=== PATIENT | female | born 1960 | race Caucasian/White ===

== ENCOUNTER 2016-06-04 19:52 | Inpatient (IN) | payer OTHER ==
[~2016-06-04] VITALS: Ht 160 cm; Wt 75.0 kg
[~2016-06-04 19:52] MED LIST: ALBU8HFA IH; ASPI325T PO; AZIT250T6 PO; BUPR100 PO; BUSP15 PO; DILT180C63 PO; DSS100 PO; ESTR-3 PO; GABA-531 PO; HYDR-309 PO; ISOS60TA4 PO; LORA10TA7 PO; LORA1TAB3 PO; METF500T4 PO; MONT10TA24 PO; OMEP20 PO; PRED10TA3 PO; SIMV-259 PO; ZIPR80CA2 PO
[2016-06-04 20:34] LABS: BASOPHILS % (AUTO) 0.8 % (0.0-2.0); EOSINOPHILS % (AUTO) 0 % (1.0-6.0); HEMATOCRIT 33.2 % (36-46); HEMOGLOBIN 10.7 g/dL (12.0-16.0); LYMPHOCYTES # (AUTO) 2.9 K/uL (1.0-4.8); LYMPHOCYTES % (AUTO) 18.3 % (22.0-44.0); MEAN CORPUSCULAR HGB CONC 32.2 G/dL (31.0-37.0); MEAN CORPUSCULAR VOLUME 81 fL (80-100); MONOCYTES # (AUTO) 0.7 K/uL (0.1-1.0); MONOCYTES % (AUTO) 4.6 % (2.0-9.0); NEUTROPHILS # (AUTO) 12.1 K/uL (1.8-7.7); NEUTROPHILS % (AUTO) 76.3 % (40.0-70.0); PLATELET COUNT (AUTO) 539 K/uL (150-450); RED CELL DISTRIBUTION WIDTH 19.5 % (11.5-14.5); WHITE BLOOD COUNT (AUTO) 15.8 K/uL (4.5-11.0)
[2016-06-04 20:47] LABS: ANION GAP 9 mmol/L (8-16); CALCIUM, TOTAL 9.4 mg/dL (8.8-10.5); CARBON DIOXIDE 30 mmol/L (22-29); CHLORIDE 93 mmol/L (98-107); CREATININE 0.71 mg/dL (0.60-1.30); GLOMERULAR FILTR. RATE CALC > 60 mL/min (>60); POTASSIUM 3.9 mmol/L (3.5-5.1); SODIUM SERUM 132 mmol/L (136-145); UREA NITROGEN, BLOOD 9 mg/dL (7-18)
[2016-06-04 20:48] LABS: RBC MORPHOLOGY COMMENT ABNORMAL RBC MORPH
[2016-06-04 20:54] LABS: ALANINE AMINOTRANSFERASE 21 U/L (12-78); ALBUMIN 3.1 g/dL (3.4-5.0); ASPARTATE AMINOTRANSFERASE 6 U/L (15-37); BILIRUBIN,TOTAL 0.1 mg/dL (0.1-1.0); CREATINE KINASE, TOTAL 20 U/L (26-192); TOTAL PROTEIN, SERUM 6.7 g/dL (6.4-8.2)
[2016-06-04 20:55] LABS: B-TYPE NATRIURETIC PEPTIDE 21 pg/mL (0-100)
[2016-06-04 22:00] LABS: ADD UA MICROSCOPIC NO; APPEARANCE,URINE CLEAR (CLEAR); GLUCOSE, URINE (UA) NEGATIVE (NEGATIVE); KETONES,URINE NEGATIVE (NEGATIVE); LEUKOCYTE ESTERASE ,URINE NEGATIVE (NEGATIVE); OCCULT BLOOD,URINE NEGATIVE (NEGATIVE); PROTEIN,URINE NEGATIVE (NEGATIVE)
[2016-06-04] MEDS ORDERED: ALBUTEROL SULFATE 2.5 MG/0.5 ML NEB SOLUTION NEB ONE (22:15)
[2016-06-04] MEDS ORDERED: IPRATROPIUM BROMIDE 0.5 MG/2.5 ML NEB SOLUTION NEB ONE (22:15)
[2016-06-04] MEDS ORDERED: ONDANSETRON HCL 4 MG/2 ML VIAL IM ONE (22:15)
[2016-06-04] MEDS ORDERED: PredniSONE 20 MG TABLET PO ONE (22:15)
[2016-06-04] MEDS ORDERED: MORPHINE SULFATE 4 MG/ML SYRINGE IM ONE (22:15)
[2016-06-04 22:20] LABS: AMYLASE 69 U/L (25-115)
[2016-06-04] MEDS ORDERED: BISACODYL 10 MG RECTAL RECTAL SUPPOSITORY PR PRN (23:15)
[2016-06-04] MEDS ORDERED: DEXTROSE 50%-WATER 25 GM/50 ML SYRINGE IVP PRN (23:15)
[2016-06-04] MEDS ORDERED: MAGNESIUM HYDROXIDE SUSPENSION 30 ML UDCUP PO PRN (23:15)
[2016-06-04] MEDS ORDERED: ALBUTEROL SULFATE 2.5 MG/0.5 ML NEB SOLUTION NEB PRN (23:15)
[2016-06-04] MEDS ORDERED: ACETAMINOPHEN 325 MG TABLET PO PRN (23:15)
[2016-06-04] MEDS ORDERED: ONDANSETRON HCL 4 MG/2 ML VIAL IVP PRN (23:15)
[2016-06-04] MEDS ORDERED: ASPI81 PO (23:22)
[2016-06-05] MEDS: MORPHINE SULFATE 2 MG/ML SYRINGE IVP PRN ×10 (00:25→23:56)
[2016-06-05] MEDS: PIPERACILLIN/TAZO 3.375 GM/D5W 50 ML IV SCH ×4 (01:24→20:09)
[2016-06-05] MEDS: MethylPREDNISolone SOD SUCC 125 MG/2 ML VIAL IVP SCH ×5 (01:24→23:55)
[2016-06-05] MEDS: HEPARIN SODIUM,PORCINE 5,000 UNITS/ML VIAL SQ SCH ×4 (01:40→23:56)
[2016-06-05] MEDS: IPRATROPIUM BROMIDE 0.5 MG/2.5 ML NEB SOLUTION NEB SCH ×4 (02:25→19:54)
[2016-06-05] MEDS: ALBUTEROL SULFATE 2.5 MG/0.5 ML NEB SOLUTION NEB SCH ×4 (02:25→19:54)
[2016-06-05] MEDS: ZOLPIDEM TARTRATE 10 MG TABLET PO PRN ×2 (02:56→22:06)
[2016-06-05 07:25] LABS: BASOPHILS % (AUTO) 1.3 % (0.0-2.0); EOSINOPHILS % (AUTO) 0 % (1.0-6.0); HEMATOCRIT 37.4 % (36-46); LYMPHOCYTES # (AUTO) 1.3 K/uL (1.0-4.8); MEAN CORPUSCULAR HEMOGLOBIN 25.9 pg (26.0-34.0); MEAN CORPUSCULAR VOLUME 81 fL (80-100); MONOCYTES % (AUTO) 0.1 % (2.0-9.0); NEUTROPHILS # (AUTO) 14.3 K/uL (1.8-7.7); PLATELET COUNT (AUTO) 599 K/uL (150-450); RED BLOOD CELL COUNT(AUTO) 4.61 MIL/uL (4.00-5.20); RED CELL DISTRIBUTION WIDTH 19.6 % (11.5-14.5); WHITE BLOOD COUNT (AUTO) 15.8 K/uL (4.5-11.0)
[2016-06-05 07:26] LABS: NEUTROPHILS % (AUTO) 90.6 % (40.0-70.0)
[2016-06-05 07:41] LABS: ALBUMIN 3.3 g/dL (3.4-5.0); BILIRUBIN,TOTAL 0.2 mg/dL (0.1-1.0); CALCIUM, TOTAL 9.1 mg/dL (8.8-10.5); CREATININE 0.97 mg/dL (0.60-1.30); POTASSIUM 4.5 mmol/L (3.5-5.1); TOTAL PROTEIN, SERUM 7.3 g/dL (6.4-8.2)
[2016-06-05 08:34] LABS: RBC MORPHOLOGY COMMENT ABNORMAL RBC MORPH
[2016-06-05] MEDS ORDERED: [UNRECOGNIZED DRUG - OTHER] PO SCH (09:00)
[2016-06-05] MEDS: DOCUSATE SODIUM 100 MG CAPSULE PO SCH ×2 (09:03→20:09)
[2016-06-05] MEDS: MetFORMIN HCL 500 MG TABLET PO SCH ×2 (09:04→17:44)
[2016-06-05] MEDS: ASPIRIN 81 MG CHEWABLE TABLET PO SCH (09:04)
[2016-06-05] MEDS: LORazepam 1 MG TABLET PO SCH ×3 (09:05→20:09)
[2016-06-05] MEDS: PANTOPRAZOLE SODIUM 40 MG DR TABLET PO SCH (09:05)
[2016-06-05] MEDS: INSULIN ASPART 100 UNITS/ML SQ PRN ×3 (09:10→21:14)
[2016-06-05 09:20] LABS: GLUCOSE COMMENT 1 Doctor Notified; GLUCOSE,POINT OF CARE 282 MG/DL (70-110)
[2016-06-05] MEDS: ISOSORBIDE MONONITRATE 60 MG ER TABLET PO SCH (10:03)
[2016-06-05] MEDS: DILTIAZEM HCL CD 180 MG ER CAPSULE PO SCH (10:03)
[2016-06-05] MEDS: ESTROGENS,CONJUGATED 0.625 MG TABLET PO SCH (10:03)
[2016-06-05] MEDS: ZIPRASIDONE HCL 80 MG CAPSULE PO SCH ×2 (10:04→17:44)
[2016-06-05] MEDS: BusPIRone HCL 15 MG TABLET PO SCH ×2 (10:04→20:09)
[2016-06-05] MEDS: LORATADINE 10 MG TABLET PO SCH (10:05)
[2016-06-05] MEDS: MONTELUKAST SODIUM 10 MG TABLET PO SCH (10:06)
[2016-06-05] MEDS: GABAPENTIN 300 MG CAPSULE PO SCH ×3 (10:06→20:09)
[2016-06-05] MEDS: BuPROPion HCL 100 MG TABLET PO SCH ×2 (10:07→21:07)
[2016-06-05] MEDS: SIMVASTATIN 10 MG TABLET PO SCH (10:08)
[2016-06-05 12:51] LABS: GLUCOSE,POINT OF CARE 180 MG/DL (70-110)
[2016-06-05 13:50] VITALS: BP 132/92
[2016-06-05 15:40] VITALS: BP 134/79
[2016-06-05] MEDS ORDERED: SODIUM CHLORIDE 0.9% 500 ML IV ONE (17:41)
[2016-06-05 19:57] VITALS: BP 150/79
[2016-06-05] MEDS: CALCIUM CARBONATE 500 MG CHEWABLE TABLET CHEW PRN (21:06)
[2016-06-05 23:37] VITALS: BP 138/79
[2016-06-06] VITALS (9 sets, daily range): BP systolic 126–150; BP diastolic 57–87
[2016-06-06] MEDS: PIPERACILLIN/TAZO 3.375 GM/D5W 50 ML IV SCH ×4 (01:38→18:07)
[2016-06-06 01:46] LABS: GLUCOSE COMMENT 1 Received Meds; GLUCOSE,POINT OF CARE 221 MG/DL (70-110)
[2016-06-06] MEDS: ALBUTEROL SULFATE 2.5 MG/0.5 ML NEB SOLUTION NEB SCH ×2 (03:34→08:06)
[2016-06-06] MEDS: IPRATROPIUM BROMIDE 0.5 MG/2.5 ML NEB SOLUTION NEB SCH ×4 (03:34→20:02)
[2016-06-06] MEDS: MORPHINE SULFATE 2 MG/ML SYRINGE IVP PRN ×5 (03:40→18:06)
[2016-06-06] MEDS: MethylPREDNISolone SOD SUCC 125 MG/2 ML VIAL IVP SCH ×3 (06:02→18:04)
[2016-06-06] MEDS: INSULIN ASPART 100 UNITS/ML SQ PRN ×4 (06:11→20:43)
[2016-06-06 06:40] LABS: BASOPHILS % (AUTO) 0.2 % (0.0-2.0); EOSINOPHILS % (AUTO) 0 % (1.0-6.0); HEMATOCRIT 33.3 % (36-46); HEMOGLOBIN 10.7 g/dL (12.0-16.0); LYMPHOCYTES # (AUTO) 1.2 K/uL (1.0-4.8); LYMPHOCYTES % (AUTO) 6.7 % (22.0-44.0); MEAN CORPUSCULAR HGB CONC 32.1 G/dL (31.0-37.0); MEAN CORPUSCULAR VOLUME 81 fL (80-100); MONOCYTES # (AUTO) 0.1 K/uL (0.1-1.0); MONOCYTES % (AUTO) 0.7 % (2.0-9.0); NEUTROPHILS # (AUTO) 16.4 K/uL (1.8-7.7); PLATELET COUNT (AUTO) 521 K/uL (150-450); RED BLOOD CELL COUNT(AUTO) 4.12 MIL/uL (4.00-5.20); RED CELL DISTRIBUTION WIDTH 19.5 % (11.5-14.5); WHITE BLOOD COUNT (AUTO) 17.7 K/uL (4.5-11.0)
[2016-06-06 06:56] LABS: NEUTROPHILS % (AUTO) 92.4 % (40.0-70.0)
[2016-06-06 07:07] LABS: ALANINE AMINOTRANSFERASE 19 U/L (12-78); ALBUMIN 2.9 g/dL (3.4-5.0); ANION GAP 11 mmol/L (8-16); ASPARTATE AMINOTRANSFERASE 7 U/L (15-37); BILIRUBIN,TOTAL 0.2 mg/dL (0.1-1.0); CALCIUM, TOTAL 8.9 mg/dL (8.8-10.5); CARBON DIOXIDE 27 mmol/L (22-29); CHLORIDE 96 mmol/L (98-107); CREATININE 0.79 mg/dL (0.60-1.30); GLOMERULAR FILTR. RATE CALC > 60 mL/min (>60); POTASSIUM 3.9 mmol/L (3.5-5.1); SODIUM SERUM 134 mmol/L (136-145); TOTAL PROTEIN, SERUM 6.5 g/dL (6.4-8.2); UREA NITROGEN, BLOOD 14 mg/dL (7-18)
[2016-06-06 07:48] LABS: RBC MORPHOLOGY COMMENT ABNORMAL RBC MORPH
[2016-06-06] MEDS: LORATADINE 10 MG TABLET PO SCH (08:33)
[2016-06-06] MEDS: DOCUSATE SODIUM 100 MG CAPSULE PO SCH ×2 (08:33→20:31)
[2016-06-06] MEDS: DILTIAZEM HCL CD 180 MG ER CAPSULE PO SCH (08:33)
[2016-06-06] MEDS: ZIPRASIDONE HCL 80 MG CAPSULE PO SCH ×2 (08:33→18:04)
[2016-06-06] MEDS: SIMVASTATIN 10 MG TABLET PO SCH (08:33)
[2016-06-06] MEDS: HEPARIN SODIUM,PORCINE 5,000 UNITS/ML VIAL SQ SCH ×2 (08:33→15:14)
[2016-06-06] MEDS: MONTELUKAST SODIUM 10 MG TABLET PO SCH (08:33)
[2016-06-06] MEDS: MetFORMIN HCL 500 MG TABLET PO SCH ×2 (08:33→18:04)
[2016-06-06] MEDS: PANTOPRAZOLE SODIUM 40 MG DR TABLET PO SCH (08:33)
[2016-06-06] MEDS: ISOSORBIDE MONONITRATE 60 MG ER TABLET PO SCH (08:33)
[2016-06-06] MEDS: GABAPENTIN 300 MG CAPSULE PO SCH ×3 (08:34→20:31)
[2016-06-06] MEDS: ASPIRIN 81 MG CHEWABLE TABLET PO SCH (08:34)
[2016-06-06] MEDS: LORazepam 1 MG TABLET PO SCH ×2 (08:34→15:14)
[2016-06-06] MEDS: BusPIRone HCL 15 MG TABLET PO SCH ×2 (08:34→20:31)
[2016-06-06] MEDS: BuPROPion HCL 100 MG TABLET PO SCH ×2 (08:35→21:15)
[2016-06-06] MEDS: ESTROGENS,CONJUGATED 0.625 MG TABLET PO SCH (09:12)
[2016-06-06] MEDS: OxyCODONE HCL/ACETAMINOPHEN 5-325 MG TABLET PO PRN ×2 (11:47→16:56)
[2016-06-06] MEDS ORDERED: LEVALBUTEROL HCL 0.63 MG/3 ML NEB SOLUTION NEB PRN (14:30)
[2016-06-06] MEDS: LEVALBUTEROL HCL 0.63 MG/3 ML NEB SOLUTION NEB SCH (20:01)
[2016-06-06 21:05] LABS: GLUCOSE COMMENT 1 Received Meds; GLUCOSE,POINT OF CARE 239 MG/DL (70-110)
[2016-06-06 21:06] LABS: GLUCOSE COMMENT 1 Received Meds; GLUCOSE,POINT OF CARE 244 MG/DL (70-110)
[2016-06-06] MEDS: CALCIUM CARBONATE 500 MG CHEWABLE TABLET CHEW PRN (22:27)
[2016-06-06] MEDS: BUDESONIDE 0.5 MG/2 ML NEB SOLUTION NEB SCH (23:28)
[2016-06-07] VITALS (7 sets, daily range): BP systolic 134–156; BP diastolic 79–91
[2016-06-07] MEDS: MethylPREDNISolone SOD SUCC 125 MG/2 ML VIAL IVP SCH ×5 (00:10→23:24)
[2016-06-07] MEDS: HEPARIN SODIUM,PORCINE 5,000 UNITS/ML VIAL SQ SCH ×4 (00:11→23:24)
[2016-06-07] MEDS: PIPERACILLIN/TAZO 3.375 GM/D5W 50 ML IV SCH ×4 (00:12→18:55)
[2016-06-07] MEDS: LORazepam 1 MG TABLET PO SCH ×4 (00:12→23:24)
[2016-06-07] MEDS: LEVALBUTEROL HCL 0.63 MG/3 ML NEB SOLUTION NEB SCH ×4 (03:08→19:52)
[2016-06-07] MEDS: IPRATROPIUM BROMIDE 0.5 MG/2.5 ML NEB SOLUTION NEB SCH ×4 (03:08→19:52)
[2016-06-07] MEDS: MORPHINE SULFATE 2 MG/ML SYRINGE IVP PRN ×4 (03:27→16:03)
[2016-06-07] MEDS: INSULIN ASPART 100 UNITS/ML SQ PRN ×4 (06:09→21:03)
[2016-06-07 06:44] LABS: BASOPHILS % (AUTO) 0.6 % (0.0-2.0); EOSINOPHILS % (AUTO) 0.1 % (1.0-6.0); HEMATOCRIT 32.2 % (36-46); HEMOGLOBIN 10.1 g/dL (12.0-16.0); LYMPHOCYTES % (AUTO) 5.9 % (22.0-44.0); MEAN CORPUSCULAR HEMOGLOBIN 25.5 pg (26.0-34.0); MEAN CORPUSCULAR HGB CONC 31.4 G/dL (31.0-37.0); MEAN CORPUSCULAR VOLUME 81 fL (80-100); MONOCYTES # (AUTO) 0.2 K/uL (0.1-1.0); MONOCYTES % (AUTO) 1.1 % (2.0-9.0); NEUTROPHILS # (AUTO) 16.2 K/uL (1.8-7.7); PLATELET COUNT (AUTO) 495 K/uL (150-450); RED BLOOD CELL COUNT(AUTO) 3.96 MIL/uL (4.00-5.20); RED CELL DISTRIBUTION WIDTH 18.5 % (11.5-14.5); WHITE BLOOD COUNT (AUTO) 17.5 K/uL (4.5-11.0)
[2016-06-07 06:54] LABS: NEUTROPHILS % (AUTO) 92.3 % (40.0-70.0)
[2016-06-07 07:23] LABS: ALANINE AMINOTRANSFERASE 20 U/L (12-78); ALBUMIN 2.9 g/dL (3.4-5.0); ANION GAP 12 mmol/L (8-16); ASPARTATE AMINOTRANSFERASE 10 U/L (15-37); BILIRUBIN,TOTAL 0.1 mg/dL (0.1-1.0); CALCIUM, TOTAL 8.9 mg/dL (8.8-10.5); CARBON DIOXIDE 25 mmol/L (22-29); CHLORIDE 95 mmol/L (98-107); CREATININE 0.84 mg/dL (0.60-1.30); GLOMERULAR FILTR. RATE CALC > 60 mL/min (>60); SODIUM SERUM 132 mmol/L (136-145); TOTAL PROTEIN, SERUM 6.2 g/dL (6.4-8.2); UREA NITROGEN, BLOOD 17 mg/dL (7-18)
[2016-06-07] MEDS: BUDESONIDE 0.5 MG/2 ML NEB SOLUTION NEB SCH ×2 (07:53→19:52)
[2016-06-07 08:37] LABS: GLUCOSE COMMENT 1 Received Meds; GLUCOSE,POINT OF CARE 303 MG/DL (70-110)
[2016-06-07 08:37] LABS: GLUCOSE COMMENT 1 Received Meds; GLUCOSE,POINT OF CARE 208 MG/DL (70-110)
[2016-06-07 08:38] LABS: GLUCOSE COMMENT 1 Received Meds; GLUCOSE,POINT OF CARE 216 MG/DL (70-110)
[2016-06-07 08:38] LABS: GLUCOSE COMMENT 1 Received Meds; GLUCOSE,POINT OF CARE 225 MG/DL (70-110)
[2016-06-07] MEDS: BuPROPion HCL 100 MG TABLET PO SCH ×2 (08:42→20:23)
[2016-06-07] MEDS: BusPIRone HCL 15 MG TABLET PO SCH ×2 (08:42→20:23)
[2016-06-07] MEDS: ZIPRASIDONE HCL 80 MG CAPSULE PO SCH ×2 (08:43→18:54)
[2016-06-07] MEDS: LORATADINE 10 MG TABLET PO SCH (08:43)
[2016-06-07] MEDS: ESTROGENS,CONJUGATED 0.625 MG TABLET PO SCH (08:43)
[2016-06-07] MEDS: DOCUSATE SODIUM 100 MG CAPSULE PO SCH ×2 (08:44→20:30)
[2016-06-07] MEDS: ISOSORBIDE MONONITRATE 60 MG ER TABLET PO SCH (08:44)
[2016-06-07] MEDS: SIMVASTATIN 10 MG TABLET PO SCH (08:44)
[2016-06-07] MEDS: ASPIRIN 81 MG CHEWABLE TABLET PO SCH (08:44)
[2016-06-07] MEDS: MONTELUKAST SODIUM 10 MG TABLET PO SCH (08:44)
[2016-06-07] MEDS: PANTOPRAZOLE SODIUM 40 MG DR TABLET PO SCH (08:44)
[2016-06-07] MEDS: DILTIAZEM HCL CD 180 MG ER CAPSULE PO SCH (08:45)
[2016-06-07] MEDS: MetFORMIN HCL 500 MG TABLET PO SCH ×2 (08:55→19:03)
[2016-06-07] MEDS: GABAPENTIN 300 MG CAPSULE PO SCH ×3 (08:55→20:23)
[2016-06-07 09:01] LABS: RBC MORPHOLOGY COMMENT ABNORMAL RBC MORPH
[2016-06-07] MEDS: OxyCODONE HCL/ACETAMINOPHEN 5-325 MG TABLET PO PRN ×2 (10:27→17:50)
[2016-06-07] MEDS: CARVEDILOL 3.125 MG TABLET PO SCH ×2 (15:35→20:23)
[2016-06-07] MEDS: ZOLPIDEM TARTRATE 10 MG TABLET PO PRN (20:27)
[2016-06-08] VITALS (8 sets, daily range): BP systolic 121–157; BP diastolic 78–98
[2016-06-08] MEDS: PIPERACILLIN/TAZO 3.375 GM/D5W 50 ML IV SCH ×5 (00:33→23:57)
[2016-06-08] MEDS: OxyCODONE HCL/ACETAMINOPHEN 5-325 MG TABLET PO PRN ×4 (02:39→20:33)
[2016-06-08] MEDS: IPRATROPIUM BROMIDE 0.5 MG/2.5 ML NEB SOLUTION NEB SCH ×4 (02:45→20:33)
[2016-06-08] MEDS: LEVALBUTEROL HCL 0.63 MG/3 ML NEB SOLUTION NEB SCH ×4 (02:45→20:33)
[2016-06-08] MEDS: MethylPREDNISolone SOD SUCC 125 MG/2 ML VIAL IVP SCH ×4 (05:46→23:56)
[2016-06-08] MEDS: MORPHINE SULFATE 2 MG/ML SYRINGE IVP PRN ×4 (05:46→23:56)
[2016-06-08 05:47] LABS: BASOPHILS % (AUTO) 0.2 % (0.0-2.0); EOSINOPHILS % (AUTO) 0 % (1.0-6.0); HEMATOCRIT 31.3 % (36-46); LYMPHOCYTES # (AUTO) 1.1 K/uL (1.0-4.8); LYMPHOCYTES % (AUTO) 7.2 % (22.0-44.0); MEAN CORPUSCULAR HEMOGLOBIN 25.8 pg (26.0-34.0); MEAN CORPUSCULAR VOLUME 81 fL (80-100); MONOCYTES # (AUTO) 0.4 K/uL (0.1-1.0); MONOCYTES % (AUTO) 2.5 % (2.0-9.0); NEUTROPHILS # (AUTO) 13.9 K/uL (1.8-7.7); PLATELET COUNT (AUTO) 475 K/uL (150-450); RED BLOOD CELL COUNT(AUTO) 3.88 MIL/uL (4.00-5.20); RED CELL DISTRIBUTION WIDTH 18.8 % (11.5-14.5); WHITE BLOOD COUNT (AUTO) 15.4 K/uL (4.5-11.0)
[2016-06-08] MEDS: INSULIN ASPART 100 UNITS/ML SQ PRN ×2 (05:53→18:04)
[2016-06-08 06:02] LABS: NEUTROPHILS % (AUTO) 90.1 % (40.0-70.0)
[2016-06-08 06:19] LABS: ALANINE AMINOTRANSFERASE 20 U/L (12-78); ALBUMIN 2.8 g/dL (3.4-5.0); ANION GAP 12 mmol/L (8-16); ASPARTATE AMINOTRANSFERASE 10 U/L (15-37); BILIRUBIN,TOTAL 0.2 mg/dL (0.1-1.0); CALCIUM, TOTAL 8.2 mg/dL (8.8-10.5); CARBON DIOXIDE 24 mmol/L (22-29); CHLORIDE 95 mmol/L (98-107); CREATININE 0.94 mg/dL (0.60-1.30); GLOMERULAR FILTR. RATE CALC > 60 mL/min (>60); POTASSIUM 3.6 mmol/L (3.5-5.1); SODIUM SERUM 131 mmol/L (136-145); TOTAL PROTEIN, SERUM 5.8 g/dL (6.4-8.2); UREA NITROGEN, BLOOD 24 mg/dL (7-18)
[2016-06-08 07:25] LABS: RBC MORPHOLOGY COMMENT ABNORMAL RBC MORPH
[2016-06-08] MEDS ORDERED: 0.9% SODIUM CHLORIDE 5 ML NEB SOLUTION NEB ONE (07:48)
[2016-06-08] MEDS: HEPARIN SODIUM,PORCINE 5,000 UNITS/ML VIAL SQ SCH ×3 (07:53→23:57)
[2016-06-08] MEDS: LORazepam 1 MG TABLET PO SCH ×3 (08:10→23:56)
[2016-06-08] MEDS: MONTELUKAST SODIUM 10 MG TABLET PO SCH (08:10)
[2016-06-08] MEDS: CARVEDILOL 3.125 MG TABLET PO SCH ×2 (08:10→20:32)
[2016-06-08] MEDS: PANTOPRAZOLE SODIUM 40 MG DR TABLET PO SCH (08:10)
[2016-06-08] MEDS: MetFORMIN HCL 500 MG TABLET PO SCH ×2 (08:10→17:52)
[2016-06-08] MEDS: ASPIRIN 81 MG CHEWABLE TABLET PO SCH (08:10)
[2016-06-08] MEDS: BuPROPion HCL 100 MG TABLET PO SCH ×2 (08:11→20:32)
[2016-06-08] MEDS: ESTROGENS,CONJUGATED 0.625 MG TABLET PO SCH (08:11)
[2016-06-08] MEDS: LORATADINE 10 MG TABLET PO SCH (08:11)
[2016-06-08] MEDS: BusPIRone HCL 15 MG TABLET PO SCH ×2 (08:11→20:32)
[2016-06-08] MEDS: ZIPRASIDONE HCL 80 MG CAPSULE PO SCH ×2 (08:12→17:52)
[2016-06-08] MEDS: BUDESONIDE 0.5 MG/2 ML NEB SOLUTION NEB SCH ×2 (09:04→20:45)
[2016-06-08] MEDS ORDERED: SODIUM CHLORIDE 0.9% 250 ML IV ONE (09:38)
[2016-06-08] MEDS: DOCUSATE SODIUM 100 MG CAPSULE PO SCH ×2 (09:40→20:32)
[2016-06-08] MEDS: ISOSORBIDE MONONITRATE 60 MG ER TABLET PO SCH (09:40)
[2016-06-08] MEDS: GABAPENTIN 300 MG CAPSULE PO SCH ×3 (09:40→20:32)
[2016-06-08] MEDS: SIMVASTATIN 10 MG TABLET PO SCH (09:40)
[2016-06-08] MEDS: DILTIAZEM HCL CD 180 MG ER CAPSULE PO SCH (09:40)
[2016-06-08 17:32] LABS: GLUCOSE COMMENT 1 Received Meds; GLUCOSE,POINT OF CARE 199 MG/DL (70-110)
[2016-06-08 17:36] LABS: GLUCOSE COMMENT 1 Received Meds; GLUCOSE,POINT OF CARE 247 MG/DL (70-110)
[2016-06-08] MEDS: ZOLPIDEM TARTRATE 10 MG TABLET PO PRN (20:32)
[2016-06-09 00:36] VITALS: BP 138/88
[2016-06-09] MEDS: OxyCODONE HCL/ACETAMINOPHEN 5-325 MG TABLET PO PRN ×2 (01:54→13:55)
[2016-06-09 02:11] LABS: GLUCOSE,POINT OF CARE 127 MG/DL (70-110)
[2016-06-09 02:11] LABS: GLUCOSE COMMENT 1 Received Meds; GLUCOSE,POINT OF CARE 208 MG/DL (70-110)
[2016-06-09 02:11] LABS: GLUCOSE,POINT OF CARE 138 MG/DL (70-110)
[2016-06-09 02:11] LABS: GLUCOSE COMMENT 1 Received Meds; GLUCOSE,POINT OF CARE 228 MG/DL (70-110)
[2016-06-09 02:11] LABS: GLUCOSE COMMENT 1 Received Meds; GLUCOSE,POINT OF CARE 225 MG/DL (70-110)
[2016-06-09] MEDS: IPRATROPIUM BROMIDE 0.5 MG/2.5 ML NEB SOLUTION NEB SCH ×4 (02:12→19:23)
[2016-06-09] MEDS: LEVALBUTEROL HCL 0.63 MG/3 ML NEB SOLUTION NEB SCH ×4 (02:12→19:23)
[2016-06-09 04:51] VITALS: BP 155/85
[2016-06-09] MEDS: MORPHINE SULFATE 2 MG/ML SYRINGE IVP PRN ×4 (05:32→23:05)
[2016-06-09] MEDS: MethylPREDNISolone SOD SUCC 125 MG/2 ML VIAL IVP SCH ×2 (05:32→11:41)
[2016-06-09] MEDS: PIPERACILLIN/TAZO 3.375 GM/D5W 50 ML IV SCH (06:19)
[2016-06-09] MEDS: INSULIN ASPART 100 UNITS/ML SQ PRN ×4 (06:25→20:47)
[2016-06-09 06:41] LABS: BASOPHILS # (AUTO) 0.07 K/uL (0.00-0.20); BASOPHILS % (AUTO) 0.5 % (0.0-2.0); EOSINOPHILS % (AUTO) 0 % (1.0-6.0); HEMOGLOBIN 10.4 g/dL (12.0-16.0); LYMPHOCYTES # (AUTO) 1.2 K/uL (1.0-4.8); LYMPHOCYTES % (AUTO) 8.7 % (22.0-44.0); MEAN CORPUSCULAR HEMOGLOBIN 25.7 pg (26.0-34.0); MEAN CORPUSCULAR HGB CONC 32.5 G/dL (31.0-37.0); MEAN CORPUSCULAR VOLUME 79 fL (80-100); MONOCYTES # (AUTO) 0.2 K/uL (0.1-1.0); MONOCYTES % (AUTO) 1.7 % (2.0-9.0); NEUTROPHILS # (AUTO) 12.6 K/uL (1.8-7.7); PLATELET COUNT (AUTO) 498 K/uL (150-450); RED BLOOD CELL COUNT(AUTO) 4.05 MIL/uL (4.00-5.20); RED CELL DISTRIBUTION WIDTH 19.1 % (11.5-14.5); WHITE BLOOD COUNT (AUTO) 14.1 K/uL (4.5-11.0)
[2016-06-09 06:46] LABS: GLUCOSE COMMENT 1 Received Meds; GLUCOSE,POINT OF CARE 212 MG/DL (70-110)
[2016-06-09 06:55] LABS: NEUTROPHILS % (AUTO) 89.2 % (40.0-70.0)
[2016-06-09 07:00] LABS: ALANINE AMINOTRANSFERASE 22 U/L (12-78); ALBUMIN 2.9 g/dL (3.4-5.0); ANION GAP 10 mmol/L (8-16); ASPARTATE AMINOTRANSFERASE 11 U/L (15-37); BILIRUBIN,TOTAL 0.2 mg/dL (0.1-1.0); CALCIUM, TOTAL 8.2 mg/dL (8.8-10.5); CARBON DIOXIDE 28 mmol/L (22-29); CHLORIDE 93 mmol/L (98-107); CREATININE 0.83 mg/dL (0.60-1.30); GLOMERULAR FILTR. RATE CALC > 60 mL/min (>60); POTASSIUM 3.3 mmol/L (3.5-5.1); SODIUM SERUM 131 mmol/L (136-145); UREA NITROGEN, BLOOD 20 mg/dL (7-18)
[2016-06-09] MEDS: BUDESONIDE 0.5 MG/2 ML NEB SOLUTION NEB SCH ×2 (07:43→19:23)
[2016-06-09 07:51] VITALS: BP 152/89
[2016-06-09] MEDS: ZIPRASIDONE HCL 80 MG CAPSULE PO SCH ×2 (08:20→17:42)
[2016-06-09] MEDS: GABAPENTIN 300 MG CAPSULE PO SCH ×3 (08:20→20:23)
[2016-06-09] MEDS: ASPIRIN 81 MG CHEWABLE TABLET PO SCH (08:20)
[2016-06-09] MEDS: LORATADINE 10 MG TABLET PO SCH (08:20)
[2016-06-09] MEDS: SIMVASTATIN 10 MG TABLET PO SCH (08:20)
[2016-06-09] MEDS: ISOSORBIDE MONONITRATE 60 MG ER TABLET PO SCH (08:20)
[2016-06-09] MEDS: DILTIAZEM HCL CD 180 MG ER CAPSULE PO SCH (08:20)
[2016-06-09] MEDS: ESTROGENS,CONJUGATED 0.625 MG TABLET PO SCH (08:20)
[2016-06-09] MEDS: DOCUSATE SODIUM 100 MG CAPSULE PO SCH ×2 (08:20→20:24)
[2016-06-09] MEDS: BuPROPion HCL 100 MG TABLET PO SCH ×2 (08:20→20:24)
[2016-06-09] MEDS: HEPARIN SODIUM,PORCINE 5,000 UNITS/ML VIAL SQ SCH ×3 (08:21→23:05)
[2016-06-09] MEDS: PANTOPRAZOLE SODIUM 40 MG DR TABLET PO SCH (08:21)
[2016-06-09] MEDS: CARVEDILOL 3.125 MG TABLET PO SCH ×2 (08:21→20:24)
[2016-06-09] MEDS: MONTELUKAST SODIUM 10 MG TABLET PO SCH (08:21)
[2016-06-09] MEDS: LORazepam 1 MG TABLET PO SCH ×3 (08:21→23:04)
[2016-06-09] MEDS: MetFORMIN HCL 500 MG TABLET PO SCH ×2 (08:21→17:41)
[2016-06-09] MEDS: BusPIRone HCL 15 MG TABLET PO SCH ×2 (08:27→20:24)
[2016-06-09] MEDS ORDERED: POTASSIUM CHL 10 MEQ/WATER 50 ML IV PRN (10:45)
[2016-06-09] MEDS ORDERED: POTASSIUM CHLORIDE 20 MEQ ER TABLET PO PRN (10:45)
[2016-06-09] MEDS ORDERED: *CLINICAL-LEVOFLOXACIN IVPB DOSING CLINICAL ONE ×2 (11:00)
[2016-06-09 11:06] LABS: BAND NEUTROPHILS % (MANUAL) 18 % (1-5); LYMPHOCYTES % (MANUAL) 14 % (22-44); TOTAL CELLS COUNTED 100
[2016-06-09 11:07] LABS: RBC MORPHOLOGY COMMENT ABNORMAL RBC MORPH
[2016-06-09 11:33] VITALS: BP 143/83
[2016-06-09] MEDS: CALCIUM CARBONATE 500 MG CHEWABLE TABLET CHEW PRN (11:47)
[2016-06-09] MEDS: LEVOFLOXACIN 500 MG/D5% WATER 100 ML IV SCH (12:35)
[2016-06-09 15:06] LABS: GLUCOSE COMMENT 1 Received Meds; GLUCOSE,POINT OF CARE 205 MG/DL (70-110)
[2016-06-09 16:22] VITALS: BP 147/86
[2016-06-09] MEDS: MethylPREDNISolone SOD SUCC 40 MG/ML VIAL IVP SCH ×2 (17:41→23:05)
[2016-06-09 19:11] LABS: GLUCOSE COMMENT 1 Received Meds; GLUCOSE,POINT OF CARE 164 MG/DL (70-110)
[2016-06-09 19:25] VITALS: BP 150/84
[2016-06-09] MEDS: ZOLPIDEM TARTRATE 10 MG TABLET PO PRN (20:23)
[2016-06-09 20:36] LABS: GLUCOSE COMMENT 1 Received Meds; GLUCOSE,POINT OF CARE 177 MG/DL (70-110)
[2016-06-10 00:10] VITALS: BP 148/78
[2016-06-10] MEDS: IPRATROPIUM BROMIDE 0.5 MG/2.5 ML NEB SOLUTION NEB SCH ×3 (03:36→14:58)
[2016-06-10] MEDS: LEVALBUTEROL HCL 0.63 MG/3 ML NEB SOLUTION NEB SCH ×3 (03:36→14:58)
[2016-06-10] MEDS: MORPHINE SULFATE 2 MG/ML SYRINGE IVP PRN ×3 (04:58→16:45)
[2016-06-10] MEDS: MethylPREDNISolone SOD SUCC 40 MG/ML VIAL IVP SCH (05:05)
[2016-06-10 05:52] VITALS: BP 126/78
[2016-06-10] MEDS: INSULIN ASPART 100 UNITS/ML SQ PRN ×3 (06:21→17:40)
[2016-06-10] MEDS: OxyCODONE HCL/ACETAMINOPHEN 5-325 MG TABLET PO PRN (07:05)
[2016-06-10 07:31] VITALS: BP 152/91
[2016-06-10] MEDS ORDERED: PredniSONE 20 MG TABLET PO SCH (09:00)
[2016-06-10] MEDS: HEPARIN SODIUM,PORCINE 5,000 UNITS/ML VIAL SQ SCH ×2 (09:11→16:53)
[2016-06-10] MEDS: BUDESONIDE 0.5 MG/2 ML NEB SOLUTION NEB SCH (09:11)
[2016-06-10] MEDS: BusPIRone HCL 15 MG TABLET PO SCH (09:12)
[2016-06-10] MEDS: ASPIRIN 81 MG CHEWABLE TABLET PO SCH (09:12)
[2016-06-10] MEDS: DOCUSATE SODIUM 100 MG CAPSULE PO SCH (09:13)
[2016-06-10] MEDS: DILTIAZEM HCL CD 180 MG ER CAPSULE PO SCH (09:13)
[2016-06-10] MEDS: LORATADINE 10 MG TABLET PO SCH (09:13)
[2016-06-10] MEDS: CARVEDILOL 3.125 MG TABLET PO SCH (09:14)
[2016-06-10] MEDS: ISOSORBIDE MONONITRATE 60 MG ER TABLET PO SCH (09:15)
[2016-06-10] MEDS: GABAPENTIN 300 MG CAPSULE PO SCH ×2 (09:15→16:53)
[2016-06-10] MEDS: BuPROPion HCL 100 MG TABLET PO SCH (09:16)
[2016-06-10] MEDS: PANTOPRAZOLE SODIUM 40 MG DR TABLET PO SCH (09:16)
[2016-06-10] MEDS: ESTROGENS,CONJUGATED 0.625 MG TABLET PO SCH (09:16)
[2016-06-10] MEDS: LORazepam 1 MG TABLET PO SCH ×2 (09:17→16:53)
[2016-06-10] MEDS: MetFORMIN HCL 500 MG TABLET PO SCH ×2 (09:54→18:06)
[2016-06-10] MEDS: SIMVASTATIN 10 MG TABLET PO SCH (09:56)
[2016-06-10] MEDS: MONTELUKAST SODIUM 10 MG TABLET PO SCH (09:56)
[2016-06-10] MEDS: ZIPRASIDONE HCL 80 MG CAPSULE PO SCH ×2 (10:22→17:42)
[2016-06-10] MEDS: LEVOFLOXACIN 500 MG/D5% WATER 100 ML IV SCH (11:13)
[2016-06-10 11:16] VITALS: BP 138/81
[2016-06-10 11:21] LABS: GLUCOSE COMMENT 1 Received Meds; GLUCOSE,POINT OF CARE 284 MG/DL (70-110)
[2016-06-10 16:16] VITALS: BP 143/80
[2016-06-10 16:30] LABS: GLUCOSE,POINT OF CARE 265 MG/DL (70-110)
[2016-06-10 18:26] LABS: GLUCOSE,POINT OF CARE 176 MG/DL (70-110)
== END 2016-06-10 18:30 | DRG 720 ==
LOC: EMS 19:54 → 5S 06-05 11:55
PROVIDERS: ADMIT Hospitalist; ATTEND Hospitalist
DX: A41.9 Sepsis, unspecified organism (principal); J96.01 Acute respiratory failure with hypoxia; J18.9 Pneumonia, unspecified organism; J44.1 Chronic obstructive pulmonary disease with (acute) exacerbation; E44.1 Mild protein-calorie malnutrition; J44.0 Chronic obstructive pulmonary disease with (acute) lower respiratory infection; D64.9 Anemia, unspecified; I25.10 Atherosclerotic heart disease of native coronary artery without angina pectoris; I10 Essential (primary) hypertension
CPT/HCPCS: 71250; 82962; 84132; 85007; 87040; 93005; 93306; 94640; 96372; 97110; 97116; 97161; 99285; 99406; J1644; J1815; J1956; J2270; J2405; J2543; J2920; J2930; J7040; J7050

== ENCOUNTER 2016-09-25 12:25 | Inpatient (IN) | payer OTHER ==
[~2016-09-25] VITALS: Ht 160 cm; Wt 78.2 kg
[~2016-09-25 12:25] MED LIST changes: -ASPI325T PO; +ASPI81 PO; -AZIT250T6 PO; -PRED10TA3 PO
[2016-09-25 12:37] LABS: GLUCOSE,POINT OF CARE 238 MG/DL (70-110)
[2016-09-25 13:42] LABS: EOSINOPHILS % (AUTO) 0.6 % (1.0-6.0); HEMATOCRIT 32.9 % (36-46); HEMOGLOBIN 10.1 g/dL (12.0-16.0); LYMPHOCYTES # (AUTO) 0.8 K/uL (1.0-4.8); LYMPHOCYTES % (AUTO) 3.5 % (22.0-44.0); MEAN CORPUSCULAR HEMOGLOBIN 24.2 pg (26.0-34.0); MEAN CORPUSCULAR HGB CONC 30.6 G/dL (31.0-37.0); MEAN CORPUSCULAR VOLUME 79 fL (80-100); MONOCYTES # (AUTO) 0.4 K/uL (0.1-1.0); MONOCYTES % (AUTO) 1.6 % (2.0-9.0); NEUTROPHILS # (AUTO) 22.3 K/uL (1.8-7.7); NEUTROPHILS % (AUTO) 94.3 % (40.0-70.0); PLATELET COUNT (AUTO) 364 K/uL (150-450); RED BLOOD CELL COUNT(AUTO) 4.16 MIL/uL (4.00-5.20); RED CELL DISTRIBUTION WIDTH 25.5 % (11.5-14.5); WHITE BLOOD COUNT (AUTO) 23.7 K/uL (4.5-11.0)
[2016-09-25 13:50] LABS: ANION GAP 11 mmol/L (8-16); CALCIUM, TOTAL 8.6 mg/dL (8.8-10.5); CARBON DIOXIDE 25 mmol/L (22-29); CHLORIDE 98 mmol/L (98-107); CREATININE 0.94 mg/dL (0.60-1.30); GLOMERULAR FILTR. RATE CALC > 60 mL/min (>60); POTASSIUM 4.3 mmol/L (3.5-5.1); SODIUM SERUM 134 mmol/L (136-145); UREA NITROGEN, BLOOD 17 mg/dL (7-18)
[2016-09-25 13:52] LABS: INR 0.9 (0.9-1.1); PROTHROMBIN TIME 9.5 SEC (9.4-11.6)
[2016-09-25 13:57] LABS: RBC MORPHOLOGY COMMENT ABNORMAL RBC MORPH
[2016-09-25 14:04] LABS: B-TYPE NATRIURETIC PEPTIDE 15 pg/mL (0-100)
[2016-09-25 14:14] LABS: ADD UA MICROSCOPIC YES; APPEARANCE,URINE CLOUDY (CLEAR); GLUCOSE, URINE (UA) 100 mg/dL (NEGATIVE); KETONES,URINE NEGATIVE (NEGATIVE); LEUKOCYTE ESTERASE ,URINE SMALL (NEGATIVE); OCCULT BLOOD,URINE NEGATIVE (NEGATIVE); PROTEIN,URINE NEGATIVE (NEGATIVE)
[2016-09-25 14:23] LABS: ALANINE AMINOTRANSFERASE 49 U/L (12-78); ASPARTATE AMINOTRANSFERASE 14 U/L (15-37); BILIRUBIN,TOTAL 0.3 mg/dL (0.1-1.0); CREATINE KINASE MB 2.6 ng/mL (0-5); CREATINE KINASE, TOTAL 103 U/L (26-192); TOTAL PROTEIN, SERUM 5.9 g/dL (6.4-8.2)
[2016-09-25 14:24] LABS: RBC,URINE 0-2 /HPF (0-2); SQUAMOUS EPITHELIAL CELL,UR Moderate /LPF (None Seen)
[2016-09-25] MEDS ORDERED: ONDANSETRON HCL 4 MG/2 ML VIAL IVP ONE (14:30)
[2016-09-25] MEDS ORDERED: ACETAMINOPHEN 325 MG TABLET PO PRN (14:30)
[2016-09-25] MEDS ORDERED: MAGNESIUM HYDROXIDE SUSPENSION 30 ML UDCUP PO PRN (14:30)
[2016-09-25] MEDS ORDERED: MORPHINE SULFATE 4 MG/ML SYRINGE IVP ONE (14:30)
[2016-09-25] MEDS ORDERED: DEXTROSE 50%-WATER 25 GM/50 ML SYRINGE IVP PRN (14:30)
[2016-09-25] MEDS: AZITHROMYCIN 500 MG/NS 250 ML IV SCH (15:29)
[2016-09-25] MEDS: FUROSEMIDE 40 MG/4 ML VIAL IVP SCH ×2 (15:29→20:48)
[2016-09-25] MEDS: CefTRIAXone 1 GM/DEXTROSE 50 ML IV SCH (15:29)
[2016-09-25] MEDS: ASPIRIN 81 MG CHEWABLE TABLET PO SCH (15:30)
[2016-09-25] MEDS: HEPARIN SODIUM,PORCINE 5,000 UNITS/ML VIAL SQ SCH (15:53)
[2016-09-25] MEDS: OxyCODONE HCL/ACETAMINOPHEN 5-325 MG TABLET PO PRN ×2 (16:32→22:16)
[2016-09-25] MEDS: MORPHINE SULFATE 2 MG/ML SYRINGE IVP PRN (20:03)
[2016-09-25] MEDS: DOCUSATE SODIUM 100 MG CAPSULE PO SCH (20:48)
[2016-09-25 21:02] VITALS: BP 135/69
[2016-09-25] MEDS: INSULIN ASPART 100 UNITS/ML SQ PRN (22:16)
[2016-09-25 23:20] VITALS: BP 120/64
[2016-09-26] MEDS: MORPHINE SULFATE 2 MG/ML SYRINGE IVP PRN ×6 (01:08→23:08)
[2016-09-26] MEDS: HEPARIN SODIUM,PORCINE 5,000 UNITS/ML VIAL SQ SCH ×3 (01:35→16:23)
[2016-09-26 04:33] VITALS: BP 139/77
[2016-09-26 05:44] LABS: ANION GAP 5 mmol/L (8-16); CALCIUM, TOTAL 8.1 mg/dL (8.8-10.5); CARBON DIOXIDE 31 mmol/L (22-29); CHLORIDE 92 mmol/L (98-107); CREATININE 0.93 mg/dL (0.60-1.30); GLOMERULAR FILTR. RATE CALC > 60 mL/min (>60); POTASSIUM 3.9 mmol/L (3.5-5.1); SODIUM SERUM 128 mmol/L (136-145); UREA NITROGEN, BLOOD 19 mg/dL (7-18)
[2016-09-26] MEDS: IPRATROPIUM BROMIDE 0.5 MG/2.5 ML NEB SOLUTION NEB PRN ×2 (07:05→14:20)
[2016-09-26] MEDS: ALBUTEROL SULFATE 2.5 MG/0.5 ML NEB SOLUTION NEB PRN ×2 (07:05→14:20)
[2016-09-26 07:28] LABS: EOSINOPHILS % (AUTO) 0.5 % (1.0-6.0); HEMATOCRIT 31.6 % (36-46); HEMOGLOBIN 9.6 g/dL (12.0-16.0); LYMPHOCYTES # (AUTO) 2.4 K/uL (1.0-4.8); LYMPHOCYTES % (AUTO) 15.5 % (22.0-44.0); MEAN CORPUSCULAR HEMOGLOBIN 24.2 pg (26.0-34.0); MEAN CORPUSCULAR HGB CONC 30.4 G/dL (31.0-37.0); MEAN CORPUSCULAR VOLUME 79 fL (80-100); MONOCYTES # (AUTO) 0.5 K/uL (0.1-1.0); MONOCYTES % (AUTO) 3.2 % (2.0-9.0); NEUTROPHILS # (AUTO) 12.6 K/uL (1.8-7.7); NEUTROPHILS % (AUTO) 79.8 % (40.0-70.0); PLATELET COUNT (AUTO) 334 K/uL (150-450); RED BLOOD CELL COUNT(AUTO) 3.97 MIL/uL (4.00-5.20); RED CELL DISTRIBUTION WIDTH 26.3 % (11.5-14.5); WHITE BLOOD COUNT (AUTO) 15.7 K/uL (4.5-11.0)
[2016-09-26 07:59] VITALS: BP 135/82
[2016-09-26] MEDS: ASPIRIN 81 MG CHEWABLE TABLET PO SCH (08:11)
[2016-09-26] MEDS: FUROSEMIDE 40 MG/4 ML VIAL IVP SCH ×2 (08:11→20:22)
[2016-09-26] MEDS: DOCUSATE SODIUM 100 MG CAPSULE PO SCH ×2 (08:11→20:22)
[2016-09-26 08:47] LABS: RBC MORPHOLOGY COMMENT DIMORPHIC RBC
[2016-09-26 11:05] VITALS: BP 140/77
[2016-09-26] MEDS: LORazepam 1 MG TABLET PO PRN (11:38)
[2016-09-26] MEDS: BuPROPion HCL 100 MG TABLET PO SCH ×2 (13:26→20:22)
[2016-09-26 15:05] VITALS: BP 136/76
[2016-09-26] MEDS ORDERED: SODIUM CHLORIDE 0.9% 100 ML ONE (15:29)
[2016-09-26] MEDS: CefTRIAXone 1 GM/DEXTROSE 50 ML IV SCH (15:38)
[2016-09-26] MEDS ORDERED: ONDANSETRON HCL 4 MG/2 ML VIAL IVP PRN (16:15)
[2016-09-26] MEDS: AZITHROMYCIN 500 MG/NS 250 ML IV SCH (16:24)
[2016-09-26] MEDS: CALCIUM CARBONATE 500 MG CHEWABLE TABLET CHEW PRN (17:30)
[2016-09-26] MEDS: ZIPRASIDONE HCL 80 MG CAPSULE PO SCH (17:30)
[2016-09-26 19:24] VITALS: BP 139/78
[2016-09-26 19:27] LABS: GLUCOSE COMMENT 1 Received Meds; GLUCOSE,POINT OF CARE 182 MG/DL (70-110)
[2016-09-26 23:36] VITALS: BP 135/77
[2016-09-27] MEDS: ALBUTEROL SULFATE 2.5 MG/0.5 ML NEB SOLUTION NEB PRN ×2 (02:35→14:51)
[2016-09-27] MEDS: IPRATROPIUM BROMIDE 0.5 MG/2.5 ML NEB SOLUTION NEB PRN ×2 (02:35→14:51)
[2016-09-27] MEDS: MORPHINE SULFATE 2 MG/ML SYRINGE IVP PRN ×5 (03:15→22:46)
[2016-09-27 04:52] VITALS: BP 124/60
[2016-09-27] MEDS: LORazepam 1 MG TABLET PO PRN ×2 (05:41→16:03)
[2016-09-27 05:44] LABS: ANION GAP 6 mmol/L (8-16); CALCIUM, TOTAL 8.6 mg/dL (8.8-10.5); CARBON DIOXIDE 32 mmol/L (22-29); CHLORIDE 93 mmol/L (98-107); GLOMERULAR FILTR. RATE CALC > 60 mL/min (>60); POTASSIUM 3.6 mmol/L (3.5-5.1); SODIUM SERUM 131 mmol/L (136-145); UREA NITROGEN, BLOOD 15 mg/dL (7-18)
[2016-09-27] MEDS: INSULIN ASPART 100 UNITS/ML SQ PRN ×2 (06:06→22:41)
[2016-09-27 06:19] LABS: BASOPHILS # (AUTO) 0.36 K/uL (0.00-0.20); BASOPHILS % (AUTO) 2.6 % (0.0-2.0); EOSINOPHILS # (AUTO) 0.07 K/uL (0.00-0.70); EOSINOPHILS % (AUTO) 0.48 % (1.0-6.0); HEMATOCRIT 36.3 % (36-46); HEMOGLOBIN 11.5 g/dL (12.0-16.0); LYMPHOCYTES # (AUTO) 1.6 K/uL (1.0-4.8); LYMPHOCYTES % (AUTO) 11.5 % (22.0-44.0); MEAN CORPUSCULAR HEMOGLOBIN 25.2 pg (26.0-34.0); MEAN CORPUSCULAR HGB CONC 31.7 G/dL (31.0-37.0); MEAN CORPUSCULAR VOLUME 80 fL (80-100); MONOCYTES # (AUTO) 0.5 K/uL (0.1-1.0); MONOCYTES % (AUTO) 3.4 % (2.0-9.0); NEUTROPHILS # (AUTO) 11.4 K/uL (1.8-7.7); PLATELET COUNT (AUTO) 401 K/uL (150-450); RED BLOOD CELL COUNT(AUTO) 4.56 MIL/uL (4.00-5.20); RED CELL DISTRIBUTION WIDTH 26.1 % (11.5-14.5); WHITE BLOOD COUNT (AUTO) 13.9 K/uL (4.5-11.0)
[2016-09-27 07:17] VITALS: BP 125/65
[2016-09-27] MEDS: ZIPRASIDONE HCL 80 MG CAPSULE PO SCH ×2 (07:35→17:18)
[2016-09-27] MEDS: FUROSEMIDE 40 MG/4 ML VIAL IVP SCH ×2 (07:35→21:24)
[2016-09-27] MEDS: DOCUSATE SODIUM 100 MG CAPSULE PO SCH ×2 (07:35→21:02)
[2016-09-27] MEDS: ASPIRIN 81 MG CHEWABLE TABLET PO SCH (07:35)
[2016-09-27] MEDS: HEPARIN SODIUM,PORCINE 5,000 UNITS/ML VIAL SQ SCH ×3 (07:35→15:07)
[2016-09-27] MEDS: BuPROPion HCL 100 MG TABLET PO SCH ×2 (07:35→21:02)
[2016-09-27] MEDS: PANTOPRAZOLE SODIUM 40 MG DR TABLET PO SCH (10:01)
[2016-09-27 11:17] VITALS: BP 114/65
[2016-09-27] MEDS ORDERED: SODIUM CHLORIDE 0.9% 100 ML ONE (13:46)
[2016-09-27] MEDS: OxyCODONE HCL/ACETAMINOPHEN 5-325 MG TABLET PO PRN (13:49)
[2016-09-27] MEDS: CefTRIAXone 1 GM/DEXTROSE 50 ML IV SCH (13:50)
[2016-09-27] MEDS: CALCIUM CARBONATE 500 MG CHEWABLE TABLET CHEW PRN (13:51)
[2016-09-27 13:57] LABS: GLUCOSE,POINT OF CARE 106 MG/DL (70-110)
[2016-09-27] MEDS: AZITHROMYCIN 500 MG/NS 250 ML IV SCH (15:06)
[2016-09-27 15:24] VITALS: BP 129/67
[2016-09-27 18:22] LABS: GLUCOSE COMMENT 1 Received Meds; GLUCOSE,POINT OF CARE 222 MG/DL (70-110)
[2016-09-27 18:22] LABS: GLUCOSE COMMENT 1 Received Meds; GLUCOSE,POINT OF CARE 97 MG/DL (70-110)
[2016-09-27 18:22] LABS: GLUCOSE,POINT OF CARE 134 MG/DL (70-110)
[2016-09-27 18:27] LABS: GLUCOSE,POINT OF CARE 119 MG/DL (70-110)
[2016-09-27 19:41] VITALS: BP 105/58
[2016-09-27 22:41] VITALS: BP 130/75
[2016-09-28] MEDS: HEPARIN SODIUM,PORCINE 5,000 UNITS/ML VIAL SQ SCH ×2 (00:29→07:52)
[2016-09-28 03:20] VITALS: BP 129/81
[2016-09-28] MEDS: MORPHINE SULFATE 2 MG/ML SYRINGE IVP PRN ×2 (03:23→07:53)
[2016-09-28] MEDS: LORazepam 1 MG TABLET PO PRN (04:20)
[2016-09-28] MEDS ORDERED: 0.9% SODIUM CHLORIDE 10 ML SYRINGE IVP PRN (04:30)
[2016-09-28] MEDS: INSULIN ASPART 100 UNITS/ML SQ PRN (06:24)
[2016-09-28 07:13] VITALS: BP 122/80
[2016-09-28] MEDS: ZIPRASIDONE HCL 80 MG CAPSULE PO SCH (07:52)
[2016-09-28] MEDS: FUROSEMIDE 40 MG/4 ML VIAL IVP SCH (07:52)
[2016-09-28] MEDS: ASPIRIN 81 MG CHEWABLE TABLET PO SCH (07:53)
[2016-09-28] MEDS: BuPROPion HCL 100 MG TABLET PO SCH (07:53)
[2016-09-28] MEDS: DOCUSATE SODIUM 100 MG CAPSULE PO SCH (07:53)
[2016-09-28] MEDS: PANTOPRAZOLE SODIUM 40 MG DR TABLET PO SCH (07:53)
[2016-09-30 17:03] LABS: GLUCOSE COMMENT 1 Received Meds; GLUCOSE,POINT OF CARE 154 MG/DL (70-110)
== END 2016-09-28 10:55 | disposition home or self-care (01) | DRG 194 ==
LOC: EMS 12:28 → 5S 19:57
PROVIDERS: ADMIT Internal Medicine; ATTEND Internal Medicine
DX: I11.0 Hypertensive heart disease with heart failure (principal); E11.40 Type 2 diabetes mellitus with diabetic neuropathy, unspecified; E44.0 Moderate protein-calorie malnutrition; E11.65 Type 2 diabetes mellitus with hyperglycemia; I50.33 Acute on chronic diastolic (congestive) heart failure; G89.29 Other chronic pain; F41.9 Anxiety disorder, unspecified; F31.9 Bipolar disorder, unspecified; K21.9 Gastro-esophageal reflux disease without esophagitis; J44.9 Chronic obstructive pulmonary disease, unspecified; F20.9 Schizophrenia, unspecified; F99 Mental disorder, not otherwise specified; F12.90 Cannabis use, unspecified, uncomplicated; J44.1 Chronic obstructive pulmonary disease with (acute) exacerbation; E78.00 Pure hypercholesterolemia, unspecified; Z79.890 Hormone replacement therapy; Z87.442 Personal history of urinary calculi; Z98.51 Tubal ligation status; Z87.891 Personal history of nicotine dependence; Z88.2 Allergy status to sulfonamides; Z88.8 Allergy status to other drugs, medicaments and biological substances; Z79.899 Other long term (current) drug therapy; Z79.82 Long term (current) use of aspirin; Z79.84 Long term (current) use of oral hypoglycemic drugs; Z79.1 Long term (current) use of non-steroidal anti-inflammatories (NSAID); Z86.2 Personal history of diseases of the blood and blood-forming organs and certain disorders involving the immune mechanism; Z68.30 Body mass index [BMI] 30.0-30.9, adult
CPT/HCPCS: 51702; 82962; 87040; 93005; 94640; 96374; 96375; 99285; J0456; J0696; J1644; J1940; J2270; J2405; J7050

== ENCOUNTER 2017-06-13 10:55 | Emergency (ER) | payer OTHER ==
[~2017-06-13] VITALS: Ht 160 cm; Wt 65.9 kg
[~2017-06-13 10:55] MED LIST changes: -ALBU8HFA IH; +ALBU8HFA4 IH; -ASPI81 PO; -ESTR-3 PO; -HYDR-309 PO; -ISOS60TA4 PO; -LORA10TA7 PO; -MONT10TA24 PO; +PERCT PO; +PRED10 PO
[2017-06-13] MEDS ORDERED: LISI-662 PO (11:11)
[2017-06-13] MEDS ORDERED: IPRA4AER IH (11:11)
[2017-06-13] MEDS ORDERED: MOME13HF2 IH (11:11)
[2017-06-13] MEDS ORDERED: ISOS60TA4 PO (11:11)
[2017-06-13] MEDS ORDERED: PREM625 PO (11:11)
[2017-06-13 11:17] LABS: GLUCOSE,POINT OF CARE 120 MG/DL (70-110)
[2017-06-13] MEDS ORDERED: ONDANSETRON HCL 4 MG/2 ML VIAL IVP ONE ×2 (11:30→13:30)
[2017-06-13] MEDS ORDERED: MORPHINE SULFATE 4 MG/ML SYRINGE IVP ONE (11:30)
[2017-06-13 11:53] LABS: APPEARANCE,URINE CLEAR (CLEAR); BILIRUBIN,URINE NEGATIVE (NEGATIVE); GLUCOSE, URINE (UA) NEGATIVE (NEGATIVE); KETONES,URINE NEGATIVE (NEGATIVE); LEUKOCYTE ESTERASE ,URINE NEGATIVE (NEGATIVE); NITRATE,URINE NEGATIVE (NEGATIVE); OCCULT BLOOD,URINE NEGATIVE (NEGATIVE); PROTEIN,URINE NEGATIVE (NEGATIVE); UROBILINOGEN,URINE 0.2 mg/dL (<=1.0)
[2017-06-13 12:10] LABS: BASOPHILS % (AUTO) 1.5 % (0.0-2.0); EOSINOPHILS % (AUTO) 0.1 % (1.0-6.0); HEMATOCRIT 34.9 % (36-46); HEMOGLOBIN 11.1 g/dL (12.0-16.0); LYMPHOCYTES # (AUTO) 3.9 K/uL (1.0-4.8); MEAN CORPUSCULAR HEMOGLOBIN 24.6 pg (26.0-34.0); MEAN CORPUSCULAR HGB CONC 31.7 G/dL (31.0-37.0); MEAN CORPUSCULAR VOLUME 78 fL (80-100); MONOCYTES # (AUTO) 1.8 K/uL (0.1-1.0); MONOCYTES % (AUTO) 7.9 % (2.0-9.0); NEUTROPHILS # (AUTO) 16.8 K/uL (1.8-7.7); NEUTROPHILS % (AUTO) 73.5 % (40.0-70.0); PLATELET COUNT (AUTO) 498 K/uL (150-450); RED BLOOD CELL COUNT(AUTO) 4.49 MIL/uL (4.00-5.20); RED CELL DISTRIBUTION WIDTH 19.5 % (11.5-14.5)
[2017-06-13 12:19] LABS: ANION GAP 10 mmol/L (8-16); CALCIUM, TOTAL 9.3 mg/dL (8.8-10.5); CARBON DIOXIDE 24 mmol/L (22-29); CHLORIDE 100 mmol/L (98-107); CREATININE 0.73 mg/dL (0.60-1.30); GLOMERULAR FILTR. RATE CALC > 60 mL/min (>60); GLUCOSE,RANDOM 93 mg/dL (70-110); POTASSIUM 4.7 mmol/L (3.5-5.1); SODIUM SERUM 134 mmol/L (136-145); UREA NITROGEN, BLOOD 19 mg/dL (7-18)
[2017-06-13 12:25] LABS: ALANINE AMINOTRANSFERASE 19 U/L (12-78); ALBUMIN 3.3 g/dL (3.4-5.0); ALKALINE PHOSPHATASE 52 U/L (46-116); ASPARTATE AMINOTRANSFERASE 10 U/L (15-37); BILIRUBIN,TOTAL 0.2 mg/dL (0.1-1.0); LIPASE 151 U/L (73-393)
[2017-06-13] MEDS ORDERED: IOVERSOL 350 MG/ML 100 ML VIAL ONE (13:29)
[2017-06-13] MEDS ORDERED: HYDROmorphone 2 MG/ML SYRINGE IVP ONE (13:30)
[2017-06-13] MEDS ORDERED: SODIUM CHLORIDE 0.9% 1,000 ML IV ONE (13:30)
[2017-06-13] MEDS ORDERED: BARIUM SULFATE 0.1% SUSPENSION 450 ML BOTTLE PO ONE (13:30)
[2017-06-13 15:35] VITALS: BP 117/78
[2017-06-17] MEDS ORDERED: METR500 PO (17:15)
[2017-06-17] MEDS ORDERED: CIPR-278 PO (17:15)
== END 2017-06-13 16:31 | disposition home or self-care (01) ==
LOC: EMS 10:56
DX: G89.29 Other chronic pain (principal); R10.10 Upper abdominal pain, unspecified; J44.1 Chronic obstructive pulmonary disease with (acute) exacerbation; E78.00 Pure hypercholesterolemia, unspecified; I10 Essential (primary) hypertension; Z88.2 Allergy status to sulfonamides; Z87.442 Personal history of urinary calculi
CPT/HCPCS: 36415; 74018; 74177; 80053; 81003; 82962; 83605; 83690; 85025; 96361; 96374; 96375; 96376; 99285; J1170; J2270; J2405; J7030; Q9967; Z7610

== ENCOUNTER 2017-06-21 11:53 | Emergency (ER) | payer OTHER ==
[~2017-06-21] VITALS: Ht 170.2 cm; Wt 68.2 kg
[~2017-06-21 11:53] MED LIST changes: -ALBU8HFA4 IH; -BUPR100 PO; +CIPR-278 PO; -DILT180C63 PO; -DSS100 PO; +IPRA4AER IH; +ISOS60TA4 PO; +LISI-662 PO; -LORA1TAB3 PO; +METR500 PO; +MOME13HF2 IH; -PERCT PO; -PRED10 PO; +PREM625 PO
[2017-06-21 12:37] LABS: GLUCOSE,POINT OF CARE 142 MG/DL (70-110)
[2017-06-21] MEDS ORDERED: DICYCLOMINE HCL 20 MG TABLET PO ONE (12:45)
[2017-06-21] MEDS ORDERED: ONDANSETRON HCL 4 MG/2 ML VIAL IVP ONE ×2 (12:45→16:30)
[2017-06-21] MEDS ORDERED: SODIUM CHLORIDE 0.9% 1,000 ML IV ONE ×2 (12:45→18:00)
[2017-06-21 13:45] LABS: BASOPHILS % (AUTO) 1.4 % (0.0-2.0); HEMOGLOBIN 10.6 g/dL (12.0-16.0); LYMPHOCYTES # (AUTO) 1.9 K/uL (1.0-4.8); LYMPHOCYTES % (AUTO) 19.6 % (22.0-44.0); MEAN CORPUSCULAR HEMOGLOBIN 24.9 pg (26.0-34.0); MEAN CORPUSCULAR HGB CONC 32.2 G/dL (31.0-37.0); MEAN CORPUSCULAR VOLUME 78 fL (80-100); MONOCYTES # (AUTO) 1.2 K/uL (0.1-1.0); MONOCYTES % (AUTO) 12.3 % (2.0-9.0); NEUTROPHILS # (AUTO) 6.4 K/uL (1.8-7.7); NEUTROPHILS % (AUTO) 65.7 % (40.0-70.0); PLATELET COUNT (AUTO) 475 K/uL (150-450); RED BLOOD CELL COUNT(AUTO) 4.25 MIL/uL (4.00-5.20); RED CELL DISTRIBUTION WIDTH 19.4 % (11.5-14.5)
[2017-06-21 13:53] LABS: ANION GAP 10 mmol/L (8-16); CALCIUM, TOTAL 9.3 mg/dL (8.8-10.5); CARBON DIOXIDE 26 mmol/L (22-29); CHLORIDE 95 mmol/L (98-107); CREATININE 0.71 mg/dL (0.60-1.30); GLOMERULAR FILTR. RATE CALC > 60 mL/min (>60); GLUCOSE,RANDOM 133 mg/dL (70-110); POTASSIUM 3.8 mmol/L (3.5-5.1); SODIUM SERUM 131 mmol/L (136-145); UREA NITROGEN, BLOOD 6 mg/dL (7-18)
[2017-06-21] MEDS ORDERED: IOVERSOL 350 MG/ML 100 ML VIAL ONE (13:55)
[2017-06-21 13:59] LABS: ALANINE AMINOTRANSFERASE 23 U/L (12-78); ALBUMIN 3.1 g/dL (3.4-5.0); ALKALINE PHOSPHATASE 60 U/L (46-116); ASPARTATE AMINOTRANSFERASE 19 U/L (15-37); BILIRUBIN,TOTAL 0.2 mg/dL (0.1-1.0); LIPASE 121 U/L (73-393); TOTAL PROTEIN, SERUM 6.6 g/dL (6.4-8.2)
[2017-06-21 14:14] LABS: LACTIC ACID 2.7 mmol/L (0.4-2.0)
[2017-06-21] MEDS ORDERED: BARIUM SULFATE 0.1% SUSPENSION 450 ML BOTTLE PO ONE (14:45)
[2017-06-21] MEDS ORDERED: ACETAMINOPHEN 500 MG TABLET PO ONE (15:00)
[2017-06-21 15:32] LABS: APPEARANCE,URINE CLEAR (CLEAR); BILIRUBIN,URINE NEGATIVE (NEGATIVE); GLUCOSE, URINE (UA) NEGATIVE (NEGATIVE); KETONES,URINE NEGATIVE (NEGATIVE); LEUKOCYTE ESTERASE ,URINE NEGATIVE (NEGATIVE); NITRATE,URINE NEGATIVE (NEGATIVE); OCCULT BLOOD,URINE NEGATIVE (NEGATIVE); PROTEIN,URINE NEGATIVE (NEGATIVE); UROBILINOGEN,URINE 0.2 mg/dL (<=1.0)
[2017-06-21 15:43] LABS: BACTERIA,URINE Rare /HPF (None Seen); RBC,URINE 0-2 /HPF (0-2); SQUAMOUS EPITHELIAL CELL,UR Many /LPF (None Seen); WBC,URINE 0-2 /HPF (0-5)
[2017-06-21] MEDS ORDERED: KETOROLAC TROMETHAMINE 30 MG/ML VIAL IVP ONE (16:30)
[2017-06-21] MEDS ORDERED: TraMADol HCL 50 MG TABLET PO ONE (18:30)
[2017-06-21 19:40] VITALS: BP 122/76
== END 2017-06-21 20:09 | disposition home or self-care (01) ==
LOC: EMS 11:59
DX: R10.13 Epigastric pain (principal); R11.2 Nausea with vomiting, unspecified; R51 Headache; J45.909 Unspecified asthma, uncomplicated; J44.9 Chronic obstructive pulmonary disease, unspecified; E11.9 Type 2 diabetes mellitus without complications; I10 Essential (primary) hypertension; E78.00 Pure hypercholesterolemia, unspecified; Z88.2 Allergy status to sulfonamides; Z88.8 Allergy status to other drugs, medicaments and biological substances; Z87.891 Personal history of nicotine dependence
CPT/HCPCS: 36415; 74177; 80053; 81001; 82962; 83605; 83690; 84484; 85025; 96361; 96374; 96375; 99285; J1885; J2405; J7030; Q9967; Z7610

== ENCOUNTER 2017-06-21 20:43 | Emergency (ER) | payer OTHER ==
[~2017-06-21] VITALS: Ht 152.4 cm; Wt 77.3 kg
[2017-06-22] MEDS ORDERED: ACETAMINOPHEN 500 MG TABLET PO ONE (03:15)
[2017-06-22 04:11] VITALS: BP 166/90
== END 2017-06-22 04:50 | disposition home or self-care (01) ==
LOC: EMS 20:55
DX: G89.29 Other chronic pain (principal); R10.9 Unspecified abdominal pain; R11.0 Nausea; R51 Headache; E78.00 Pure hypercholesterolemia, unspecified; F20.9 Schizophrenia, unspecified; F32.9 Major depressive disorder, single episode, unspecified; F41.9 Anxiety disorder, unspecified; E11.40 Type 2 diabetes mellitus with diabetic neuropathy, unspecified; I10 Essential (primary) hypertension; J44.9 Chronic obstructive pulmonary disease, unspecified; Z87.442 Personal history of urinary calculi; Z88.2 Allergy status to sulfonamides; Z87.891 Personal history of nicotine dependence
CPT/HCPCS: 83605; 99283

== ENCOUNTER 2017-06-29 12:00 | Emergency (ER) | payer OTHER ==
[~2017-06-29] VITALS: Ht 160 cm; Wt 63.6 kg
[~2017-06-29 12:00] MED LIST changes: -CIPR-278 PO; -METR500 PO
[2017-06-29 12:23] LABS: GLUCOSE,POINT OF CARE 118 MG/DL (70-110)
[2017-06-29] MEDS: PHENOBARB/HYOSCY/ATROPINE/SCOP TABLET PO ONE (14:37)
[2017-06-29] MEDS: KETOROLAC TROMETHAMINE 30 MG/ML VIAL IM ONE (14:38)
[2017-06-29 14:49] LABS: BASOPHILS % (AUTO) 0.5 % (0.0-2.0); EOSINOPHILS % (AUTO) 0.8 % (1.0-6.0); HEMATOCRIT 34.9 % (36-46); HEMOGLOBIN 11.1 g/dL (12.0-16.0); LYMPHOCYTES # (AUTO) 2.8 K/uL (1.0-4.8); LYMPHOCYTES % (AUTO) 24.7 % (22.0-44.0); MEAN CORPUSCULAR HEMOGLOBIN 24.3 pg (26.0-34.0); MEAN CORPUSCULAR HGB CONC 31.6 G/dL (31.0-37.0); MEAN CORPUSCULAR VOLUME 77 fL (80-100); MONOCYTES # (AUTO) 0.8 K/uL (0.1-1.0); NEUTROPHILS # (AUTO) 7.6 K/uL (1.8-7.7); PLATELET COUNT (AUTO) 602 K/uL (150-450); RED BLOOD CELL COUNT(AUTO) 4.56 MIL/uL (4.00-5.20); RED CELL DISTRIBUTION WIDTH 19.1 % (11.5-14.5)
[2017-06-29 15:02] LABS: ANION GAP 7 mmol/L (8-16); CALCIUM, TOTAL 9.5 mg/dL (8.8-10.5); CARBON DIOXIDE 29 mmol/L (22-29); CHLORIDE 101 mmol/L (98-107); CREATININE 0.77 mg/dL (0.60-1.30); GLOMERULAR FILTR. RATE CALC > 60 mL/min (>60); GLUCOSE,RANDOM 86 mg/dL (70-110); POTASSIUM 5.2 mmol/L (3.5-5.1); SODIUM SERUM 137 mmol/L (136-145); UREA NITROGEN, BLOOD 15 mg/dL (7-18)
[2017-06-29 15:10] LABS: ALANINE AMINOTRANSFERASE 17 U/L (12-78); ALBUMIN 3.4 g/dL (3.4-5.0); ALKALINE PHOSPHATASE 64 U/L (46-116); ASPARTATE AMINOTRANSFERASE 17 U/L (15-37); BILIRUBIN,TOTAL 0.1 mg/dL (0.1-1.0); LIPASE 243 U/L (73-393); TOTAL PROTEIN, SERUM 7.2 g/dL (6.4-8.2)
[2017-06-29] MEDS: HYDROCODONE/ACETAMINOPHEN 5-325 MG TABLET PO ONE ×2 (15:36→18:57)
[2017-06-29 15:48] LABS: PLATELET MORPHOLOGY COMMENT INCREASED
[2017-06-29] MEDS: LORazepam 1 MG TABLET PO ONE ×2 (16:23→18:57)
[2017-06-29] MEDS: MORPHINE SULFATE 4 MG/ML SYRINGE IM ONE (18:09)
[2017-06-29 19:20] VITALS: BP 125/63
[2017-06-30] MEDS ORDERED: IOVERSOL 350 MG/ML 100 ML VIAL ONE (00:29)
== END 2017-06-29 19:41 | disposition home or self-care (01) ==
LOC: EMS 12:02
DX: F41.9 Anxiety disorder, unspecified (principal); R10.84 Generalized abdominal pain; F32.9 Major depressive disorder, single episode, unspecified; F20.9 Schizophrenia, unspecified; I10 Essential (primary) hypertension; E78.00 Pure hypercholesterolemia, unspecified; J44.9 Chronic obstructive pulmonary disease, unspecified; E11.9 Type 2 diabetes mellitus without complications; J45.909 Unspecified asthma, uncomplicated; Z87.442 Personal history of urinary calculi
CPT/HCPCS: 36415; 80053; 82962; 83690; 85025; 96372; 99284; J1885; J2270; Z7610

== ENCOUNTER 2017-06-29 20:34 | Emergency (ER) | payer OTHER ==
[~2017-06-29] VITALS: Ht 160 cm; Wt 63.6 kg
[2017-06-29 20:47] LABS: GLUCOSE,POINT OF CARE 99 MG/DL (70-110)
[2017-06-29 23:32] LABS: BASOPHILS % (AUTO) 2.6 % (0.0-2.0); EOSINOPHILS % (AUTO) 1.2 % (1.0-6.0); HEMATOCRIT 33.5 % (36-46); HEMOGLOBIN 10.8 g/dL (12.0-16.0); LYMPHOCYTES # (AUTO) 2.4 K/uL (1.0-4.8); LYMPHOCYTES % (AUTO) 22.1 % (22.0-44.0); MEAN CORPUSCULAR HEMOGLOBIN 24.7 pg (26.0-34.0); MEAN CORPUSCULAR HGB CONC 32.2 G/dL (31.0-37.0); MEAN CORPUSCULAR VOLUME 77 fL (80-100); MONOCYTES # (AUTO) 0.8 K/uL (0.1-1.0); NEUTROPHILS # (AUTO) 7.3 K/uL (1.8-7.7); NEUTROPHILS % (AUTO) 67.1 % (40.0-70.0); PLATELET COUNT (AUTO) 562 K/uL (150-450); RED BLOOD CELL COUNT(AUTO) 4.37 MIL/uL (4.00-5.20)
[2017-06-29 23:43] LABS: ANION GAP 5 mmol/L (8-16); CALCIUM, TOTAL 9.4 mg/dL (8.8-10.5); CARBON DIOXIDE 28 mmol/L (22-29); CHLORIDE 99 mmol/L (98-107); CREATININE 0.88 mg/dL (0.60-1.30); GLOMERULAR FILTR. RATE CALC > 60 mL/min (>60); GLUCOSE,RANDOM 114 mg/dL (70-110); POTASSIUM 5.3 mmol/L (3.5-5.1); SODIUM SERUM 132 mmol/L (136-145); UREA NITROGEN, BLOOD 14 mg/dL (7-18)
[2017-06-29] MEDS: ONDANSETRON HCL 4 MG/2 ML VIAL IVP ONE (23:43)
[2017-06-29] MEDS: MORPHINE SULFATE 2 MG/ML SYRINGE IVP ONE (23:43)
[2017-06-29] MEDS: SODIUM CHLORIDE 0.9% 1,000 ML IV ONE (23:43)
[2017-06-30] MEDS: LORazepam 2 MG/ML VIAL IVP ONE (01:09)
[2017-06-30] MEDS ORDERED: ZIPRASIDONE HCL 40 MG CAPSULE PO ONE (02:30)
[2017-06-30] MEDS: ZIPRASIDONE HCL 80 MG CAPSULE PO ONE (02:53)
[2017-06-30] MEDS: GABAPENTIN 300 MG CAPSULE PO ONE (02:53)
[2017-06-30] MEDS: OMEPRAZOLE 20 MG CAPSULE PO ONE (02:53)
[2017-06-30] MEDS: BusPIRone HCL 15 MG TABLET PO ONE (02:53)
[2017-06-30] MEDS: SODIUM POLYSTYRENE SULFONATE 15 GM/60 ML SUSPENSION BOTTLE PO ONE (02:53)
[2017-06-30 05:03] VITALS: BP 126/68
== END 2017-06-30 05:07 | disposition home or self-care (01) ==
LOC: EMS 20:35
DX: E87.5 Hyperkalemia (principal); R10.84 Generalized abdominal pain; I10 Essential (primary) hypertension; J44.9 Chronic obstructive pulmonary disease, unspecified; E78.00 Pure hypercholesterolemia, unspecified; E11.40 Type 2 diabetes mellitus with diabetic neuropathy, unspecified; Z88.2 Allergy status to sulfonamides; Z87.442 Personal history of urinary calculi
CPT/HCPCS: 36415; 71045; 74177; 80048; 82962; 84484; 85025; 93005; 96361; 96374; 96375; 99285; J2060; J2270; J2405; J7030

== ENCOUNTER 2017-07-18 10:11 | Emergency (ER) | payer OTHER ==
[~2017-07-18] VITALS: Ht 160 cm; Wt 66.8 kg
[2017-07-18] MEDS ORDERED: PB/HYOSCY/ATR/SCOP/LIDO/MAALOX 55 ML BOTTLE PO ONE (11:15)
[2017-07-18] MEDS ORDERED: MethylPREDNISolone SOD SUCC 125 MG/2 ML VIAL IVP ONE (11:15)
[2017-07-18] MEDS ORDERED: ALBUTEROL SULFATE 5 MG/ML 20 ML NEB SOLN [BULK] NEB ONE (11:15)
[2017-07-18] MEDS ORDERED: IPRATROPIUM BROMIDE 0.5 MG/2.5 ML NEB SOLUTION NEB ONE (11:15)
[2017-07-18] MEDS ORDERED: SODIUM CHLORIDE 0.9% 1,000 ML IV ONE ×2 (11:15→13:45)
[2017-07-18 11:36] LABS: BASOPHILS % (AUTO) 0.4 % (0.0-2.0); EOSINOPHILS % (AUTO) 0.2 % (1.0-6.0); HEMATOCRIT 35.8 % (36-46); HEMOGLOBIN 11.3 g/dL (12.0-16.0); LYMPHOCYTES # (AUTO) 2.4 K/uL (1.0-4.8); LYMPHOCYTES % (AUTO) 9.4 % (22.0-44.0); MEAN CORPUSCULAR HEMOGLOBIN 23.3 pg (26.0-34.0); MEAN CORPUSCULAR HGB CONC 31.5 G/dL (31.0-37.0); MEAN CORPUSCULAR VOLUME 74 fL (80-100); MONOCYTES # (AUTO) 2.1 K/uL (0.1-1.0); NEUTROPHILS # (AUTO) 21.2 K/uL (1.8-7.7); PLATELET COUNT (AUTO) 639 K/uL (150-450); RED BLOOD CELL COUNT(AUTO) 4.84 MIL/uL (4.00-5.20); RED CELL DISTRIBUTION WIDTH 19.1 % (11.5-14.5)
[2017-07-18 11:48] LABS: ANION GAP 9 mmol/L (8-16); CALCIUM, TOTAL 8.9 mg/dL (8.8-10.5); CARBON DIOXIDE 28 mmol/L (22-29); CHLORIDE 92 mmol/L (98-107); GLOMERULAR FILTR. RATE CALC > 60 mL/min (>60); GLUCOSE,RANDOM 116 mg/dL (70-110); POTASSIUM 4.2 mmol/L (3.5-5.1); SODIUM SERUM 129 mmol/L (136-145); UREA NITROGEN, BLOOD 8 mg/dL (7-18)
[2017-07-18 11:55] LABS: ALANINE AMINOTRANSFERASE 22 U/L (12-78); ALBUMIN 3.3 g/dL (3.4-5.0); ALKALINE PHOSPHATASE 68 U/L (46-116); ASPARTATE AMINOTRANSFERASE 13 U/L (15-37); BILIRUBIN,TOTAL 0.2 mg/dL (0.1-1.0); CREATINE KINASE, TOTAL 30 U/L (26-192); LIPASE 81 U/L (73-393); TOTAL PROTEIN, SERUM 6.1 g/dL (6.4-8.2)
[2017-07-18 12:09] LABS: B-TYPE NATRIURETIC PEPTIDE 47 pg/mL (0-100)
[2017-07-18] MEDS ORDERED: ACETAMINOPHEN 500 MG TABLET PO ONE (13:45)
[2017-07-18 14:57] VITALS: BP 136/75
== END 2017-07-18 15:35 | disposition home or self-care (01) ==
LOC: EMS 10:14
DX: J44.1 Chronic obstructive pulmonary disease with (acute) exacerbation (principal); D72.829 Elevated white blood cell count, unspecified; R10.13 Epigastric pain; F41.9 Anxiety disorder, unspecified; E11.40 Type 2 diabetes mellitus with diabetic neuropathy, unspecified; E78.00 Pure hypercholesterolemia, unspecified; F20.9 Schizophrenia, unspecified; I10 Essential (primary) hypertension; F17.210 Nicotine dependence, cigarettes, uncomplicated; Z87.442 Personal history of urinary calculi; Z88.2 Allergy status to sulfonamides
CPT/HCPCS: 36415; 51701; 71045; 80053; 82550; 83690; 83880; 84484; 85025; 93005; 94644; 96361; 96374; 99285; 99406; J2930; J7030; J7611; Z7610

== ENCOUNTER 2017-07-21 09:48 | Emergency (ER) | payer OTHER ==
[~2017-07-21] VITALS: Ht 162.6 cm; Wt 65.9 kg
[2017-07-21 10:17] LABS: GLUCOSE,POINT OF CARE 178 MG/DL (70-110)
[2017-07-21 11:30] LABS: BASOPHILS % (AUTO) 1.5 % (0.0-2.0); EOSINOPHILS % (AUTO) 0.8 % (1.0-6.0); HEMOGLOBIN 12.3 g/dL (12.0-16.0); LYMPHOCYTES # (AUTO) 4.2 K/uL (1.0-4.8); LYMPHOCYTES % (AUTO) 21.1 % (22.0-44.0); MEAN CORPUSCULAR HEMOGLOBIN 23.8 pg (26.0-34.0); MEAN CORPUSCULAR HGB CONC 32.5 G/dL (31.0-37.0); MEAN CORPUSCULAR VOLUME 73 fL (80-100); MONOCYTES # (AUTO) 1.8 K/uL (0.1-1.0); MONOCYTES % (AUTO) 8.9 % (2.0-9.0); NEUTROPHILS # (AUTO) 13.5 K/uL (1.8-7.7); NEUTROPHILS % (AUTO) 67.7 % (40.0-70.0); PLATELET COUNT (AUTO) 645 K/uL (150-450); RED BLOOD CELL COUNT(AUTO) 5.18 MIL/uL (4.00-5.20); RED CELL DISTRIBUTION WIDTH 19.4 % (11.5-14.5)
[2017-07-21] MEDS ORDERED: ALBUTEROL SULFATE 5 MG/ML 20 ML NEB SOLN [BULK] NEB ONE (11:30)
[2017-07-21] MEDS ORDERED: PB/HYOSCY/ATR/SCOP/LIDO/MAALOX 55 ML BOTTLE PO ONE (11:30)
[2017-07-21] MEDS ORDERED: IPRATROPIUM BROMIDE 0.5 MG/2.5 ML NEB SOLUTION NEB ONE (11:30)
[2017-07-21] MEDS ORDERED: ONDANSETRON HCL 4 MG/2 ML VIAL IVP ONE (11:30)
[2017-07-21] MEDS ORDERED: 0.9% SODIUM CHLORIDE 5 ML NEB SOLUTION NEB ONE (11:32)
[2017-07-21 11:40] LABS: ANION GAP 8 mmol/L (8-16); CALCIUM, TOTAL 9.3 mg/dL (8.8-10.5); CARBON DIOXIDE 24 mmol/L (22-29); CHLORIDE 95 mmol/L (98-107); CREATININE 0.85 mg/dL (0.60-1.30); GLOMERULAR FILTR. RATE CALC > 60 mL/min (>60); GLUCOSE,RANDOM 153 mg/dL (70-110); POTASSIUM 4.3 mmol/L (3.5-5.1); SODIUM SERUM 127 mmol/L (136-145); UREA NITROGEN, BLOOD 8 mg/dL (7-18)
[2017-07-21 11:46] LABS: ALANINE AMINOTRANSFERASE 20 U/L (12-78); ALBUMIN 3.3 g/dL (3.4-5.0); ALKALINE PHOSPHATASE 82 U/L (46-116); ASPARTATE AMINOTRANSFERASE 12 U/L (15-37); BILIRUBIN,TOTAL 0.2 mg/dL (0.1-1.0); LIPASE 174 U/L (73-393); TOTAL PROTEIN, SERUM 6.8 g/dL (6.4-8.2)
[2017-07-21 11:55] LABS: B-TYPE NATRIURETIC PEPTIDE 23 pg/mL (0-100)
[2017-07-21] MEDS ORDERED: TraMADol HCL 50 MG TABLET PO ONE (13:30)
[2017-07-21] MEDS ORDERED: AZITHROMYCIN 500 MG/NS 250 ML IV ONE (13:45)
[2017-07-21 13:54] LABS: GLUCOSE, URINE (UA) NEGATIVE (NEGATIVE); KETONES,URINE TRACE mg/dL (NEGATIVE); LEUKOCYTE ESTERASE ,URINE TRACE (NEGATIVE); NITRATE,URINE NEGATIVE (NEGATIVE); OCCULT BLOOD,URINE TRACE (NEGATIVE); PH,URINE 6.5 (5.0-8.0); PROTEIN,URINE TRACE (NEGATIVE); UROBILINOGEN,URINE 0.2 mg/dL (<=1.0)
[2017-07-21 13:55] LABS: APPEARANCE,URINE HAZY (CLEAR); BILIRUBIN,URINE PRELIM. POSITIVE (NEGATIVE)
[2017-07-21 14:35] LABS: BACTERIA,URINE None Seen /HPF (None Seen); RBC,URINE 0-2 /HPF (0-2); SQUAMOUS EPITHELIAL CELL,UR Moderate /LPF (None Seen); WBC,URINE 0-2 /HPF (0-5)
[2017-07-21 14:47] VITALS: BP 116/72
== END 2017-07-21 15:21 | disposition home or self-care (01) ==
LOC: EMS 09:49
DX: J44.1 Chronic obstructive pulmonary disease with (acute) exacerbation (principal); F41.9 Anxiety disorder, unspecified; G89.29 Other chronic pain; J45.901 Unspecified asthma with (acute) exacerbation; F31.9 Bipolar disorder, unspecified; F20.9 Schizophrenia, unspecified; I20.9 Angina pectoris, unspecified; E78.00 Pure hypercholesterolemia, unspecified; I10 Essential (primary) hypertension; E11.40 Type 2 diabetes mellitus with diabetic neuropathy, unspecified; I11.9 Hypertensive heart disease without heart failure; F17.210 Nicotine dependence, cigarettes, uncomplicated; Z88.2 Allergy status to sulfonamides; Z88.8 Allergy status to other drugs, medicaments and biological substances
CPT/HCPCS: 36415; 74022; 80053; 81001; 82962; 83690; 83880; 84484; 85025; 93005; 96365; 96375; 99285; J0456; J2405; J7611; Z7610

== ENCOUNTER 2017-09-01 08:47 | Emergency (ER) | payer OTHER ==
[~2017-09-01] VITALS: Ht 160 cm; Wt 63.6 kg
[~2017-09-01 08:47] MED LIST changes: +ASPI-1182 PO; +DILT180C63 PO; +ESTR-6 PO; +GUAI600T30 PO; +INSLAN SQ; -LISI-662 PO; +LORA10TA7 PO; -OMEP20 PO; +PANT40TA25 PO; +PRED10 PO; +PRED20 PO; +PRED5 PO; +RIVA20TA PO
[2017-09-01 08:58] LABS: GLUCOSE,POINT OF CARE 218 MG/DL (70-110)
[2017-09-01] MEDS ORDERED: SODIUM CHLORIDE 0.9% 1,000 ML IV ONE (09:15)
[2017-09-01] MEDS ORDERED: KETOROLAC TROMETHAMINE 30 MG/ML VIAL IVP ONE (09:15)
[2017-09-01 09:26] LABS: BASOPHILS % (AUTO) 1.3 % (0.0-2.0); EOSINOPHILS % (AUTO) 0.3 % (1.0-6.0); HEMOGLOBIN 11.4 g/dL (12.0-16.0); LYMPHOCYTES # (AUTO) 4.8 K/uL (1.0-4.8); LYMPHOCYTES % (AUTO) 16.8 % (22.0-44.0); MEAN CORPUSCULAR HEMOGLOBIN 22.3 pg (26.0-34.0); MEAN CORPUSCULAR HGB CONC 31.7 G/dL (31.0-37.0); MEAN CORPUSCULAR VOLUME 70 fL (80-100); MONOCYTES # (AUTO) 1.9 K/uL (0.1-1.0); MONOCYTES % (AUTO) 6.9 % (2.0-9.0); NEUTROPHILS # (AUTO) 21.2 K/uL (1.8-7.7); NEUTROPHILS % (AUTO) 74.7 % (40.0-70.0); PLATELET COUNT (AUTO) 697 K/uL (150-450); RED CELL DISTRIBUTION WIDTH 21.3 % (11.5-14.5)
[2017-09-01 09:46] LABS: ANION GAP 11 mmol/L (8-16); CALCIUM, TOTAL 9.2 mg/dL (8.8-10.5); CARBON DIOXIDE 21 mmol/L (22-29); CHLORIDE 95 mmol/L (98-107); CREATININE 0.86 mg/dL (0.60-1.30); GLOMERULAR FILTR. RATE CALC > 60 mL/min (>60); GLUCOSE,RANDOM 210 mg/dL (70-110); POTASSIUM 3.7 mmol/L (3.5-5.1); SODIUM SERUM 127 mmol/L (136-145); UREA NITROGEN, BLOOD 11 mg/dL (7-18)
[2017-09-01 09:52] LABS: ALANINE AMINOTRANSFERASE 25 U/L (12-78); ALBUMIN 3.1 g/dL (3.4-5.0); ALKALINE PHOSPHATASE 91 U/L (46-116); ASPARTATE AMINOTRANSFERASE 10 U/L (15-37); BILIRUBIN,TOTAL 0.2 mg/dL (0.1-1.0); LIPASE 193 U/L (73-393); TOTAL PROTEIN, SERUM 6.8 g/dL (6.4-8.2)
[2017-09-01] MEDS ORDERED: PB/HYOSCY/ATR/SCOP/LIDO/MAALOX 55 ML BOTTLE PO ONE (10:15)
[2017-09-01 10:50] LABS: AMPHET/METH SCREEN,URINE NEGATIVE (NEGATIVE); BARBITURATE SCREEN, URINE NEGATIVE (NEGATIVE); BENZODIAZEPINES SCREEN,URINE NEGATIVE (NEGATIVE); CANNABINOID SCREEN,URINE NEGATIVE (NEGATIVE); COCAINE SCREEN,URINE NEGATIVE (NEGATIVE); METHADONE SCREEN, URINE NEGATIVE (NEGATIVE); OPIATE SCREEN,URINE NEGATIVE (NEGATIVE)
[2017-09-01 10:52] LABS: PHENCYCLIDINE SCREEN,URINE NEGATIVE (NEGATIVE)
[2017-09-01 11:06] LABS: BILIRUBIN,URINE NEGATIVE (NEGATIVE); GLUCOSE, URINE (UA) NEGATIVE (NEGATIVE); KETONES,URINE NEGATIVE (NEGATIVE); LEUKOCYTE ESTERASE ,URINE NEGATIVE (NEGATIVE); NITRATE,URINE NEGATIVE (NEGATIVE); OCCULT BLOOD,URINE NEGATIVE (NEGATIVE); PROTEIN,URINE NEGATIVE (NEGATIVE); UROBILINOGEN,URINE 0.2 mg/dL (<=1.0)
[2017-09-01 11:11] LABS: APPEARANCE,URINE CLEAR (CLEAR)
[2017-09-01] MEDS ORDERED: ACETAMINOPHEN 1000 MG/ISO-OSM 100 ML IV ONE (11:30)
[2017-09-01 12:34] VITALS: BP 127/76
== END 2017-09-01 12:35 | disposition home or self-care (01) ==
LOC: EMS 08:48
DX: R10.9 Unspecified abdominal pain (principal); J44.1 Chronic obstructive pulmonary disease with (acute) exacerbation; F20.9 Schizophrenia, unspecified; D72.829 Elevated white blood cell count, unspecified; D64.9 Anemia, unspecified; F41.9 Anxiety disorder, unspecified; M19.90 Unspecified osteoarthritis, unspecified site; F31.9 Bipolar disorder, unspecified; K21.9 Gastro-esophageal reflux disease without esophagitis; E78.00 Pure hypercholesterolemia, unspecified; I10 Essential (primary) hypertension; F17.210 Nicotine dependence, cigarettes, uncomplicated; Z87.442 Personal history of urinary calculi; Z88.2 Allergy status to sulfonamides; Z88.8 Allergy status to other drugs, medicaments and biological substances; Z79.82 Long term (current) use of aspirin; Z79.4 Long term (current) use of insulin; Z79.899 Other long term (current) drug therapy; Z71.6 Tobacco abuse counseling
CPT/HCPCS: 36415; 71045; 80053; 80307; 81003; 82962; 83690; 84484; 85025; 93005; 96374; 96375; 99285; 99406; J0131; J1885; J7030; Z7610

== ENCOUNTER 2017-09-04 09:45 | Emergency (ER) | payer OTHER ==
[~2017-09-04] VITALS: Ht 160 cm; Wt 63.6 kg
[~2017-09-04 09:45] MED LIST changes: -METF500T4 PO; +METF500T6 PO; -PRED10 PO; -PRED20 PO; -PRED5 PO
[2017-09-04 10:18] LABS: GLUCOSE,POINT OF CARE 146 MG/DL (70-110)
[2017-09-04 10:30] VITALS: BP 124/61
[2017-09-04 10:39] LABS: BASOPHILS % (AUTO) 1.5 % (0.0-2.0); EOSINOPHILS % (AUTO) 1.1 % (1.0-6.0); HEMATOCRIT 33.3 % (36-46); HEMOGLOBIN 10.6 g/dL (12.0-16.0); LYMPHOCYTES % (AUTO) 19.7 % (22.0-44.0); MEAN CORPUSCULAR HEMOGLOBIN 22.4 pg (26.0-34.0); MEAN CORPUSCULAR HGB CONC 31.7 G/dL (31.0-37.0); MEAN CORPUSCULAR VOLUME 71 fL (80-100); MONOCYTES % (AUTO) 6.7 % (2.0-9.0); NEUTROPHILS # (AUTO) 10.9 K/uL (1.8-7.7); PLATELET COUNT (AUTO) 586 K/uL (150-450); RED BLOOD CELL COUNT(AUTO) 4.71 MIL/uL (4.00-5.20); RED CELL DISTRIBUTION WIDTH 21.8 % (11.5-14.5)
[2017-09-04 10:48] LABS: ANION GAP 10 mmol/L (8-16); CALCIUM, TOTAL 8.7 mg/dL (8.8-10.5); CARBON DIOXIDE 25 mmol/L (22-29); CHLORIDE 97 mmol/L (98-107); CREATININE 0.73 mg/dL (0.60-1.30); GLOMERULAR FILTR. RATE CALC > 60 mL/min (>60); GLUCOSE,RANDOM 136 mg/dL (70-110); POTASSIUM 3.9 mmol/L (3.5-5.1); SODIUM SERUM 132 mmol/L (136-145); UREA NITROGEN, BLOOD 8 mg/dL (7-18)
[2017-09-04 10:54] LABS: ALANINE AMINOTRANSFERASE 21 U/L (12-78); ALBUMIN 2.8 g/dL (3.4-5.0); ALKALINE PHOSPHATASE 80 U/L (46-116); ASPARTATE AMINOTRANSFERASE 13 U/L (15-37); BILIRUBIN,TOTAL 0.2 mg/dL (0.1-1.0); LIPASE 201 U/L (73-393); TOTAL PROTEIN, SERUM 6.3 g/dL (6.4-8.2)
[2017-09-04 11:02] LABS: BILIRUBIN,URINE NEGATIVE (NEGATIVE); GLUCOSE, URINE (UA) NEGATIVE (NEGATIVE); KETONES,URINE NEGATIVE (NEGATIVE); LEUKOCYTE ESTERASE ,URINE TRACE (NEGATIVE); NITRATE,URINE NEGATIVE (NEGATIVE); OCCULT BLOOD,URINE NEGATIVE (NEGATIVE); PH,URINE 6.5 (5.0-8.0); PROTEIN,URINE NEGATIVE (NEGATIVE); UROBILINOGEN,URINE 0.2 mg/dL (<=1.0)
[2017-09-04 11:09] LABS: APPEARANCE,URINE HAZY (CLEAR)
[2017-09-04 11:11] LABS: BACTERIA,URINE Few /HPF (None Seen); RBC,URINE None Seen /HPF (0-2); SQUAMOUS EPITHELIAL CELL,UR Few /LPF (None Seen); WBC,URINE 0-2 /HPF (0-5)
[2017-09-04] MEDS ORDERED: ONDANSETRON HCL 4 MG/2 ML VIAL IM ONE (11:30)
[2017-09-04] MEDS ORDERED: PB/HYOSCY/ATR/SCOP/LIDO/MAALOX 55 ML BOTTLE PO ONE (11:30)
[2017-09-04] MEDS ORDERED: TraMADol HCL 50 MG TABLET PO ONE (11:30)
== END 2017-09-04 11:56 | disposition home or self-care (01) ==
LOC: EMS 09:47
DX: R10.84 Generalized abdominal pain (principal); F41.9 Anxiety disorder, unspecified; D64.9 Anemia, unspecified; M19.90 Unspecified osteoarthritis, unspecified site; J45.909 Unspecified asthma, uncomplicated; F31.9 Bipolar disorder, unspecified; E11.9 Type 2 diabetes mellitus without complications; K21.9 Gastro-esophageal reflux disease without esophagitis; F17.210 Nicotine dependence, cigarettes, uncomplicated; E78.00 Pure hypercholesterolemia, unspecified; Z87.442 Personal history of urinary calculi; Z98.51 Tubal ligation status; Z79.84 Long term (current) use of oral hypoglycemic drugs; Z79.899 Other long term (current) drug therapy; Z88.2 Allergy status to sulfonamides; Z88.8 Allergy status to other drugs, medicaments and biological substances; Z71.6 Tobacco abuse counseling
CPT/HCPCS: 36415; 80053; 81001; 82962; 83690; 85025; 96372; 99284; 99406; J2405; Z7610

== ENCOUNTER 2017-09-25 13:31 | Emergency (ER) | payer OTHER ==
[~2017-09-25] VITALS: Ht 160 cm; Wt 64.5 kg
[2017-09-25] MEDS ORDERED: MORPHINE SULFATE 2 MG/ML SYRINGE IVP ONE (14:30)
[2017-09-25] MEDS ORDERED: NITROGLYCERIN 2% (1 GM=INCH) PACKET TP ONE (14:30)
[2017-09-25] MEDS ORDERED: ONDANSETRON HCL 4 MG/2 ML VIAL IVP ONE (14:30)
[2017-09-25 14:57] LABS: BASOPHILS % (AUTO) 0.6 % (0.0-2.0); EOSINOPHILS % (AUTO) 0.7 % (1.0-6.0); HEMATOCRIT 32.7 % (36-46); HEMOGLOBIN 10.8 g/dL (12.0-16.0); LYMPHOCYTES # (AUTO) 3.9 K/uL (1.0-4.8); LYMPHOCYTES % (AUTO) 20.8 % (22.0-44.0); MEAN CORPUSCULAR HEMOGLOBIN 23.4 pg (26.0-34.0); MEAN CORPUSCULAR VOLUME 71 fL (80-100); MONOCYTES # (AUTO) 1.6 K/uL (0.1-1.0); MONOCYTES % (AUTO) 8.7 % (2.0-9.0); NEUTROPHILS # (AUTO) 12.8 K/uL (1.8-7.7); NEUTROPHILS % (AUTO) 69.2 % (40.0-70.0); PLATELET COUNT (AUTO) 630 K/uL (150-450); RED CELL DISTRIBUTION WIDTH 21.8 % (11.5-14.5)
[2017-09-25 14:58] LABS: ANION GAP 8 mmol/L (8-16); CALCIUM, TOTAL 8.5 mg/dL (8.8-10.5); CARBON DIOXIDE 29 mmol/L (22-29); CHLORIDE 95 mmol/L (98-107); CREATININE 0.74 mg/dL (0.60-1.30); GLOMERULAR FILTR. RATE CALC > 60 mL/min (>60); GLUCOSE,RANDOM 108 mg/dL (70-110); POTASSIUM 4.5 mmol/L (3.5-5.1); SODIUM SERUM 132 mmol/L (136-145); UREA NITROGEN, BLOOD 15 mg/dL (7-18)
[2017-09-25 15:00] LABS: AMPHET/METH SCREEN,URINE NEGATIVE (NEGATIVE); BARBITURATE SCREEN, URINE NEGATIVE (NEGATIVE); BENZODIAZEPINES SCREEN,URINE NEGATIVE (NEGATIVE); CANNABINOID SCREEN,URINE NEGATIVE (NEGATIVE); COCAINE SCREEN,URINE NEGATIVE (NEGATIVE); METHADONE SCREEN, URINE NEGATIVE (NEGATIVE); OPIATE SCREEN,URINE NEGATIVE (NEGATIVE)
[2017-09-25 15:04] LABS: ALANINE AMINOTRANSFERASE 20 U/L (12-78); ALBUMIN 3.2 g/dL (3.4-5.0); ALKALINE PHOSPHATASE 84 U/L (46-116); ASPARTATE AMINOTRANSFERASE 8 U/L (15-37); BILIRUBIN,TOTAL 0.2 mg/dL (0.1-1.0); CREATINE KINASE, TOTAL 27 U/L (26-192); TOTAL PROTEIN, SERUM 6.9 g/dL (6.4-8.2)
[2017-09-25 15:20] LABS: PHENCYCLIDINE SCREEN,URINE NEGATIVE (NEGATIVE)
[2017-09-25 15:40] LABS: B-TYPE NATRIURETIC PEPTIDE 8 pg/mL (0-100)
[2017-09-25 15:59] LABS: PROTHROMBIN TIME 10.2 SEC (9.4-11.6)
[2017-09-25 16:06] LABS: APPEARANCE,URINE CLEAR (CLEAR); BILIRUBIN,URINE NEGATIVE (NEGATIVE); GLUCOSE, URINE (UA) NEGATIVE (NEGATIVE); KETONES,URINE NEGATIVE (NEGATIVE); LEUKOCYTE ESTERASE ,URINE NEGATIVE (NEGATIVE); NITRATE,URINE NEGATIVE (NEGATIVE); OCCULT BLOOD,URINE NEGATIVE (NEGATIVE); PROTEIN,URINE NEGATIVE (NEGATIVE); UROBILINOGEN,URINE 0.2 mg/dL (<=1.0)
[2017-09-25] MEDS ORDERED: KETOROLAC TROMETHAMINE 30 MG/ML VIAL IVP ONE (16:30)
[2017-09-25 17:26] VITALS: BP 114/76
== END 2017-09-25 17:28 | disposition home or self-care (01) ==
LOC: EMS 13:32
DX: R07.89 Other chest pain (principal); J44.9 Chronic obstructive pulmonary disease, unspecified; J45.909 Unspecified asthma, uncomplicated; E11.9 Type 2 diabetes mellitus without complications; I10 Essential (primary) hypertension; K21.9 Gastro-esophageal reflux disease without esophagitis; E78.00 Pure hypercholesterolemia, unspecified; F17.210 Nicotine dependence, cigarettes, uncomplicated; Z88.1 Allergy status to other antibiotic agents; Z88.2 Allergy status to sulfonamides; Z88.8 Allergy status to other drugs, medicaments and biological substances; Z79.4 Long term (current) use of insulin
CPT/HCPCS: 36415; 71045; 80053; 80307; 81003; 82550; 83880; 84484; 85025; 85610; 85730; 93005; 96374; 96375; 99285; J1885; J2270; J2405

== ENCOUNTER 2017-11-26 10:24 | Emergency (ER) | payer OTHER ==
[~2017-11-26] VITALS: Ht 160 cm; Wt 65.9 kg
[2017-11-26] MEDS ORDERED: OMEP20 PO (11:09)
[2017-11-26] MEDS ORDERED: FURO40 PO (11:09)
[2017-11-26] MEDS ORDERED: ZOLP10TA7 PO (11:09)
[2017-11-26] MEDS ORDERED: QUET200T PO (11:09)
[2017-11-26] MEDS ORDERED: KETOROLAC TROMETHAMINE 30 MG/ML VIAL IVP ONE ×2 (11:15→17:00)
[2017-11-26] MEDS ORDERED: ONDANSETRON HCL 4 MG/2 ML VIAL IVP ONE ×3 (11:15→17:00)
[2017-11-26] MEDS: SODIUM CHLORIDE 0.9% 1,000 ML IV ONE ×2 (11:42→13:49)
[2017-11-26 13:09] LABS: BASOPHILS % (AUTO) 1.3 % (0.0-2.0); EOSINOPHILS % (AUTO) 0.3 % (1.0-6.0); HEMATOCRIT 33.1 % (36-46); HEMOGLOBIN 10.5 g/dL (12.0-16.0); LYMPHOCYTES # (AUTO) 2.7 K/uL (1.0-4.8); LYMPHOCYTES % (AUTO) 13.6 % (22.0-44.0); MEAN CORPUSCULAR HEMOGLOBIN 22.7 pg (26.0-34.0); MEAN CORPUSCULAR HGB CONC 31.7 G/dL (31.0-37.0); MEAN CORPUSCULAR VOLUME 72 fL (80-100); MONOCYTES # (AUTO) 1.3 K/uL (0.1-1.0); MONOCYTES % (AUTO) 6.4 % (2.0-9.0); NEUTROPHILS # (AUTO) 15.7 K/uL (1.8-7.7); NEUTROPHILS % (AUTO) 78.4 % (40.0-70.0); PLATELET COUNT (AUTO) 610 K/uL (150-450); RED BLOOD CELL COUNT(AUTO) 4.63 MIL/uL (4.00-5.20); RED CELL DISTRIBUTION WIDTH 19.6 % (11.5-14.5)
[2017-11-26 13:21] LABS: ANION GAP 11 mmol/L (8-16); CALCIUM, TOTAL 9.5 mg/dL (8.8-10.5); CARBON DIOXIDE 32 mmol/L (22-29); CHLORIDE 98 mmol/L (98-107); CREATININE 0.87 mg/dL (0.60-1.30); GLOMERULAR FILTR. RATE CALC > 60 mL/min (>60); GLUCOSE,RANDOM 85 mg/dL (70-110); POTASSIUM 3.7 mmol/L (3.5-5.1); SODIUM SERUM 141 mmol/L (136-145); UREA NITROGEN, BLOOD 15 mg/dL (7-18)
[2017-11-26 13:26] LABS: ALANINE AMINOTRANSFERASE 21 U/L (12-78); ALBUMIN 3.5 g/dL (3.4-5.0); ALKALINE PHOSPHATASE 104 U/L (46-116); ASPARTATE AMINOTRANSFERASE 14 U/L (15-37); BILIRUBIN,TOTAL 0.2 mg/dL (0.1-1.0); LIPASE 145 U/L (73-393); TOTAL PROTEIN, SERUM 7.6 g/dL (6.4-8.2)
[2017-11-26] MEDS ORDERED: MORPHINE SULFATE 4 MG/ML SYRINGE IVP ONE (14:30)
[2017-11-26] MEDS ORDERED: BARIUM SULFATE 0.1% SUSPENSION 450 ML BOTTLE PO ONE (14:30)
[2017-11-26] MEDS ORDERED: ACETAMINOPHEN 1000 MG/ISO-OSM 100 ML IV ONE (15:00)
[2017-11-26 15:19] LABS: APPEARANCE,URINE CLEAR (CLEAR); BILIRUBIN,URINE NEGATIVE (NEGATIVE); GLUCOSE, URINE (UA) NEGATIVE (NEGATIVE); KETONES,URINE NEGATIVE (NEGATIVE); LEUKOCYTE ESTERASE ,URINE NEGATIVE (NEGATIVE); NITRATE,URINE NEGATIVE (NEGATIVE); OCCULT BLOOD,URINE NEGATIVE (NEGATIVE); PROTEIN,URINE NEGATIVE (NEGATIVE); UROBILINOGEN,URINE 0.2 mg/dL (<=1.0)
[2017-11-26] MEDS ORDERED: IOVERSOL 320 MG/ML 100 ML VIAL ONE (15:40)
[2017-11-26] MEDS ORDERED: SODIUM CHLORIDE 0.9% 100 ML ONE (15:40)
[2017-11-26 16:50] VITALS: BP 109/59
[2017-11-26] MEDS ORDERED: MORPHINE SULFATE 2 MG/ML SYRINGE IVP ONE (17:00)
[2017-11-26] MEDS ORDERED: SODIUM PHOS/SODIUM BIPHOS 133 ML ENEMA PR ONE (17:00)
[2017-11-30] MEDS ORDERED: LACT30L PO (15:37)
[2017-11-30] MEDS ORDERED: BISA10S PR (15:38)
== END 2017-11-26 17:39 | disposition home or self-care (01) ==
LOC: EMS 10:26
DX: K59.00 Constipation, unspecified (principal); N20.1 Calculus of ureter; I20.9 Angina pectoris, unspecified; J45.909 Unspecified asthma, uncomplicated; J44.9 Chronic obstructive pulmonary disease, unspecified; E11.9 Type 2 diabetes mellitus without complications; E11.40 Type 2 diabetes mellitus with diabetic neuropathy, unspecified; E78.00 Pure hypercholesterolemia, unspecified; F17.210 Nicotine dependence, cigarettes, uncomplicated; Z79.4 Long term (current) use of insulin; Z88.2 Allergy status to sulfonamides; Z88.8 Allergy status to other drugs, medicaments and biological substances; Z88.1 Allergy status to other antibiotic agents
CPT/HCPCS: 36415; 74022; 74177; 80053; 81003; 83690; 85025; 93005; 96365; 96374; 96375; 96376; 99285; J0131; J1885; J2270 ×2; J2405; J7030; J7050; Q9967; Z7610

== ENCOUNTER 2017-11-28 10:28 | Emergency (ER) | payer OTHER ==
[~2017-11-28] VITALS: Ht 157.5 cm; Wt 67.3 kg
[~2017-11-28 10:28] MED LIST changes: -ESTR-6 PO; +FURO40 PO; -GUAI600T30 PO; -ISOS60TA4 PO; -LORA10TA7 PO; +OMEP20 PO; -PREM625 PO; +QUET200T PO; -RIVA20TA PO; +ZOLP10TA7 PO
[2017-11-28 10:44] LABS: GLUCOSE,POINT OF CARE 178 MG/DL (70-110)
[2017-11-28] MEDS ORDERED: IPRATROPIUM BROMIDE 0.5 MG/2.5 ML NEB SOLUTION NEB ONE (11:30)
[2017-11-28] MEDS ORDERED: ALBUTEROL SULFATE 2.5 MG/0.5 ML NEB SOLUTION NEB ONE (11:30)
[2017-11-28] MEDS ORDERED: PB/HYOSCY/ATR/SCOP/LIDO/MAALOX 55 ML BOTTLE PO ONE (11:30)
[2017-11-28] MEDS ORDERED: LORazepam 1 MG TABLET PO ONE (11:30)
[2017-11-28 11:39] LABS: BASOPHILS % (AUTO) 0.2 % (0.0-2.0); EOSINOPHILS % (AUTO) 0.3 % (1.0-6.0); HEMATOCRIT 30.6 % (36-46); HEMOGLOBIN 10.1 g/dL (12.0-16.0); LYMPHOCYTES # (AUTO) 3.4 K/uL (1.0-4.8); LYMPHOCYTES % (AUTO) 19.1 % (22.0-44.0); MEAN CORPUSCULAR HEMOGLOBIN 23.4 pg (26.0-34.0); MEAN CORPUSCULAR HGB CONC 33.1 G/dL (31.0-37.0); MEAN CORPUSCULAR VOLUME 71 fL (80-100); MONOCYTES # (AUTO) 1.3 K/uL (0.1-1.0); MONOCYTES % (AUTO) 7.2 % (2.0-9.0); NEUTROPHILS # (AUTO) 13.1 K/uL (1.8-7.7); NEUTROPHILS % (AUTO) 73.2 % (40.0-70.0); PLATELET COUNT (AUTO) 540 K/uL (150-450); RED BLOOD CELL COUNT(AUTO) 4.32 MIL/uL (4.00-5.20); RED CELL DISTRIBUTION WIDTH 19.7 % (11.5-14.5)
[2017-11-28 11:48] LABS: APPEARANCE,URINE CLEAR (CLEAR); BILIRUBIN,URINE NEGATIVE (NEGATIVE); GLUCOSE, URINE (UA) NEGATIVE (NEGATIVE); KETONES,URINE NEGATIVE (NEGATIVE); LEUKOCYTE ESTERASE ,URINE NEGATIVE (NEGATIVE); NITRATE,URINE NEGATIVE (NEGATIVE); OCCULT BLOOD,URINE NEGATIVE (NEGATIVE); PROTEIN,URINE NEGATIVE (NEGATIVE); UROBILINOGEN,URINE 0.2 mg/dL (<=1.0)
[2017-11-28 11:50] LABS: ANION GAP 12 mmol/L (8-16); CALCIUM, TOTAL 9.9 mg/dL (8.8-10.5); CARBON DIOXIDE 27 mmol/L (22-29); CHLORIDE 95 mmol/L (98-107); GLOMERULAR FILTR. RATE CALC > 60 mL/min (>60); GLUCOSE,RANDOM 152 mg/dL (70-110); POTASSIUM 3.8 mmol/L (3.5-5.1); SODIUM SERUM 134 mmol/L (136-145); UREA NITROGEN, BLOOD 8 mg/dL (7-18)
[2017-11-28 11:56] LABS: ALANINE AMINOTRANSFERASE 19 U/L (12-78); ALBUMIN 3.2 g/dL (3.4-5.0); ALKALINE PHOSPHATASE 119 U/L (46-116); ASPARTATE AMINOTRANSFERASE 13 U/L (15-37); BILIRUBIN,TOTAL 0.2 mg/dL (0.1-1.0); CREATINE KINASE, TOTAL 40 U/L (26-192); LIPASE 118 U/L (73-393); TOTAL PROTEIN, SERUM 6.7 g/dL (6.4-8.2)
[2017-11-28 12:11] LABS: B-TYPE NATRIURETIC PEPTIDE 21 pg/mL (0-100)
[2017-11-28] MEDS ORDERED: DOCUSATE SODIUM 100 MG CAPSULE PO ONE (13:00)
[2017-11-28 13:21] VITALS: BP 121/65
[2017-11-30] MEDS ORDERED: LACT30L PO (15:37)
[2017-11-30] MEDS ORDERED: BISA10S PR (15:38)
== END 2017-11-28 13:15 | disposition home or self-care (01) ==
LOC: EMS 10:30
DX: K59.00 Constipation, unspecified (principal); G89.29 Other chronic pain; F41.9 Anxiety disorder, unspecified; J44.9 Chronic obstructive pulmonary disease, unspecified; I10 Essential (primary) hypertension; E11.9 Type 2 diabetes mellitus without complications; E78.00 Pure hypercholesterolemia, unspecified; K21.9 Gastro-esophageal reflux disease without esophagitis; F17.210 Nicotine dependence, cigarettes, uncomplicated; Z88.1 Allergy status to other antibiotic agents; Z88.2 Allergy status to sulfonamides; Z88.8 Allergy status to other drugs, medicaments and biological substances
CPT/HCPCS: 36415; 74022; 80053; 81003; 82550; 82962; 83690; 83880; 84484; 85025; 93005; 94640; 99285; 99406; J7613; Z7610

== ENCOUNTER 2017-12-03 13:31 | Emergency (ER) | payer OTHER ==
[~2017-12-03] VITALS: Ht 160 cm; Wt 63.5 kg
[~2017-12-03 13:31] MED LIST changes: +BISA10S PR; +LACT30L PO
[2017-12-03] MEDS ORDERED: ONDANSETRON HCL 4 MG TABLET PO ONE (14:30)
[2017-12-03] MEDS ORDERED: ALBUTEROL SULFATE 5 MG/ML 20 ML NEB SOLN [BULK] NEB ONE (14:30)
[2017-12-03] MEDS ORDERED: HALOPERIDOL 5 MG TABLET PO ONE (14:30)
[2017-12-03] MEDS ORDERED: DiphenhydrAMINE HCL 50 MG CAPSULE PO ONE (14:30)
[2017-12-03] MEDS ORDERED: IPRATROPIUM BROMIDE 0.5 MG/2.5 ML NEB SOLUTION NEB ONE (14:30)
[2017-12-03] MEDS ORDERED: PB/HYOSCY/ATR/SCOP/LIDO/MAALOX 55 ML BOTTLE PO ONE (14:30)
[2017-12-03 14:39] LABS: BASOPHILS % (AUTO) 0.3 % (0.0-2.0); EOSINOPHILS % (AUTO) 0.5 % (1.0-6.0); HEMATOCRIT 29.3 % (36-46); HEMOGLOBIN 9.3 g/dL (12.0-16.0); LYMPHOCYTES # (AUTO) 2.4 K/uL (1.0-4.8); LYMPHOCYTES % (AUTO) 21.4 % (22.0-44.0); MEAN CORPUSCULAR HEMOGLOBIN 22.5 pg (26.0-34.0); MEAN CORPUSCULAR HGB CONC 31.7 G/dL (31.0-37.0); MEAN CORPUSCULAR VOLUME 71 fL (80-100); MONOCYTES % (AUTO) 9.2 % (2.0-9.0); NEUTROPHILS # (AUTO) 7.7 K/uL (1.8-7.7); NEUTROPHILS % (AUTO) 68.6 % (40.0-70.0); PLATELET COUNT (AUTO) 543 K/uL (150-450); RED BLOOD CELL COUNT(AUTO) 4.13 MIL/uL (4.00-5.20); RED CELL DISTRIBUTION WIDTH 18.9 % (11.5-14.5)
[2017-12-03] MEDS ORDERED: 0.9% SODIUM CHLORIDE 5 ML NEB SOLUTION NEB ONE (14:47)
[2017-12-03 14:48] LABS: CALCIUM, TOTAL 9.1 mg/dL (8.8-10.5); CREATININE 0.99 mg/dL (0.60-1.30); POTASSIUM 3.4 mmol/L (3.5-5.1)
[2017-12-03 14:50] LABS: INR 0.9 (0.9-1.1); PROTHROMBIN TIME 9.9 SEC (9.4-11.6)
[2017-12-03 14:56] LABS: ALBUMIN 2.9 g/dL (3.4-5.0); BILIRUBIN,TOTAL 0.1 mg/dL (0.1-1.0); TOTAL PROTEIN, SERUM 6.8 g/dL (6.4-8.2)
[2017-12-03 15:12] LABS: APPEARANCE,URINE CLEAR (CLEAR); BILIRUBIN,URINE NEGATIVE (NEGATIVE); GLUCOSE, URINE (UA) NEGATIVE (NEGATIVE); KETONES,URINE NEGATIVE (NEGATIVE); LEUKOCYTE ESTERASE ,URINE SMALL (NEGATIVE); NITRATE,URINE NEGATIVE (NEGATIVE); OCCULT BLOOD,URINE NEGATIVE (NEGATIVE); PROTEIN,URINE NEGATIVE (NEGATIVE); UROBILINOGEN,URINE 0.2 mg/dL (<=1.0)
[2017-12-03 15:18] LABS: BACTERIA,URINE None Seen /HPF (None Seen); RBC,URINE 0-2 /HPF (0-2)
[2017-12-03 15:19] LABS: SQUAMOUS EPITHELIAL CELL,UR Moderate /LPF (None Seen)
[2017-12-03 17:59] VITALS: BP 136/73
== END 2017-12-03 18:14 | disposition home or self-care (01) ==
LOC: EMS 13:32
DX: J44.1 Chronic obstructive pulmonary disease with (acute) exacerbation (principal); R10.84 Generalized abdominal pain; G89.29 Other chronic pain; F41.9 Anxiety disorder, unspecified; E11.40 Type 2 diabetes mellitus with diabetic neuropathy, unspecified; I10 Essential (primary) hypertension; E78.00 Pure hypercholesterolemia, unspecified; K21.9 Gastro-esophageal reflux disease without esophagitis; F17.210 Nicotine dependence, cigarettes, uncomplicated; Z79.4 Long term (current) use of insulin; Z88.1 Allergy status to other antibiotic agents; Z88.2 Allergy status to sulfonamides; Z88.8 Allergy status to other drugs, medicaments and biological substances
CPT/HCPCS: 36415; 80053; 81001; 83690; 83880; 84484; 85025; 85610; 85730; 87086; 93005; 94644; 99285; 99406; J7611; Q0162; Z7610

== ENCOUNTER 2017-12-10 11:33 | Emergency (ER) | payer OTHER ==
[~2017-12-10] VITALS: Ht 160 cm; Wt 65.0 kg
[~2017-12-10 11:33] MED LIST changes: -PANT40TA25 PO
[2017-12-10 11:53] LABS: GLUCOSE,POINT OF CARE 91 MG/DL (70-110)
[2017-12-10 12:30] LABS: BASOPHILS % (AUTO) 0.7 % (0.0-2.0); EOSINOPHILS % (AUTO) 0.8 % (1.0-6.0); HEMATOCRIT 30.8 % (36-46); HEMOGLOBIN 9.9 g/dL (12.0-16.0); LYMPHOCYTES # (AUTO) 2.8 K/uL (1.0-4.8); LYMPHOCYTES % (AUTO) 21.3 % (22.0-44.0); MEAN CORPUSCULAR HEMOGLOBIN 22.5 pg (26.0-34.0); MEAN CORPUSCULAR VOLUME 70 fL (80-100); MONOCYTES # (AUTO) 1.1 K/uL (0.1-1.0); NEUTROPHILS # (AUTO) 9.1 K/uL (1.8-7.7); NEUTROPHILS % (AUTO) 69.2 % (40.0-70.0); PLATELET COUNT (AUTO) 679 K/uL (150-450); RED BLOOD CELL COUNT(AUTO) 4.39 MIL/uL (4.00-5.20); RED CELL DISTRIBUTION WIDTH 18.5 % (11.5-14.5)
[2017-12-10] MEDS ORDERED: SODIUM CHLORIDE 0.9% 1,000 ML IV ONE ×2 (12:30→13:45)
[2017-12-10] MEDS ORDERED: ONDANSETRON HCL 4 MG/2 ML VIAL IVP ONE (12:30)
[2017-12-10] MEDS ORDERED: MORPHINE SULFATE 4 MG/ML SYRINGE IVP ONE (12:30)
[2017-12-10 12:40] LABS: PROTHROMBIN TIME 10.1 SEC (9.4-11.6)
[2017-12-10 12:49] LABS: CALCIUM, TOTAL 9.3 mg/dL (8.8-10.5); CREATININE 1.1 mg/dL (0.60-1.30); POTASSIUM 3.8 mmol/L (3.5-5.1)
[2017-12-10 12:52] LABS: ALBUMIN 3.2 g/dL (3.4-5.0); BILIRUBIN,TOTAL 0.2 mg/dL (0.1-1.0)
[2017-12-10] MEDS ORDERED: HYDROmorphone 2 MG/ML SYRINGE IVP ONE (13:45)
[2017-12-10] MEDS ORDERED: SODIUM CHLORIDE 0.9% 0 ML ONE (14:10)
[2017-12-10] MEDS ORDERED: IOVERSOL 350 MG/ML 100 ML VIAL ONE (14:10)
[2017-12-10] MEDS ORDERED: LORazepam 2 MG/ML VIAL IVP ONE (14:15)
[2017-12-10 15:17] VITALS: BP 100/65
== END 2017-12-10 15:29 | disposition home or self-care (01) ==
LOC: EMS 11:36
DX: R10.13 Epigastric pain (principal); R10.11 Right upper quadrant pain; R10.12 Left upper quadrant pain; I10 Essential (primary) hypertension; E78.00 Pure hypercholesterolemia, unspecified; E11.9 Type 2 diabetes mellitus without complications; J44.9 Chronic obstructive pulmonary disease, unspecified; F31.9 Bipolar disorder, unspecified; F41.9 Anxiety disorder, unspecified; F20.9 Schizophrenia, unspecified; K21.9 Gastro-esophageal reflux disease without esophagitis; F17.210 Nicotine dependence, cigarettes, uncomplicated; Z79.4 Long term (current) use of insulin; Z79.82 Long term (current) use of aspirin; Z88.2 Allergy status to sulfonamides; Z88.1 Allergy status to other antibiotic agents; Z88.8 Allergy status to other drugs, medicaments and biological substances
CPT/HCPCS: 36415; 76700; 80053; 82962; 83690; 84484; 85025; 85610; 86850; 86900; 86901; 96374; 96375; 99285; J1170; J2060; J2270; J2405; J7030; J7050

== ENCOUNTER 2017-12-18 12:59 | Emergency (ER) | payer OTHER ==
[~2017-12-18] VITALS: Ht 160 cm; Wt 68.1 kg
[2017-12-18 13:24] LABS: GLUCOSE,POINT OF CARE 142 MG/DL (70-110)
[2017-12-18] MEDS ORDERED: PB/HYOSCY/ATR/SCOP/LIDO/MAALOX 55 ML BOTTLE PO ONE (13:30)
[2017-12-18] MEDS ORDERED: ALBUTEROL SULFATE 5 MG/ML 20 ML NEB SOLN [BULK] NEB ONE (13:30)
[2017-12-18] MEDS ORDERED: IPRATROPIUM BROMIDE 0.5 MG/2.5 ML NEB SOLUTION NEB ONE (13:30)
[2017-12-18] MEDS ORDERED: 0.9% SODIUM CHLORIDE 15 ML NEB SOLUTION NEB ONE (13:40)
[2017-12-18 13:55] LABS: BASOPHILS % (AUTO) 1.4 % (0.0-2.0); EOSINOPHILS % (AUTO) 0.9 % (1.0-6.0); HEMATOCRIT 28.5 % (36-46); HEMOGLOBIN 9.1 g/dL (12.0-16.0); LYMPHOCYTES # (AUTO) 2.6 K/uL (1.0-4.8); LYMPHOCYTES % (AUTO) 19.3 % (22.0-44.0); MEAN CORPUSCULAR HEMOGLOBIN 22.5 pg (26.0-34.0); MEAN CORPUSCULAR HGB CONC 31.9 G/dL (31.0-37.0); MEAN CORPUSCULAR VOLUME 71 fL (80-100); MONOCYTES # (AUTO) 1.1 K/uL (0.1-1.0); MONOCYTES % (AUTO) 8.1 % (2.0-9.0); NEUTROPHILS # (AUTO) 9.3 K/uL (1.8-7.7); NEUTROPHILS % (AUTO) 70.3 % (40.0-70.0); PLATELET COUNT (AUTO) 500 K/uL (150-450); RED BLOOD CELL COUNT(AUTO) 4.03 MIL/uL (4.00-5.20); RED CELL DISTRIBUTION WIDTH 18.4 % (11.5-14.5)
[2017-12-18] MEDS ORDERED: AMOX TR/POT CLAV 875 MG/125 MG TABLET PO ONE (14:00)
[2017-12-18 14:20] LABS: ANION GAP 11 mmol/L (8-16); CALCIUM, TOTAL 8.8 mg/dL (8.8-10.5); CARBON DIOXIDE 26 mmol/L (22-29); CHLORIDE 97 mmol/L (98-107); CREATININE 0.86 mg/dL (0.60-1.30); GLOMERULAR FILTR. RATE CALC > 60 mL/min (>60); GLUCOSE,RANDOM 129 mg/dL (70-110); POTASSIUM 3.1 mmol/L (3.5-5.1); SODIUM SERUM 134 mmol/L (136-145); UREA NITROGEN, BLOOD 9 mg/dL (7-18)
[2017-12-18 14:26] LABS: ALANINE AMINOTRANSFERASE 17 U/L (12-78); ALBUMIN 3.1 g/dL (3.4-5.0); ALKALINE PHOSPHATASE 89 U/L (46-116); ASPARTATE AMINOTRANSFERASE 15 U/L (15-37); BILIRUBIN,TOTAL 0.2 mg/dL (0.1-1.0); LIPASE 153 U/L (73-393); TOTAL PROTEIN, SERUM 6.6 g/dL (6.4-8.2)
[2017-12-18] MEDS ORDERED: KETOROLAC TROMETHAMINE 60 MG/2 ML VIAL IM ONE (14:45)
[2017-12-18 15:08] VITALS: BP 124/64
== END 2017-12-18 15:18 | disposition home or self-care (01) ==
LOC: EMS 13:01
DX: J18.9 Pneumonia, unspecified organism (principal); J44.9 Chronic obstructive pulmonary disease, unspecified; F25.9 Schizoaffective disorder, unspecified; G89.29 Other chronic pain; F41.9 Anxiety disorder, unspecified; J45.909 Unspecified asthma, uncomplicated; F31.9 Bipolar disorder, unspecified; F32.9 Major depressive disorder, single episode, unspecified; K21.9 Gastro-esophageal reflux disease without esophagitis; I11.9 Hypertensive heart disease without heart failure; E78.00 Pure hypercholesterolemia, unspecified; E11.40 Type 2 diabetes mellitus with diabetic neuropathy, unspecified; F17.210 Nicotine dependence, cigarettes, uncomplicated; I20.9 Angina pectoris, unspecified; Z98.51 Tubal ligation status; Z88.2 Allergy status to sulfonamides; Z79.4 Long term (current) use of insulin; Z88.1 Allergy status to other antibiotic agents; Z79.84 Long term (current) use of oral hypoglycemic drugs; Z79.82 Long term (current) use of aspirin
CPT/HCPCS: 36415; 71045; 80053; 82962; 83690; 84484; 85025; 93005; 94644; 96372; 99285; 99406; J1885; J7611; Z7610

== ENCOUNTER 2018-01-10 10:43 | Emergency (ER) | payer OTHER ==
[~2018-01-10] VITALS: Ht 160 cm; Wt 68.2 kg
[~2018-01-10 10:43] MED LIST changes: +METF-960 PO; -METF500T6 PO; -QUET200T PO
[2018-01-10 11:03] LABS: GLUCOSE,POINT OF CARE 91 MG/DL (70-110)
[2018-01-10 12:05] LABS: BASOPHILS % (AUTO) 1.3 % (0.0-2.0); EOSINOPHILS % (AUTO) 1.1 % (1.0-6.0); HEMATOCRIT 30.8 % (36-46); HEMOGLOBIN 9.7 g/dL (12.0-16.0); LYMPHOCYTES # (AUTO) 3.1 K/uL (1.0-4.8); LYMPHOCYTES % (AUTO) 18.9 % (22.0-44.0); MEAN CORPUSCULAR HEMOGLOBIN 21.8 pg (26.0-34.0); MEAN CORPUSCULAR HGB CONC 31.7 G/dL (31.0-37.0); MEAN CORPUSCULAR VOLUME 69 fL (80-100); MONOCYTES # (AUTO) 0.8 K/uL (0.1-1.0); MONOCYTES % (AUTO) 5.1 % (2.0-9.0); NEUTROPHILS # (AUTO) 12.2 K/uL (1.8-7.7); NEUTROPHILS % (AUTO) 73.6 % (40.0-70.0); PLATELET COUNT (AUTO) 218 K/uL (150-450); RED BLOOD CELL COUNT(AUTO) 4.47 MIL/uL (4.00-5.20)
[2018-01-10 12:22] LABS: INR 0.9 (0.9-1.1); PROTHROMBIN TIME 9.6 SEC (9.4-11.6)
[2018-01-10 12:29] LABS: ANION GAP 15 mmol/L (8-16); CALCIUM, TOTAL 9.4 mg/dL (8.8-10.5); CARBON DIOXIDE 25 mmol/L (22-29); CHLORIDE 96 mmol/L (98-107); CREATININE 0.93 mg/dL (0.60-1.30); GLOMERULAR FILTR. RATE CALC > 60 mL/min (>60); GLUCOSE,RANDOM 96 mg/dL (70-110); POTASSIUM 3.5 mmol/L (3.5-5.1); SODIUM SERUM 136 mmol/L (136-145); UREA NITROGEN, BLOOD 19 mg/dL (7-18)
[2018-01-10 12:35] LABS: ALANINE AMINOTRANSFERASE 20 U/L (12-78); ALBUMIN 3.6 g/dL (3.4-5.0); ALKALINE PHOSPHATASE 86 U/L (46-116); ASPARTATE AMINOTRANSFERASE 12 U/L (15-37); BILIRUBIN,TOTAL 0.3 mg/dL (0.1-1.0); LIPASE 124 U/L (73-393); TOTAL PROTEIN, SERUM 6.9 g/dL (6.4-8.2)
[2018-01-10] MEDS ORDERED: ONDANSETRON HCL 4 MG/2 ML VIAL IVP ONE (15:15)
[2018-01-10] MEDS ORDERED: MORPHINE SULFATE 4 MG/ML SYRINGE IVP ONE (15:15)
[2018-01-10] MEDS ORDERED: SODIUM CHLORIDE 0.9% 1,000 ML IV ONE (15:15)
[2018-01-10] MEDS ORDERED: IOVERSOL 320 MG/ML 100 ML VIAL ONE (16:23)
[2018-01-10] MEDS ORDERED: SODIUM CHLORIDE 0.9% 100 ML ONE (16:23)
[2018-01-10] MEDS ORDERED: LORazepam 2 MG/ML VIAL IVP ONE (16:45)
[2018-01-10] MEDS ORDERED: HALOPERIDOL 5 MG TABLET PO ONE (17:30)
[2018-01-10 18:11] VITALS: BP 106/62
[2018-01-10] MEDS ORDERED: LORazepam 2 MG TABLET PO ONE (18:15)
== END 2018-01-10 19:01 | disposition home or self-care (01) ==
LOC: EMS 10:46
DX: R10.84 Generalized abdominal pain (principal); I10 Essential (primary) hypertension; E78.00 Pure hypercholesterolemia, unspecified; E11.9 Type 2 diabetes mellitus without complications; F31.9 Bipolar disorder, unspecified; F41.9 Anxiety disorder, unspecified; F20.9 Schizophrenia, unspecified; J44.9 Chronic obstructive pulmonary disease, unspecified; F17.210 Nicotine dependence, cigarettes, uncomplicated; Z88.2 Allergy status to sulfonamides; Z88.1 Allergy status to other antibiotic agents; Z88.8 Allergy status to other drugs, medicaments and biological substances; Z79.4 Long term (current) use of insulin; Z79.82 Long term (current) use of aspirin; Z79.899 Other long term (current) drug therapy
CPT/HCPCS: 36415; 74177; 80053; 82962; 83690; 85025; 85610; 85730; 93005; 96374; 96375; 99285; J2060; J2270; J2405; J7030; J7050; Q9967

== ENCOUNTER 2018-01-17 11:51 | Emergency (ER) | payer OTHER ==
[~2018-01-17] VITALS: Ht 160 cm; Wt 68.2 kg
[2018-01-17] MEDS ORDERED: FERR-89 PO (12:23)
[2018-01-17 13:29] LABS: BASOPHILS % (AUTO) 1.2 % (0.0-2.0); EOSINOPHILS % (AUTO) 0.6 % (1.0-6.0); HEMATOCRIT 32.4 % (36-46); HEMOGLOBIN 10.1 g/dL (12.0-16.0); LYMPHOCYTES # (AUTO) 2.7 K/uL (1.0-4.8); LYMPHOCYTES % (AUTO) 14.5 % (22.0-44.0); MEAN CORPUSCULAR HGB CONC 31.1 G/dL (31.0-37.0); MEAN CORPUSCULAR VOLUME 71 fL (80-100); MONOCYTES # (AUTO) 1.4 K/uL (0.1-1.0); MONOCYTES % (AUTO) 7.4 % (2.0-9.0); NEUTROPHILS # (AUTO) 14.3 K/uL (1.8-7.7); NEUTROPHILS % (AUTO) 76.3 % (40.0-70.0); PLATELET COUNT (AUTO) 536 K/uL (150-450); RED BLOOD CELL COUNT(AUTO) 4.59 MIL/uL (4.00-5.20); RED CELL DISTRIBUTION WIDTH 19.3 % (11.5-14.5)
[2018-01-17 13:45] LABS: CALCIUM, TOTAL 9.6 mg/dL (8.8-10.5); CREATININE 1.4 mg/dL (0.60-1.30); POTASSIUM 3.9 mmol/L (3.5-5.1)
[2018-01-17 13:50] LABS: ALBUMIN 3.4 g/dL (3.4-5.0); BILIRUBIN,TOTAL 0.2 mg/dL (0.1-1.0)
[2018-01-17] MEDS ORDERED: KETOROLAC TROMETHAMINE 30 MG/ML VIAL IVP ONE (15:45)
[2018-01-17 16:04] LABS: APPEARANCE,URINE CLEAR (CLEAR); BILIRUBIN,URINE NEGATIVE (NEGATIVE); GLUCOSE, URINE (UA) NEGATIVE (NEGATIVE); KETONES,URINE NEGATIVE (NEGATIVE); LEUKOCYTE ESTERASE ,URINE NEGATIVE (NEGATIVE); NITRATE,URINE NEGATIVE (NEGATIVE); OCCULT BLOOD,URINE NEGATIVE (NEGATIVE); PROTEIN,URINE NEGATIVE (NEGATIVE); UROBILINOGEN,URINE 0.2 mg/dL (<=1.0)
[2018-01-17 18:21] VITALS: BP 105/56
== END 2018-01-17 18:31 | disposition home or self-care (01) ==
LOC: EMS 11:53
DX: K59.00 Constipation, unspecified (principal); D72.829 Elevated white blood cell count, unspecified; E11.40 Type 2 diabetes mellitus with diabetic neuropathy, unspecified; F41.9 Anxiety disorder, unspecified; J45.909 Unspecified asthma, uncomplicated; F31.9 Bipolar disorder, unspecified; J44.9 Chronic obstructive pulmonary disease, unspecified; E11.9 Type 2 diabetes mellitus without complications; K21.9 Gastro-esophageal reflux disease without esophagitis; E78.00 Pure hypercholesterolemia, unspecified; F20.9 Schizophrenia, unspecified; F17.210 Nicotine dependence, cigarettes, uncomplicated; Z79.4 Long term (current) use of insulin; Z87.442 Personal history of urinary calculi; Z79.82 Long term (current) use of aspirin; Z79.899 Other long term (current) drug therapy; Z90.89 Acquired absence of other organs; Z98.51 Tubal ligation status; Z88.1 Allergy status to other antibiotic agents; Z88.2 Allergy status to sulfonamides; Z88.8 Allergy status to other drugs, medicaments and biological substances
CPT/HCPCS: 36415; 74019; 80053; 81003; 83690; 84484; 85025; 93005; 96374; 99285; J1885

== ENCOUNTER 2018-01-28 04:17 | Emergency (ER) | payer OTHER ==
[~2018-01-28] VITALS: Ht 160 cm; Wt 70.5 kg
[~2018-01-28 04:17] MED LIST changes: -BISA10S PR; +FERR-89 PO; -LACT30L PO; -MOME13HF2 IH; -ZOLP10TA7 PO
[2018-01-28] MEDS ORDERED: ALBUTEROL SULFATE 5 MG/ML 20 ML NEB SOLN [BULK] NEB ONE (04:45)
[2018-01-28] MEDS ORDERED: IPRATROPIUM BROMIDE 0.5 MG/2.5 ML NEB SOLUTION NEB ONE (04:45)
[2018-01-28] MEDS ORDERED: 0.9% SODIUM CHLORIDE 5 ML NEB SOLUTION NEB ONE (04:50)
[2018-01-28 04:56] LABS: APPEARANCE,URINE CLEAR (CLEAR); BILIRUBIN,URINE NEGATIVE (NEGATIVE); GLUCOSE, URINE (UA) NEGATIVE (NEGATIVE); KETONES,URINE NEGATIVE (NEGATIVE); LEUKOCYTE ESTERASE ,URINE NEGATIVE (NEGATIVE); NITRATE,URINE NEGATIVE (NEGATIVE); OCCULT BLOOD,URINE NEGATIVE (NEGATIVE); PH,URINE 7.5 (5.0-8.0); PROTEIN,URINE NEGATIVE (NEGATIVE); UROBILINOGEN,URINE 0.2 mg/dL (<=1.0)
[2018-01-28 05:00] LABS: HEMATOCRIT 34.8 % (36-46); HEMOGLOBIN 11.1 g/dL (12.0-16.0); MEAN CORPUSCULAR HEMOGLOBIN 24.4 pg (26.0-34.0); MEAN CORPUSCULAR HGB CONC 31.9 G/dL (31.0-37.0); MEAN CORPUSCULAR VOLUME 77 fL (80-100); PLATELET COUNT (AUTO) 507 K/uL (150-450); RED BLOOD CELL COUNT(AUTO) 4.54 MIL/uL (4.00-5.20); RED CELL DISTRIBUTION WIDTH 29.8 % (11.5-14.5)
[2018-01-28] MEDS ORDERED: HALOPERIDOL LACTATE 5 MG/ML VIAL IM ONE (05:00)
[2018-01-28 05:02] LABS: ANION GAP 10 mmol/L (8-16); CALCIUM, TOTAL 9.2 mg/dL (8.8-10.5); CARBON DIOXIDE 28 mmol/L (22-29); CHLORIDE 102 mmol/L (98-107); CREATININE 0.76 mg/dL (0.60-1.30); GLOMERULAR FILTR. RATE CALC > 60 mL/min (>60); GLUCOSE,RANDOM 89 mg/dL (70-110); POTASSIUM 3.5 mmol/L (3.5-5.1); SODIUM SERUM 140 mmol/L (136-145); UREA NITROGEN, BLOOD 10 mg/dL (7-18)
[2018-01-28 05:08] LABS: ALANINE AMINOTRANSFERASE 19 U/L (12-78); ALBUMIN 3.4 g/dL (3.4-5.0); ALKALINE PHOSPHATASE 78 U/L (46-116); ASPARTATE AMINOTRANSFERASE 18 U/L (15-37); BILIRUBIN,TOTAL 0.2 mg/dL (0.1-1.0); TOTAL PROTEIN, SERUM 6.8 g/dL (6.4-8.2)
[2018-01-28 05:22] LABS: BAND NEUTROPHILS % (MANUAL) 4 % (0-5); LYMPHOCYTES % (MANUAL) 31 % (22-44); MONOCYTES % (MANUAL) 2 % (2-9); REACTIVE LYMPHOCYTES 1 % (0-0); SEGMENTED NEUTROPHILS % 62 % (40-70)
[2018-01-28 05:30] VITALS: BP 121/70
== END 2018-01-28 05:52 | disposition home or self-care (01) ==
LOC: EMS 04:17
DX: K59.00 Constipation, unspecified (principal); J44.1 Chronic obstructive pulmonary disease with (acute) exacerbation; I11.9 Hypertensive heart disease without heart failure; I20.9 Angina pectoris, unspecified; F31.9 Bipolar disorder, unspecified; E78.00 Pure hypercholesterolemia, unspecified; F20.9 Schizophrenia, unspecified; E11.40 Type 2 diabetes mellitus with diabetic neuropathy, unspecified; F17.210 Nicotine dependence, cigarettes, uncomplicated; Z90.49 Acquired absence of other specified parts of digestive tract; Z98.51 Tubal ligation status; Z79.4 Long term (current) use of insulin; Z79.82 Long term (current) use of aspirin; Z79.84 Long term (current) use of oral hypoglycemic drugs; Z79.899 Other long term (current) drug therapy; Z88.1 Allergy status to other antibiotic agents; Z88.2 Allergy status to sulfonamides; Z88.8 Allergy status to other drugs, medicaments and biological substances
CPT/HCPCS: 36415; 71045; 80053; 81003; 85025; 94644; 96372; 99285; J1630; J7611

== ENCOUNTER 2018-01-28 07:32 | Emergency (ER) | payer OTHER ==
[~2018-01-28] VITALS: Ht 160 cm; Wt 68.2 kg
[2018-01-28 07:37] VITALS: BP 158/91
[2018-01-28 07:49] LABS: GLUCOSE,POINT OF CARE 118 MG/DL (70-110)
[2018-01-28] MEDS ORDERED: PB/HYOSCY/ATR/SCOP/LIDO/MAALOX 55 ML BOTTLE PO ONE (08:15)
== END 2018-01-28 08:34 | disposition home or self-care (01) ==
LOC: EMS 07:33
DX: F41.9 Anxiety disorder, unspecified (principal); G89.29 Other chronic pain; R10.13 Epigastric pain; I11.9 Hypertensive heart disease without heart failure; F32.9 Major depressive disorder, single episode, unspecified; J44.9 Chronic obstructive pulmonary disease, unspecified; I20.9 Angina pectoris, unspecified; E78.00 Pure hypercholesterolemia, unspecified; E11.40 Type 2 diabetes mellitus with diabetic neuropathy, unspecified; F17.210 Nicotine dependence, cigarettes, uncomplicated; Z90.89 Acquired absence of other organs; Z98.51 Tubal ligation status; Z88.1 Allergy status to other antibiotic agents; Z88.2 Allergy status to sulfonamides; Z88.8 Allergy status to other drugs, medicaments and biological substances; Z79.4 Long term (current) use of insulin; Z79.84 Long term (current) use of oral hypoglycemic drugs; Z79.82 Long term (current) use of aspirin; Z79.899 Other long term (current) drug therapy
CPT/HCPCS: 82962; 99284; 99406; Z7610

== ENCOUNTER 2018-03-09 03:09 | Emergency (ER) | payer OTHER ==
[~2018-03-09] VITALS: Ht 172.7 cm; Wt 70.5 kg
[2018-03-09] MEDS ORDERED: IPRATROPIUM BROMIDE 0.5 MG/2.5 ML NEB SOLUTION NEB ONE ×2 (03:23→03:30)
[2018-03-09] MEDS ORDERED: 0.9% SODIUM CHLORIDE 5 ML NEB SOLUTION NEB ONE (03:23)
[2018-03-09] MEDS ORDERED: ALBUTEROL SULFATE 5 MG/ML 20 ML NEB SOLN [BULK] NEB ONE ×2 (03:23→03:30)
[2018-03-09 03:24] LABS: GLUCOSE,POINT OF CARE 138 MG/DL (70-110)
[2018-03-09] MEDS ORDERED: MethylPREDNISolone SOD SUCC 125 MG/2 ML VIAL IM ONE (03:45)
[2018-03-09] MEDS ORDERED: KETOROLAC TROMETHAMINE 60 MG/2 ML VIAL IM ONE (03:45)
[2018-03-09 04:20] LABS: BASOPHILS % (AUTO) 0.6 % (0.0-2.0); HEMATOCRIT 38.8 % (36-46); HEMOGLOBIN 12.5 g/dL (12.0-16.0); LYMPHOCYTES # (AUTO) 3.2 K/uL (1.0-4.8); LYMPHOCYTES % (AUTO) 27.2 % (22.0-44.0); MEAN CORPUSCULAR HEMOGLOBIN 26.6 pg (26.0-34.0); MEAN CORPUSCULAR HGB CONC 32.4 G/dL (31.0-37.0); MEAN CORPUSCULAR VOLUME 82 fL (80-100); MONOCYTES % (AUTO) 8.2 % (2.0-9.0); NEUTROPHILS # (AUTO) 7.3 K/uL (1.8-7.7); PLATELET COUNT (AUTO) 458 K/uL (150-450); RED BLOOD CELL COUNT(AUTO) 4.71 MIL/uL (4.00-5.20)
[2018-03-09 04:25] LABS: ANION GAP 7 mmol/L (8-16); CALCIUM, TOTAL 9.2 mg/dL (8.8-10.5); CARBON DIOXIDE 28 mmol/L (22-29); CHLORIDE 100 mmol/L (98-107); CREATININE 0.76 mg/dL (0.60-1.30); GLOMERULAR FILTR. RATE CALC > 60 mL/min (>60); GLUCOSE,RANDOM 166 mg/dL (70-110); POTASSIUM 3.6 mmol/L (3.5-5.1); SODIUM SERUM 135 mmol/L (136-145); UREA NITROGEN, BLOOD 5 mg/dL (7-18)
[2018-03-09] MEDS ORDERED: MORPHINE SULFATE 2 MG/ML SYRINGE IM ONE (04:30)
[2018-03-09 04:31] LABS: ALANINE AMINOTRANSFERASE 22 U/L (12-78); ALBUMIN 2.9 g/dL (3.4-5.0); ALKALINE PHOSPHATASE 84 U/L (46-116); ASPARTATE AMINOTRANSFERASE 14 U/L (15-37); TOTAL PROTEIN, SERUM 6.6 g/dL (6.4-8.2)
[2018-03-09 04:35] LABS: PLATELET MORPHOLOGY COMMENT GIANT PLTS PRESENT
[2018-03-09 04:43] LABS: APPEARANCE,URINE CLEAR (CLEAR); BILIRUBIN,URINE NEGATIVE (NEGATIVE); GLUCOSE, URINE (UA) NEGATIVE (NEGATIVE); KETONES,URINE NEGATIVE (NEGATIVE); LEUKOCYTE ESTERASE ,URINE NEGATIVE (NEGATIVE); NITRATE,URINE NEGATIVE (NEGATIVE); OCCULT BLOOD,URINE TRACE (NEGATIVE); PH,URINE 5.5 (5.0-8.0); PROTEIN,URINE NEGATIVE (NEGATIVE); UROBILINOGEN,URINE 0.2 mg/dL (<=1.0)
[2018-03-09 04:44] LABS: BILIRUBIN,TOTAL 0.1 mg/dL (0.1-1.0); LIPASE 71 U/L (73-393)
[2018-03-09 04:46] LABS: B-TYPE NATRIURETIC PEPTIDE 12 pg/mL (0-100)
[2018-03-09 04:51] LABS: BACTERIA,URINE None Seen /HPF (None Seen); RBC,URINE 0-2 /HPF (0-2); SQUAMOUS EPITHELIAL CELL,UR Moderate /LPF (None Seen)
[2018-03-09 05:20] VITALS: BP 116/74
== END 2018-03-09 07:02 | disposition home or self-care (01) ==
LOC: EMS 03:09
DX: J44.1 Chronic obstructive pulmonary disease with (acute) exacerbation (principal); K59.00 Constipation, unspecified; F17.210 Nicotine dependence, cigarettes, uncomplicated; F41.9 Anxiety disorder, unspecified; F31.9 Bipolar disorder, unspecified; E11.9 Type 2 diabetes mellitus without complications; K21.9 Gastro-esophageal reflux disease without esophagitis; E78.00 Pure hypercholesterolemia, unspecified; F20.9 Schizophrenia, unspecified; Z87.442 Personal history of urinary calculi; Z90.89 Acquired absence of other organs; Z98.51 Tubal ligation status; Z98.890 Other specified postprocedural states; E11.40 Type 2 diabetes mellitus with diabetic neuropathy, unspecified; Z79.82 Long term (current) use of aspirin; Z79.4 Long term (current) use of insulin; Z79.899 Other long term (current) drug therapy; Z88.1 Allergy status to other antibiotic agents; Z88.2 Allergy status to sulfonamides; Z88.8 Allergy status to other drugs, medicaments and biological substances
CPT/HCPCS: 36415; 71045; 80053; 81001; 82962; 83690; 83880; 84484; 85025; 93005; 94644; 96372; 99285; 99406; J1885; J2270; J2930; 51701

== ENCOUNTER 2018-03-20 20:16 | Emergency (ER) | payer OTHER ==
[~2018-03-20] VITALS: Ht 160 cm; Wt 70.5 kg
[2018-03-20 20:37] LABS: HEMOGLOBIN 12.5 g/dL (12.0-16.0); MEAN CORPUSCULAR HEMOGLOBIN 27.1 pg (26.0-34.0); MEAN CORPUSCULAR HGB CONC 32.8 G/dL (31.0-37.0); MEAN CORPUSCULAR VOLUME 83 fL (80-100); PLATELET COUNT (AUTO) 309 K/uL (150-450); RED BLOOD CELL COUNT(AUTO) 4.59 MIL/uL (4.00-5.20); RED CELL DISTRIBUTION WIDTH 26.6 % (11.5-14.5)
[2018-03-20 20:54] LABS: CALCIUM, TOTAL 8.8 mg/dL (8.8-10.5); CREATININE 1.49 mg/dL (0.60-1.30); POTASSIUM 4.7 mmol/L (3.5-5.1)
[2018-03-20 20:56] LABS: APPEARANCE,URINE CLEAR (CLEAR); BILIRUBIN,URINE NEGATIVE (NEGATIVE); GLUCOSE, URINE (UA) 250 mg/dL (NEGATIVE); KETONES,URINE NEGATIVE (NEGATIVE); LEUKOCYTE ESTERASE ,URINE NEGATIVE (NEGATIVE); NITRATE,URINE NEGATIVE (NEGATIVE); OCCULT BLOOD,URINE SMALL (NEGATIVE); PROTEIN,URINE NEGATIVE (NEGATIVE); UROBILINOGEN,URINE 0.2 mg/dL (<=1.0)
[2018-03-20 21:00] LABS: ALBUMIN 3.2 g/dL (3.4-5.0); BILIRUBIN,TOTAL 0.2 mg/dL (0.1-1.0); TOTAL PROTEIN, SERUM 6.4 g/dL (6.4-8.2)
[2018-03-20] MEDS ORDERED: HALOPERIDOL LACTATE 5 MG/ML VIAL IVP ONE (21:15)
[2018-03-20] MEDS ORDERED: SODIUM CHLORIDE 0.9% 1,000 ML IV ONE (21:15)
[2018-03-20] MEDS ORDERED: ALBUTEROL SULFATE 5 MG/ML 20 ML NEB SOLN [BULK] NEB ONE (21:15)
[2018-03-20] MEDS ORDERED: BARIUM SULFATE 0.1% SUSPENSION 450 ML BOTTLE PO ONE (21:15)
[2018-03-20] MEDS ORDERED: IPRATROPIUM BROMIDE 0.5 MG/2.5 ML NEB SOLUTION NEB ONE (21:15)
[2018-03-20] MEDS ORDERED: 0.9% SODIUM CHLORIDE 15 ML NEB SOLUTION NEB ONE (21:19)
[2018-03-20 21:27] LABS: RBC,URINE 0-2 /HPF (0-2); WBC,URINE None Seen /HPF (0-5)
[2018-03-20 21:28] LABS: GLUCOSE,POINT OF CARE 261 MG/DL (70-110)
[2018-03-20 21:28] LABS: BACTERIA,URINE None Seen /HPF (None Seen); SQUAMOUS EPITHELIAL CELL,UR Rare /LPF (None Seen)
[2018-03-20] MEDS ORDERED: IOVERSOL 350 MG/ML 150 ML VIAL ONE (21:52)
[2018-03-20] MEDS ORDERED: SODIUM CHLORIDE 0.9% 0 ML ONE (21:52)
[2018-03-20 22:12] LABS: BAND NEUTROPHILS % (MANUAL) 12 % (0-5); LYMPHOCYTES % (MANUAL) 4 % (22-44); MONOCYTES % (MANUAL) 1 % (2-9); MYELOCYTES % 1 % (0-0); SEGMENTED NEUTROPHILS % 82 % (40-70)
[2018-03-20 23:51] VITALS: BP 132/82
== END 2018-03-21 00:21 | disposition home or self-care (01) ==
LOC: EMS 20:17
DX: J44.1 Chronic obstructive pulmonary disease with (acute) exacerbation (principal); F41.9 Anxiety disorder, unspecified; E11.9 Type 2 diabetes mellitus without complications; R10.84 Generalized abdominal pain; M19.90 Unspecified osteoarthritis, unspecified site; F31.9 Bipolar disorder, unspecified; K21.9 Gastro-esophageal reflux disease without esophagitis; I11.9 Hypertensive heart disease without heart failure; E78.00 Pure hypercholesterolemia, unspecified; F20.9 Schizophrenia, unspecified; E11.40 Type 2 diabetes mellitus with diabetic neuropathy, unspecified; F17.210 Nicotine dependence, cigarettes, uncomplicated; G89.29 Other chronic pain; Z79.82 Long term (current) use of aspirin; Z98.51 Tubal ligation status; Z88.1 Allergy status to other antibiotic agents; Z88.2 Allergy status to sulfonamides; Z88.8 Allergy status to other drugs, medicaments and biological substances; Z79.4 Long term (current) use of insulin
CPT/HCPCS: 36415; 74177; 80053; 81001; 82962; 83690; 83880; 84484; 85025; 94644; 96361; 96374; 99285; 99406; J1630; J7030; J7050

== ENCOUNTER 2018-04-04 12:09 | Inpatient (IN) | payer OTHER ==
[~2018-04-04] VITALS: Ht 160 cm; Wt 73.4 kg
[2018-04-04] MEDS ORDERED: ALBUTEROL SULFATE 5 MG/ML 20 ML NEB SOLN [BULK] NEB ONE ×3 (12:30→16:15)
[2018-04-04] MEDS ORDERED: ACETAMINOPHEN 500 MG TABLET PO ONE (12:30)
[2018-04-04] MEDS ORDERED: PredniSONE 20 MG TABLET PO ONE (12:30)
[2018-04-04] MEDS ORDERED: IPRATROPIUM BROMIDE 0.5 MG/2.5 ML NEB SOLUTION NEB ONE ×3 (12:30→16:15)
[2018-04-04] MEDS ORDERED: 0.9% SODIUM CHLORIDE 15 ML NEB SOLUTION NEB ONE (12:38)
[2018-04-04] MEDS ORDERED: ONDANSETRON HCL 4 MG TABLET PO ONE (13:15)
[2018-04-04] MEDS ORDERED: PROMETHAZINE HCL 25 MG TABLET PO ONE (13:45)
[2018-04-04] MEDS ORDERED: HydrOXYzine PAMOATE 50 MG CAPSULE PO ONE (13:45)
[2018-04-04 17:41] LABS: CALCIUM, TOTAL 9.1 mg/dL (8.8-10.5); CREATININE 0.95 mg/dL (0.60-1.30); HEMATOCRIT 34.5 % (36-46); HEMOGLOBIN 11.3 g/dL (12.0-16.0); MEAN CORPUSCULAR HEMOGLOBIN 27.9 pg (26.0-34.0); MEAN CORPUSCULAR HGB CONC 32.8 G/dL (31.0-37.0); MEAN CORPUSCULAR VOLUME 85 fL (80-100); PLATELET COUNT (AUTO) 494 K/uL (150-450); RED BLOOD CELL COUNT(AUTO) 4.05 MIL/uL (4.00-5.20); RED CELL DISTRIBUTION WIDTH 23.8 % (11.5-14.5)
[2018-04-04 17:58] LABS: BAND NEUTROPHILS % (MANUAL) 17 % (0-5); LYMPHOCYTES % (MANUAL) 10 % (22-44); MONOCYTES % (MANUAL) 2 % (2-9); SEGMENTED NEUTROPHILS % 71 % (40-70)
[2018-04-04] MEDS ORDERED: INSULIN LISPRO 100 UNITS/ML SQ PRN ×2 (18:30→22:00)
[2018-04-04] MEDS ORDERED: ACETAMINOPHEN 325 MG TABLET PO PRN (18:30)
[2018-04-04] MEDS ORDERED: DEXTROSE 50%-WATER 25 GM/50 ML SYRINGE IVP PRN (18:30)
[2018-04-04] MEDS ORDERED: ONDANSETRON HCL 4 MG/2 ML VIAL IVP PRN (18:30)
[2018-04-04] MEDS ORDERED: ALBUTEROL SULFATE 2.5 MG/0.5 ML NEB SOLUTION NEB SCH (19:00)
[2018-04-04] MEDS ORDERED: IPRATROPIUM BROMIDE 0.5 MG/2.5 ML NEB SOLUTION NEB SCH (19:00)
[2018-04-04] MEDS ORDERED: 0.9% SODIUM CHLORIDE 10 ML SYRINGE IVP PRN (22:00)
[2018-04-04] MEDS ORDERED: GLUCAGON,HUMAN RECOMBINANT 1 MG VIAL IM PRN (22:00)
[2018-04-04] MEDS ORDERED: IPRATROPIUM BROMIDE 0.5 MG/2.5 ML NEB SOLUTION NEB PRN (22:00)
[2018-04-04] MEDS: BusPIRone HCL 15 MG TABLET PO SCH (22:00)
[2018-04-04] MEDS ORDERED: ALBUTEROL SULFATE 2.5 MG/0.5 ML NEB SOLUTION NEB PRN (22:00)
[2018-04-04] MEDS ORDERED: DEXTROSE 50%-WATER 25 GM/50 ML SYG IVP PRN (22:30)
[2018-04-04] MEDS ORDERED: BusPIRone HCL 15 MG TABLET PO ONE (22:30)
[2018-04-04] MEDS ORDERED: SODIUM CHLORIDE 0.9% 250 ML IV ONE (22:34)
[2018-04-04] MEDS: CefTRIAXone 1 GM/DEXTROSE 50 ML IV SCH (22:54)
[2018-04-04] MEDS: ZOLPIDEM TARTRATE 5 MG TABLET PO PRN (23:31)
[2018-04-04] MEDS: HEPARIN SODIUM,PORCINE 5,000 UNITS/ML VIAL SQ SCH (23:31)
[2018-04-04 23:48] LABS: GLUCOSE,POINT OF CARE 368 MG/DL (70-110)
[2018-04-05] VITALS (8 sets, daily range): BP systolic 108–135; BP diastolic 60–84
[2018-04-05] MEDS: INSULIN LISPRO 100 UNITS/ML SQ PRN ×3 (00:12→17:25)
[2018-04-05] MEDS ORDERED: 0.9% SODIUM CHLORIDE 5 ML NEB SOLUTION NEB ONE (01:57)
[2018-04-05] MEDS: ALBUTEROL SULFATE 2.5 MG/0.5 ML NEB SOLUTION NEB SCH ×4 (02:03→20:09)
[2018-04-05] MEDS: IPRATROPIUM BROMIDE 0.5 MG/2.5 ML NEB SOLUTION NEB SCH ×4 (02:03→20:09)
[2018-04-05 05:24] LABS: HEMATOCRIT 33.3 % (36-46); HEMOGLOBIN 11.3 g/dL (12.0-16.0); MEAN CORPUSCULAR HEMOGLOBIN 28.1 pg (26.0-34.0); MEAN CORPUSCULAR HGB CONC 33.9 G/dL (31.0-37.0); MEAN CORPUSCULAR VOLUME 83 fL (80-100); PLATELET COUNT (AUTO) 507 K/uL (150-450); RED BLOOD CELL COUNT(AUTO) 4.02 MIL/uL (4.00-5.20); RED CELL DISTRIBUTION WIDTH 24.4 % (11.5-14.5)
[2018-04-05 05:27] LABS: ANION GAP 7 mmol/L (8-16); CALCIUM, TOTAL 9.2 mg/dL (8.8-10.5); CARBON DIOXIDE 30 mmol/L (22-29); CHLORIDE 101 mmol/L (98-107); CREATININE 0.74 mg/dL (0.60-1.30); GLOMERULAR FILTR. RATE CALC > 60 mL/min (>60); GLUCOSE,RANDOM 168 mg/dL (70-110); POTASSIUM 4.2 mmol/L (3.5-5.1); SODIUM SERUM 138 mmol/L (136-145); UREA NITROGEN, BLOOD 8 mg/dL (7-18)
[2018-04-05] MEDS: MORPHINE SULFATE 4 MG/ML SYRINGE IVP PRN ×5 (06:01→23:05)
[2018-04-05 06:33] LABS: BAND NEUTROPHILS % (MANUAL) 26 % (0-5); LYMPHOCYTES % (MANUAL) 7 % (22-44); MONOCYTES % (MANUAL) 5 % (2-9); SEGMENTED NEUTROPHILS % 62 % (40-70)
[2018-04-05 06:39] LABS: GLUCOSE,POINT OF CARE 138 MG/DL (70-110)
[2018-04-05] MEDS: ZIPRASIDONE HCL 80 MG CAPSULE PO SCH ×2 (07:52→19:05)
[2018-04-05] MEDS: MetFORMIN HCL 500 MG TABLET PO SCH ×2 (07:52→18:00)
[2018-04-05] MEDS: HEPARIN SODIUM,PORCINE 5,000 UNITS/ML VIAL SQ SCH ×2 (07:56→16:23)
[2018-04-05] MEDS: GABAPENTIN 300 MG CAPSULE PO SCH ×3 (08:46→20:22)
[2018-04-05] MEDS: BusPIRone HCL 15 MG TABLET PO SCH ×2 (08:46→20:21)
[2018-04-05] MEDS: FUROSEMIDE 40 MG TABLET PO SCH (08:47)
[2018-04-05] MEDS: DILTIAZEM HCL CD 180 MG ER CAPSULE PO SCH (08:47)
[2018-04-05] MEDS: ASPIRIN 81 MG EC TABLET PO SCH (08:48)
[2018-04-05] MEDS: SIMVASTATIN 10 MG TABLET PO SCH (08:48)
[2018-04-05] MEDS: ONDANSETRON HCL 4 MG/2 ML VIAL IVP PRN ×2 (08:49→16:22)
[2018-04-05] MEDS: PANTOPRAZOLE SODIUM 40 MG/VIAL IVP SCH (08:49)
[2018-04-05] MEDS: INSULIN GLARGINE,HUM.REC.ANLOG 100 UNITS/ML SQ SCH (08:54)
[2018-04-05] MEDS ORDERED: DICY20 PO (09:58)
[2018-04-05] MEDS ORDERED: ISOS60TA4 PO (09:58)
[2018-04-05] MEDS ORDERED: SPIR25 PO (09:58)
[2018-04-05] MEDS ORDERED: PNEUMOCOCCAL VACCINE POLYVALENT 0.5 ML VIAL [PPSV23] IM ONE (11:00)
[2018-04-05] MEDS ORDERED: IOVERSOL 350 MG/ML 100 ML VIAL ONE (15:38)
[2018-04-05] MEDS ORDERED: BARIUM SULFATE 0.1% SUSPENSION 450 ML BOTTLE ONE (15:39)
[2018-04-05] MEDS ORDERED: SODIUM CHLORIDE 0.9% 100 ML ONE (15:39)
[2018-04-05 18:13] LABS: AMYLASE 39 U/L (25-115); LIPASE 89 U/L (73-393)
[2018-04-05 21:24] LABS: GLUCOMETER DEV NAME(LOC) 5S.2; GLUCOSE,POINT OF CARE 97 MG/DL (70-110)
[2018-04-05 21:54] LABS: APPEARANCE,URINE CLEAR (CLEAR); BILIRUBIN,URINE NEGATIVE (NEGATIVE); GLUCOSE, URINE (UA) NEGATIVE (NEGATIVE); KETONES,URINE NEGATIVE (NEGATIVE); LEUKOCYTE ESTERASE ,URINE NEGATIVE (NEGATIVE); NITRATE,URINE NEGATIVE (NEGATIVE); OCCULT BLOOD,URINE NEGATIVE (NEGATIVE); PH,URINE 6.5 (5.0-8.0); PROTEIN,URINE NEGATIVE (NEGATIVE); UROBILINOGEN,URINE 0.2 mg/dL (<=1.0)
[2018-04-05] MEDS ORDERED: PredniSONE 20 MG TABLET PO ONE (22:00)
[2018-04-05] MEDS ORDERED: SODIUM CHLORIDE 0.9% 250 ML IV ONE (22:11)
[2018-04-05] MEDS: CefTRIAXone 1 GM/DEXTROSE 50 ML IV SCH (22:14)
[2018-04-05] MEDS: AZITHROMYCIN 500 MG/NS 250 ML IV SCH (23:01)
[2018-04-06] MEDS: HEPARIN SODIUM,PORCINE 5,000 UNITS/ML VIAL SQ SCH ×3 (00:16→18:11)
[2018-04-06] MEDS: ZOLPIDEM TARTRATE 5 MG TABLET PO PRN (00:16)
[2018-04-06] MEDS: IPRATROPIUM BROMIDE 0.5 MG/2.5 ML NEB SOLUTION NEB SCH ×4 (01:39→20:20)
[2018-04-06] MEDS: ALBUTEROL SULFATE 2.5 MG/0.5 ML NEB SOLUTION NEB SCH ×4 (01:39→20:20)
[2018-04-06] MEDS: MORPHINE SULFATE 4 MG/ML SYRINGE IVP PRN ×3 (03:24→12:56)
[2018-04-06 05:18] VITALS: BP 131/69
[2018-04-06] MEDS: INSULIN LISPRO 100 UNITS/ML SQ PRN ×3 (06:15→21:10)
[2018-04-06 06:44] LABS: GLUCOMETER DEV NAME(LOC) 5S.1; GLUCOSE,POINT OF CARE 127 MG/DL (70-110)
[2018-04-06 06:44] LABS: GLUCOMETER DEV NAME(LOC) 5S.1; GLUCOSE,POINT OF CARE 205 MG/DL (70-110)
[2018-04-06 06:44] LABS: GLUCOMETER DEV NAME(LOC) 5S.1; GLUCOSE,POINT OF CARE 108 MG/DL (70-110)
[2018-04-06 07:07] VITALS: BP 144/75
[2018-04-06 07:47] LABS: ALANINE AMINOTRANSFERASE 24 U/L (12-78); ALBUMIN 2.7 g/dL (3.4-5.0); ALKALINE PHOSPHATASE 96 U/L (46-116); ANION GAP 5 mmol/L (8-16); ASPARTATE AMINOTRANSFERASE 10 U/L (15-37); BILIRUBIN,TOTAL 0.1 mg/dL (0.1-1.0); CALCIUM, TOTAL 9.3 mg/dL (8.8-10.5); CARBON DIOXIDE 32 mmol/L (22-29); CHLORIDE 96 mmol/L (98-107); CREATININE 0.82 mg/dL (0.60-1.30); GLOMERULAR FILTR. RATE CALC > 60 mL/min (>60); GLUCOSE,RANDOM 206 mg/dL (70-110); POTASSIUM 4.7 mmol/L (3.5-5.1); SODIUM SERUM 133 mmol/L (136-145); TOTAL PROTEIN, SERUM 6.9 g/dL (6.4-8.2); UREA NITROGEN, BLOOD 13 mg/dL (7-18)
[2018-04-06] MEDS: MetFORMIN HCL 500 MG TABLET PO SCH ×2 (08:00→18:11)
[2018-04-06] MEDS: PANTOPRAZOLE SODIUM 40 MG/VIAL IVP SCH (08:04)
[2018-04-06] MEDS: GABAPENTIN 300 MG CAPSULE PO SCH ×3 (08:05→20:40)
[2018-04-06] MEDS: BusPIRone HCL 15 MG TABLET PO SCH ×2 (08:05→20:41)
[2018-04-06] MEDS: DILTIAZEM HCL CD 180 MG ER CAPSULE PO SCH (08:05)
[2018-04-06] MEDS: ZIPRASIDONE HCL 80 MG CAPSULE PO SCH ×2 (08:05→18:11)
[2018-04-06] MEDS: SIMVASTATIN 10 MG TABLET PO SCH (08:05)
[2018-04-06] MEDS: ASPIRIN 81 MG EC TABLET PO SCH (08:06)
[2018-04-06] MEDS: FUROSEMIDE 40 MG TABLET PO SCH (08:06)
[2018-04-06] MEDS: INSULIN GLARGINE,HUM.REC.ANLOG 100 UNITS/ML SQ SCH (08:07)
[2018-04-06] MEDS ORDERED: PEG 3350/NA SULF,BICARB,CL/KCL 4000 ML SOLUTION PO ONE (09:00)
[2018-04-06 11:21] VITALS: BP 128/66
[2018-04-06 12:09] LABS: GLUCOMETER DEV NAME(LOC) 5S.2; GLUCOSE,POINT OF CARE 155 MG/DL (70-110)
[2018-04-06] MEDS ORDERED: BISACODYL 10 MG RECTAL RECTAL SUPPOSITORY PR ONE (12:45)
[2018-04-06] MEDS ORDERED: MAGNESIUM CITRATE 300 ML ORAL SOLUTION PO ONE (12:45)
[2018-04-06 13:25] LABS: BASOPHILS % (AUTO) 0.4 % (0.0-2.0); EOSINOPHILS % (AUTO) 0.1 % (1.0-6.0); HEMATOCRIT 38.4 % (36-46); HEMOGLOBIN 12.8 g/dL (12.0-16.0); LYMPHOCYTES # (AUTO) 2.2 K/uL (1.0-4.8); LYMPHOCYTES % (AUTO) 14.1 % (22.0-44.0); MEAN CORPUSCULAR HEMOGLOBIN 28.1 pg (26.0-34.0); MEAN CORPUSCULAR HGB CONC 33.4 G/dL (31.0-37.0); MEAN CORPUSCULAR VOLUME 84 fL (80-100); MONOCYTES # (AUTO) 0.9 K/uL (0.1-1.0); MONOCYTES % (AUTO) 5.5 % (2.0-9.0); NEUTROPHILS # (AUTO) 12.6 K/uL (1.8-7.7); NEUTROPHILS % (AUTO) 79.9 % (40.0-70.0); PLATELET COUNT (AUTO) 520 K/uL (150-450); RED BLOOD CELL COUNT(AUTO) 4.56 MIL/uL (4.00-5.20); RED CELL DISTRIBUTION WIDTH 23.1 % (11.5-14.5)
[2018-04-06 13:31] LABS: ANION GAP 8 mmol/L (8-16); CALCIUM, TOTAL 9.6 mg/dL (8.8-10.5); CARBON DIOXIDE 33 mmol/L (22-29); CHLORIDE 95 mmol/L (98-107); CREATININE 0.93 mg/dL (0.60-1.30); GLOMERULAR FILTR. RATE CALC > 60 mL/min (>60); GLUCOSE,RANDOM 143 mg/dL (70-110); POTASSIUM 3.9 mmol/L (3.5-5.1); SODIUM SERUM 136 mmol/L (136-145); UREA NITROGEN, BLOOD 16 mg/dL (7-18)
[2018-04-06 13:36] LABS: ALANINE AMINOTRANSFERASE 21 U/L (12-78); ALBUMIN 2.7 g/dL (3.4-5.0); ALKALINE PHOSPHATASE 94 U/L (46-116); ASPARTATE AMINOTRANSFERASE 13 U/L (15-37); BILIRUBIN,TOTAL 0.1 mg/dL (0.1-1.0); TOTAL PROTEIN, SERUM 7.1 g/dL (6.4-8.2)
[2018-04-06 15:11] VITALS: BP 129/83
[2018-04-06] MEDS ORDERED: KETOROLAC TROMETHAMINE 30 MG/ML VIAL IVP PRN (17:45)
[2018-04-06] MEDS: MethylPREDNISolone SOD SUCC 40 MG/ML VIAL IVP SCH (18:10)
[2018-04-06] MEDS: KETOROLAC TROMETHAMINE 30 MG/ML VIAL IVP SCH (18:32)
[2018-04-06 19:30] VITALS: BP 141/76
[2018-04-06] MEDS: CefTRIAXone 1 GM/DEXTROSE 50 ML IV SCH (20:57)
[2018-04-06] MEDS: AZITHROMYCIN 500 MG/NS 250 ML IV SCH (22:28)
[2018-04-07] VITALS (7 sets, daily range): BP systolic 110–144; BP diastolic 56–83
[2018-04-07] MEDS: MethylPREDNISolone SOD SUCC 40 MG/ML VIAL IVP SCH ×5 (01:05→23:46)
[2018-04-07] MEDS: HEPARIN SODIUM,PORCINE 5,000 UNITS/ML VIAL SQ SCH ×4 (01:06→23:48)
[2018-04-07] MEDS: KETOROLAC TROMETHAMINE 30 MG/ML VIAL IVP SCH ×5 (01:08→19:45)
[2018-04-07] MEDS: ALBUTEROL SULFATE 2.5 MG/0.5 ML NEB SOLUTION NEB SCH ×4 (02:07→19:49)
[2018-04-07] MEDS: IPRATROPIUM BROMIDE 0.5 MG/2.5 ML NEB SOLUTION NEB SCH ×4 (02:07→19:49)
[2018-04-07] MEDS: INSULIN LISPRO 100 UNITS/ML SQ PRN ×4 (06:01→21:10)
[2018-04-07 07:01] LABS: BASOPHILS % (AUTO) 0.5 % (0.0-2.0); EOSINOPHILS % (AUTO) 0 % (1.0-6.0); HEMATOCRIT 35.2 % (36-46); HEMOGLOBIN 11.8 g/dL (12.0-16.0); LYMPHOCYTES # (AUTO) 0.8 K/uL (1.0-4.8); LYMPHOCYTES % (AUTO) 4.7 % (22.0-44.0); MEAN CORPUSCULAR HEMOGLOBIN 28.4 pg (26.0-34.0); MEAN CORPUSCULAR HGB CONC 33.5 G/dL (31.0-37.0); MEAN CORPUSCULAR VOLUME 85 fL (80-100); MONOCYTES # (AUTO) 0.4 K/uL (0.1-1.0); MONOCYTES % (AUTO) 2.2 % (2.0-9.0); NEUTROPHILS # (AUTO) 14.9 K/uL (1.8-7.7); PLATELET COUNT (AUTO) 520 K/uL (150-450); RED BLOOD CELL COUNT(AUTO) 4.14 MIL/uL (4.00-5.20); RED CELL DISTRIBUTION WIDTH 23.3 % (11.5-14.5)
[2018-04-07 07:03] LABS: NEUTROPHILS % (AUTO) 92.6 % (40.0-70.0)
[2018-04-07 07:40] LABS: ALBUMIN 2.6 g/dL (3.4-5.0); BILIRUBIN,TOTAL 0.1 mg/dL (0.1-1.0); CALCIUM, TOTAL 8.3 mg/dL (8.8-10.5); CREATININE 0.99 mg/dL (0.60-1.30); MAGNESIUM 2.7 mg/dL (1.80-2.40); POTASSIUM 3.7 mmol/L (3.5-5.1); TOTAL PROTEIN, SERUM 6.5 g/dL (6.4-8.2)
[2018-04-07] MEDS: MetFORMIN HCL 500 MG TABLET PO SCH ×2 (08:03→18:12)
[2018-04-07] MEDS: GABAPENTIN 300 MG CAPSULE PO SCH ×3 (08:03→20:14)
[2018-04-07] MEDS: ASPIRIN 81 MG EC TABLET PO SCH (08:03)
[2018-04-07] MEDS: BusPIRone HCL 15 MG TABLET PO SCH ×2 (08:04→20:14)
[2018-04-07] MEDS: ZIPRASIDONE HCL 80 MG CAPSULE PO SCH ×2 (08:04→18:12)
[2018-04-07] MEDS: PANTOPRAZOLE SODIUM 40 MG/VIAL IVP SCH (08:04)
[2018-04-07] MEDS: DILTIAZEM HCL CD 180 MG ER CAPSULE PO SCH (08:04)
[2018-04-07] MEDS: SIMVASTATIN 10 MG TABLET PO SCH (08:04)
[2018-04-07] MEDS: FUROSEMIDE 40 MG TABLET PO SCH (08:04)
[2018-04-07] MEDS: INSULIN GLARGINE,HUM.REC.ANLOG 100 UNITS/ML SQ SCH (09:42)
[2018-04-07 12:09] LABS: GLUCOMETER DEV NAME(LOC) 5N.2; GLUCOSE,POINT OF CARE 188 MG/DL (70-110)
[2018-04-07 12:09] LABS: GLUCOMETER DEV NAME(LOC) 5N.2; GLUCOSE,POINT OF CARE 352 MG/DL (70-110)
[2018-04-07 12:59] LABS: GLUCOMETER DEV NAME(LOC) 5S.2; GLUCOSE,POINT OF CARE 121 MG/DL (70-110)
[2018-04-07 15:48] LABS: GLUCOMETER DEV NAME(LOC) 5N.1; GLUCOSE,POINT OF CARE 205 MG/DL (70-110)
[2018-04-07] MEDS: CefTRIAXone 1 GM/DEXTROSE 50 ML IV SCH (21:11)
[2018-04-07] MEDS: AZITHROMYCIN 500 MG/NS 250 ML IV SCH (22:25)
[2018-04-08] MEDS: IPRATROPIUM BROMIDE 0.5 MG/2.5 ML NEB SOLUTION NEB SCH ×2 (02:39→08:24)
[2018-04-08] MEDS: ALBUTEROL SULFATE 2.5 MG/0.5 ML NEB SOLUTION NEB SCH ×2 (02:39→08:24)
[2018-04-08 05:16] VITALS: BP 140/82
[2018-04-08] MEDS: INSULIN LISPRO 100 UNITS/ML SQ PRN (06:02)
[2018-04-08] MEDS: MethylPREDNISolone SOD SUCC 40 MG/ML VIAL IVP SCH (06:03)
[2018-04-08] MEDS: KETOROLAC TROMETHAMINE 30 MG/ML VIAL IVP SCH (06:04)
[2018-04-08 06:14] LABS: BASOPHILS % (AUTO) 0.7 % (0.0-2.0); EOSINOPHILS % (AUTO) 0 % (1.0-6.0); HEMATOCRIT 35.2 % (36-46); HEMOGLOBIN 11.8 g/dL (12.0-16.0); LYMPHOCYTES # (AUTO) 1.6 K/uL (1.0-4.8); LYMPHOCYTES % (AUTO) 5.3 % (22.0-44.0); MEAN CORPUSCULAR HEMOGLOBIN 27.8 pg (26.0-34.0); MEAN CORPUSCULAR HGB CONC 33.5 G/dL (31.0-37.0); MEAN CORPUSCULAR VOLUME 83 fL (80-100); MONOCYTES # (AUTO) 0.6 K/uL (0.1-1.0); NEUTROPHILS # (AUTO) 27.5 K/uL (1.8-7.7); PLATELET COUNT (AUTO) 506 K/uL (150-450); RED BLOOD CELL COUNT(AUTO) 4.24 MIL/uL (4.00-5.20); RED CELL DISTRIBUTION WIDTH 23.9 % (11.5-14.5)
[2018-04-08 06:26] LABS: ALANINE AMINOTRANSFERASE 13 U/L (12-78); ALBUMIN 2.6 g/dL (3.4-5.0); ALKALINE PHOSPHATASE 89 U/L (46-116); ANION GAP 9 mmol/L (8-16); ASPARTATE AMINOTRANSFERASE 13 U/L (15-37); BILIRUBIN,TOTAL 0.1 mg/dL (0.1-1.0); CALCIUM, TOTAL 8.5 mg/dL (8.8-10.5); CARBON DIOXIDE 30 mmol/L (22-29); CHLORIDE 98 mmol/L (98-107); GLOMERULAR FILTR. RATE CALC > 60 mL/min (>60); GLUCOSE,RANDOM 191 mg/dL (70-110); POTASSIUM 4.3 mmol/L (3.5-5.1); SODIUM SERUM 137 mmol/L (136-145); TOTAL PROTEIN, SERUM 6.4 g/dL (6.4-8.2); UREA NITROGEN, BLOOD 21 mg/dL (7-18)
[2018-04-08 07:15] VITALS: BP 155/80
[2018-04-08 08:04] LABS: GLUCOMETER DEV NAME(LOC) 5S.1; GLUCOSE,POINT OF CARE 171 MG/DL (70-110)
[2018-04-08 08:04] LABS: GLUCOMETER DEV NAME(LOC) 5S.1; GLUCOSE,POINT OF CARE 204 MG/DL (70-110)
[2018-04-08] MEDS ORDERED: PRED20 PO (08:23)
[2018-04-08] MEDS ORDERED: DSS100 PO (08:24)
[2018-04-08] MEDS ORDERED: SENN-176 PO (08:24)
[2018-04-08] MEDS: PANTOPRAZOLE SODIUM 40 MG/VIAL IVP SCH (08:34)
[2018-04-08] MEDS: HEPARIN SODIUM,PORCINE 5,000 UNITS/ML VIAL SQ SCH (08:34)
[2018-04-08] MEDS: BusPIRone HCL 15 MG TABLET PO SCH (08:35)
[2018-04-08] MEDS: SIMVASTATIN 10 MG TABLET PO SCH (08:35)
[2018-04-08] MEDS: ZIPRASIDONE HCL 80 MG CAPSULE PO SCH (08:35)
[2018-04-08] MEDS: ASPIRIN 81 MG EC TABLET PO SCH (08:35)
[2018-04-08] MEDS: MetFORMIN HCL 500 MG TABLET PO SCH (08:35)
[2018-04-08] MEDS: DILTIAZEM HCL CD 180 MG ER CAPSULE PO SCH (08:35)
[2018-04-08] MEDS: GABAPENTIN 300 MG CAPSULE PO SCH (08:36)
[2018-04-08] MEDS: FUROSEMIDE 40 MG TABLET PO SCH (08:36)
[2018-04-08] MEDS: INSULIN GLARGINE,HUM.REC.ANLOG 100 UNITS/ML SQ SCH (08:45)
[2018-04-08 11:14] LABS: GLUCOMETER DEV NAME(LOC) 5N.2; GLUCOSE,POINT OF CARE 182 MG/DL (70-110)
== END 2018-04-08 12:30 | disposition home or self-care (01) | DRG 140 ==
LOC: EMS 12:11 → AHU 23:33 → 5S 04-05 02:10 → 5N 04-06 19:00
PROVIDERS: ADMIT Internal Medicine; ATTEND Internal Medicine
PROC: 3E0234Z Introduction of Serum, Toxoid and Vaccine into Muscle, Percutaneous Approach (ICD-10-PCS; principal; 2018-04-05)
DX: J44.1 Chronic obstructive pulmonary disease with (acute) exacerbation (principal); E11.40 Type 2 diabetes mellitus with diabetic neuropathy, unspecified; I11.9 Hypertensive heart disease without heart failure; D64.9 Anemia, unspecified; F41.9 Anxiety disorder, unspecified; J20.9 Acute bronchitis, unspecified; K59.00 Constipation, unspecified; M19.90 Unspecified osteoarthritis, unspecified site; F20.9 Schizophrenia, unspecified; K29.70 Gastritis, unspecified, without bleeding; K21.9 Gastro-esophageal reflux disease without esophagitis; E78.00 Pure hypercholesterolemia, unspecified; Z98.51 Tubal ligation status; Z23 Encounter for immunization; F17.210 Nicotine dependence, cigarettes, uncomplicated; Z87.442 Personal history of urinary calculi; Z83.3 Family history of diabetes mellitus; Z82.49 Family history of ischemic heart disease and other diseases of the circulatory system; J44.0 Chronic obstructive pulmonary disease with (acute) lower respiratory infection; F31.9 Bipolar disorder, unspecified; E78.5 Hyperlipidemia, unspecified; G89.4 Chronic pain syndrome; Z79.52 Long term (current) use of systemic steroids
CPT/HCPCS: 74177; 83735; 90732; 94640; 94644; 94645; C9113; G0378; J0456; J0696; J1644; J1815; J1885; J2270; J2405; J2920; J7050; Q0162

== ENCOUNTER 2018-04-09 13:44 | Inpatient (IN) | payer OTHER ==
[~2018-04-09] VITALS: Ht 167.6 cm; Wt 73.9 kg
[~2018-04-09 13:44] MED LIST changes: +DICY20 PO; +DSS100 PO; +ISOS60TA4 PO; +PRED20 PO; +SENN-176 PO; +SPIR25 PO
[2018-04-09 14:19] LABS: GLUCOSE,POINT OF CARE 232 MG/DL (70-110)
[2018-04-09] MEDS ORDERED: IOVERSOL 320 MG/ML 100 ML VIAL ONE (14:51)
[2018-04-09] MEDS ORDERED: SODIUM CHLORIDE 0.9% 100 ML ONE (14:51)
[2018-04-09] MEDS ORDERED: MethylPREDNISolone SOD SUCC 125 MG/2 ML VIAL IVP ONE (15:00)
[2018-04-09] MEDS ORDERED: IPRATROPIUM BROMIDE 0.5 MG/2.5 ML NEB SOLUTION NEB ONE (15:00)
[2018-04-09] MEDS ORDERED: ALBUTEROL SULFATE 2.5 MG/0.5 ML NEB SOLUTION NEB ONE (15:00)
[2018-04-09 15:20] LABS: HEMATOCRIT 35.9 % (36-46); HEMOGLOBIN 11.8 g/dL (12.0-16.0); MEAN CORPUSCULAR HEMOGLOBIN 27.6 pg (26.0-34.0); MEAN CORPUSCULAR HGB CONC 32.9 G/dL (31.0-37.0); MEAN CORPUSCULAR VOLUME 84 fL (80-100); PLATELET COUNT (AUTO) 480 K/uL (150-450); RED BLOOD CELL COUNT(AUTO) 4.27 MIL/uL (4.00-5.20); RED CELL DISTRIBUTION WIDTH 23.2 % (11.5-14.5)
[2018-04-09 15:23] LABS: CALCIUM, TOTAL 8.8 mg/dL (8.8-10.5); CREATININE 1.17 mg/dL (0.60-1.30); POTASSIUM 4.2 mmol/L (3.5-5.1)
[2018-04-09 15:29] LABS: ALBUMIN 2.9 g/dL (3.4-5.0); BILIRUBIN,TOTAL 0.1 mg/dL (0.1-1.0); TOTAL PROTEIN, SERUM 6.3 g/dL (6.4-8.2)
[2018-04-09] MEDS ORDERED: CEFEPIME HCL 1 GM in DEXTROSE 5%-WATER 50 ML IV ONE (15:45)
[2018-04-09] MEDS ORDERED: KETOROLAC TROMETHAMINE 30 MG/ML VIAL IVP ONE (15:45)
[2018-04-09] MEDS ORDERED: SODIUM CHLORIDE 0.9% 1,000 ML IV ONE ×3 (15:45)
[2018-04-09] MEDS ORDERED: VANCOMYCIN HCL 1 GM/D5% WATER 200 ML IV ONE (16:00)
[2018-04-09 16:16] LABS: BAND NEUTROPHILS % (MANUAL) 11 % (0-5); LYMPHOCYTES % (MANUAL) 15 % (22-44); MONOCYTES % (MANUAL) 4 % (2-9); SEGMENTED NEUTROPHILS % 70 % (40-70)
[2018-04-09 16:17] LABS: PLATELET MORPHOLOGY COMMENT LARGE PLTS PRESENT
[2018-04-09 16:27] LABS: APPEARANCE,URINE CLEAR (CLEAR); BILIRUBIN,URINE NEGATIVE (NEGATIVE); GLUCOSE, URINE (UA) NEGATIVE (NEGATIVE); KETONES,URINE NEGATIVE (NEGATIVE); LEUKOCYTE ESTERASE ,URINE NEGATIVE (NEGATIVE); NITRATE,URINE NEGATIVE (NEGATIVE); OCCULT BLOOD,URINE NEGATIVE (NEGATIVE); PROTEIN,URINE NEGATIVE (NEGATIVE); UROBILINOGEN,URINE 0.2 mg/dL (<=1.0)
[2018-04-09 16:28] LABS: BACTERIA,URINE None Seen /HPF (None Seen); RBC,URINE 0-2 /HPF (0-2); SQUAMOUS EPITHELIAL CELL,UR Few /LPF (None Seen); WBC,URINE 0-2 /HPF (0-5)
[2018-04-09] MEDS ORDERED: LIDOCAINE 5% TRANSDERMAL PATCH TD ONE (16:30)
[2018-04-09 16:53] LABS: LACTIC ACID 2.8 mmol/L (0.4-2.0)
[2018-04-09] MEDS ORDERED: ACETAMINOPHEN 325 MG TABLET PO PRN ×2 (17:45→22:30)
[2018-04-09] MEDS ORDERED: ONDANSETRON HCL 4 MG/2 ML VIAL IVP PRN ×2 (17:45→22:30)
[2018-04-09] MEDS ORDERED: 0.9% SODIUM CHLORIDE 10 ML SYRINGE IVP PRN (17:45)
[2018-04-09] MEDS ORDERED: DEXTROSE 50%-WATER 25 GM/50 ML SYRINGE IVP PRN (19:45)
[2018-04-09 19:49] VITALS: BP 112/60
[2018-04-09] MEDS: INSULIN LISPRO 100 UNITS/ML SQ PRN (20:03)
[2018-04-09] MEDS: DOXYCYCLINE HYCLATE 100 MG CAPSULE PO SCH (20:04)
[2018-04-09] MEDS ORDERED: PIPERACILLIN/TAZO 3.375 GM/D5W 50 ML IV SCH (21:00)
[2018-04-09] MEDS ORDERED: -PHARMACY VACCINE NOTE- MISC ONE (22:15)
[2018-04-09] MEDS ORDERED: MAGNESIUM HYDROXIDE SUSPENSION 30 ML UDCUP PO PRN (22:30)
[2018-04-09] MEDS ORDERED: BISACODYL 10 MG RECTAL RECTAL SUPPOSITORY PR PRN (22:30)
[2018-04-09] MEDS ORDERED: ALBUTEROL SULFATE 2.5 MG/0.5 ML NEB SOLUTION NEB PRN (22:30)
[2018-04-09] MEDS ORDERED: IPRATROPIUM BROMIDE 0.5 MG/2.5 ML NEB SOLUTION NEB PRN (22:30)
[2018-04-09 23:54] LABS: GLUCOMETER DEV NAME(LOC) 5N.2; GLUCOSE,POINT OF CARE 325 MG/DL (70-110)
[2018-04-10] VITALS (9 sets, daily range): BP systolic 100–151; BP diastolic 58–87
[2018-04-10] MEDS ORDERED: MethylPREDNISolone SOD SUCC 125 MG/2 ML VIAL IVP SCH
[2018-04-10] MEDS: HEPARIN SODIUM,PORCINE 5,000 UNITS/ML VIAL SQ SCH ×3 (00:05→16:27)
[2018-04-10] MEDS: MethylPREDNISolone SOD SUCC 125 MG/2 ML VIAL IVP SCH ×4 (00:05→17:38)
[2018-04-10] MEDS: AZITHROMYCIN 500 MG/NS 250 ML IV SCH (00:06)
[2018-04-10] MEDS: CefTRIAXone 1 GM/DEXTROSE 50 ML IV SCH (03:50)
[2018-04-10] MEDS: INSULIN LISPRO 100 UNITS/ML SQ PRN ×4 (05:34→20:59)
[2018-04-10] MEDS: HYDROCODONE/ACETAMINOPHEN 5-325 MG TABLET PO PRN (06:00)
[2018-04-10 06:20] LABS: HEMATOCRIT 35.2 % (36-46); HEMOGLOBIN 11.9 g/dL (12.0-16.0); MEAN CORPUSCULAR HEMOGLOBIN 28.2 pg (26.0-34.0); MEAN CORPUSCULAR HGB CONC 33.9 G/dL (31.0-37.0); MEAN CORPUSCULAR VOLUME 83 fL (80-100); PLATELET COUNT (AUTO) 472 K/uL (150-450); RED BLOOD CELL COUNT(AUTO) 4.22 MIL/uL (4.00-5.20); RED CELL DISTRIBUTION WIDTH 23.7 % (11.5-14.5)
[2018-04-10 06:54] LABS: ALANINE AMINOTRANSFERASE 19 U/L (12-78); ALBUMIN 2.8 g/dL (3.4-5.0); ALKALINE PHOSPHATASE 81 U/L (46-116); ANION GAP 7 mmol/L (8-16); ASPARTATE AMINOTRANSFERASE 9 U/L (15-37); BILIRUBIN,TOTAL 0.1 mg/dL (0.1-1.0); CALCIUM, TOTAL 8.2 mg/dL (8.8-10.5); CARBON DIOXIDE 29 mmol/L (22-29); CHLORIDE 99 mmol/L (98-107); CREATININE 0.88 mg/dL (0.60-1.30); GLOMERULAR FILTR. RATE CALC > 60 mL/min (>60); GLUCOSE,RANDOM 227 mg/dL (70-110); POTASSIUM 4.3 mmol/L (3.5-5.1); SODIUM SERUM 135 mmol/L (136-145); TOTAL PROTEIN, SERUM 6.5 g/dL (6.4-8.2); UREA NITROGEN, BLOOD 11 mg/dL (7-18)
[2018-04-10 07:39] LABS: BAND NEUTROPHILS % (MANUAL) 6 % (0-5); LYMPHOCYTES % (MANUAL) 6 % (22-44); MONOCYTES % (MANUAL) 2 % (2-9); SEGMENTED NEUTROPHILS % 86 % (40-70)
[2018-04-10] MEDS ORDERED: MetFORMIN HCL 500 MG TABLET PO SCH (08:00)
[2018-04-10] MEDS: INSULIN GLARGINE,HUM.REC.ANLOG 100 UNITS/ML SQ SCH (08:18)
[2018-04-10] MEDS: VANCOMYCIN HCL 1 GM/D5% WATER 200 ML IV SCH ×2 (08:18→22:35)
[2018-04-10] MEDS: DOXYCYCLINE HYCLATE 100 MG CAPSULE PO SCH ×2 (08:19→20:50)
[2018-04-10] MEDS: SPIRONOLACTONE 25 MG TABLET PO SCH (08:19)
[2018-04-10] MEDS: DOCUSATE SODIUM 100 MG CAPSULE PO SCH ×2 (08:19→20:51)
[2018-04-10] MEDS: FUROSEMIDE 20 MG TABLET PO SCH (08:19)
[2018-04-10] MEDS: FERROUS SULFATE 325 MG EC TABLET PO SCH (08:19)
[2018-04-10] MEDS: GABAPENTIN 300 MG CAPSULE PO SCH ×3 (08:19→20:52)
[2018-04-10] MEDS: PANTOPRAZOLE SODIUM 40 MG DR TABLET PO SCH (08:19)
[2018-04-10] MEDS: BENZONATATE 100 MG CAPSULE PO SCH ×3 (08:19→20:51)
[2018-04-10] MEDS: GuaiFENesin SR 600 MG ER TABLET PO SCH ×2 (08:19→20:51)
[2018-04-10] MEDS: ASPIRIN 81 MG EC TABLET PO SCH (08:19)
[2018-04-10] MEDS: MORPHINE SULFATE 4 MG/ML SYRINGE IVP PRN ×4 (08:20→20:53)
[2018-04-10] MEDS: ALBUTEROL SULFATE 2.5 MG/0.5 ML NEB SOLUTION NEB SCH ×3 (08:46→19:53)
[2018-04-10] MEDS: IPRATROPIUM BROMIDE 0.5 MG/2.5 ML NEB SOLUTION NEB SCH ×3 (08:46→19:52)
[2018-04-10] MEDS: ZIPRASIDONE HCL 80 MG CAPSULE PO SCH ×2 (09:23→17:38)
[2018-04-10] MEDS: DICYCLOMINE HCL 20 MG TABLET PO SCH ×4 (09:23→20:51)
[2018-04-10] MEDS: ISOSORBIDE MONONITRATE 60 MG ER TABLET PO SCH (09:24)
[2018-04-10] MEDS: DILTIAZEM HCL CD 180 MG ER CAPSULE PO SCH (09:24)
[2018-04-10] MEDS: BusPIRone HCL 15 MG TABLET PO SCH ×2 (09:24→20:52)
[2018-04-10] MEDS ORDERED: PEG 3350/NA SULF,BICARB,CL/KCL 4000 ML SOLUTION PO ONE (09:45)
[2018-04-10 12:14] LABS: GLUCOMETER DEV NAME(LOC) 5S.1; GLUCOSE,POINT OF CARE 223 MG/DL (70-110)
[2018-04-10 15:04] LABS: GLUCOMETER DEV NAME(LOC) 5N.2; GLUCOSE,POINT OF CARE 227 MG/DL (70-110)
[2018-04-10 15:04] LABS: GLUCOMETER DEV NAME(LOC) 5N.2; GLUCOSE,POINT OF CARE 203 MG/DL (70-110)
[2018-04-10 16:35] LABS: INFLUENZA TYPE A NEGATIVE FOR TYPE A (NEGATIVE); INFLUENZA TYPE B NEGATIVE FOR TYPE B (NEGATIVE)
[2018-04-10 19:44] LABS: GLUCOMETER DEV NAME(LOC) 5N.2; GLUCOSE,POINT OF CARE 178 MG/DL (70-110)
[2018-04-10] MEDS: SIMVASTATIN 10 MG TABLET PO SCH (20:52)
[2018-04-10 22:09] LABS: GLUCOMETER DEV NAME(LOC) 5N.1; GLUCOSE,POINT OF CARE 259 MG/DL (70-110)
[2018-04-10] MEDS ORDERED: SODIUM CHLORIDE 0.9% 250 ML IV ONE (22:39)
[2018-04-11] MEDS: MethylPREDNISolone SOD SUCC 125 MG/2 ML VIAL IVP SCH ×3 (00:58→12:07)
[2018-04-11] MEDS: HEPARIN SODIUM,PORCINE 5,000 UNITS/ML VIAL SQ SCH ×4 (00:59→22:37)
[2018-04-11] MEDS: AZITHROMYCIN 500 MG/NS 250 ML IV SCH ×2 (00:59→22:36)
[2018-04-11] MEDS: MORPHINE SULFATE 4 MG/ML SYRINGE IVP PRN ×3 (01:01→09:28)
[2018-04-11] MEDS: ALBUTEROL SULFATE 2.5 MG/0.5 ML NEB SOLUTION NEB SCH ×4 (01:42→19:47)
[2018-04-11] MEDS: IPRATROPIUM BROMIDE 0.5 MG/2.5 ML NEB SOLUTION NEB SCH ×4 (01:42→19:47)
[2018-04-11] MEDS: CefTRIAXone 1 GM/DEXTROSE 50 ML IV SCH (04:09)
[2018-04-11 04:20] VITALS: BP 138/80
[2018-04-11] MEDS: INSULIN LISPRO 100 UNITS/ML SQ PRN ×4 (06:15→21:23)
[2018-04-11 06:19] LABS: GLUCOMETER DEV NAME(LOC) 5N.1; GLUCOSE,POINT OF CARE 252 MG/DL (70-110)
[2018-04-11 07:05] LABS: ANION GAP 5 mmol/L (8-16); CALCIUM, TOTAL 8.2 mg/dL (8.8-10.5); CARBON DIOXIDE 30 mmol/L (22-29); CHLORIDE 99 mmol/L (98-107); CREATININE 0.81 mg/dL (0.60-1.30); GLOMERULAR FILTR. RATE CALC > 60 mL/min (>60); GLUCOSE,RANDOM 248 mg/dL (70-110); POTASSIUM 3.5 mmol/L (3.5-5.1); SODIUM SERUM 134 mmol/L (136-145); UREA NITROGEN, BLOOD 17 mg/dL (7-18); VANCOMYCIN,RANDOM 17.2 mcg/mL (25.0-50.0)
[2018-04-11 07:30] VITALS: BP 138/77
[2018-04-11] MEDS: DOCUSATE SODIUM 100 MG CAPSULE PO SCH ×2 (08:24→21:16)
[2018-04-11] MEDS: SPIRONOLACTONE 25 MG TABLET PO SCH (08:25)
[2018-04-11] MEDS: ISOSORBIDE MONONITRATE 60 MG ER TABLET PO SCH (08:25)
[2018-04-11] MEDS: BusPIRone HCL 15 MG TABLET PO SCH ×2 (08:25→21:16)
[2018-04-11] MEDS: GuaiFENesin SR 600 MG ER TABLET PO SCH ×2 (08:25→21:16)
[2018-04-11] MEDS: DICYCLOMINE HCL 20 MG TABLET PO SCH ×4 (08:26→21:16)
[2018-04-11] MEDS: ASPIRIN 81 MG EC TABLET PO SCH (08:26)
[2018-04-11] MEDS: DOXYCYCLINE HYCLATE 100 MG CAPSULE PO SCH ×2 (08:26→21:16)
[2018-04-11] MEDS: ZIPRASIDONE HCL 80 MG CAPSULE PO SCH ×2 (08:26→18:27)
[2018-04-11] MEDS: FUROSEMIDE 20 MG TABLET PO SCH (08:26)
[2018-04-11] MEDS: DILTIAZEM HCL CD 180 MG ER CAPSULE PO SCH (08:27)
[2018-04-11] MEDS: FERROUS SULFATE 325 MG EC TABLET PO SCH (08:27)
[2018-04-11] MEDS: BENZONATATE 100 MG CAPSULE PO SCH ×3 (08:27→21:16)
[2018-04-11] MEDS: PANTOPRAZOLE SODIUM 40 MG DR TABLET PO SCH (08:27)
[2018-04-11] MEDS: GABAPENTIN 300 MG CAPSULE PO SCH ×3 (08:30→21:16)
[2018-04-11] MEDS: INSULIN GLARGINE,HUM.REC.ANLOG 100 UNITS/ML SQ SCH (08:43)
[2018-04-11 11:34] VITALS: BP 114/62
[2018-04-11 11:59] LABS: GLUCOMETER DEV NAME(LOC) 5N.1; GLUCOSE,POINT OF CARE 288 MG/DL (70-110)
[2018-04-11] MEDS: HYDROCODONE/ACETAMINOPHEN 5-325 MG TABLET PO PRN ×3 (13:44→22:37)
[2018-04-11 15:54] VITALS: BP 126/70
[2018-04-11] MEDS ORDERED: MetFORMIN HCL 500 MG TABLET PO SCH (16:00)
[2018-04-11] MEDS ORDERED: SODIUM CHLORIDE 0.9% 100 ML ONE (17:15)
[2018-04-11] MEDS ORDERED: IOVERSOL 350 MG/ML 100 ML VIAL ONE (17:15)
[2018-04-11 19:44] LABS: GLUCOMETER DEV NAME(LOC) 5N.1; GLUCOSE,POINT OF CARE 322 MG/DL (70-110)
[2018-04-11 20:20] VITALS: BP 148/77
[2018-04-11] MEDS: SIMVASTATIN 10 MG TABLET PO SCH (21:16)
[2018-04-11] MEDS: ZOLPIDEM TARTRATE 5 MG TABLET PO PRN (21:18)
[2018-04-11] MEDS ORDERED: SODIUM CHLORIDE 0.9% 250 ML IV ONE (22:40)
[2018-04-12] VITALS (7 sets, daily range): BP systolic 116–147; BP diastolic 68–79
[2018-04-12] MEDS: IPRATROPIUM BROMIDE 0.5 MG/2.5 ML NEB SOLUTION NEB SCH ×5 (02:19→23:00)
[2018-04-12] MEDS: ALBUTEROL SULFATE 2.5 MG/0.5 ML NEB SOLUTION NEB SCH ×5 (02:19→23:00)
[2018-04-12 05:15] LABS: GLUCOMETER DEV NAME(LOC) 5N.2; GLUCOSE,POINT OF CARE 387 MG/DL (70-110)
[2018-04-12] MEDS: CefTRIAXone 1 GM/DEXTROSE 50 ML IV SCH (05:22)
[2018-04-12] MEDS: HYDROCODONE/ACETAMINOPHEN 5-325 MG TABLET PO PRN ×4 (05:31→18:00)
[2018-04-12 06:27] LABS: ANION GAP 9 mmol/L (8-16); CALCIUM, TOTAL 8.6 mg/dL (8.8-10.5); CARBON DIOXIDE 29 mmol/L (22-29); CHLORIDE 100 mmol/L (98-107); CREATININE 0.75 mg/dL (0.60-1.30); GLOMERULAR FILTR. RATE CALC > 60 mL/min (>60); GLUCOSE,RANDOM 200 mg/dL (70-110); POTASSIUM 3.8 mmol/L (3.5-5.1); SODIUM SERUM 138 mmol/L (136-145); UREA NITROGEN, BLOOD 17 mg/dL (7-18)
[2018-04-12] MEDS: INSULIN LISPRO 100 UNITS/ML SQ PRN ×4 (06:50→21:41)
[2018-04-12] MEDS: SPIRONOLACTONE 25 MG TABLET PO SCH (08:19)
[2018-04-12] MEDS: BENZONATATE 100 MG CAPSULE PO SCH ×3 (08:19→21:23)
[2018-04-12] MEDS: GABAPENTIN 300 MG CAPSULE PO SCH ×3 (08:19→21:23)
[2018-04-12] MEDS: PANTOPRAZOLE SODIUM 40 MG DR TABLET PO SCH (08:19)
[2018-04-12] MEDS: DOCUSATE SODIUM 100 MG CAPSULE PO SCH ×2 (08:19→21:24)
[2018-04-12] MEDS: GuaiFENesin SR 600 MG ER TABLET PO SCH ×2 (08:19→21:24)
[2018-04-12] MEDS: FERROUS SULFATE 325 MG EC TABLET PO SCH (08:19)
[2018-04-12] MEDS: ASPIRIN 81 MG EC TABLET PO SCH (08:20)
[2018-04-12] MEDS: DOXYCYCLINE HYCLATE 100 MG CAPSULE PO SCH ×2 (08:20→21:23)
[2018-04-12] MEDS: DICYCLOMINE HCL 20 MG TABLET PO SCH ×4 (08:20→21:24)
[2018-04-12] MEDS: ZIPRASIDONE HCL 80 MG CAPSULE PO SCH ×2 (08:20→17:24)
[2018-04-12] MEDS: BusPIRone HCL 15 MG TABLET PO SCH ×2 (08:20→21:23)
[2018-04-12] MEDS: ISOSORBIDE MONONITRATE 60 MG ER TABLET PO SCH (08:20)
[2018-04-12] MEDS: DILTIAZEM HCL CD 180 MG ER CAPSULE PO SCH (08:20)
[2018-04-12] MEDS: FUROSEMIDE 20 MG TABLET PO SCH (08:20)
[2018-04-12] MEDS: HEPARIN SODIUM,PORCINE 5,000 UNITS/ML VIAL SQ SCH ×2 (08:21→15:45)
[2018-04-12] MEDS: INSULIN GLARGINE,HUM.REC.ANLOG 100 UNITS/ML SQ SCH (08:24)
[2018-04-12 17:24] LABS: GLUCOMETER DEV NAME(LOC) 5N.2; GLUCOSE,POINT OF CARE 165 MG/DL (70-110)
[2018-04-12 17:24] LABS: GLUCOMETER DEV NAME(LOC) 5N.1; GLUCOSE,POINT OF CARE 202 MG/DL (70-110)
[2018-04-12 17:24] LABS: GLUCOMETER DEV NAME(LOC) 5N.1; GLUCOSE,POINT OF CARE 149 MG/DL (70-110)
[2018-04-12] MEDS: MethylPREDNISolone SOD SUCC 125 MG/2 ML VIAL IVP SCH (17:25)
[2018-04-12] MEDS: SIMVASTATIN 10 MG TABLET PO SCH (21:24)
[2018-04-12] MEDS ORDERED: SODIUM CHLORIDE 0.9% 250 ML IV ONE (21:30)
[2018-04-12 22:34] LABS: GLUCOMETER DEV NAME(LOC) 5S.2; GLUCOSE,POINT OF CARE 203 MG/DL (70-110)
[2018-04-12] MEDS: AZITHROMYCIN 500 MG/NS 250 ML IV SCH (23:20)
[2018-04-12 23:38] LABS: GLUCOMETER DEV NAME(LOC) 6N.1; GLUCOSE,POINT OF CARE 228 MG/DL (70-110)
[2018-04-13] MEDS: HEPARIN SODIUM,PORCINE 5,000 UNITS/ML VIAL SQ SCH ×4 (01:00→23:46)
[2018-04-13] MEDS: MethylPREDNISolone SOD SUCC 125 MG/2 ML VIAL IVP SCH ×3 (01:03→12:15)
[2018-04-13] MEDS: ALBUTEROL SULFATE 2.5 MG/0.5 ML NEB SOLUTION NEB SCH ×6 (03:00→23:21)
[2018-04-13] MEDS: IPRATROPIUM BROMIDE 0.5 MG/2.5 ML NEB SOLUTION NEB SCH ×6 (03:00→23:21)
[2018-04-13 03:30] VITALS: BP 136/74
[2018-04-13] MEDS: HYDROCODONE/ACETAMINOPHEN 5-325 MG TABLET PO PRN ×5 (04:18→20:59)
[2018-04-13] MEDS: CefTRIAXone 1 GM/DEXTROSE 50 ML IV SCH (04:19)
[2018-04-13] MEDS: INSULIN LISPRO 100 UNITS/ML SQ PRN ×4 (04:42→20:52)
[2018-04-13 05:49] LABS: GLUCOMETER DEV NAME(LOC) 6N.2; GLUCOSE,POINT OF CARE 264 MG/DL (70-110)
[2018-04-13] MEDS: ZIPRASIDONE HCL 80 MG CAPSULE PO SCH ×2 (08:17→16:24)
[2018-04-13] MEDS: DICYCLOMINE HCL 20 MG TABLET PO SCH ×4 (08:17→20:50)
[2018-04-13] MEDS: DILTIAZEM HCL CD 180 MG ER CAPSULE PO SCH (08:17)
[2018-04-13] MEDS: BusPIRone HCL 15 MG TABLET PO SCH ×2 (08:17→20:50)
[2018-04-13] MEDS: DOCUSATE SODIUM 100 MG CAPSULE PO SCH ×2 (08:19→20:50)
[2018-04-13] MEDS: DOXYCYCLINE HYCLATE 100 MG CAPSULE PO SCH ×2 (08:19→20:50)
[2018-04-13 08:20] VITALS: BP 151/73
[2018-04-13] MEDS: FERROUS SULFATE 325 MG EC TABLET PO SCH (08:20)
[2018-04-13] MEDS: GABAPENTIN 300 MG CAPSULE PO SCH ×3 (08:20→20:50)
[2018-04-13] MEDS: BENZONATATE 100 MG CAPSULE PO SCH ×3 (08:20→20:50)
[2018-04-13] MEDS: FUROSEMIDE 20 MG TABLET PO SCH (08:20)
[2018-04-13] MEDS: INSULIN GLARGINE,HUM.REC.ANLOG 100 UNITS/ML SQ SCH (08:21)
[2018-04-13] MEDS: PANTOPRAZOLE SODIUM 40 MG DR TABLET PO SCH (08:21)
[2018-04-13] MEDS: ASPIRIN 81 MG EC TABLET PO SCH (08:49)
[2018-04-13 11:50] LABS: GLUCOMETER DEV NAME(LOC) 4E.; GLUCOSE,POINT OF CARE 334 MG/DL (70-110)
[2018-04-13 11:51] VITALS: BP 153/82
[2018-04-13] MEDS: GuaiFENesin SR 600 MG ER TABLET PO SCH ×2 (11:52→21:11)
[2018-04-13] MEDS: ISOSORBIDE MONONITRATE 60 MG ER TABLET PO SCH (11:52)
[2018-04-13] MEDS: SPIRONOLACTONE 25 MG TABLET PO SCH (11:53)
[2018-04-13 16:00] VITALS: BP 128/70
[2018-04-13] MEDS: MetFORMIN HCL 500 MG TABLET PO SCH (16:24)
[2018-04-13 17:09] LABS: GLUCOMETER DEV NAME(LOC) 4E.; GLUCOSE,POINT OF CARE 315 MG/DL (70-110)
[2018-04-13] MEDS: MethylPREDNISolone SOD SUCC 40 MG/ML VIAL IVP SCH ×2 (17:34→23:45)
[2018-04-13 19:30] VITALS: BP 109/59
[2018-04-13] MEDS: SIMVASTATIN 10 MG TABLET PO SCH (20:50)
[2018-04-13] MEDS: AZITHROMYCIN 500 MG/NS 250 ML IV SCH (22:27)
[2018-04-13 22:44] LABS: GLUCOMETER DEV NAME(LOC) 4E.; GLUCOSE,POINT OF CARE 276 MG/DL (70-110)
[2018-04-13 23:50] VITALS: BP 110/65
[2018-04-14] MEDS: HYDROCODONE/ACETAMINOPHEN 5-325 MG TABLET PO PRN ×5 (02:06→21:11)
[2018-04-14 03:19] VITALS: BP 123/75
[2018-04-14] MEDS: CefTRIAXone 1 GM/DEXTROSE 50 ML IV SCH (03:20)
[2018-04-14] MEDS: IPRATROPIUM BROMIDE 0.5 MG/2.5 ML NEB SOLUTION NEB SCH ×6 (03:44→23:00)
[2018-04-14] MEDS: ALBUTEROL SULFATE 2.5 MG/0.5 ML NEB SOLUTION NEB SCH ×6 (03:44→23:00)
[2018-04-14] MEDS: MethylPREDNISolone SOD SUCC 40 MG/ML VIAL IVP SCH ×3 (05:54→17:38)
[2018-04-14] MEDS: INSULIN LISPRO 100 UNITS/ML SQ PRN ×4 (05:55→21:51)
[2018-04-14 07:04] LABS: GLUCOMETER DEV NAME(LOC) 4E.; GLUCOSE,POINT OF CARE 339 MG/DL (70-110)
[2018-04-14 08:13] VITALS: BP 150/90
[2018-04-14] MEDS: GABAPENTIN 300 MG CAPSULE PO SCH ×3 (10:00→21:07)
[2018-04-14] MEDS: BusPIRone HCL 15 MG TABLET PO SCH ×2 (10:00→21:06)
[2018-04-14] MEDS: ISOSORBIDE MONONITRATE 60 MG ER TABLET PO SCH (10:01)
[2018-04-14] MEDS: ZIPRASIDONE HCL 80 MG CAPSULE PO SCH ×2 (10:01→16:44)
[2018-04-14] MEDS: SPIRONOLACTONE 25 MG TABLET PO SCH (10:01)
[2018-04-14] MEDS: ASPIRIN 81 MG EC TABLET PO SCH (10:02)
[2018-04-14] MEDS: MetFORMIN HCL 500 MG TABLET PO SCH ×2 (10:02→17:39)
[2018-04-14] MEDS: DICYCLOMINE HCL 20 MG TABLET PO SCH ×4 (10:03→21:05)
[2018-04-14] MEDS: FUROSEMIDE 20 MG TABLET PO SCH (10:03)
[2018-04-14] MEDS: DOCUSATE SODIUM 100 MG CAPSULE PO SCH ×2 (10:03→21:06)
[2018-04-14] MEDS: PANTOPRAZOLE SODIUM 40 MG DR TABLET PO SCH (10:03)
[2018-04-14] MEDS: BENZONATATE 100 MG CAPSULE PO SCH ×3 (10:03→21:07)
[2018-04-14] MEDS: FERROUS SULFATE 325 MG EC TABLET PO SCH (10:03)
[2018-04-14] MEDS: DILTIAZEM HCL CD 180 MG ER CAPSULE PO SCH (10:04)
[2018-04-14] MEDS: HEPARIN SODIUM,PORCINE 5,000 UNITS/ML VIAL SQ SCH ×2 (10:04→16:46)
[2018-04-14 10:29] LABS: GLUCOMETER DEV NAME(LOC) 4E.; GLUCOSE,POINT OF CARE 340 MG/DL (70-110)
[2018-04-14] MEDS: INSULIN GLARGINE,HUM.REC.ANLOG 100 UNITS/ML SQ SCH (10:29)
[2018-04-14] MEDS: GuaiFENesin SR 600 MG ER TABLET PO SCH ×2 (10:29→21:06)
[2018-04-14 11:49] LABS: GLUCOMETER DEV NAME(LOC) 4E.; GLUCOSE,POINT OF CARE 286 MG/DL (70-110)
[2018-04-14] MEDS: DOXYCYCLINE HYCLATE 100 MG CAPSULE PO SCH ×2 (12:04→21:07)
[2018-04-14 12:24] VITALS: BP 128/78
[2018-04-14 16:23] VITALS: BP_SYST 15; BP_SYST 158; BP_DIAS 91
[2018-04-14 17:19] LABS: GLUCOMETER DEV NAME(LOC) 4E.; GLUCOSE,POINT OF CARE 148 MG/DL (70-110)
[2018-04-14 19:18] VITALS: BP 123/55
[2018-04-14] MEDS: SIMVASTATIN 10 MG TABLET PO SCH (21:07)
[2018-04-14 23:10] VITALS: BP 121/66
[2018-04-15] MEDS: HEPARIN SODIUM,PORCINE 5,000 UNITS/ML VIAL SQ SCH ×3 (01:09→16:06)
[2018-04-15] MEDS: HYDROCODONE/ACETAMINOPHEN 5-325 MG TABLET PO PRN ×6 (01:09→21:56)
[2018-04-15] MEDS: MethylPREDNISolone SOD SUCC 40 MG/ML VIAL IVP SCH ×4 (01:10→16:59)
[2018-04-15] MEDS: IPRATROPIUM BROMIDE 0.5 MG/2.5 ML NEB SOLUTION NEB SCH ×6 (02:51→23:44)
[2018-04-15] MEDS: ALBUTEROL SULFATE 2.5 MG/0.5 ML NEB SOLUTION NEB SCH ×6 (02:51→23:44)
[2018-04-15] MEDS: CefTRIAXone 1 GM/DEXTROSE 50 ML IV SCH (03:06)
[2018-04-15 04:04] LABS: GLUCOMETER DEV NAME(LOC) 4E.; GLUCOSE,POINT OF CARE 227 MG/DL (70-110)
[2018-04-15 05:25] VITALS: BP 141/73
[2018-04-15] MEDS: INSULIN LISPRO 100 UNITS/ML SQ PRN ×4 (06:18→22:00)
[2018-04-15 08:03] VITALS: BP 141/76
[2018-04-15] MEDS: MetFORMIN HCL 500 MG TABLET PO SCH ×2 (08:06→17:38)
[2018-04-15] MEDS: DOCUSATE SODIUM 100 MG CAPSULE PO SCH ×2 (08:06→20:51)
[2018-04-15] MEDS: BENZONATATE 100 MG CAPSULE PO SCH ×3 (08:06→20:52)
[2018-04-15] MEDS: GABAPENTIN 300 MG CAPSULE PO SCH ×3 (08:06→20:52)
[2018-04-15] MEDS: ASPIRIN 81 MG EC TABLET PO SCH (08:06)
[2018-04-15] MEDS: FUROSEMIDE 20 MG TABLET PO SCH (08:06)
[2018-04-15] MEDS: SPIRONOLACTONE 25 MG TABLET PO SCH (08:07)
[2018-04-15] MEDS: DICYCLOMINE HCL 20 MG TABLET PO SCH ×4 (08:07→20:51)
[2018-04-15] MEDS: PANTOPRAZOLE SODIUM 40 MG DR TABLET PO SCH (08:07)
[2018-04-15] MEDS: GuaiFENesin SR 600 MG ER TABLET PO SCH ×2 (08:07→20:51)
[2018-04-15] MEDS: FERROUS SULFATE 325 MG EC TABLET PO SCH (08:07)
[2018-04-15] MEDS: BusPIRone HCL 15 MG TABLET PO SCH ×2 (08:08→20:51)
[2018-04-15] MEDS: ISOSORBIDE MONONITRATE 60 MG ER TABLET PO SCH (08:08)
[2018-04-15] MEDS: DOXYCYCLINE HYCLATE 100 MG CAPSULE PO SCH ×2 (08:09→20:52)
[2018-04-15] MEDS: DILTIAZEM HCL CD 180 MG ER CAPSULE PO SCH (08:10)
[2018-04-15] MEDS: ZIPRASIDONE HCL 80 MG CAPSULE PO SCH ×2 (08:10→16:58)
[2018-04-15] MEDS: INSULIN GLARGINE,HUM.REC.ANLOG 100 UNITS/ML SQ SCH (08:18)
[2018-04-15 11:59] LABS: GLUCOMETER DEV NAME(LOC) 6N.2; GLUCOSE,POINT OF CARE 260 MG/DL (70-110)
[2018-04-15 12:48] LABS: GLUCOMETER DEV NAME(LOC) 4E.; GLUCOSE,POINT OF CARE 292 MG/DL (70-110)
[2018-04-15 15:10] VITALS: BP 126/74
[2018-04-15 16:59] LABS: GLUCOMETER DEV NAME(LOC) 6N.2; GLUCOSE,POINT OF CARE 345 MG/DL (70-110)
[2018-04-15 19:31] VITALS: BP 124/70
[2018-04-15] MEDS: SIMVASTATIN 10 MG TABLET PO SCH (20:52)
[2018-04-15 22:04] LABS: GLUCOMETER DEV NAME(LOC) 6N.2; GLUCOSE,POINT OF CARE 315 MG/DL (70-110)
[2018-04-15 23:24] VITALS: BP 122/63
[2018-04-16] MEDS: HEPARIN SODIUM,PORCINE 5,000 UNITS/ML VIAL SQ SCH ×4 (00:57→23:58)
[2018-04-16] MEDS: MethylPREDNISolone SOD SUCC 40 MG/ML VIAL IVP SCH ×3 (01:03→11:27)
[2018-04-16] MEDS: IPRATROPIUM BROMIDE 0.5 MG/2.5 ML NEB SOLUTION NEB SCH ×6 (03:05→22:47)
[2018-04-16] MEDS: ALBUTEROL SULFATE 2.5 MG/0.5 ML NEB SOLUTION NEB SCH ×6 (03:05→22:47)
[2018-04-16] MEDS: HYDROCODONE/ACETAMINOPHEN 5-325 MG TABLET PO PRN ×6 (03:07→23:58)
[2018-04-16] MEDS: CefTRIAXone 1 GM/DEXTROSE 50 ML IV SCH (03:10)
[2018-04-16 03:26] VITALS: BP 127/66
[2018-04-16] MEDS: INSULIN LISPRO 100 UNITS/ML SQ PRN ×4 (06:29→20:10)
[2018-04-16 06:43] LABS: HEMATOCRIT 36.9 % (36-46); HEMOGLOBIN 12.1 g/dL (12.0-16.0); MEAN CORPUSCULAR HEMOGLOBIN 28.4 pg (26.0-34.0); MEAN CORPUSCULAR HGB CONC 32.7 G/dL (31.0-37.0); MEAN CORPUSCULAR VOLUME 87 fL (80-100); PLATELET COUNT (AUTO) 386 K/uL (150-450); RED BLOOD CELL COUNT(AUTO) 4.26 MIL/uL (4.00-5.20); RED CELL DISTRIBUTION WIDTH 24.1 % (11.5-14.5)
[2018-04-16 07:13] LABS: ALBUMIN 2.9 g/dL (3.4-5.0); BILIRUBIN,TOTAL 0.1 mg/dL (0.1-1.0); CALCIUM, TOTAL 8.7 mg/dL (8.8-10.5); CREATININE 1.06 mg/dL (0.60-1.30); POTASSIUM 4.3 mmol/L (3.5-5.1); TOTAL PROTEIN, SERUM 5.9 g/dL (6.4-8.2)
[2018-04-16 07:40] LABS: BAND NEUTROPHILS % (MANUAL) 1 % (0-5); LYMPHOCYTES % (MANUAL) 1 % (22-44); MONOCYTES % (MANUAL) 2 % (2-9); REACTIVE LYMPHOCYTES 1 % (0-0); SEGMENTED NEUTROPHILS % 95 % (40-70)
[2018-04-16 07:50] VITALS: BP 161/75
[2018-04-16] MEDS: DICYCLOMINE HCL 20 MG TABLET PO SCH ×4 (08:06→20:04)
[2018-04-16] MEDS: ZIPRASIDONE HCL 80 MG CAPSULE PO SCH ×2 (08:06→17:51)
[2018-04-16] MEDS: BusPIRone HCL 15 MG TABLET PO SCH ×2 (08:06→20:04)
[2018-04-16] MEDS: MetFORMIN HCL 500 MG TABLET PO SCH ×2 (08:07→17:52)
[2018-04-16] MEDS: DOXYCYCLINE HYCLATE 100 MG CAPSULE PO SCH ×2 (08:07→20:04)
[2018-04-16] MEDS: GABAPENTIN 300 MG CAPSULE PO SCH ×3 (08:07→20:04)
[2018-04-16] MEDS: BENZONATATE 100 MG CAPSULE PO SCH ×3 (08:08→20:03)
[2018-04-16] MEDS: FUROSEMIDE 20 MG TABLET PO SCH (08:09)
[2018-04-16] MEDS: DOCUSATE SODIUM 100 MG CAPSULE PO SCH ×2 (08:09→20:04)
[2018-04-16] MEDS: ISOSORBIDE MONONITRATE 60 MG ER TABLET PO SCH (08:09)
[2018-04-16] MEDS: SPIRONOLACTONE 25 MG TABLET PO SCH (08:09)
[2018-04-16] MEDS: PANTOPRAZOLE SODIUM 40 MG DR TABLET PO SCH (08:09)
[2018-04-16] MEDS: DILTIAZEM HCL CD 180 MG ER CAPSULE PO SCH (08:09)
[2018-04-16] MEDS: ASPIRIN 81 MG EC TABLET PO SCH (08:10)
[2018-04-16] MEDS: FERROUS SULFATE 325 MG EC TABLET PO SCH (08:14)
[2018-04-16] MEDS: GuaiFENesin SR 600 MG ER TABLET PO SCH ×2 (08:45→20:04)
[2018-04-16] MEDS: INSULIN GLARGINE,HUM.REC.ANLOG 100 UNITS/ML SQ SCH (08:47)
[2018-04-16 09:34] LABS: GLUCOMETER DEV NAME(LOC) 6N.2; GLUCOSE,POINT OF CARE 291 MG/DL (70-110)
[2018-04-16 11:37] VITALS: BP 109/59
[2018-04-16 11:54] LABS: GLUCOMETER DEV NAME(LOC) 6N.2; GLUCOSE,POINT OF CARE 283 MG/DL (70-110)
[2018-04-16] MEDS: PredniSONE 20 MG TABLET PO SCH (15:27)
[2018-04-16 15:45] VITALS: BP 109/61
[2018-04-16 17:54] LABS: GLUCOMETER DEV NAME(LOC) 6N.1; GLUCOSE,POINT OF CARE 208 MG/DL (70-110)
[2018-04-16 19:39] VITALS: BP 106/57
[2018-04-16] MEDS: SIMVASTATIN 10 MG TABLET PO SCH (20:04)
[2018-04-16] MEDS ORDERED: SODIUM CHLORIDE 0.9% 500 ML IV ONE (21:15)
[2018-04-16 22:29] LABS: GLUCOMETER DEV NAME(LOC) 6N.1; GLUCOSE,POINT OF CARE 314 MG/DL (70-110)
[2018-04-16 23:40] VITALS: BP 120/62
[2018-04-17] MEDS: IPRATROPIUM BROMIDE 0.5 MG/2.5 ML NEB SOLUTION NEB SCH ×6 (02:51→22:48)
[2018-04-17] MEDS: ALBUTEROL SULFATE 2.5 MG/0.5 ML NEB SOLUTION NEB SCH ×6 (02:52→22:48)
[2018-04-17] MEDS: CefTRIAXone 1 GM/DEXTROSE 50 ML IV SCH (03:27)
[2018-04-17 04:05] VITALS: BP 132/70
[2018-04-17] MEDS: HYDROCODONE/ACETAMINOPHEN 5-325 MG TABLET PO PRN ×5 (04:16→23:54)
[2018-04-17] MEDS: INSULIN LISPRO 100 UNITS/ML SQ PRN ×3 (05:26→17:20)
[2018-04-17 06:12] LABS: GLUCOMETER DEV NAME(LOC) 6N.2; GLUCOSE,POINT OF CARE 134 MG/DL (70-110)
[2018-04-17 06:37] LABS: BASOPHILS % (AUTO) 0.3 % (0.0-2.0); EOSINOPHILS % (AUTO) 0 % (1.0-6.0); HEMATOCRIT 37.4 % (36-46); HEMOGLOBIN 12.2 g/dL (12.0-16.0); LYMPHOCYTES # (AUTO) 1.8 K/uL (1.0-4.8); LYMPHOCYTES % (AUTO) 6.5 % (22.0-44.0); MEAN CORPUSCULAR HEMOGLOBIN 27.9 pg (26.0-34.0); MEAN CORPUSCULAR HGB CONC 32.7 G/dL (31.0-37.0); MEAN CORPUSCULAR VOLUME 85 fL (80-100); MONOCYTES # (AUTO) 1.9 K/uL (0.1-1.0); MONOCYTES % (AUTO) 6.6 % (2.0-9.0); NEUTROPHILS # (AUTO) 24.4 K/uL (1.8-7.7); PLATELET COUNT (AUTO) 385 K/uL (150-450); RED BLOOD CELL COUNT(AUTO) 4.39 MIL/uL (4.00-5.20)
[2018-04-17 06:44] LABS: NEUTROPHILS % (AUTO) 86.6 % (40.0-70.0)
[2018-04-17 06:48] LABS: ALBUMIN 2.9 g/dL (3.4-5.0); BILIRUBIN,TOTAL 0.2 mg/dL (0.1-1.0); CALCIUM, TOTAL 8.7 mg/dL (8.8-10.5); CREATININE 1.01 mg/dL (0.60-1.30); POTASSIUM 4.4 mmol/L (3.5-5.1); TOTAL PROTEIN, SERUM 5.8 g/dL (6.4-8.2)
[2018-04-17 07:58] VITALS: BP 103/56
[2018-04-17] MEDS: MetFORMIN HCL 500 MG TABLET PO SCH ×2 (08:28→17:36)
[2018-04-17] MEDS: BENZONATATE 100 MG CAPSULE PO SCH ×3 (08:28→20:18)
[2018-04-17] MEDS: PredniSONE 20 MG TABLET PO SCH (08:28)
[2018-04-17] MEDS: FERROUS SULFATE 325 MG EC TABLET PO SCH (08:31)
[2018-04-17] MEDS: GuaiFENesin SR 600 MG ER TABLET PO SCH ×2 (08:31→20:17)
[2018-04-17] MEDS: DICYCLOMINE HCL 20 MG TABLET PO SCH ×4 (08:31→21:52)
[2018-04-17] MEDS: DOCUSATE SODIUM 100 MG CAPSULE PO SCH ×2 (08:31→20:17)
[2018-04-17] MEDS: GABAPENTIN 300 MG CAPSULE PO SCH ×3 (08:32→20:17)
[2018-04-17] MEDS: BusPIRone HCL 15 MG TABLET PO SCH ×2 (08:32→20:17)
[2018-04-17] MEDS: HEPARIN SODIUM,PORCINE 5,000 UNITS/ML VIAL SQ SCH ×3 (08:32→23:55)
[2018-04-17] MEDS: ZIPRASIDONE HCL 80 MG CAPSULE PO SCH ×2 (08:33→17:21)
[2018-04-17] MEDS: DOXYCYCLINE HYCLATE 100 MG CAPSULE PO SCH ×2 (08:34→20:18)
[2018-04-17] MEDS: INSULIN GLARGINE,HUM.REC.ANLOG 100 UNITS/ML SQ SCH (08:42)
[2018-04-17] MEDS: ASPIRIN 81 MG EC TABLET PO SCH (10:55)
[2018-04-17] MEDS: FUROSEMIDE 20 MG TABLET PO SCH (10:55)
[2018-04-17] MEDS: PANTOPRAZOLE SODIUM 40 MG DR TABLET PO SCH (10:55)
[2018-04-17 11:34] VITALS: BP 132/56
[2018-04-17] MEDS: DILTIAZEM HCL CD 180 MG ER CAPSULE PO SCH (11:57)
[2018-04-17] MEDS: ISOSORBIDE MONONITRATE 60 MG ER TABLET PO SCH (11:58)
[2018-04-17 14:19] LABS: GLUCOMETER DEV NAME(LOC) 6N.1; GLUCOSE,POINT OF CARE 176 MG/DL (70-110)
[2018-04-17] MEDS: SPIRONOLACTONE 25 MG TABLET PO SCH (15:55)
[2018-04-17 17:25] LABS: GLUCOMETER DEV NAME(LOC) 6N.2; GLUCOSE,POINT OF CARE 310 MG/DL (70-110)
[2018-04-17] MEDS: SIMVASTATIN 10 MG TABLET PO SCH (20:18)
[2018-04-17 20:29] VITALS: BP 122/66
[2018-04-17] MEDS: ZOLPIDEM TARTRATE 5 MG TABLET PO PRN (22:43)
[2018-04-17 23:39] VITALS: BP 128/75
[2018-04-18 00:49] LABS: GLUCOMETER DEV NAME(LOC) 6N.2; GLUCOSE,POINT OF CARE 97 MG/DL (70-110)
[2018-04-18] MEDS: IPRATROPIUM BROMIDE 0.5 MG/2.5 ML NEB SOLUTION NEB SCH ×3 (03:16→11:12)
[2018-04-18] MEDS: ALBUTEROL SULFATE 2.5 MG/0.5 ML NEB SOLUTION NEB SCH ×3 (03:17→11:10)
[2018-04-18 03:45] VITALS: BP 126/72
[2018-04-18] MEDS: CefTRIAXone 1 GM/DEXTROSE 50 ML IV SCH (05:41)
[2018-04-18] MEDS: HYDROCODONE/ACETAMINOPHEN 5-325 MG TABLET PO PRN ×2 (05:41→09:30)
[2018-04-18 06:13] LABS: BASOPHILS % (AUTO) 0.8 % (0.0-2.0); EOSINOPHILS % (AUTO) 2.4 % (1.0-6.0); HEMATOCRIT 39.6 % (36-46); HEMOGLOBIN 13.1 g/dL (12.0-16.0); LYMPHOCYTES # (AUTO) 2.9 K/uL (1.0-4.8); MEAN CORPUSCULAR HEMOGLOBIN 28.5 pg (26.0-34.0); MEAN CORPUSCULAR HGB CONC 33.1 G/dL (31.0-37.0); MEAN CORPUSCULAR VOLUME 86 fL (80-100); NEUTROPHILS # (AUTO) 16.4 K/uL (1.8-7.7); NEUTROPHILS % (AUTO) 74.8 % (40.0-70.0); PLATELET COUNT (AUTO) 364 K/uL (150-450); RED BLOOD CELL COUNT(AUTO) 4.61 MIL/uL (4.00-5.20); RED CELL DISTRIBUTION WIDTH 24.1 % (11.5-14.5)
[2018-04-18 06:24] LABS: ALANINE AMINOTRANSFERASE 24 U/L (12-78); ALBUMIN 2.8 g/dL (3.4-5.0); ALKALINE PHOSPHATASE 56 U/L (46-116); ANION GAP 6 mmol/L (8-16); ASPARTATE AMINOTRANSFERASE 13 U/L (15-37); BILIRUBIN,TOTAL 0.3 mg/dL (0.1-1.0); CALCIUM, TOTAL 8.9 mg/dL (8.8-10.5); CARBON DIOXIDE 33 mmol/L (22-29); CHLORIDE 94 mmol/L (98-107); CREATININE 0.75 mg/dL (0.60-1.30); GLOMERULAR FILTR. RATE CALC > 60 mL/min (>60); GLUCOSE,RANDOM 82 mg/dL (70-110); POTASSIUM 4.6 mmol/L (3.5-5.1); SODIUM SERUM 133 mmol/L (136-145); TOTAL PROTEIN, SERUM 5.7 g/dL (6.4-8.2); UREA NITROGEN, BLOOD 23 mg/dL (7-18)
[2018-04-18] MEDS: INSULIN LISPRO 100 UNITS/ML SQ PRN ×2 (06:39→11:56)
[2018-04-18 07:14] LABS: GLUCOMETER DEV NAME(LOC) 6N.1; GLUCOSE,POINT OF CARE 176 MG/DL (70-110)
[2018-04-18 07:30] VITALS: BP 144/77
[2018-04-18] MEDS: ASPIRIN 81 MG EC TABLET PO SCH (09:30)
[2018-04-18] MEDS: DOCUSATE SODIUM 100 MG CAPSULE PO SCH (09:30)
[2018-04-18] MEDS: BENZONATATE 100 MG CAPSULE PO SCH (09:30)
[2018-04-18] MEDS: PredniSONE 20 MG TABLET PO SCH (09:30)
[2018-04-18] MEDS: GuaiFENesin SR 600 MG ER TABLET PO SCH (09:30)
[2018-04-18] MEDS: PANTOPRAZOLE SODIUM 40 MG DR TABLET PO SCH (09:30)
[2018-04-18] MEDS: FERROUS SULFATE 325 MG EC TABLET PO SCH (09:31)
[2018-04-18] MEDS: HEPARIN SODIUM,PORCINE 5,000 UNITS/ML VIAL SQ SCH (09:31)
[2018-04-18] MEDS: MetFORMIN HCL 500 MG TABLET PO SCH (09:31)
[2018-04-18] MEDS: FUROSEMIDE 20 MG TABLET PO SCH (09:31)
[2018-04-18] MEDS: GABAPENTIN 300 MG CAPSULE PO SCH (09:31)
[2018-04-18] MEDS: DICYCLOMINE HCL 20 MG TABLET PO SCH ×2 (09:31→12:04)
[2018-04-18] MEDS: DILTIAZEM HCL CD 180 MG ER CAPSULE PO SCH (09:32)
[2018-04-18] MEDS: SPIRONOLACTONE 25 MG TABLET PO SCH (09:32)
[2018-04-18] MEDS: ISOSORBIDE MONONITRATE 60 MG ER TABLET PO SCH (09:32)
[2018-04-18] MEDS: DOXYCYCLINE HYCLATE 100 MG CAPSULE PO SCH (09:32)
[2018-04-18] MEDS: ZIPRASIDONE HCL 80 MG CAPSULE PO SCH (09:32)
[2018-04-18] MEDS: BusPIRone HCL 15 MG TABLET PO SCH (09:33)
[2018-04-18] MEDS: INSULIN GLARGINE,HUM.REC.ANLOG 100 UNITS/ML SQ SCH (09:41)
[2018-04-18 11:52] VITALS: BP 115/65
[2018-04-18] MEDS ORDERED: DOXY100C PO (13:51)
[2018-04-18] MEDS ORDERED: AMOX1TAB16 PO (13:51)
[2018-04-18] MEDS ORDERED: COMBISP IH (13:52)
[2018-04-18] MEDS ORDERED: PRED5TAB PO (13:53)
[2018-04-18 19:23] LABS: GLUCOMETER DEV NAME(LOC) 6N.1; GLUCOSE,POINT OF CARE 130 MG/DL (70-110)
== END 2018-04-18 15:05 | disposition home or self-care (01) | DRG 720 ==
LOC: EMS 13:46 → 5S 18:02 → 6N 04-12 19:53 → 4E 04-13 06:31 → 6N 04-15 14:08
PROVIDERS: ADMIT Internal Medicine; ATTEND Internal Medicine
DX: A41.9 Sepsis, unspecified organism (principal); J18.9 Pneumonia, unspecified organism; I11.0 Hypertensive heart disease with heart failure; E44.0 Moderate protein-calorie malnutrition; E11.40 Type 2 diabetes mellitus with diabetic neuropathy, unspecified; I50.9 Heart failure, unspecified; F20.9 Schizophrenia, unspecified; K59.09 Other constipation; K21.9 Gastro-esophageal reflux disease without esophagitis; D64.9 Anemia, unspecified; J84.10 Pulmonary fibrosis, unspecified; J44.1 Chronic obstructive pulmonary disease with (acute) exacerbation; E78.00 Pure hypercholesterolemia, unspecified; G89.29 Other chronic pain; J44.0 Chronic obstructive pulmonary disease with (acute) lower respiratory infection; N20.0 Calculus of kidney; M19.90 Unspecified osteoarthritis, unspecified site; F31.9 Bipolar disorder, unspecified; F41.9 Anxiety disorder, unspecified; Z88.1 Allergy status to other antibiotic agents; Z88.2 Allergy status to sulfonamides; Z88.8 Allergy status to other drugs, medicaments and biological substances; Z79.899 Other long term (current) drug therapy; Z87.891 Personal history of nicotine dependence; Z68.26 Body mass index [BMI] 26.0-26.9, adult
CPT/HCPCS: 71260; 74177; 82271; 83605; 87040; 87081; 87804; 93005; 94640; 94644; 96365; 96366; 96368; 96375; 99291; G0378; J0456; J0692; J0696; J1644; J1815; J1885; J2270; J2543; J2920; J2930; J3370; J7030; J7040; J7050; J7060

== ENCOUNTER 2018-07-22 15:24 | Inpatient (IN) | payer OTHER ==
[~2018-07-22] VITALS: Ht 157.5 cm; Wt 76.5 kg
[~2018-07-22 15:24] MED LIST changes: +AMOX1TAB16 PO; +COMBISP IH; +DOXY100C PO; -PRED20 PO; +PRED5TAB PO
[2018-07-22 16:20] LABS: GLUCOSE,POINT OF CARE 179 MG/DL (70-110)
[2018-07-22] MEDS ORDERED: IPRATROPIUM BROMIDE 0.5 MG/2.5 ML NEB SOLUTION NEB ONE (17:00)
[2018-07-22] MEDS ORDERED: ALBUTEROL SULFATE 2.5 MG/0.5 ML NEB SOLUTION NEB ONE (17:00)
[2018-07-22] MEDS ORDERED: 0.9% SODIUM CHLORIDE 5 ML NEB SOLUTION NEB ONE (17:05)
[2018-07-22 17:26] LABS: HEMATOCRIT 28.8 % (36-46); HEMOGLOBIN 9.3 g/dL (12.0-16.0); MEAN CORPUSCULAR HEMOGLOBIN 26.9 pg (26.0-34.0); MEAN CORPUSCULAR HGB CONC 32.3 G/dL (31.0-37.0); MEAN CORPUSCULAR VOLUME 83 fL (80-100); PLATELET COUNT (AUTO) 573 K/uL (150-450); RED BLOOD CELL COUNT(AUTO) 3.45 MIL/uL (4.00-5.20); RED CELL DISTRIBUTION WIDTH 16.6 % (11.5-14.5)
[2018-07-22 17:36] LABS: INR 0.9 (0.9-1.1); PROTHROMBIN TIME 9.3 SEC (9.4-11.6)
[2018-07-22 17:42] LABS: ANION GAP 13 mmol/L (8-16); CALCIUM, TOTAL 8.6 mg/dL (8.8-10.5); CARBON DIOXIDE 27 mmol/L (22-29); CHLORIDE 101 mmol/L (98-107); CREATININE 0.76 mg/dL (0.60-1.30); GLOMERULAR FILTR. RATE CALC > 60 mL/min (>60); GLUCOSE,RANDOM 173 mg/dL (70-110); POTASSIUM 3.5 mmol/L (3.5-5.1); SODIUM SERUM 141 mmol/L (136-145); UREA NITROGEN, BLOOD 17 mg/dL (7-18)
[2018-07-22 17:46] LABS: ALANINE AMINOTRANSFERASE 21 U/L (12-78); ALBUMIN 3.3 g/dL (3.4-5.0); ALKALINE PHOSPHATASE 85 U/L (46-116); ASPARTATE AMINOTRANSFERASE 13 U/L (15-37); BILIRUBIN,TOTAL 0.2 mg/dL (0.1-1.0); CREATINE KINASE, TOTAL ONLY 31 U/L (26-192); LIPASE 115 U/L (73-393); TOTAL PROTEIN, SERUM 6.5 g/dL (6.4-8.2)
[2018-07-22 18:05] LABS: B-TYPE NATRIURETIC PEPTIDE 73 pg/mL (0-100)
[2018-07-22 18:18] LABS: APPEARANCE,URINE CLEAR (CLEAR); BILIRUBIN,URINE NEGATIVE (NEGATIVE); GLUCOSE, URINE (UA) NEGATIVE (NEGATIVE); KETONES,URINE TRACE mg/dL (NEGATIVE); LEUKOCYTE ESTERASE ,URINE NEGATIVE (NEGATIVE); NITRATE,URINE NEGATIVE (NEGATIVE); OCCULT BLOOD,URINE NEGATIVE (NEGATIVE); PH,URINE 5.5 (5.0-8.0); PROTEIN,URINE NEGATIVE (NEGATIVE); UROBILINOGEN,URINE 0.2 mg/dL (<=1.0)
[2018-07-22 19:44] LABS: BAND NEUTROPHILS % (MANUAL) 13 % (0-5); LYMPHOCYTES % (MANUAL) 9 % (22-44); MONOCYTES % (MANUAL) 5 % (2-9); SEGMENTED NEUTROPHILS % 73 % (40-70)
[2018-07-22 19:48] LABS: LACTIC ACID 3.9 mmol/L (0.4-2.0)
[2018-07-22] MEDS ORDERED: KETOROLAC TROMETHAMINE 30 MG/ML VIAL IVP ONE (20:00)
[2018-07-22] MEDS ORDERED: PIPERACILLIN/TAZO 3.375 GM/D5W 50 ML IV ONE (20:00)
[2018-07-22] MEDS ORDERED: SODIUM CHLORIDE 0.9% 2,050 ML IV ONE (20:01)
[2018-07-22] MEDS ORDERED: ONDANSETRON HCL 4 MG/2 ML VIAL IVP PRN ×2 (21:00→22:15)
[2018-07-22] MEDS ORDERED: MORPHINE SULFATE 4 MG/ML SYRINGE IVP PRN (21:00)
[2018-07-22] MEDS ORDERED: ACETAMINOPHEN 325 MG TABLET PO PRN ×2 (21:00→22:15)
[2018-07-22] MEDS ORDERED: OxyCODONE HCL/ACETAMINOPHEN 5-325 MG TABLET PO PRN (21:00)
[2018-07-22] MEDS ORDERED: 0.9% SODIUM CHLORIDE 10 ML SYRINGE IVP PRN (21:00)
[2018-07-22] MEDS ORDERED: SODIUM CHLORIDE 0.9% 0 ML ONE (21:17)
[2018-07-22] MEDS ORDERED: IOVERSOL 350 MG/ML 100 ML VIAL ONE (21:17)
[2018-07-22] MEDS ORDERED: BISACODYL 10 MG RECTAL RECTAL SUPPOSITORY PR PRN (22:15)
[2018-07-22] MEDS ORDERED: MAGNESIUM HYDROXIDE SUSPENSION 30 ML UDCUP PO PRN (22:15)
[2018-07-22] MEDS ORDERED: SODIUM CHLORIDE 0.9% 1,000 ML IV ONE (22:15)
[2018-07-22 22:44] LABS: INFLUENZA TYPE A NEGATIVE FOR TYPE A (NEGATIVE); INFLUENZA TYPE B NEGATIVE FOR TYPE B (NEGATIVE)
[2018-07-22 22:58] VITALS: BP 122/70
[2018-07-22] MEDS: HYDROCODONE/ACETAMINOPHEN 5-325 MG TABLET PO PRN (23:00)
[2018-07-23] MEDS: ZOLPIDEM TARTRATE 5 MG TABLET PO PRN (00:18)
[2018-07-23] MEDS: HEPARIN SODIUM,PORCINE 5,000 UNITS/ML VIAL SQ SCH ×4 (00:18→23:39)
[2018-07-23] MEDS: CefTRIAXone 1 GM/DEXTROSE 50 ML IV SCH ×2 (00:18→23:39)
[2018-07-23] MEDS: MORPHINE SULFATE 2 MG/ML SYRINGE IVP PRN ×6 (02:30→23:50)
[2018-07-23 04:18] VITALS: BP 139/60
[2018-07-23 05:35] LABS: BASOPHILS % (AUTO) 0.4 % (0.0-2.0); HEMATOCRIT 24.7 % (36-46); LYMPHOCYTES % (AUTO) 11.3 % (22.0-44.0); MEAN CORPUSCULAR HGB CONC 32.5 G/dL (31.0-37.0); MEAN CORPUSCULAR VOLUME 83 fL (80-100); NEUTROPHILS % (AUTO) 79.3 % (40.0-70.0); PLATELET COUNT (AUTO) 497 K/uL (150-450); RED BLOOD CELL COUNT(AUTO) 2.97 MIL/uL (4.00-5.20); RED CELL DISTRIBUTION WIDTH 17.3 % (11.5-14.5)
[2018-07-23 05:36] LABS: LYMPHOCYTES # (AUTO) 0.8 K/uL (1.0-4.8); MONOCYTES # (AUTO) 0.5 K/uL (0.1-1.0); NEUTROPHILS # (AUTO) 5.3 K/uL (1.8-7.7)
[2018-07-23 05:44] LABS: POTASSIUM 3.7 mmol/L (3.5-5.1)
[2018-07-23] MEDS ORDERED: IOVERSOL 350 MG/ML 100 ML VIAL ONE (06:10)
[2018-07-23] MEDS ORDERED: SODIUM CHLORIDE 0.9% 100 ML ONE (06:10)
[2018-07-23 06:14] LABS: ALANINE AMINOTRANSFERASE 19 U/L (12-78); ALBUMIN 2.5 g/dL (3.4-5.0); ALKALINE PHOSPHATASE 71 U/L (46-116); ANION GAP 9 mmol/L (8-16); ASPARTATE AMINOTRANSFERASE 16 U/L (15-37); BILIRUBIN,TOTAL 0.2 mg/dL (0.1-1.0); CALCIUM, TOTAL 7.6 mg/dL (8.8-10.5); CARBON DIOXIDE 25 mmol/L (22-29); CHLORIDE 104 mmol/L (98-107); CREATININE 0.61 mg/dL (0.60-1.30); GLOMERULAR FILTR. RATE CALC > 60 mL/min (>60); GLUCOSE,RANDOM 105 mg/dL (70-110); SODIUM SERUM 138 mmol/L (136-145); TOTAL PROTEIN, SERUM 5.2 g/dL (6.4-8.2); UREA NITROGEN, BLOOD 15 mg/dL (7-18)
[2018-07-23 08:28] VITALS: BP 128/67
[2018-07-23] MEDS ORDERED: ALBUTEROL SULFATE/IPRATROPIUM 100-20 MCG/SPRAY 4 GM INHALER IH SCH (09:00)
[2018-07-23] MEDS: LACTULOSE 20 GM/30 ML SOLUTION UDCUP PO SCH ×2 (09:00→20:36)
[2018-07-23] MEDS ORDERED: GuaiFENesin/D-METHORPHAN [SUGAR-FREE] 200-20MG/10 ML SYRUP UDCUP PO PRN (09:15)
[2018-07-23] MEDS: BISACODYL 5 MG EC TABLET PO SCH ×2 (09:29→20:35)
[2018-07-23] MEDS: ISOSORBIDE MONONITRATE 60 MG ER TABLET PO SCH (09:29)
[2018-07-23] MEDS: GABAPENTIN 300 MG CAPSULE PO SCH ×3 (09:29→20:36)
[2018-07-23] MEDS: ASPIRIN 81 MG EC TABLET PO SCH (09:30)
[2018-07-23] MEDS: DILTIAZEM HCL CD 180 MG ER CAPSULE PO SCH (09:30)
[2018-07-23] MEDS: DOCUSATE SODIUM 100 MG CAPSULE PO SCH ×2 (09:30→20:36)
[2018-07-23] MEDS: PANTOPRAZOLE SODIUM 40 MG DR TABLET PO SCH (09:30)
[2018-07-23] MEDS: DICYCLOMINE HCL 20 MG TABLET PO SCH ×4 (09:31→20:36)
[2018-07-23] MEDS: ALBUTEROL SULFATE 2.5 MG/0.5 ML NEB SOLUTION NEB PRN (09:31)
[2018-07-23] MEDS: IPRATROPIUM BROMIDE 0.5 MG/2.5 ML NEB SOLUTION NEB PRN (09:31)
[2018-07-23] MEDS: FERROUS SULFATE 325 MG EC TABLET PO SCH (09:31)
[2018-07-23] MEDS: FUROSEMIDE 40 MG TABLET PO SCH (09:31)
[2018-07-23] MEDS: INSULIN GLARGINE,HUM.REC.ANLOG 100 UNITS/ML SQ SCH (09:43)
[2018-07-23 09:48] LABS: GLUCOMETER DEV NAME(LOC) 5N.2; GLUCOSE,POINT OF CARE 114 MG/DL (70-110)
[2018-07-23] MEDS: MethylPREDNISolone SOD SUCC 40 MG/ML VIAL IVP SCH ×3 (10:01→23:39)
[2018-07-23 11:29] VITALS: BP 128/64
[2018-07-23 13:42] LABS: AMPHET/METH SCREEN,URINE NEGATIVE (NEGATIVE); BARBITURATE SCREEN, URINE NEGATIVE (NEGATIVE); BENZODIAZEPINES SCREEN,URINE NEGATIVE (NEGATIVE); CANNABINOID SCREEN,URINE NEGATIVE (NEGATIVE); COCAINE SCREEN,URINE NEGATIVE (NEGATIVE); METHADONE SCREEN, URINE NEGATIVE (NEGATIVE); OPIATE SCREEN,URINE POSITIVE (NEGATIVE)
[2018-07-23 13:43] LABS: PHENCYCLIDINE SCREEN,URINE NEGATIVE (NEGATIVE)
[2018-07-23 14:04] LABS: GLUCOMETER DEV NAME(LOC) 5S.2; GLUCOSE,POINT OF CARE 146 MG/DL (70-110)
[2018-07-23] MEDS: ALBUTEROL SULFATE 2.5 MG/0.5 ML NEB SOLUTION NEB SCH ×2 (15:04→23:26)
[2018-07-23] MEDS: IPRATROPIUM BROMIDE 0.5 MG/2.5 ML NEB SOLUTION NEB SCH ×2 (15:04→23:26)
[2018-07-23 15:57] VITALS: BP 107/52
[2018-07-23 17:28] LABS: GLUCOMETER DEV NAME(LOC) 5S.2; GLUCOSE,POINT OF CARE 186 MG/DL (70-110)
[2018-07-23 19:48] VITALS: BP 116/55
[2018-07-24] VITALS (7 sets, daily range): BP systolic 120–141; BP diastolic 57–78
[2018-07-24] MEDS: MORPHINE SULFATE 2 MG/ML SYRINGE IVP PRN ×4 (04:08→23:46)
[2018-07-24 04:44] LABS: GLUCOMETER DEV NAME(LOC) 5S.2; GLUCOSE,POINT OF CARE 231 MG/DL (70-110)
[2018-07-24 06:40] LABS: BASOPHILS % (AUTO) 0.2 % (0.0-2.0); EOSINOPHILS % (AUTO) 0 % (1.0-6.0); HEMATOCRIT 23.2 % (36-46); HEMOGLOBIN 8.2 g/dL (12.0-16.0); LYMPHOCYTES # (AUTO) 1.2 K/uL (1.0-4.8); LYMPHOCYTES % (AUTO) 14.6 % (22.0-44.0); MEAN CORPUSCULAR HEMOGLOBIN 28.3 pg (26.0-34.0); MEAN CORPUSCULAR HGB CONC 35.3 G/dL (31.0-37.0); MEAN CORPUSCULAR VOLUME 80 fL (80-100); MONOCYTES # (AUTO) 0.3 K/uL (0.1-1.0); MONOCYTES % (AUTO) 3.2 % (2.0-9.0); NEUTROPHILS # (AUTO) 6.7 K/uL (1.8-7.7); PLATELET COUNT (AUTO) 539 K/uL (150-450); RED BLOOD CELL COUNT(AUTO) 2.89 MIL/uL (4.00-5.20); RED CELL DISTRIBUTION WIDTH 16.9 % (11.5-14.5)
[2018-07-24 06:57] LABS: ANION GAP 10 mmol/L (8-16); CALCIUM, TOTAL 8.6 mg/dL (8.8-10.5); CARBON DIOXIDE 24 mmol/L (22-29); CHLORIDE 97 mmol/L (98-107); CREATININE 0.58 mg/dL (0.60-1.30); GLOMERULAR FILTR. RATE CALC > 60 mL/min (>60); GLUCOSE,RANDOM 242 mg/dL (70-110); POTASSIUM 3.6 mmol/L (3.5-5.1); SODIUM SERUM 131 mmol/L (136-145); UREA NITROGEN, BLOOD 9 mg/dL (7-18)
[2018-07-24] MEDS ORDERED: DEXTROSE 50%-WATER 25 GM/50 ML SYRINGE IVP PRN (07:00)
[2018-07-24] MEDS ORDERED: MINERAL OIL 300 ML RECTAL PR ONE (07:00)
[2018-07-24] MEDS ORDERED: MINERAL OIL 133 ML ENEMA PR ONE (07:00)
[2018-07-24] MEDS: ALBUTEROL SULFATE 2.5 MG/0.5 ML NEB SOLUTION NEB SCH ×3 (07:31→23:49)
[2018-07-24] MEDS: IPRATROPIUM BROMIDE 0.5 MG/2.5 ML NEB SOLUTION NEB SCH ×3 (07:31→23:49)
[2018-07-24] MEDS: DOCUSATE SODIUM 100 MG CAPSULE PO SCH ×2 (08:15→20:43)
[2018-07-24] MEDS: FERROUS SULFATE 325 MG EC TABLET PO SCH (08:15)
[2018-07-24] MEDS: BISACODYL 5 MG EC TABLET PO SCH ×2 (08:15→20:42)
[2018-07-24] MEDS: DICYCLOMINE HCL 20 MG TABLET PO SCH ×4 (08:15→20:41)
[2018-07-24] MEDS: PANTOPRAZOLE SODIUM 40 MG DR TABLET PO SCH (08:15)
[2018-07-24] MEDS: LACTULOSE 20 GM/30 ML SOLUTION UDCUP PO SCH ×2 (08:15→20:43)
[2018-07-24] MEDS: FUROSEMIDE 40 MG TABLET PO SCH (08:16)
[2018-07-24] MEDS: DILTIAZEM HCL CD 180 MG ER CAPSULE PO SCH (08:16)
[2018-07-24] MEDS: GABAPENTIN 300 MG CAPSULE PO SCH ×3 (08:16→20:43)
[2018-07-24] MEDS: MethylPREDNISolone SOD SUCC 40 MG/ML VIAL IVP SCH ×3 (08:17→23:46)
[2018-07-24] MEDS: HEPARIN SODIUM,PORCINE 5,000 UNITS/ML VIAL SQ SCH ×3 (08:17→23:46)
[2018-07-24] MEDS: ISOSORBIDE MONONITRATE 60 MG ER TABLET PO SCH (08:17)
[2018-07-24] MEDS: ASPIRIN 81 MG EC TABLET PO SCH (08:17)
[2018-07-24] MEDS: INSULIN GLARGINE,HUM.REC.ANLOG 100 UNITS/ML SQ SCH (08:31)
[2018-07-24 11:39] LABS: GLUCOMETER DEV NAME(LOC) 5N.2; GLUCOSE,POINT OF CARE 224 MG/DL (70-110)
[2018-07-24] MEDS: HYDROCODONE/ACETAMINOPHEN 5-325 MG TABLET PO PRN ×2 (12:42→20:42)
[2018-07-24 17:49] LABS: GLUCOMETER DEV NAME(LOC) 5N.2; GLUCOSE,POINT OF CARE 184 MG/DL (70-110)
[2018-07-24] MEDS: INSULIN LISPRO 100 UNITS/ML SQ PRN (22:09)
[2018-07-24] MEDS: CefTRIAXone 1 GM/DEXTROSE 50 ML IV SCH (23:46)
[2018-07-25 03:39] LABS: GLUCOMETER DEV NAME(LOC) 5S.2; GLUCOSE,POINT OF CARE 277 MG/DL (70-110)
[2018-07-25 04:54] VITALS: BP 124/66
[2018-07-25] MEDS: MORPHINE SULFATE 2 MG/ML SYRINGE IVP PRN ×4 (05:08→21:09)
[2018-07-25] MEDS: INSULIN LISPRO 100 UNITS/ML SQ PRN ×4 (06:19→21:08)
[2018-07-25 06:20] LABS: GLUCOMETER DEV NAME(LOC) 5S.2; GLUCOSE,POINT OF CARE 227 MG/DL (70-110)
[2018-07-25 06:45] LABS: BASOPHILS % (AUTO) 0.5 % (0.0-2.0); EOSINOPHILS % (AUTO) 0 % (1.0-6.0); HEMOGLOBIN 7.6 g/dL (12.0-16.0); LYMPHOCYTES % (AUTO) 8.3 % (22.0-44.0); MEAN CORPUSCULAR HEMOGLOBIN 26.9 pg (26.0-34.0); MEAN CORPUSCULAR HGB CONC 33.2 G/dL (31.0-37.0); MEAN CORPUSCULAR VOLUME 81 fL (80-100); MONOCYTES # (AUTO) 0.5 K/uL (0.1-1.0); MONOCYTES % (AUTO) 4.2 % (2.0-9.0); NEUTROPHILS # (AUTO) 10.8 K/uL (1.8-7.7); PLATELET COUNT (AUTO) 357 K/uL (150-450); RED BLOOD CELL COUNT(AUTO) 2.84 MIL/uL (4.00-5.20); RED CELL DISTRIBUTION WIDTH 17.3 % (11.5-14.5)
[2018-07-25 07:01] LABS: ANION GAP 10 mmol/L (8-16); CALCIUM, TOTAL 8.7 mg/dL (8.8-10.5); CARBON DIOXIDE 25 mmol/L (22-29); CHLORIDE 95 mmol/L (98-107); CREATININE 0.63 mg/dL (0.60-1.30); GLOMERULAR FILTR. RATE CALC > 60 mL/min (>60); GLUCOSE,RANDOM 223 mg/dL (70-110); POTASSIUM 3.9 mmol/L (3.5-5.1); SODIUM SERUM 130 mmol/L (136-145); UREA NITROGEN, BLOOD 15 mg/dL (7-18)
[2018-07-25 07:56] VITALS: BP 114/75
[2018-07-25] MEDS: FERROUS SULFATE 325 MG EC TABLET PO SCH (08:13)
[2018-07-25] MEDS: MethylPREDNISolone SOD SUCC 40 MG/ML VIAL IVP SCH ×3 (08:13→23:33)
[2018-07-25] MEDS: HEPARIN SODIUM,PORCINE 5,000 UNITS/ML VIAL SQ SCH ×3 (08:14→23:33)
[2018-07-25] MEDS: GABAPENTIN 300 MG CAPSULE PO SCH ×3 (08:14→21:07)
[2018-07-25] MEDS: DILTIAZEM HCL CD 180 MG ER CAPSULE PO SCH (08:14)
[2018-07-25] MEDS: PANTOPRAZOLE SODIUM 40 MG DR TABLET PO SCH (08:14)
[2018-07-25] MEDS: DICYCLOMINE HCL 20 MG TABLET PO SCH ×4 (08:15→21:07)
[2018-07-25] MEDS: DOCUSATE SODIUM 100 MG CAPSULE PO SCH ×2 (08:15→21:08)
[2018-07-25] MEDS: ISOSORBIDE MONONITRATE 60 MG ER TABLET PO SCH (08:15)
[2018-07-25] MEDS: BISACODYL 5 MG EC TABLET PO SCH ×2 (08:15→21:07)
[2018-07-25] MEDS: ASPIRIN 81 MG EC TABLET PO SCH (08:15)
[2018-07-25] MEDS: LACTULOSE 20 GM/30 ML SOLUTION UDCUP PO SCH ×2 (08:16→21:07)
[2018-07-25] MEDS: FUROSEMIDE 40 MG TABLET PO SCH (08:16)
[2018-07-25] MEDS: IPRATROPIUM BROMIDE 0.5 MG/2.5 ML NEB SOLUTION NEB SCH ×3 (08:29→23:17)
[2018-07-25] MEDS: ALBUTEROL SULFATE 2.5 MG/0.5 ML NEB SOLUTION NEB SCH ×3 (08:29→23:18)
[2018-07-25] MEDS: HYDROCODONE/ACETAMINOPHEN 5-325 MG TABLET PO PRN (08:30)
[2018-07-25] MEDS: INSULIN GLARGINE,HUM.REC.ANLOG 100 UNITS/ML SQ SCH (08:35)
[2018-07-25 11:37] VITALS: BP 114/54
[2018-07-25] MEDS: IPRATROPIUM BROMIDE 0.5 MG/2.5 ML NEB SOLUTION NEB PRN (11:52)
[2018-07-25] MEDS: ALBUTEROL SULFATE 2.5 MG/0.5 ML NEB SOLUTION NEB PRN (11:53)
[2018-07-25 12:24] LABS: GLUCOMETER DEV NAME(LOC) 5S.1; GLUCOSE,POINT OF CARE 243 MG/DL (70-110)
[2018-07-25 15:42] VITALS: BP 115/59
[2018-07-25 18:49] LABS: GLUCOMETER DEV NAME(LOC) 5N.1; GLUCOSE,POINT OF CARE 270 MG/DL (70-110)
[2018-07-25 19:52] VITALS: BP 117/69
[2018-07-25] MEDS: ZOLPIDEM TARTRATE 5 MG TABLET PO PRN (22:21)
[2018-07-25 23:33] LABS: GLUCOMETER DEV NAME(LOC) 5S.2; GLUCOSE,POINT OF CARE 248 MG/DL (70-110)
[2018-07-25] MEDS: CefTRIAXone 1 GM/DEXTROSE 50 ML IV SCH (23:33)
[2018-07-26 00:09] VITALS: BP 132/73
[2018-07-26] MEDS: MORPHINE SULFATE 2 MG/ML SYRINGE IVP PRN ×2 (00:37→04:36)
[2018-07-26 04:48] VITALS: BP 118/70
[2018-07-26] MEDS: INSULIN LISPRO 100 UNITS/ML SQ PRN ×2 (04:48→12:06)
[2018-07-26 07:55] VITALS: BP 136/77
[2018-07-26] MEDS: ALBUTEROL SULFATE 2.5 MG/0.5 ML NEB SOLUTION NEB SCH ×2 (08:12→15:51)
[2018-07-26] MEDS: IPRATROPIUM BROMIDE 0.5 MG/2.5 ML NEB SOLUTION NEB SCH ×2 (08:12→15:52)
[2018-07-26] MEDS: LACTULOSE 20 GM/30 ML SOLUTION UDCUP PO SCH (09:00)
[2018-07-26] MEDS: DOCUSATE SODIUM 100 MG CAPSULE PO SCH (09:00)
[2018-07-26] MEDS: PANTOPRAZOLE SODIUM 40 MG DR TABLET PO SCH (09:05)
[2018-07-26] MEDS: DILTIAZEM HCL CD 180 MG ER CAPSULE PO SCH (09:05)
[2018-07-26] MEDS: ISOSORBIDE MONONITRATE 60 MG ER TABLET PO SCH (09:05)
[2018-07-26] MEDS: ASPIRIN 81 MG EC TABLET PO SCH (09:05)
[2018-07-26] MEDS: DICYCLOMINE HCL 20 MG TABLET PO SCH ×3 (09:05→16:07)
[2018-07-26] MEDS: BISACODYL 5 MG EC TABLET PO SCH (09:05)
[2018-07-26] MEDS: FUROSEMIDE 40 MG TABLET PO SCH (09:05)
[2018-07-26] MEDS: HYDROCODONE/ACETAMINOPHEN 5-325 MG TABLET PO PRN ×2 (09:06→14:24)
[2018-07-26] MEDS: FERROUS SULFATE 325 MG EC TABLET PO SCH (09:06)
[2018-07-26] MEDS: MethylPREDNISolone SOD SUCC 40 MG/ML VIAL IVP SCH ×2 (09:06→14:24)
[2018-07-26] MEDS: GABAPENTIN 300 MG CAPSULE PO SCH ×2 (09:06→16:07)
[2018-07-26] MEDS: HEPARIN SODIUM,PORCINE 5,000 UNITS/ML VIAL SQ SCH ×2 (09:06→16:07)
[2018-07-26] MEDS: INSULIN GLARGINE,HUM.REC.ANLOG 100 UNITS/ML SQ SCH (09:08)
[2018-07-26 11:55] VITALS: BP 140/79
[2018-07-26 15:09] LABS: GLUCOMETER DEV NAME(LOC) 5S.2; GLUCOSE,POINT OF CARE 229 MG/DL (70-110)
[2018-07-26 15:09] LABS: GLUCOMETER DEV NAME(LOC) 5S.2; GLUCOSE,POINT OF CARE 341 MG/DL (70-110)
[2018-07-26 15:55] VITALS: BP 101/65
[2018-07-26 16:19] VITALS: BP 128/65
[2018-07-26] MEDS ORDERED: LACT10SO8 PO (16:52)
== END 2018-07-26 18:15 | disposition home or self-care (01) | DRG 254 ==
LOC: EMS 15:26 → 5N 20:51
PROVIDERS: ADMIT Internal Medicine; ATTEND Internal Medicine
DX: K58.1 Irritable bowel syndrome with constipation (principal); E87.2 Acidosis; K31.84 Gastroparesis; J45.901 Unspecified asthma with (acute) exacerbation; F20.9 Schizophrenia, unspecified; E11.40 Type 2 diabetes mellitus with diabetic neuropathy, unspecified; R65.10 Systemic inflammatory response syndrome (SIRS) of non-infectious origin without acute organ dysfunction; K31.9 Disease of stomach and duodenum, unspecified; E11.43 Type 2 diabetes mellitus with diabetic autonomic (poly)neuropathy; I10 Essential (primary) hypertension; E78.5 Hyperlipidemia, unspecified; K21.9 Gastro-esophageal reflux disease without esophagitis; F41.9 Anxiety disorder, unspecified; K58.9 Irritable bowel syndrome, unspecified; Z88.2 Allergy status to sulfonamides; Z88.8 Allergy status to other drugs, medicaments and biological substances; D72.829 Elevated white blood cell count, unspecified; E78.00 Pure hypercholesterolemia, unspecified; F17.200 Nicotine dependence, unspecified, uncomplicated; J44.9 Chronic obstructive pulmonary disease, unspecified; N20.0 Calculus of kidney; T38.3X5A Adverse effect of insulin and oral hypoglycemic [antidiabetic] drugs, initial encounter; Y92.89 Other specified places as the place of occurrence of the external cause
CPT/HCPCS: 71275; 74019; 74176; 80307; 83605; 84146; 87040; 87804; 93005; 94640; 99291; G0378; J0696; J1644; J1815; J1885; J2270; J2543; J2920; J7030; J7050

== ENCOUNTER 2018-08-17 13:49 | Emergency (ER) | payer OTHER ==
[~2018-08-17] VITALS: Ht 160 cm; Wt 73.0 kg
[~2018-08-17 13:49] MED LIST changes: -AMOX1TAB16 PO; -DOXY100C PO; +FURO20 PO; -FURO40 PO; -IPRA4AER IH; +LACT10SO8 PO; -PRED5TAB PO
[2018-08-17 14:18] LABS: GLUCOSE,POINT OF CARE 399 MG/DL (70-110)
[2018-08-17] MEDS ORDERED: LORA1TAB3 PO (14:38)
[2018-08-17] MEDS ORDERED: FAMO20 PO (14:38)
[2018-08-17] MEDS ORDERED: ALBUTEROL SULFATE 2.5 MG/0.5 ML NEB SOLUTION NEB ONE (15:00)
[2018-08-17] MEDS ORDERED: IPRATROPIUM BROMIDE 0.5 MG/2.5 ML NEB SOLUTION NEB ONE (15:00)
[2018-08-17] MEDS ORDERED: KETOROLAC TROMETHAMINE 30 MG/ML VIAL IVP ONE (15:00)
[2018-08-17 15:11] LABS: APPEARANCE,URINE CLEAR (CLEAR); BILIRUBIN,URINE NEGATIVE (NEGATIVE); GLUCOSE, URINE (UA) 250 mg/dL (NEGATIVE); KETONES,URINE NEGATIVE (NEGATIVE); LEUKOCYTE ESTERASE ,URINE NEGATIVE (NEGATIVE); NITRATE,URINE NEGATIVE (NEGATIVE); OCCULT BLOOD,URINE NEGATIVE (NEGATIVE); PROTEIN,URINE NEGATIVE (NEGATIVE); UROBILINOGEN,URINE 0.2 mg/dL (<=1.0)
[2018-08-17 15:13] LABS: BASOPHILS % (AUTO) 0.3 % (0.0-2.0); EOSINOPHILS % (AUTO) 0 % (1.0-6.0); HEMATOCRIT 28.3 % (36-46); HEMOGLOBIN 8.8 g/dL (12.0-16.0); LYMPHOCYTES # (AUTO) 0.4 K/uL (1.0-4.8); LYMPHOCYTES % (AUTO) 2.5 % (22.0-44.0); MEAN CORPUSCULAR HEMOGLOBIN 23.7 pg (26.0-34.0); MEAN CORPUSCULAR HGB CONC 30.9 G/dL (31.0-37.0); MEAN CORPUSCULAR VOLUME 77 fL (80-100); MONOCYTES # (AUTO) 0.4 K/uL (0.1-1.0); MONOCYTES % (AUTO) 2.1 % (2.0-9.0); NEUTROPHILS # (AUTO) 15.9 K/uL (1.8-7.7); PLATELET COUNT (AUTO) 546 K/uL (150-450); RED BLOOD CELL COUNT(AUTO) 3.69 MIL/uL (4.00-5.20); RED CELL DISTRIBUTION WIDTH 20.6 % (11.5-14.5)
[2018-08-17 15:14] LABS: NEUTROPHILS % (AUTO) 95.1 % (40.0-70.0)
[2018-08-17 15:35] LABS: BACTERIA,URINE Rare /HPF (None Seen); RBC,URINE 0-2 /HPF (0-2); WBC,URINE 0-2 /HPF (0-5)
[2018-08-17 15:36] LABS: SQUAMOUS EPITHELIAL CELL,UR Moderate /LPF (None Seen)
[2018-08-17 15:46] LABS: ALBUMIN 3.3 g/dL (3.4-5.0); BILIRUBIN,TOTAL 0.2 mg/dL (0.1-1.0); CALCIUM, TOTAL 8.5 mg/dL (8.8-10.5); CREATININE 1.49 mg/dL (0.60-1.30); POTASSIUM 3.9 mmol/L (3.5-5.1); TOTAL PROTEIN, SERUM 6.4 g/dL (6.4-8.2)
[2018-08-17] MEDS ORDERED: HYDROCODONE/ACETAMINOPHEN 5-325 MG TABLET PO ONE (16:00)
[2018-08-17] MEDS ORDERED: SODIUM CHLORIDE 0.9% 1,000 ML IV ONE (16:00)
[2018-08-17 16:08] LABS: PLATELET MORPHOLOGY COMMENT INCREASED
[2018-08-17] MEDS ORDERED: INSULIN REGULAR, HUMAN 100 UNITS/ML SQ ONE (16:30)
[2018-08-17 16:34] LABS: GLUCOSE,POINT OF CARE 446 MG/DL (70-110)
[2018-08-17 18:00] VITALS: BP 110/71
[2018-08-17 18:20] LABS: GLUCOSE,POINT OF CARE 392 MG/DL (70-110)
== END 2018-08-17 18:20 | disposition home or self-care (01) ==
LOC: EMS 13:49
DX: J44.1 Chronic obstructive pulmonary disease with (acute) exacerbation (principal); R10.84 Generalized abdominal pain; I10 Essential (primary) hypertension; E11.9 Type 2 diabetes mellitus without complications; E78.00 Pure hypercholesterolemia, unspecified; K21.9 Gastro-esophageal reflux disease without esophagitis; F31.9 Bipolar disorder, unspecified; F41.9 Anxiety disorder, unspecified; F20.9 Schizophrenia, unspecified; F17.210 Nicotine dependence, cigarettes, uncomplicated; Z88.2 Allergy status to sulfonamides; Z88.1 Allergy status to other antibiotic agents; Z88.8 Allergy status to other drugs, medicaments and biological substances; Z79.4 Long term (current) use of insulin; Z79.899 Other long term (current) drug therapy
CPT/HCPCS: 36415; 71045; 80053; 81001; 82550; 82962; 83880; 84484; 85025; 93005; 94640; 96361; 96372; 96374; 99285; J1815; J1885; J7030

== ENCOUNTER 2018-11-11 13:47 | Inpatient (IN) | payer OTHER ==
[~2018-11-11] VITALS: Ht 162.6 cm; Wt 80.7 kg
[~2018-11-11 13:47] MED LIST changes: +FAMO20 PO; +LORA1TAB3 PO
[2018-11-11] MEDS ORDERED: MORPHINE SULFATE 2 MG/ML SYRINGE IVP ONE (14:30)
[2018-11-11] MEDS ORDERED: KETOROLAC TROMETHAMINE 30 MG/ML VIAL IVP ONE (14:30)
[2018-11-11] MEDS ORDERED: ONDANSETRON HCL 4 MG/2 ML VIAL IVP ONE (14:30)
[2018-11-11 15:37] LABS: BASOPHILS % (AUTO) 0.5 % (0.0-2.0); EOSINOPHILS % (AUTO) 0 % (1.0-6.0); HEMATOCRIT 34.4 % (36-46); HEMOGLOBIN 10.4 g/dL (12.0-16.0); LYMPHOCYTES # (AUTO) 0.5 K/uL (1.0-4.8); LYMPHOCYTES % (AUTO) 2.6 % (22.0-44.0); MEAN CORPUSCULAR HEMOGLOBIN 23.4 pg (26.0-34.0); MEAN CORPUSCULAR HGB CONC 30.1 G/dL (31.0-37.0); MEAN CORPUSCULAR VOLUME 78 fL (80-100); MONOCYTES # (AUTO) 0.3 K/uL (0.1-1.0); MONOCYTES % (AUTO) 1.6 % (2.0-9.0); PLATELET COUNT (AUTO) 412 K/uL (150-450); RED BLOOD CELL COUNT(AUTO) 4.42 MIL/uL (4.00-5.20); RED CELL DISTRIBUTION WIDTH 26.8 % (11.5-14.5)
[2018-11-11 15:50] LABS: NEUTROPHILS % (AUTO) 95.3 % (40.0-70.0)
[2018-11-11 15:53] LABS: ALBUMIN 2.8 g/dL (3.4-5.0); BILIRUBIN,TOTAL 0.1 mg/dL (0.1-1.0); CALCIUM, TOTAL 9.5 mg/dL (8.8-10.5); CREATININE 1.42 mg/dL (0.60-1.30); TOTAL PROTEIN, SERUM 6.3 g/dL (6.4-8.2)
[2018-11-11 16:10] LABS: POTASSIUM 3.5 mmol/L (3.5-5.1)
[2018-11-11] MEDS ORDERED: SODIUM CHLORIDE 0.9% 500 ML IV ONE ×2 (16:30→17:30)
[2018-11-11] MEDS ORDERED: INSULIN REGULAR, HUMAN 100 UNITS/ML SQ ONE (16:30)
[2018-11-11] MEDS ORDERED: PredniSONE 20 MG TABLET PO ONE (16:30)
[2018-11-11] MEDS ORDERED: 0.9% SODIUM CHLORIDE 10 ML SYRINGE IVP PRN (17:15)
[2018-11-11] MEDS ORDERED: AZITHROMYCIN 500 MG/NS 250 ML IV ONE (17:15)
[2018-11-11] MEDS ORDERED: CefTRIAXone 1 GM/DEXTROSE 50 ML IV ONE (17:15)
[2018-11-11] MEDS ORDERED: ACETAMINOPHEN 325 MG TABLET PO PRN ×2 (17:15→23:45)
[2018-11-11 18:59] LABS: GLUCOSE,POINT OF CARE 364 MG/DL (70-110)
[2018-11-11 19:39] LABS: GLUCOSE,POINT OF CARE 237 MG/DL (70-110)
[2018-11-11 20:44] VITALS: BP 118/62
[2018-11-11] MEDS ORDERED: BISACODYL 10 MG RECTAL RECTAL SUPPOSITORY PR PRN (23:45)
[2018-11-11] MEDS ORDERED: ONDANSETRON HCL 4 MG/2 ML VIAL IVP PRN (23:45)
[2018-11-11] MEDS ORDERED: MAGNESIUM HYDROXIDE SUSPENSION 30 ML UDCUP PO PRN (23:45)
[2018-11-11] MEDS ORDERED: ALBUTEROL SULFATE 2.5 MG/0.5 ML NEB SOLUTION NEB PRN (23:45)
[2018-11-11] MEDS ORDERED: ZOLPIDEM TARTRATE 5 MG TABLET PO PRN (23:45)
[2018-11-11] MEDS ORDERED: IPRATROPIUM BROMIDE 0.5 MG/2.5 ML NEB SOLUTION NEB PRN (23:45)
[2018-11-11 23:55] VITALS: BP 124/67
[2018-11-12] MEDS ORDERED: INSULIN LISPRO 100 UNITS/ML SQ PRN
[2018-11-12] MEDS ORDERED: GLUCAGON,HUMAN RECOMBINANT 1 MG VIAL IM PRN
[2018-11-12] MEDS: HEPARIN SODIUM,PORCINE 5,000 UNITS/ML VIAL SQ SCH ×3 (00:10→16:16)
[2018-11-12] MEDS: MethylPREDNISolone SOD SUCC 125 MG/2 ML VIAL IVP SCH ×4 (00:10→17:55)
[2018-11-12] MEDS: MORPHINE SULFATE 2 MG/ML SYRINGE IVP PRN ×4 (00:11→17:57)
[2018-11-12] MEDS: INSULIN LISPRO 100 UNITS/ML SQ PRN ×5 (00:21→20:07)
[2018-11-12] MEDS ORDERED: DEXTROSE 50%-WATER 25 GM/50 ML SYG IVP PRN (00:30)
[2018-11-12 01:29] LABS: GLUCOMETER DEV NAME(LOC) 5N.2; GLUCOSE,POINT OF CARE 375 MG/DL (70-110)
[2018-11-12 01:29] LABS: GLUCOMETER DEV NAME(LOC) 5N.2; GLUCOSE,POINT OF CARE 430 MG/DL (70-110)
[2018-11-12] MEDS: ALBUTEROL SULFATE 2.5 MG/0.5 ML NEB SOLUTION NEB SCH ×6 (03:00→23:12)
[2018-11-12] MEDS: IPRATROPIUM BROMIDE 0.5 MG/2.5 ML NEB SOLUTION NEB SCH ×7 (03:00→23:12)
[2018-11-12 04:31] VITALS: BP 140/84
[2018-11-12 06:53] LABS: BASOPHILS % (AUTO) 0.2 % (0.0-2.0); EOSINOPHILS % (AUTO) 0 % (1.0-6.0); HEMATOCRIT 33.5 % (36-46); HEMOGLOBIN 10.5 g/dL (12.0-16.0); LYMPHOCYTES # (AUTO) 1.1 K/uL (1.0-4.8); LYMPHOCYTES % (AUTO) 5.3 % (22.0-44.0); MEAN CORPUSCULAR HEMOGLOBIN 24.3 pg (26.0-34.0); MEAN CORPUSCULAR HGB CONC 31.5 G/dL (31.0-37.0); MEAN CORPUSCULAR VOLUME 77 fL (80-100); MONOCYTES # (AUTO) 0.3 K/uL (0.1-1.0); MONOCYTES % (AUTO) 1.7 % (2.0-9.0); NEUTROPHILS # (AUTO) 18.5 K/uL (1.8-7.7); PLATELET COUNT (AUTO) 396 K/uL (150-450); RED BLOOD CELL COUNT(AUTO) 4.34 MIL/uL (4.00-5.20); RED CELL DISTRIBUTION WIDTH 26.6 % (11.5-14.5)
[2018-11-12 06:59] LABS: NEUTROPHILS % (AUTO) 92.8 % (40.0-70.0)
[2018-11-12 07:17] LABS: ALBUMIN 2.8 g/dL (3.4-5.0); BILIRUBIN,TOTAL 0.2 mg/dL (0.1-1.0); CALCIUM, TOTAL 9.1 mg/dL (8.8-10.5); POTASSIUM 3.9 mmol/L (3.5-5.1); TOTAL PROTEIN, SERUM 6.2 g/dL (6.4-8.2)
[2018-11-12 07:49] VITALS: BP 141/81
[2018-11-12] MEDS: MetFORMIN HCL 500 MG TABLET PO SCH ×2 (08:24→17:54)
[2018-11-12] MEDS: ASPIRIN 81 MG EC TABLET PO SCH (08:25)
[2018-11-12] MEDS: GABAPENTIN 300 MG CAPSULE PO SCH ×3 (08:26→20:04)
[2018-11-12] MEDS: OMEPRAZOLE 20 MG CAPSULE PO SCH ×2 (08:26→20:04)
[2018-11-12] MEDS: SPIRONOLACTONE 25 MG TABLET PO SCH (08:26)
[2018-11-12] MEDS: DOCUSATE SODIUM 100 MG CAPSULE PO SCH ×2 (08:26→20:04)
[2018-11-12] MEDS: FERROUS SULFATE 325 MG EC TABLET PO SCH (08:27)
[2018-11-12] MEDS: FAMOTIDINE 20 MG TABLET PO SCH ×2 (08:27→20:03)
[2018-11-12] MEDS: FUROSEMIDE 20 MG TABLET PO SCH (08:27)
[2018-11-12] MEDS: LORazepam 1 MG TABLET PO SCH ×3 (08:28→20:04)
[2018-11-12] MEDS: LACTULOSE 20 GM/30 ML SOLUTION UDCUP PO SCH ×2 (08:28→20:05)
[2018-11-12] MEDS: INSULIN GLARGINE,HUM.REC.ANLOG 100 UNITS/ML SQ SCH (08:34)
[2018-11-12] MEDS ORDERED: SENNA 187 MG TABLET PO SCH ×2 (09:00→09:01)
[2018-11-12] MEDS ORDERED: DOCUSATE SODIUM 100 MG CAPSULE PO SCH (09:00)
[2018-11-12] MEDS ORDERED: PANTOPRAZOLE SODIUM 40 MG DR TABLET PO SCH (09:00)
[2018-11-12 09:19] LABS: GLUCOMETER DEV NAME(LOC) 5N.1; GLUCOSE,POINT OF CARE 360 MG/DL (70-110)
[2018-11-12 09:19] LABS: GLUCOMETER DEV NAME(LOC) 5N.1; GLUCOSE,POINT OF CARE 219 MG/DL (70-110)
[2018-11-12] MEDS: ZIPRASIDONE HCL 80 MG CAPSULE PO SCH ×2 (09:43→17:54)
[2018-11-12] MEDS: SENNA 187 MG TABLET PO SCH ×2 (09:44→20:03)
[2018-11-12] MEDS: SIMVASTATIN 10 MG TABLET PO SCH (09:44)
[2018-11-12] MEDS: DICYCLOMINE HCL 20 MG TABLET PO SCH ×4 (09:44→20:04)
[2018-11-12] MEDS: ISOSORBIDE MONONITRATE 60 MG ER TABLET PO SCH (09:44)
[2018-11-12] MEDS: DILTIAZEM HCL CD 180 MG ER CAPSULE PO SCH (09:45)
[2018-11-12] MEDS: BusPIRone HCL 15 MG TABLET PO SCH ×2 (09:45→20:04)
[2018-11-12 11:43] VITALS: BP 151/80
[2018-11-12 13:24] LABS: GLUCOMETER DEV NAME(LOC) 5N.2; GLUCOSE,POINT OF CARE 289 MG/DL (70-110)
[2018-11-12 15:55] VITALS: BP 119/61
[2018-11-12] MEDS ORDERED: BENZOCAINE/MENTHOL LOZENGE PO PRN (16:15)
[2018-11-12 19:13] VITALS: BP 131/58
[2018-11-12 19:24] LABS: GLUCOMETER DEV NAME(LOC) 5N.1; GLUCOSE,POINT OF CARE 338 MG/DL (70-110)
[2018-11-13 00:03] VITALS: BP 116/50
[2018-11-13] MEDS: MethylPREDNISolone SOD SUCC 125 MG/2 ML VIAL IVP SCH ×5 (00:08→23:50)
[2018-11-13] MEDS: MORPHINE SULFATE 2 MG/ML SYRINGE IVP PRN ×4 (00:08→20:59)
[2018-11-13] MEDS: HEPARIN SODIUM,PORCINE 5,000 UNITS/ML VIAL SQ SCH ×4 (00:13→23:50)
[2018-11-13] MEDS: IPRATROPIUM BROMIDE 0.5 MG/2.5 ML NEB SOLUTION NEB SCH ×6 (02:56→23:21)
[2018-11-13] MEDS: ALBUTEROL SULFATE 2.5 MG/0.5 ML NEB SOLUTION NEB SCH ×6 (02:56→23:21)
[2018-11-13 04:38] VITALS: BP 138/73
[2018-11-13] MEDS: INSULIN LISPRO 100 UNITS/ML SQ PRN ×4 (06:05→21:07)
[2018-11-13 07:39] LABS: GLUCOMETER DEV NAME(LOC) 5N.1; GLUCOSE,POINT OF CARE 332 MG/DL (70-110)
[2018-11-13 07:39] LABS: GLUCOMETER DEV NAME(LOC) 5N.2; GLUCOSE,POINT OF CARE 321 MG/DL (70-110)
[2018-11-13] MEDS: DOCUSATE SODIUM 100 MG CAPSULE PO SCH ×2 (08:58→20:58)
[2018-11-13] MEDS: OMEPRAZOLE 20 MG CAPSULE PO SCH ×2 (08:58→20:58)
[2018-11-13] MEDS: GABAPENTIN 300 MG CAPSULE PO SCH ×3 (08:58→20:58)
[2018-11-13] MEDS: SPIRONOLACTONE 25 MG TABLET PO SCH (08:58)
[2018-11-13] MEDS: ASPIRIN 81 MG EC TABLET PO SCH (08:58)
[2018-11-13] MEDS: FERROUS SULFATE 325 MG EC TABLET PO SCH (08:59)
[2018-11-13] MEDS: FUROSEMIDE 20 MG TABLET PO SCH (08:59)
[2018-11-13] MEDS: FAMOTIDINE 20 MG TABLET PO SCH ×2 (08:59→20:58)
[2018-11-13] MEDS: MetFORMIN HCL 500 MG TABLET PO SCH ×2 (08:59→17:13)
[2018-11-13] MEDS: LORazepam 1 MG TABLET PO SCH ×3 (08:59→20:57)
[2018-11-13] MEDS: ISOSORBIDE MONONITRATE 60 MG ER TABLET PO SCH (09:00)
[2018-11-13] MEDS: LACTULOSE 20 GM/30 ML SOLUTION UDCUP PO SCH ×2 (09:00→20:59)
[2018-11-13] MEDS: DICYCLOMINE HCL 20 MG TABLET PO SCH ×4 (09:01→20:58)
[2018-11-13] MEDS: BusPIRone HCL 15 MG TABLET PO SCH ×2 (09:01→20:58)
[2018-11-13] MEDS: SIMVASTATIN 10 MG TABLET PO SCH (09:01)
[2018-11-13] MEDS: ZIPRASIDONE HCL 80 MG CAPSULE PO SCH ×2 (09:02→17:14)
[2018-11-13] MEDS: DILTIAZEM HCL CD 180 MG ER CAPSULE PO SCH (09:03)
[2018-11-13] MEDS: SENNA 187 MG TABLET PO SCH ×2 (09:04→20:58)
[2018-11-13] MEDS: INSULIN GLARGINE,HUM.REC.ANLOG 100 UNITS/ML SQ SCH (09:07)
[2018-11-13 11:00] LABS: APPEARANCE,URINE CLEAR (CLEAR); BILIRUBIN,URINE NEGATIVE (NEGATIVE); GLUCOSE, URINE (UA) 500 mg/dL (NEGATIVE); KETONES,URINE NEGATIVE (NEGATIVE); LEUKOCYTE ESTERASE ,URINE NEGATIVE (NEGATIVE); NITRATE,URINE NEGATIVE (NEGATIVE); OCCULT BLOOD,URINE NEGATIVE (NEGATIVE); PROTEIN,URINE NEGATIVE (NEGATIVE); UROBILINOGEN,URINE 0.2 mg/dL (<=1.0)
[2018-11-13 11:43] LABS: BACTERIA,URINE None Seen /HPF (None Seen); RBC,URINE None Seen /HPF (0-2); SQUAMOUS EPITHELIAL CELL,UR Rare /LPF (None Seen); WBC,URINE None Seen /HPF (0-5)
[2018-11-13 11:46] VITALS: BP 118/65
[2018-11-13 15:10] VITALS: BP 117/67
[2018-11-13 16:14] LABS: GLUCOMETER DEV NAME(LOC) 5N.2; GLUCOSE,POINT OF CARE 314 MG/DL (70-110)
[2018-11-13 16:14] LABS: GLUCOMETER DEV NAME(LOC) 5N.2; GLUCOSE,POINT OF CARE 334 MG/DL (70-110)
[2018-11-13 20:10] VITALS: BP 147/66
[2018-11-14] VITALS: BP 126/63
[2018-11-14] MEDS: ALBUTEROL SULFATE 2.5 MG/0.5 ML NEB SOLUTION NEB SCH ×6 (03:10→22:43)
[2018-11-14] MEDS: IPRATROPIUM BROMIDE 0.5 MG/2.5 ML NEB SOLUTION NEB SCH ×6 (03:10→22:43)
[2018-11-14] MEDS: MORPHINE SULFATE 2 MG/ML SYRINGE IVP PRN ×3 (03:40→15:02)
[2018-11-14 04:34] VITALS: BP 134/77
[2018-11-14] MEDS: MethylPREDNISolone SOD SUCC 125 MG/2 ML VIAL IVP SCH ×2 (05:57→11:20)
[2018-11-14] MEDS: INSULIN LISPRO 100 UNITS/ML SQ PRN ×4 (05:58→22:58)
[2018-11-14 07:48] VITALS: BP 108/63
[2018-11-14] MEDS: GABAPENTIN 300 MG CAPSULE PO SCH ×3 (08:13→20:40)
[2018-11-14] MEDS: DOCUSATE SODIUM 100 MG CAPSULE PO SCH ×2 (08:13→20:40)
[2018-11-14] MEDS: MetFORMIN HCL 500 MG TABLET PO SCH (08:14)
[2018-11-14] MEDS: OMEPRAZOLE 20 MG CAPSULE PO SCH ×2 (08:14→20:39)
[2018-11-14] MEDS: FERROUS SULFATE 325 MG EC TABLET PO SCH (08:14)
[2018-11-14] MEDS: SPIRONOLACTONE 25 MG TABLET PO SCH (08:14)
[2018-11-14] MEDS: FUROSEMIDE 20 MG TABLET PO SCH (08:15)
[2018-11-14] MEDS: LORazepam 1 MG TABLET PO SCH ×3 (08:15→20:39)
[2018-11-14] MEDS: FAMOTIDINE 20 MG TABLET PO SCH ×2 (08:15→20:40)
[2018-11-14] MEDS: ISOSORBIDE MONONITRATE 60 MG ER TABLET PO SCH (08:16)
[2018-11-14] MEDS: LACTULOSE 20 GM/30 ML SOLUTION UDCUP PO SCH ×2 (08:16→20:39)
[2018-11-14] MEDS: DICYCLOMINE HCL 20 MG TABLET PO SCH ×4 (08:16→20:39)
[2018-11-14] MEDS: ASPIRIN 81 MG EC TABLET PO SCH (08:16)
[2018-11-14] MEDS: DILTIAZEM HCL CD 180 MG ER CAPSULE PO SCH (08:17)
[2018-11-14] MEDS: BusPIRone HCL 15 MG TABLET PO SCH ×2 (08:17→20:40)
[2018-11-14] MEDS: ZIPRASIDONE HCL 80 MG CAPSULE PO SCH ×2 (08:18→17:46)
[2018-11-14] MEDS: HEPARIN SODIUM,PORCINE 5,000 UNITS/ML VIAL SQ SCH ×2 (08:18→15:00)
[2018-11-14] MEDS: SIMVASTATIN 10 MG TABLET PO SCH (08:19)
[2018-11-14] MEDS: SENNA 187 MG TABLET PO SCH ×2 (08:19→20:39)
[2018-11-14] MEDS: INSULIN GLARGINE,HUM.REC.ANLOG 100 UNITS/ML SQ SCH (08:23)
[2018-11-14 11:04] LABS: GLUCOMETER DEV NAME(LOC) 5N.2; GLUCOSE,POINT OF CARE 313 MG/DL (70-110)
[2018-11-14 11:05] LABS: GLUCOMETER DEV NAME(LOC) 5N.2; GLUCOSE,POINT OF CARE 364 MG/DL (70-110)
[2018-11-14 11:30] VITALS: BP 120/69
[2018-11-14] MEDS ORDERED: PredniSONE 20 MG TABLET PO ONE (15:30)
[2018-11-14 15:38] VITALS: BP 119/71
[2018-11-14 17:19] LABS: GLUCOMETER DEV NAME(LOC) 5N.1; GLUCOSE,POINT OF CARE 252 MG/DL (70-110)
[2018-11-14 17:20] LABS: GLUCOMETER DEV NAME(LOC) 5N.1; GLUCOSE,POINT OF CARE 257 MG/DL (70-110)
[2018-11-14 17:20] LABS: GLUCOMETER DEV NAME(LOC) 5N.1; GLUCOSE,POINT OF CARE 314 MG/DL (70-110)
[2018-11-14] MEDS: OxyCODONE HCL/ACETAMINOPHEN 5-325 MG TABLET PO PRN ×2 (17:46→22:48)
[2018-11-14 19:40] VITALS: BP 134/83
[2018-11-14] MEDS: QUEtiapine FUMARATE 200 MG TABLET PO SCH (22:48)
[2018-11-15] MEDS: ALBUTEROL SULFATE 2.5 MG/0.5 ML NEB SOLUTION NEB SCH ×6 (03:01→22:39)
[2018-11-15] MEDS: IPRATROPIUM BROMIDE 0.5 MG/2.5 ML NEB SOLUTION NEB SCH ×6 (03:01→22:39)
[2018-11-15] MEDS: HEPARIN SODIUM,PORCINE 5,000 UNITS/ML VIAL SQ SCH ×4 (03:02→23:45)
[2018-11-15] MEDS: OxyCODONE HCL/ACETAMINOPHEN 5-325 MG TABLET PO PRN ×2 (03:06→21:15)
[2018-11-15 04:54] VITALS: BP 151/71
[2018-11-15 06:15] LABS: HEMATOCRIT 31.8 % (36-46); HEMOGLOBIN 9.9 g/dL (12.0-16.0); MEAN CORPUSCULAR HEMOGLOBIN 23.9 pg (26.0-34.0); MEAN CORPUSCULAR HGB CONC 31.1 G/dL (31.0-37.0); MEAN CORPUSCULAR VOLUME 77 fL (80-100); PLATELET COUNT (AUTO) 330 K/uL (150-450); RED BLOOD CELL COUNT(AUTO) 4.14 MIL/uL (4.00-5.20); RED CELL DISTRIBUTION WIDTH 27.2 % (11.5-14.5)
[2018-11-15] MEDS: INSULIN LISPRO 100 UNITS/ML SQ PRN ×4 (06:19→21:30)
[2018-11-15 06:33] LABS: ALANINE AMINOTRANSFERASE 23 U/L (12-78); ALBUMIN 2.8 g/dL (3.4-5.0); ALKALINE PHOSPHATASE 59 U/L (46-116); ANION GAP 7 mmol/L (8-16); ASPARTATE AMINOTRANSFERASE 15 U/L (15-37); BILIRUBIN,TOTAL 0.2 mg/dL (0.1-1.0); CALCIUM, TOTAL 9.2 mg/dL (8.8-10.5); CARBON DIOXIDE 31 mmol/L (22-29); CHLORIDE 99 mmol/L (98-107); CREATININE 0.94 mg/dL (0.60-1.30); GLOMERULAR FILTR. RATE CALC > 60 mL/min (>60); GLUCOSE,RANDOM 247 mg/dL (70-110); POTASSIUM 4.1 mmol/L (3.5-5.1); SODIUM SERUM 137 mmol/L (136-145); UREA NITROGEN, BLOOD 20 mg/dL (7-18)
[2018-11-15 07:46] VITALS: BP 143/72
[2018-11-15 08:40] LABS: BAND NEUTROPHILS % (MANUAL) 2 % (0-5); LYMPHOCYTES % (MANUAL) 6 % (22-44); METAMYELOCYTES % 1 % (0-0); MONOCYTES % (MANUAL) 7 % (2-9); SEGMENTED NEUTROPHILS % 84 % (40-70)
[2018-11-15] MEDS: FERROUS SULFATE 325 MG EC TABLET PO SCH (08:45)
[2018-11-15] MEDS: ASPIRIN 81 MG EC TABLET PO SCH (08:45)
[2018-11-15] MEDS: FUROSEMIDE 20 MG TABLET PO SCH (08:45)
[2018-11-15] MEDS: GABAPENTIN 300 MG CAPSULE PO SCH ×3 (08:45→21:15)
[2018-11-15] MEDS: PredniSONE 20 MG TABLET PO SCH (08:45)
[2018-11-15] MEDS: FAMOTIDINE 20 MG TABLET PO SCH ×2 (08:46→21:32)
[2018-11-15] MEDS: OMEPRAZOLE 20 MG CAPSULE PO SCH ×2 (08:46→21:14)
[2018-11-15] MEDS: DOCUSATE SODIUM 100 MG CAPSULE PO SCH ×2 (08:46→21:15)
[2018-11-15] MEDS: LACTULOSE 20 GM/30 ML SOLUTION UDCUP PO SCH ×2 (08:46→21:16)
[2018-11-15] MEDS: LORazepam 1 MG TABLET PO SCH ×3 (08:46→21:00)
[2018-11-15] MEDS: SIMVASTATIN 10 MG TABLET PO SCH (08:47)
[2018-11-15] MEDS: ZIPRASIDONE HCL 80 MG CAPSULE PO SCH ×2 (08:47→17:31)
[2018-11-15] MEDS: SENNA 187 MG TABLET PO SCH ×2 (08:47→21:15)
[2018-11-15] MEDS: DICYCLOMINE HCL 20 MG TABLET PO SCH ×4 (08:47→21:14)
[2018-11-15] MEDS: BusPIRone HCL 15 MG TABLET PO SCH ×2 (08:47→21:15)
[2018-11-15] MEDS: DILTIAZEM HCL CD 180 MG ER CAPSULE PO SCH (08:47)
[2018-11-15] MEDS: ISOSORBIDE MONONITRATE 60 MG ER TABLET PO SCH (08:48)
[2018-11-15] MEDS: SPIRONOLACTONE 25 MG TABLET PO SCH (08:56)
[2018-11-15] MEDS: INSULIN GLARGINE,HUM.REC.ANLOG 100 UNITS/ML SQ SCH (08:57)
[2018-11-15 11:17] VITALS: BP 138/74
[2018-11-15 15:11] VITALS: BP 138/75
[2018-11-15 19:39] LABS: GLUCOMETER DEV NAME(LOC) 5N.1; GLUCOSE,POINT OF CARE 288 MG/DL (70-110)
[2018-11-15 19:40] LABS: GLUCOMETER DEV NAME(LOC) 5N.1; GLUCOSE,POINT OF CARE 243 MG/DL (70-110)
[2018-11-15 19:40] LABS: GLUCOMETER DEV NAME(LOC) 5N.1; GLUCOSE,POINT OF CARE 297 MG/DL (70-110)
[2018-11-15 19:41] VITALS: BP 142/78
[2018-11-15 20:35] LABS: GLUCOMETER DEV NAME(LOC) 5N.2; GLUCOSE,POINT OF CARE 264 MG/DL (70-110)
[2018-11-15 20:35] LABS: GLUCOMETER DEV NAME(LOC) 5N.2; GLUCOSE,POINT OF CARE 252 MG/DL (70-110)
[2018-11-15] MEDS: QUEtiapine FUMARATE 200 MG TABLET PO SCH (21:14)
[2018-11-15 21:50] LABS: GLUCOMETER DEV NAME(LOC) 5N.2; GLUCOSE,POINT OF CARE 325 MG/DL (70-110)
[2018-11-15 23:39] VITALS: BP 152/93
[2018-11-16] MEDS: ALBUTEROL SULFATE 2.5 MG/0.5 ML NEB SOLUTION NEB SCH ×4 (02:20→16:15)
[2018-11-16] MEDS: IPRATROPIUM BROMIDE 0.5 MG/2.5 ML NEB SOLUTION NEB SCH ×4 (02:21→16:14)
[2018-11-16 04:24] VITALS: BP 142/74
[2018-11-16] MEDS: INSULIN LISPRO 100 UNITS/ML SQ PRN ×3 (06:10→17:30)
[2018-11-16 06:43] LABS: HEMATOCRIT 31.9 % (36-46); HEMOGLOBIN 10.2 g/dL (12.0-16.0); MEAN CORPUSCULAR HEMOGLOBIN 24.6 pg (26.0-34.0); MEAN CORPUSCULAR HGB CONC 31.9 G/dL (31.0-37.0); MEAN CORPUSCULAR VOLUME 77 fL (80-100); PLATELET COUNT (AUTO) 348 K/uL (150-450); RED BLOOD CELL COUNT(AUTO) 4.14 MIL/uL (4.00-5.20); RED CELL DISTRIBUTION WIDTH 27.9 % (11.5-14.5)
[2018-11-16 07:17] LABS: ALANINE AMINOTRANSFERASE 23 U/L (12-78); ALBUMIN 2.9 g/dL (3.4-5.0); ALKALINE PHOSPHATASE 55 U/L (46-116); ANION GAP 8 mmol/L (8-16); ASPARTATE AMINOTRANSFERASE 11 U/L (15-37); BILIRUBIN,TOTAL 0.2 mg/dL (0.1-1.0); CALCIUM, TOTAL 9.2 mg/dL (8.8-10.5); CARBON DIOXIDE 32 mmol/L (22-29); CHLORIDE 99 mmol/L (98-107); CREATININE 0.86 mg/dL (0.60-1.30); GLOMERULAR FILTR. RATE CALC > 60 mL/min (>60); GLUCOSE,RANDOM 204 mg/dL (70-110); POTASSIUM 3.5 mmol/L (3.5-5.1); SODIUM SERUM 139 mmol/L (136-145); TOTAL PROTEIN, SERUM 5.7 g/dL (6.4-8.2); UREA NITROGEN, BLOOD 21 mg/dL (7-18)
[2018-11-16 07:48] VITALS: BP 143/81
[2018-11-16] MEDS: LACTULOSE 20 GM/30 ML SOLUTION UDCUP PO SCH (07:50)
[2018-11-16] MEDS: LORazepam 1 MG TABLET PO SCH ×2 (07:51→15:45)
[2018-11-16] MEDS: DOCUSATE SODIUM 100 MG CAPSULE PO SCH (07:51)
[2018-11-16] MEDS: FAMOTIDINE 20 MG TABLET PO SCH (07:51)
[2018-11-16] MEDS: ASPIRIN 81 MG EC TABLET PO SCH (07:51)
[2018-11-16] MEDS: SPIRONOLACTONE 25 MG TABLET PO SCH (07:51)
[2018-11-16] MEDS: HEPARIN SODIUM,PORCINE 5,000 UNITS/ML VIAL SQ SCH ×2 (07:52→15:45)
[2018-11-16] MEDS: SIMVASTATIN 10 MG TABLET PO SCH (07:52)
[2018-11-16] MEDS: OMEPRAZOLE 20 MG CAPSULE PO SCH (07:52)
[2018-11-16] MEDS: DICYCLOMINE HCL 20 MG TABLET PO SCH ×3 (07:52→15:45)
[2018-11-16] MEDS: FERROUS SULFATE 325 MG EC TABLET PO SCH (07:52)
[2018-11-16] MEDS: GABAPENTIN 300 MG CAPSULE PO SCH ×2 (07:52→15:45)
[2018-11-16] MEDS: PredniSONE 20 MG TABLET PO SCH (07:52)
[2018-11-16] MEDS: FUROSEMIDE 20 MG TABLET PO SCH (07:52)
[2018-11-16] MEDS: ISOSORBIDE MONONITRATE 60 MG ER TABLET PO SCH (07:53)
[2018-11-16] MEDS: BusPIRone HCL 15 MG TABLET PO SCH (07:53)
[2018-11-16] MEDS: SENNA 187 MG TABLET PO SCH (07:53)
[2018-11-16] MEDS: ZIPRASIDONE HCL 80 MG CAPSULE PO SCH ×2 (07:53→18:00)
[2018-11-16] MEDS: DILTIAZEM HCL CD 180 MG ER CAPSULE PO SCH (07:54)
[2018-11-16 08:03] LABS: BAND NEUTROPHILS % (MANUAL) 1 % (0-5); LYMPHOCYTES % (MANUAL) 7 % (22-44); MONOCYTES % (MANUAL) 8 % (2-9); SEGMENTED NEUTROPHILS % 84 % (40-70)
[2018-11-16] MEDS: INSULIN GLARGINE,HUM.REC.ANLOG 100 UNITS/ML SQ SCH (08:05)
[2018-11-16 11:36] VITALS: BP 140/83
[2018-11-16 15:47] VITALS: BP 159/87
[2018-11-16] MEDS ORDERED: QUET200T PO (16:25)
[2018-11-16] MEDS ORDERED: PRED20 PO (16:26)
[2018-11-16 17:19] LABS: GLUCOMETER DEV NAME(LOC) 5N.1; GLUCOSE,POINT OF CARE 225 MG/DL (70-110)
[2018-11-16 22:05] LABS: GLUCOMETER DEV NAME(LOC) 5N.2; GLUCOSE,POINT OF CARE 222 MG/DL (70-110)
[2018-11-16 22:49] LABS: GLUCOMETER DEV NAME(LOC) 5N.1; GLUCOSE,POINT OF CARE 316 MG/DL (70-110)
== END 2018-11-16 18:05 | DRG 140 ==
LOC: EMS 13:49 → 5S 17:09
PROVIDERS: ADMIT Hospitalist; ATTEND Hospitalist
DX: J44.1 Chronic obstructive pulmonary disease with (acute) exacerbation (principal); E11.40 Type 2 diabetes mellitus with diabetic neuropathy, unspecified; J84.10 Pulmonary fibrosis, unspecified; E11.65 Type 2 diabetes mellitus with hyperglycemia; I10 Essential (primary) hypertension; G89.4 Chronic pain syndrome; E78.00 Pure hypercholesterolemia, unspecified; F20.9 Schizophrenia, unspecified; K21.9 Gastro-esophageal reflux disease without esophagitis; T38.0X5A Adverse effect of glucocorticoids and synthetic analogues, initial encounter; F17.210 Nicotine dependence, cigarettes, uncomplicated; F41.9 Anxiety disorder, unspecified; M19.90 Unspecified osteoarthritis, unspecified site; R00.0 Tachycardia, unspecified; F31.9 Bipolar disorder, unspecified; J02.9 Acute pharyngitis, unspecified; D64.9 Anemia, unspecified; Z88.2 Allergy status to sulfonamides; Z88.1 Allergy status to other antibiotic agents; Z88.8 Allergy status to other drugs, medicaments and biological substances; Z79.82 Long term (current) use of aspirin; Z79.899 Other long term (current) drug therapy; Y92.89 Other specified places as the place of occurrence of the external cause; Z82.49 Family history of ischemic heart disease and other diseases of the circulatory system; Z83.3 Family history of diabetes mellitus; Z87.442 Personal history of urinary calculi; Z98.51 Tubal ligation status
CPT/HCPCS: 87040; 93005; 94640; 96374; 96375; 97162; 97530; G0378; J0456; J0696; J1644; J1815; J1885; J2270; J2405; J2930; J7040

== ENCOUNTER 2018-12-09 14:58 | Emergency (ER) | payer OTHER ==
[~2018-12-09] VITALS: Ht 160 cm; Wt 75.0 kg
[~2018-12-09 14:58] MED LIST changes: +PRED20 PO; +QUET200T PO
[2018-12-09] MEDS ORDERED: IPRATROPIUM BROMIDE 0.5 MG/2.5 ML NEB SOLUTION NEB ONE (15:15)
[2018-12-09] MEDS ORDERED: MethylPREDNISolone SOD SUCC 125 MG/2 ML VIAL IVP ONE (15:15)
[2018-12-09 15:19] LABS: GLUCOSE,POINT OF CARE 156 MG/DL (70-110)
[2018-12-09] MEDS ORDERED: ALBUTEROL SULFATE 5 MG/ML 20 ML NEB SOLN [BULK] NEB ONE (15:20)
[2018-12-09] MEDS ORDERED: LEVALBUTEROL HCL 1.25 MG/0.5 ML NEB SOLUTION NEB ONE (15:20)
[2018-12-09] MEDS ORDERED: LORazepam 2 MG/ML VIAL IVP ONE (15:30)
[2018-12-09] MEDS ORDERED: HYDROCODONE/ACETAMINOPHEN 5-325 MG TABLET PO ONE (16:00)
[2018-12-09 16:03] LABS: HEMATOCRIT 39.7 % (36-46); HEMOGLOBIN 12.6 g/dL (12.0-16.0); MEAN CORPUSCULAR HEMOGLOBIN 25.3 pg (26.0-34.0); MEAN CORPUSCULAR HGB CONC 31.7 G/dL (31.0-37.0); MEAN CORPUSCULAR VOLUME 80 fL (80-100); PLATELET COUNT (AUTO) 473 K/uL (150-450); RED BLOOD CELL COUNT(AUTO) 4.98 MIL/uL (4.00-5.20); RED CELL DISTRIBUTION WIDTH 26.9 % (11.5-14.5)
[2018-12-09 16:17] LABS: ANION GAP 8 mmol/L (8-16); CALCIUM, TOTAL 9.1 mg/dL (8.8-10.5); CARBON DIOXIDE 27 mmol/L (22-29); CHLORIDE 100 mmol/L (98-107); CREATININE 0.71 mg/dL (0.60-1.30); GLOMERULAR FILTR. RATE CALC > 60 mL/min (>60); GLUCOSE,RANDOM 164 mg/dL (70-110); INR 0.9 (0.9-1.1); POTASSIUM 3.7 mmol/L (3.5-5.1); PROTHROMBIN TIME 9.6 SEC (9.4-11.6); SODIUM SERUM 135 mmol/L (136-145); UREA NITROGEN, BLOOD 8 mg/dL (7-18)
[2018-12-09 16:23] LABS: ALANINE AMINOTRANSFERASE 33 U/L (12-78); ALBUMIN 3.5 g/dL (3.4-5.0); ALKALINE PHOSPHATASE 83 U/L (46-116); ASPARTATE AMINOTRANSFERASE 16 U/L (15-37); BILIRUBIN,TOTAL 0.4 mg/dL (0.1-1.0); CREATINE KINASE, TOTAL ONLY 37 U/L (26-192); TOTAL PROTEIN, SERUM 6.7 g/dL (6.4-8.2)
[2018-12-09 16:28] LABS: B-TYPE NATRIURETIC PEPTIDE 29 pg/mL (0-100)
[2018-12-09 16:36] LABS: BAND NEUTROPHILS % (MANUAL) 5 % (0-5); LYMPHOCYTES % (MANUAL) 20 % (22-44); MONOCYTES % (MANUAL) 5 % (2-9); MYELOCYTES % 1 % (0-0); SEGMENTED NEUTROPHILS % 69 % (40-70)
[2018-12-09 21:22] VITALS: BP 129/72
== END 2018-12-09 21:54 | disposition home or self-care (01) ==
LOC: EMS 15:00
DX: J44.1 Chronic obstructive pulmonary disease with (acute) exacerbation (principal); F41.9 Anxiety disorder, unspecified; R10.9 Unspecified abdominal pain; F31.9 Bipolar disorder, unspecified; E11.9 Type 2 diabetes mellitus without complications; I11.9 Hypertensive heart disease without heart failure; E78.00 Pure hypercholesterolemia, unspecified; F17.210 Nicotine dependence, cigarettes, uncomplicated; F20.9 Schizophrenia, unspecified; Z98.51 Tubal ligation status; Z88.1 Allergy status to other antibiotic agents; Z88.8 Allergy status to other drugs, medicaments and biological substances; Z79.899 Other long term (current) drug therapy; Z79.4 Long term (current) use of insulin; Z79.82 Long term (current) use of aspirin; Z79.84 Long term (current) use of oral hypoglycemic drugs
CPT/HCPCS: 71045; 80053; 82550; 82962; 83880; 84484; 85025; 85610; 85730; 93005; 94640; 96374; 96375; 99285; J2060; J2930; 94060; 94644

== ENCOUNTER 2019-04-06 14:44 | Emergency (ER) | payer OTHER ==
[~2019-04-06] VITALS: Ht 157.5 cm; Wt 75.0 kg
[~2019-04-06 14:44] MED LIST changes: +LACT10SO62 PO; -LACT10SO8 PO; +LORA-1000 PO; -LORA1TAB3 PO
[2019-04-06] MEDS ORDERED: DiphenhydrAMINE HCL 50 MG/ML VIAL IVP ONE (15:45)
[2019-04-06] MEDS ORDERED: MethylPREDNISolone SOD SUCC 125 MG/2 ML VIAL IVP ONE (15:45)
[2019-04-06] MEDS ORDERED: ACETAMINOPHEN 500 MG TABLET PO ONE (15:45)
[2019-04-06] MEDS ORDERED: ALBUTEROL SULFATE 5 MG/ML 20 ML NEB SOLN [BULK] NEB ONE (15:45)
[2019-04-06] MEDS ORDERED: KETOROLAC TROMETHAMINE 30 MG/ML VIAL IVP ONE (15:45)
[2019-04-06 16:44] LABS: BASOPHILS % (AUTO) 1.4 % (0.0-2.0); EOSINOPHILS % (AUTO) 0.8 % (1.0-6.0); HEMATOCRIT 36.4 % (36-46); HEMOGLOBIN 11.8 g/dL (12.0-16.0); LYMPHOCYTES # (AUTO) 3.7 K/uL (1.0-4.8); LYMPHOCYTES % (AUTO) 21.7 % (22.0-44.0); MEAN CORPUSCULAR HEMOGLOBIN 26.2 pg (26.0-34.0); MEAN CORPUSCULAR HGB CONC 32.3 G/dL (31.0-37.0); MEAN CORPUSCULAR VOLUME 81 fL (80-100); MONOCYTES # (AUTO) 0.8 K/uL (0.1-1.0); MONOCYTES % (AUTO) 4.5 % (2.0-9.0); NEUTROPHILS # (AUTO) 12.2 K/uL (1.8-7.7); NEUTROPHILS % (AUTO) 71.6 % (40.0-70.0); PLATELET COUNT (AUTO) 484 K/uL (150-450); RED BLOOD CELL COUNT(AUTO) 4.49 MIL/uL (4.00-5.20)
[2019-04-06 16:53] LABS: CALCIUM, TOTAL 9.6 mg/dL (8.8-10.5); CREATININE 1.33 mg/dL (0.60-1.30); POTASSIUM 3.8 mmol/L (3.5-5.1)
[2019-04-06 17:03] LABS: ALBUMIN 3.4 g/dL (3.4-5.0); BILIRUBIN,TOTAL 0.1 mg/dL (0.1-1.0); TOTAL PROTEIN, SERUM 7.1 g/dL (6.4-8.2)
[2019-04-06] MEDS ORDERED: 0.9% SODIUM CHLORIDE 15 ML NEB SOLUTION NEB ONE (17:38)
[2019-04-06 20:00] VITALS: BP 125/74
== END 2019-04-06 20:42 | disposition home or self-care (01) ==
LOC: EMS 14:47
DX: J44.1 Chronic obstructive pulmonary disease with (acute) exacerbation (principal); I10 Essential (primary) hypertension; E11.9 Type 2 diabetes mellitus without complications; E78.00 Pure hypercholesterolemia, unspecified; F31.9 Bipolar disorder, unspecified; F41.9 Anxiety disorder, unspecified; K21.9 Gastro-esophageal reflux disease without esophagitis; F20.9 Schizophrenia, unspecified; F17.210 Nicotine dependence, cigarettes, uncomplicated; Z79.82 Long term (current) use of aspirin; Z79.4 Long term (current) use of insulin; Z79.84 Long term (current) use of oral hypoglycemic drugs; Z79.899 Other long term (current) drug therapy
CPT/HCPCS: 36415; 80053; 82550; 83880; 84484; 85025; 93005; 94640; 96374; 96375; 99285; 99406; J1200; J1885; J2930; 94644

== ENCOUNTER 2019-05-28 09:25 | Emergency (ER) | payer OTHER ==
[~2019-05-28] VITALS: Ht 157.5 cm; Wt 75.0 kg
[~2019-05-28 09:25] MED LIST changes: +ASPI-1111 PO; -ASPI-1182 PO
[2019-05-28] MEDS ORDERED: ONDANSETRON HCL 4 MG/2 ML VIAL IVP ONE (10:45)
[2019-05-28] MEDS ORDERED: KETOROLAC TROMETHAMINE 30 MG/ML VIAL IVP ONE (10:45)
[2019-05-28] MEDS ORDERED: SODIUM CHLORIDE 0.9% 1,000 ML IV ONE (10:45)
[2019-05-28] MEDS ORDERED: DOCU-275 PO (10:47)
[2019-05-28 10:57] LABS: BASOPHILS % (AUTO) 0.5 % (0.0-2.0); EOSINOPHILS % (AUTO) 0.1 % (1.0-6.0); HEMATOCRIT 33.9 % (36-46); HEMOGLOBIN 10.8 g/dL (12.0-16.0); LYMPHOCYTES # (AUTO) 0.9 K/uL (1.0-4.8); LYMPHOCYTES % (AUTO) 5.8 % (22.0-44.0); MEAN CORPUSCULAR HEMOGLOBIN 24.8 pg (26.0-34.0); MEAN CORPUSCULAR HGB CONC 31.8 G/dL (31.0-37.0); MEAN CORPUSCULAR VOLUME 78 fL (80-100); MONOCYTES # (AUTO) 0.5 K/uL (0.1-1.0); MONOCYTES % (AUTO) 3.5 % (2.0-9.0); NEUTROPHILS # (AUTO) 13.4 K/uL (1.8-7.7); NEUTROPHILS % (AUTO) 90.1 % (40.0-70.0); PLATELET COUNT (AUTO) 417 K/uL (150-450); RED BLOOD CELL COUNT(AUTO) 4.35 MIL/uL (4.00-5.20); RED CELL DISTRIBUTION WIDTH 19.1 % (11.5-14.5)
[2019-05-28 11:04] LABS: ANION GAP 10 mmol/L (8-16); CALCIUM, TOTAL 8.6 mg/dL (8.8-10.5); CARBON DIOXIDE 30 mmol/L (22-29); CHLORIDE 105 mmol/L (98-107); CREATININE 0.78 mg/dL (0.60-1.30); GLOMERULAR FILTR. RATE CALC > 60 mL/min (>60); GLUCOSE,RANDOM 187 mg/dL (70-110); POTASSIUM 4.1 mmol/L (3.5-5.1); SODIUM SERUM 145 mmol/L (136-145); UREA NITROGEN, BLOOD 26 mg/dL (7-18)
[2019-05-28 11:10] LABS: ALANINE AMINOTRANSFERASE 28 U/L (12-78); ALBUMIN 3.3 g/dL (3.4-5.0); ALKALINE PHOSPHATASE 77 U/L (46-116); ASPARTATE AMINOTRANSFERASE 9 U/L (15-37); BILIRUBIN,TOTAL 0.2 mg/dL (0.1-1.0); LIPASE 212 U/L (73-393); TOTAL PROTEIN, SERUM 6.3 g/dL (6.4-8.2)
[2019-05-28 12:40] LABS: APPEARANCE,URINE CLEAR (CLEAR); BILIRUBIN,URINE NEGATIVE (NEGATIVE); GLUCOSE, URINE (UA) NEGATIVE (NEGATIVE); KETONES,URINE NEGATIVE (NEGATIVE); LEUKOCYTE ESTERASE ,URINE SMALL (NEGATIVE); NITRATE,URINE NEGATIVE (NEGATIVE); OCCULT BLOOD,URINE NEGATIVE (NEGATIVE); PROTEIN,URINE NEGATIVE (NEGATIVE); UROBILINOGEN,URINE 0.2 mg/dL (<=1.0)
[2019-05-28 12:49] LABS: RBC,URINE None Seen /HPF (0-2); WBC,URINE 0-2 /HPF (0-5)
[2019-05-28 12:50] LABS: BACTERIA,URINE None Seen /HPF (None Seen); SQUAMOUS EPITHELIAL CELL,UR Few /LPF (None Seen)
[2019-05-28] MEDS ORDERED: MORPHINE SULFATE 4 MG/ML SYRINGE IVP ONE (13:00)
[2019-05-28 13:48] VITALS: BP 109/60
== END 2019-05-28 14:02 | disposition home or self-care (01) ==
LOC: EMS 09:26
DX: S39.011A Strain of muscle, fascia and tendon of abdomen, initial encounter (principal); F41.9 Anxiety disorder, unspecified; J45.909 Unspecified asthma, uncomplicated; F31.9 Bipolar disorder, unspecified; K21.9 Gastro-esophageal reflux disease without esophagitis; E78.00 Pure hypercholesterolemia, unspecified; I11.9 Hypertensive heart disease without heart failure; F17.210 Nicotine dependence, cigarettes, uncomplicated; Z98.51 Tubal ligation status; Z88.1 Allergy status to other antibiotic agents; Z88.8 Allergy status to other drugs, medicaments and biological substances; Z79.899 Other long term (current) drug therapy; Z79.82 Long term (current) use of aspirin; Z79.4 Long term (current) use of insulin; X58.XXXA Exposure to other specified factors, initial encounter; Y93.89 Activity, other specified; Y92.89 Other specified places as the place of occurrence of the external cause; Y99.8 Other external cause status
CPT/HCPCS: 36415; 80053; 81001; 83690; 85025; 96374; 96375; 99283; J1885; J2270; J2405; J7030

== ENCOUNTER 2020-01-04 09:36 | Emergency (ER) | payer OTHER ==
[~2020-01-04] VITALS: Ht 165.1 cm; Wt 85.0 kg
[~2020-01-04 09:36] MED LIST changes: +DOCU-275 PO; -DSS100 PO; +GABA-1181 PO; -GABA-531 PO; -SENN-176 PO; +SENN-277 PO
[2020-01-04 10:54] LABS: BASOPHILS % (AUTO) 0.2 % (0.0-2.0); EOSINOPHILS % (AUTO) 0.5 % (1.0-6.0); HEMATOCRIT 31.6 % (36-46); HEMOGLOBIN 10.2 g/dL (12.0-16.0); LYMPHOCYTES # (AUTO) 2.5 K/uL (1.0-4.8); LYMPHOCYTES % (AUTO) 20.4 % (22.0-44.0); MEAN CORPUSCULAR HEMOGLOBIN 24.9 pg (26.0-34.0); MEAN CORPUSCULAR HGB CONC 32.2 G/dL (31.0-37.0); MEAN CORPUSCULAR VOLUME 77 fL (80-100); MONOCYTES # (AUTO) 0.7 K/uL (0.1-1.0); MONOCYTES % (AUTO) 5.8 % (2.0-9.0); NEUTROPHILS # (AUTO) 8.9 K/uL (1.8-7.7); NEUTROPHILS % (AUTO) 73.1 % (40.0-70.0); PLATELET COUNT (AUTO) 560 K/uL (150-450); RED BLOOD CELL COUNT(AUTO) 4.08 MIL/uL (4.00-5.20); RED CELL DISTRIBUTION WIDTH 16.6 % (11.5-14.5)
[2020-01-04] MEDS ORDERED: KETOROLAC TROMETHAMINE 30 MG/ML VIAL IVP ONE (11:00)
[2020-01-04] MEDS ORDERED: ONDANSETRON HCL 4 MG/2 ML VIAL IVP ONE (11:00)
[2020-01-04 11:11] LABS: APPEARANCE,URINE CLEAR (CLEAR); BILIRUBIN,URINE NEGATIVE (NEGATIVE); GLUCOSE, URINE (UA) NEGATIVE (NEGATIVE); KETONES,URINE NEGATIVE (NEGATIVE); LEUKOCYTE ESTERASE ,URINE NEGATIVE (NEGATIVE); NITRATE,URINE NEGATIVE (NEGATIVE); OCCULT BLOOD,URINE NEGATIVE (NEGATIVE); PROTEIN,URINE NEGATIVE (NEGATIVE); UROBILINOGEN,URINE 0.2 mg/dL (<=1.0)
[2020-01-04 11:12] LABS: BACTERIA,URINE None Seen /HPF (None Seen); RBC,URINE None Seen /HPF (0-2); WBC,URINE None Seen /HPF (0-5)
[2020-01-04 11:17] LABS: CREATININE 1.39 mg/dL (0.60-1.30); POTASSIUM 3.8 mmol/L (3.5-5.1)
[2020-01-04 11:21] LABS: ALBUMIN 3.1 g/dL (3.4-5.0); BILIRUBIN,TOTAL 0.1 mg/dL (0.1-1.0); TOTAL PROTEIN, SERUM 6.9 g/dL (6.4-8.2)
[2020-01-04 14:49] VITALS: BP 118/66
[2020-01-04] MEDS ORDERED: ACETAMINOPHEN 500 MG TABLET PO ONE (15:00)
== END 2020-01-04 15:55 | disposition home or self-care (01) ==
LOC: EMS 09:37
DX: N93.9 Abnormal uterine and vaginal bleeding, unspecified (principal); N85.2 Hypertrophy of uterus; D25.9 Leiomyoma of uterus, unspecified; F41.9 Anxiety disorder, unspecified; F31.9 Bipolar disorder, unspecified; J45.909 Unspecified asthma, uncomplicated; E11.9 Type 2 diabetes mellitus without complications; K21.9 Gastro-esophageal reflux disease without esophagitis; E78.00 Pure hypercholesterolemia, unspecified; I11.9 Hypertensive heart disease without heart failure; F20.9 Schizophrenia, unspecified; F17.210 Nicotine dependence, cigarettes, uncomplicated; Z79.84 Long term (current) use of oral hypoglycemic drugs; Z79.899 Other long term (current) drug therapy; Z79.4 Long term (current) use of insulin; Z88.1 Allergy status to other antibiotic agents; Z88.8 Allergy status to other drugs, medicaments and biological substances
CPT/HCPCS: 36415; 76830; 76856; 80053; 81001; 82962; 83690; 85025; 96374; 96375; 99284; J1885; J2405

== ENCOUNTER 2020-01-14 13:28 | Emergency (ER) | payer OTHER ==
[~2020-01-14] VITALS: Ht 167.6 cm; Wt 86.4 kg
[2020-01-14 13:57] LABS: GLUCOSE,POINT OF CARE 152 MG/DL (70-110)
[2020-01-14] MEDS ORDERED: ONDANSETRON HCL 4 MG/2 ML VIAL IVP ONE (14:45)
[2020-01-14] MEDS ORDERED: MORPHINE SULFATE 4 MG/ML SYRINGE IVP ONE ×2 (14:45→16:45)
[2020-01-14] MEDS ORDERED: SODIUM CHLORIDE 0.9% 250 ML IV ONE (14:45)
[2020-01-14 14:55] LABS: BASOPHILS % (AUTO) 0.8 % (0.0-2.0); EOSINOPHILS % (AUTO) 1.4 % (1.0-6.0); HEMATOCRIT 29.9 % (36-46); HEMOGLOBIN 9.7 g/dL (12.0-16.0); LYMPHOCYTES # (AUTO) 1.8 K/uL (1.0-4.8); LYMPHOCYTES % (AUTO) 19.7 % (22.0-44.0); MEAN CORPUSCULAR HEMOGLOBIN 24.9 pg (26.0-34.0); MEAN CORPUSCULAR HGB CONC 32.3 G/dL (31.0-37.0); MEAN CORPUSCULAR VOLUME 77 fL (80-100); MONOCYTES # (AUTO) 0.7 K/uL (0.1-1.0); MONOCYTES % (AUTO) 7.9 % (2.0-9.0); NEUTROPHILS # (AUTO) 6.3 K/uL (1.8-7.7); NEUTROPHILS % (AUTO) 70.2 % (40.0-70.0); PLATELET COUNT (AUTO) 442 K/uL (150-450); RED BLOOD CELL COUNT(AUTO) 3.87 MIL/uL (4.00-5.20); RED CELL DISTRIBUTION WIDTH 16.7 % (11.5-14.5)
[2020-01-14 15:05] LABS: CALCIUM, TOTAL 8.7 mg/dL (8.8-10.5); CREATININE 1.3 mg/dL (0.60-1.30); POTASSIUM 3.4 mmol/L (3.5-5.1)
[2020-01-14 15:08] LABS: BILIRUBIN,TOTAL 0.1 mg/dL (0.1-1.0); TOTAL PROTEIN, SERUM 6.4 g/dL (6.4-8.2)
[2020-01-14] MEDS ORDERED: SODIUM CHLORIDE 0.9% 100 ML ONE (15:13)
[2020-01-14] MEDS ORDERED: IOVERSOL 350 MG/ML 100 ML VIAL ONE (15:13)
[2020-01-14 15:28] LABS: PLATELET MORPHOLOGY COMMENT LARGE PLTS PRESENT
[2020-01-14] MEDS ORDERED: ACETAMINOPHEN 325 MG TABLET PO ONE (18:00)
[2020-01-14 18:56] VITALS: BP 137/80
[2020-01-14] MEDS ORDERED: MORPHINE SULFATE 15 MG IR TABLET PO ONE (19:00)
== END 2020-01-14 20:04 | disposition home or self-care (01) ==
LOC: EMS 13:30
DX: D64.9 Anemia, unspecified (principal); R10.84 Generalized abdominal pain; R11.0 Nausea; M25.551 Pain in right hip; Z20.828 Contact with and (suspected) exposure to other viral communicable diseases
CPT/HCPCS: 36415; 71045; 74177; 80053; 82962; 83690; 85025; 87426; 96361; 96374; 96375; 96376; 99285; J2270; J2405; J7050 ×2; Q9967; U0003

== ENCOUNTER 2020-01-22 13:18 | Observation (INO) | payer OTHER ==
[~2020-01-22] VITALS: Ht 160 cm; Wt 75.0 kg
[~2020-01-22 13:18] MED LIST changes: -INSLAN SQ
[2020-01-22 13:45] LABS: BASOPHILS % (AUTO) 1.7 % (0.0-2.0); HEMATOCRIT 31.6 % (36-46); HEMOGLOBIN 10.4 g/dL (12.0-16.0); LYMPHOCYTES # (AUTO) 2.8 K/uL (1.0-4.8); LYMPHOCYTES % (AUTO) 22.1 % (22.0-44.0); MEAN CORPUSCULAR HEMOGLOBIN 25.5 pg (26.0-34.0); MEAN CORPUSCULAR HGB CONC 32.8 G/dL (31.0-37.0); MEAN CORPUSCULAR VOLUME 78 fL (80-100); MONOCYTES # (AUTO) 0.7 K/uL (0.1-1.0); MONOCYTES % (AUTO) 5.6 % (2.0-9.0); NEUTROPHILS # (AUTO) 8.7 K/uL (1.8-7.7); NEUTROPHILS % (AUTO) 69.6 % (40.0-70.0); PLATELET COUNT (AUTO) 434 K/uL (150-450); RED BLOOD CELL COUNT(AUTO) 4.07 MIL/uL (4.00-5.20); RED CELL DISTRIBUTION WIDTH 16.6 % (11.5-14.5)
[2020-01-22] MEDS ORDERED: NITROGLYCERIN 0.4 MG SUBLINGUAL TABLET #25 SL ONE (13:45)
[2020-01-22] MEDS ORDERED: ASPIRIN 81 MG CHEWABLE TABLET PO ONE (13:45)
[2020-01-22 14:25] LABS: CREATININE 1.41 mg/dL (0.60-1.30); POTASSIUM 3.6 mmol/L (3.5-5.1)
[2020-01-22 14:30] LABS: ALBUMIN 3.3 g/dL (3.4-5.0); BILIRUBIN,TOTAL 0.1 mg/dL (0.1-1.0); PROTHROMBIN TIME 10.1 SEC (9.4-11.6); TOTAL PROTEIN, SERUM 6.9 g/dL (6.4-8.2)
[2020-01-22] MEDS ORDERED: AZITHROMYCIN 500 MG/NS 250 ML IV ONE (14:45)
[2020-01-22] MEDS ORDERED: ONDANSETRON HCL 4 MG/2 ML VIAL IVP ONE (14:45)
[2020-01-22] MEDS ORDERED: CefTRIAXone 1 GM/DEXTROSE 50 ML IV ONE (14:45)
[2020-01-22] MEDS ORDERED: MORPHINE SULFATE 4 MG/ML SYRINGE IVP ONE (14:45)
[2020-01-22 15:42] LABS: COVID AG,FIA SOURCE NASOPHARYNGEAL
[2020-01-22] MEDS ORDERED: 0.9% SODIUM CHLORIDE 10 ML SYRINGE IVP PRN (16:15)
[2020-01-22] MEDS ORDERED: ACETAMINOPHEN 325 MG TABLET PO PRN (16:30)
[2020-01-22] MEDS ORDERED: ALBUTEROL SULFATE 2.5 MG/0.5 ML NEB SOLUTION NEB PRN (16:30)
[2020-01-22] MEDS ORDERED: ZOLPIDEM TARTRATE 5 MG TABLET PO PRN (16:30)
[2020-01-22] MEDS ORDERED: MAGNESIUM HYDROXIDE SUSPENSION 30 ML UDCUP PO PRN (16:30)
[2020-01-22] MEDS ORDERED: ONDANSETRON HCL 4 MG/2 ML VIAL IVP PRN (16:30)
[2020-01-22] MEDS ORDERED: IPRATROPIUM BROMIDE 0.5 MG/2.5 ML NEB SOLUTION NEB PRN (16:30)
[2020-01-22] MEDS ORDERED: BISACODYL 10 MG RECTAL RECTAL SUPPOSITORY PR PRN (16:30)
[2020-01-22] MEDS: ZIPRASIDONE HCL 80 MG CAPSULE PO SCH (17:30)
[2020-01-22] MEDS: MetFORMIN HCL 500 MG TABLET PO SCH (18:08)
[2020-01-22] MEDS: MethylPREDNISolone SOD SUCC 125 MG/2 ML VIAL IVP SCH (18:19)
[2020-01-22 18:21] LABS: APPEARANCE,URINE CLEAR (CLEAR); BILIRUBIN,URINE NEGATIVE (NEGATIVE); GLUCOSE, URINE (UA) NEGATIVE (NEGATIVE); KETONES,URINE NEGATIVE (NEGATIVE); LEUKOCYTE ESTERASE ,URINE NEGATIVE (NEGATIVE); NITRATE,URINE NEGATIVE (NEGATIVE); OCCULT BLOOD,URINE NEGATIVE (NEGATIVE); PROTEIN,URINE NEGATIVE (NEGATIVE); UROBILINOGEN,URINE 0.2 mg/dL (<=1.0)
[2020-01-22 19:53] VITALS: BP 111/79
[2020-01-22] MEDS: HYDROCODONE/ACETAMINOPHEN 5-325 MG TABLET PO PRN (20:18)
[2020-01-22] MEDS: LACTULOSE 20 GM/30 ML SOLUTION UDCUP PO SCH (20:18)
[2020-01-22] MEDS: QUEtiapine FUMARATE 200 MG TABLET PO SCH (20:19)
[2020-01-22] MEDS: GABAPENTIN 300 MG CAPSULE PO SCH (20:19)
[2020-01-22] MEDS: BENZONATATE 100 MG CAPSULE PO SCH (20:19)
[2020-01-22] MEDS: BusPIRone HCL 15 MG TABLET PO SCH (20:19)
[2020-01-22] MEDS: GuaiFENesin SR 600 MG ER TABLET PO SCH (20:19)
[2020-01-22] MEDS: FAMOTIDINE 20 MG TABLET PO SCH (20:20)
[2020-01-22] MEDS: DOCUSATE SODIUM 100 MG CAPSULE PO SCH (20:20)
[2020-01-22] MEDS: SENNA 187 MG TABLET PO SCH (20:20)
[2020-01-23] VITALS (7 sets, daily range): BP systolic 102–142; BP diastolic 59–80
[2020-01-23] MEDS: MethylPREDNISolone SOD SUCC 125 MG/2 ML VIAL IVP SCH ×5 (00:27→23:39)
[2020-01-23] MEDS: HEPARIN SODIUM,PORCINE 5,000 UNITS/ML VIAL SQ SCH ×4 (00:27→23:38)
[2020-01-23] MEDS: MORPHINE SULFATE 2 MG/ML SYRINGE IVP PRN ×5 (00:27→20:12)
[2020-01-23] MEDS: HYDROCODONE/ACETAMINOPHEN 5-325 MG TABLET PO PRN ×2 (03:00→08:15)
[2020-01-23 06:26] LABS: BASOPHILS % (AUTO) 0.5 % (0.0-2.0); EOSINOPHILS % (AUTO) 0 % (1.0-6.0); LYMPHOCYTES % (AUTO) 14.9 % (22.0-44.0); MEAN CORPUSCULAR HEMOGLOBIN 24.8 pg (26.0-34.0); MEAN CORPUSCULAR HGB CONC 31.5 G/dL (31.0-37.0); MEAN CORPUSCULAR VOLUME 79 fL (80-100); MONOCYTES # (AUTO) 0.1 K/uL (0.1-1.0); MONOCYTES % (AUTO) 0.6 % (2.0-9.0); NEUTROPHILS # (AUTO) 11.2 K/uL (1.8-7.7); PLATELET COUNT (AUTO) 454 K/uL (150-450); RED BLOOD CELL COUNT(AUTO) 4.45 MIL/uL (4.00-5.20); RED CELL DISTRIBUTION WIDTH 16.7 % (11.5-14.5)
[2020-01-23 07:00] LABS: ALBUMIN 3.2 g/dL (3.4-5.0); BILIRUBIN,TOTAL 0.1 mg/dL (0.1-1.0); CALCIUM, TOTAL 9.1 mg/dL (8.8-10.5); CREATININE 1.38 mg/dL (0.60-1.30); TOTAL PROTEIN, SERUM 7.2 g/dL (6.4-8.2)
[2020-01-23] MEDS: IPRATROPIUM BROMIDE 0.5 MG/2.5 ML NEB SOLUTION NEB SCH ×5 (08:00→20:00)
[2020-01-23] MEDS: ALBUTEROL SULFATE 2.5 MG/0.5 ML NEB SOLUTION NEB SCH ×5 (08:00→20:00)
[2020-01-23] MEDS: LACTULOSE 20 GM/30 ML SOLUTION UDCUP PO SCH ×2 (08:09→20:11)
[2020-01-23] MEDS: ASPIRIN 81 MG EC TABLET PO SCH (08:10)
[2020-01-23] MEDS: ISOSORBIDE MONONITRATE 60 MG ER TABLET PO SCH (08:10)
[2020-01-23] MEDS: FAMOTIDINE 20 MG TABLET PO SCH ×2 (08:10→20:10)
[2020-01-23] MEDS: GABAPENTIN 300 MG CAPSULE PO SCH ×3 (08:11→20:10)
[2020-01-23] MEDS: BusPIRone HCL 15 MG TABLET PO SCH ×2 (08:11→20:10)
[2020-01-23] MEDS: MetFORMIN HCL 500 MG TABLET PO SCH ×2 (08:11→17:42)
[2020-01-23] MEDS: SPIRONOLACTONE 25 MG TABLET PO SCH (08:11)
[2020-01-23] MEDS: PANTOPRAZOLE SODIUM 40 MG DR TABLET PO SCH (08:11)
[2020-01-23] MEDS: SENNA 187 MG TABLET PO SCH ×2 (08:12→20:10)
[2020-01-23] MEDS: GuaiFENesin SR 600 MG ER TABLET PO SCH ×2 (08:12→20:11)
[2020-01-23] MEDS: BENZONATATE 100 MG CAPSULE PO SCH ×3 (08:12→20:10)
[2020-01-23] MEDS: FUROSEMIDE 20 MG TABLET PO SCH (08:13)
[2020-01-23] MEDS: SIMVASTATIN 10 MG TABLET PO SCH (08:13)
[2020-01-23] MEDS: ZIPRASIDONE HCL 80 MG CAPSULE PO SCH ×2 (08:13→17:42)
[2020-01-23] MEDS: FERROUS SULFATE 325 MG EC TABLET PO SCH (08:13)
[2020-01-23] MEDS: DILTIAZEM HCL CD 180 MG ER CAPSULE PO SCH (08:13)
[2020-01-23] MEDS: DOCUSATE SODIUM 100 MG CAPSULE PO SCH ×2 (08:14→20:11)
[2020-01-23] MEDS ORDERED: SODIUM CHLORIDE 0.9% 250 ML IV ONE (10:24)
[2020-01-23 12:53] LABS: AMPHET/METH SCREEN,URINE NEGATIVE (NEGATIVE); BARBITURATE SCREEN, URINE POSITIVE (NEGATIVE); BENZODIAZEPINES SCREEN,URINE NEGATIVE (NEGATIVE); CANNABINOID SCREEN,URINE NEGATIVE (NEGATIVE); COCAINE SCREEN,URINE NEGATIVE (NEGATIVE); METHADONE SCREEN, URINE NEGATIVE (NEGATIVE); OPIATE SCREEN,URINE POSITIVE (NEGATIVE)
[2020-01-23 12:54] LABS: PHENCYCLIDINE SCREEN,URINE NEGATIVE (NEGATIVE)
[2020-01-23] MEDS: AZITHROMYCIN 500 MG/NS 250 ML IV SCH (15:09)
[2020-01-23] MEDS: CefTRIAXone 1 GM/DEXTROSE 50 ML IV SCH (17:42)
[2020-01-23] MEDS: QUEtiapine FUMARATE 200 MG TABLET PO SCH (20:11)
[2020-01-24] MEDS: IPRATROPIUM BROMIDE 0.5 MG/2.5 ML NEB SOLUTION NEB SCH ×4 (02:00→20:00)
[2020-01-24] MEDS: ALBUTEROL SULFATE 2.5 MG/0.5 ML NEB SOLUTION NEB SCH ×4 (02:00→20:00)
[2020-01-24] MEDS: MORPHINE SULFATE 2 MG/ML SYRINGE IVP PRN ×4 (04:22→20:57)
[2020-01-24 04:23] VITALS: BP 122/68
[2020-01-24] MEDS: MethylPREDNISolone SOD SUCC 125 MG/2 ML VIAL IVP SCH (05:50)
[2020-01-24 07:35] VITALS: BP 137/78
[2020-01-24] MEDS: ZIPRASIDONE HCL 80 MG CAPSULE PO SCH ×2 (09:03→17:15)
[2020-01-24] MEDS: BusPIRone HCL 15 MG TABLET PO SCH ×2 (09:03→21:27)
[2020-01-24] MEDS: SENNA 187 MG TABLET PO SCH ×2 (09:03→20:55)
[2020-01-24] MEDS: FAMOTIDINE 20 MG TABLET PO SCH ×2 (09:04→20:55)
[2020-01-24] MEDS: ISOSORBIDE MONONITRATE 60 MG ER TABLET PO SCH (09:04)
[2020-01-24] MEDS: SIMVASTATIN 10 MG TABLET PO SCH (09:04)
[2020-01-24] MEDS: GuaiFENesin SR 600 MG ER TABLET PO SCH ×2 (09:04→20:56)
[2020-01-24] MEDS: DILTIAZEM HCL CD 180 MG ER CAPSULE PO SCH (09:04)
[2020-01-24] MEDS: DOCUSATE SODIUM 100 MG CAPSULE PO SCH ×2 (09:04→20:55)
[2020-01-24] MEDS: PANTOPRAZOLE SODIUM 40 MG DR TABLET PO SCH (09:04)
[2020-01-24] MEDS: ASPIRIN 81 MG EC TABLET PO SCH (09:05)
[2020-01-24] MEDS: MetFORMIN HCL 500 MG TABLET PO SCH ×2 (09:05→17:15)
[2020-01-24] MEDS: FUROSEMIDE 20 MG TABLET PO SCH (09:05)
[2020-01-24] MEDS: FERROUS SULFATE 325 MG EC TABLET PO SCH (09:05)
[2020-01-24] MEDS: GABAPENTIN 300 MG CAPSULE PO SCH ×3 (09:05→20:56)
[2020-01-24] MEDS: SPIRONOLACTONE 25 MG TABLET PO SCH (09:05)
[2020-01-24] MEDS: LACTULOSE 20 GM/30 ML SOLUTION UDCUP PO SCH ×2 (09:06→20:55)
[2020-01-24] MEDS: BENZONATATE 100 MG CAPSULE PO SCH ×3 (09:06→20:56)
[2020-01-24] MEDS: HEPARIN SODIUM,PORCINE 5,000 UNITS/ML VIAL SQ SCH ×3 (09:06→23:48)
[2020-01-24 11:40] VITALS: BP 128/74
[2020-01-24] MEDS: MethylPREDNISolone SOD SUCC 40 MG/ML VIAL IVP SCH ×3 (11:42→23:48)
[2020-01-24] MEDS: AZITHROMYCIN 500 MG/NS 250 ML IV SCH (15:48)
[2020-01-24 16:16] VITALS: BP 115/59
[2020-01-24] MEDS: CefTRIAXone 1 GM/DEXTROSE 50 ML IV SCH (17:15)
[2020-01-24 20:11] VITALS: BP 128/73
[2020-01-24 20:21] VITALS: BP 134/71
[2020-01-24] MEDS: QUEtiapine FUMARATE 200 MG TABLET PO SCH (20:56)
[2020-01-25] MEDS: IPRATROPIUM BROMIDE 0.5 MG/2.5 ML NEB SOLUTION NEB SCH ×4 (02:00→14:35)
[2020-01-25] MEDS: ALBUTEROL SULFATE 2.5 MG/0.5 ML NEB SOLUTION NEB SCH ×4 (02:00→14:35)
[2020-01-25] MEDS: MORPHINE SULFATE 2 MG/ML SYRINGE IVP PRN ×3 (02:53→11:07)
[2020-01-25 06:59] LABS: BASOPHILS % (AUTO) 0.4 % (0.0-2.0); EOSINOPHILS % (AUTO) 0 % (1.0-6.0); HEMATOCRIT 29.7 % (36-46); HEMOGLOBIN 9.6 g/dL (12.0-16.0); LYMPHOCYTES % (AUTO) 9.5 % (22.0-44.0); MEAN CORPUSCULAR HEMOGLOBIN 25.4 pg (26.0-34.0); MEAN CORPUSCULAR HGB CONC 32.2 G/dL (31.0-37.0); MEAN CORPUSCULAR VOLUME 79 fL (80-100); MONOCYTES # (AUTO) 0.3 K/uL (0.1-1.0); MONOCYTES % (AUTO) 2.7 % (2.0-9.0); NEUTROPHILS # (AUTO) 9.1 K/uL (1.8-7.7); PLATELET COUNT (AUTO) 445 K/uL (150-450); RED BLOOD CELL COUNT(AUTO) 3.77 MIL/uL (4.00-5.20); RED CELL DISTRIBUTION WIDTH 17.1 % (11.5-14.5)
[2020-01-25 07:04] LABS: NEUTROPHILS % (AUTO) 87.4 % (40.0-70.0)
[2020-01-25] MEDS: MethylPREDNISolone SOD SUCC 40 MG/ML VIAL IVP SCH ×2 (07:06→11:08)
[2020-01-25 07:07] LABS: CALCIUM, TOTAL 8.5 mg/dL (8.8-10.5); CREATININE 1.19 mg/dL (0.60-1.30); POTASSIUM 4.6 mmol/L (3.5-5.1)
[2020-01-25] MEDS: FUROSEMIDE 20 MG TABLET PO SCH (08:38)
[2020-01-25] MEDS: GABAPENTIN 300 MG CAPSULE PO SCH ×2 (08:39→14:58)
[2020-01-25] MEDS: FAMOTIDINE 20 MG TABLET PO SCH (08:40)
[2020-01-25] MEDS: GuaiFENesin SR 600 MG ER TABLET PO SCH (08:40)
[2020-01-25] MEDS: BusPIRone HCL 15 MG TABLET PO SCH (08:40)
[2020-01-25] MEDS: HEPARIN SODIUM,PORCINE 5,000 UNITS/ML VIAL SQ SCH ×2 (08:40→15:19)
[2020-01-25] MEDS: ISOSORBIDE MONONITRATE 60 MG ER TABLET PO SCH (08:40)
[2020-01-25] MEDS: ZIPRASIDONE HCL 80 MG CAPSULE PO SCH (08:40)
[2020-01-25] MEDS: DILTIAZEM HCL CD 180 MG ER CAPSULE PO SCH (08:41)
[2020-01-25] MEDS: SPIRONOLACTONE 25 MG TABLET PO SCH (08:41)
[2020-01-25] MEDS: MetFORMIN HCL 500 MG TABLET PO SCH (08:41)
[2020-01-25] MEDS: BENZONATATE 100 MG CAPSULE PO SCH ×2 (08:41→14:58)
[2020-01-25] MEDS: SIMVASTATIN 10 MG TABLET PO SCH (08:41)
[2020-01-25] MEDS: SENNA 187 MG TABLET PO SCH (08:41)
[2020-01-25] MEDS: ASPIRIN 81 MG EC TABLET PO SCH (08:42)
[2020-01-25] MEDS: DOCUSATE SODIUM 100 MG CAPSULE PO SCH (08:42)
[2020-01-25] MEDS: FERROUS SULFATE 325 MG EC TABLET PO SCH (08:42)
[2020-01-25] MEDS: PANTOPRAZOLE SODIUM 40 MG DR TABLET PO SCH (08:42)
[2020-01-25] MEDS: LACTULOSE 20 GM/30 ML SOLUTION UDCUP PO SCH (08:45)
[2020-01-25 09:15] VITALS: BP 144/78
[2020-01-25 13:13] LABS: HEMOGLOBIN A1C 6.5 % (3.8-5.6)
[2020-01-25] MEDS ORDERED: CEFU250T87 PO (14:49)
[2020-01-25] MEDS: AZITHROMYCIN 500 MG/NS 250 ML IV SCH (14:58)
[2020-01-25] MEDS ORDERED: SODIUM CHLORIDE 0.9% 250 ML IV ONE (15:05)
== END 2020-01-25 19:55 | disposition home or self-care (01) ==
LOC: EMS 13:22 → 5N 18:10 → INTOOBSV 18:10 → 5N 20:00 → 5S 01-24 16:20 → 6N 01-24 19:00
PROVIDERS: ADMIT Internal Medicine; ATTEND Internal Medicine
DX: R07.9 Chest pain, unspecified (principal); Z20.828 Contact with and (suspected) exposure to other viral communicable diseases; J45.901 Unspecified asthma with (acute) exacerbation; J18.9 Pneumonia, unspecified organism; I13.0 Hypertensive heart and chronic kidney disease with heart failure and stage 1 through stage 4 chronic kidney disease, or unspecified chronic kidney disease; E11.22 Type 2 diabetes mellitus with diabetic chronic kidney disease; I50.9 Heart failure, unspecified; N18.9 Chronic kidney disease, unspecified; Z87.442 Personal history of urinary calculi; E78.00 Pure hypercholesterolemia, unspecified; F20.9 Schizophrenia, unspecified; F17.210 Nicotine dependence, cigarettes, uncomplicated
CPT/HCPCS: 36415 ×3; 71045; 80048; 80053 ×2; 80307; 81003; 83036; 83690; 83880; 84484 ×2; 85025 ×3; 85610; 85730; 87040; 87426; 93005; 93306; 94640 ×3; 96365; 96366 ×3; 96367; 96372 ×3; 96375; 96376 ×3; 97161; 99219; 99285; J0456 ×4; J0696 ×4; J1644 ×3; J2270 ×4; J2405; J2920 ×2; J2930 ×3; J7050 ×2; U0003; 93366; J7613

== ENCOUNTER 2020-02-05 15:29 | Emergency (ER) | payer OTHER ==
[~2020-02-05] VITALS: Ht 160 cm; Wt 77.3 kg
[~2020-02-05 15:29] MED LIST changes: -DICY20 PO; -DILT180C63 PO; -FERR-89 PO; -ISOS60TA4 PO; -LACT10SO62 PO; -LORA-1000 PO; -OMEP20 PO; -PRED20 PO; -SENN-277 PO; -SPIR25 PO; -ZIPR80CA2 PO
[2020-02-05] MEDS ORDERED: LIDOCAINE 5% TRANSDERMAL PATCH TD ONE (15:45)
[2020-02-05] MEDS ORDERED: CYCLOBENZAPRINE HCL 10 MG TABLET PO ONE (15:45)
[2020-02-05] MEDS ORDERED: HYDROCODONE/ACETAMINOPHEN 5-325 MG TABLET PO ONE (15:45)
[2020-02-05] MEDS ORDERED: KETOROLAC TROMETHAMINE 30 MG/ML VIAL IM ONE (15:45)
[2020-02-05 16:05] LABS: GLUCOSE,POINT OF CARE 96 MG/DL (70-110)
[2020-02-05] MEDS ORDERED: ONDANSETRON HCL 4 MG TABLET PO ONE (16:30)
[2020-02-05 17:00] VITALS: BP 135/71
[2020-02-05] MEDS ORDERED: MORPHINE SULFATE 4 MG/ML SYRINGE IM ONE (17:00)
== END 2020-02-05 17:32 | disposition home or self-care (01) ==
LOC: EMS 15:29
DX: S39.012A Strain of muscle, fascia and tendon of lower back, initial encounter (principal); E11.9 Type 2 diabetes mellitus without complications; K21.9 Gastro-esophageal reflux disease without esophagitis; I11.9 Hypertensive heart disease without heart failure; E78.00 Pure hypercholesterolemia, unspecified; F20.9 Schizophrenia, unspecified; F17.210 Nicotine dependence, cigarettes, uncomplicated; J45.909 Unspecified asthma, uncomplicated; Z79.84 Long term (current) use of oral hypoglycemic drugs; Z79.82 Long term (current) use of aspirin; Z79.899 Other long term (current) drug therapy; Z88.1 Allergy status to other antibiotic agents; Z88.8 Allergy status to other drugs, medicaments and biological substances; X58.XXXA Exposure to other specified factors, initial encounter; Y93.89 Activity, other specified; Y92.89 Other specified places as the place of occurrence of the external cause; Y99.8 Other external cause status
CPT/HCPCS: 82962; 96372; 99284; J1885; J2270; Q0162

== ENCOUNTER 2020-02-10 12:07 | Emergency (ER) | payer OTHER ==
[~2020-02-10] VITALS: Ht 162.6 cm; Wt 75.0 kg
[2020-02-10] MEDS ORDERED: ZIPR80CA2 PO (12:18)
[2020-02-10] MEDS ORDERED: FERR-89 PO (12:18)
[2020-02-10] MEDS ORDERED: ONDA-104 PO (12:18)
[2020-02-10] MEDS ORDERED: DILT90SR PO (12:18)
[2020-02-10] MEDS ORDERED: ISOS60TA4 PO (12:18)
[2020-02-10] MEDS ORDERED: OMEP20 PO (12:18)
[2020-02-10] MEDS ORDERED: BUSP15 PO (12:18)
[2020-02-10 12:28] LABS: GLUCOSE,POINT OF CARE 89 MG/DL (70-110)
[2020-02-10] MEDS ORDERED: LORA-999 PO (12:30)
[2020-02-10] MEDS ORDERED: SODIUM CHLORIDE 0.9% 2,000 ML IV ONE (12:30)
[2020-02-10] MEDS ORDERED: TRAZ-257 PO (12:30)
[2020-02-10] MEDS ORDERED: FLUT1AER4 IH (12:30)
[2020-02-10] MEDS ORDERED: FURO40 PO (12:30)
[2020-02-10] MEDS ORDERED: DILT180C63 PO (12:30)
[2020-02-10] MEDS ORDERED: IPRAHFA IH (12:30)
[2020-02-10] MEDS ORDERED: ZOLP10TA8 PO (12:30)
[2020-02-10] MEDS ORDERED: IPRA3AMP24 NEB (12:30)
[2020-02-10] MEDS ORDERED: ALEN70TA69 PO (12:30)
[2020-02-10] MEDS ORDERED: ESTR-3 PO (12:30)
[2020-02-10] MEDS ORDERED: SODIUM CHLORIDE 0.9% 0 ML ONE (12:35)
[2020-02-10] MEDS ORDERED: IOVERSOL 320 MG/ML 100 ML VIAL ONE (12:35)
[2020-02-10 12:48] LABS: BASOPHILS % (AUTO) 1.3 % (0.0-2.0); EOSINOPHILS % (AUTO) 1.2 % (1.0-6.0); HEMATOCRIT 29.1 % (36-46); HEMOGLOBIN 9.3 g/dL (12.0-16.0); LYMPHOCYTES # (AUTO) 2.6 K/uL (1.0-4.8); LYMPHOCYTES % (AUTO) 20.3 % (22.0-44.0); MEAN CORPUSCULAR HEMOGLOBIN 24.8 pg (26.0-34.0); MEAN CORPUSCULAR HGB CONC 31.9 G/dL (31.0-37.0); MEAN CORPUSCULAR VOLUME 78 fL (80-100); MONOCYTES # (AUTO) 0.7 K/uL (0.1-1.0); MONOCYTES % (AUTO) 5.3 % (2.0-9.0); NEUTROPHILS # (AUTO) 9.1 K/uL (1.8-7.7); NEUTROPHILS % (AUTO) 71.9 % (40.0-70.0); PLATELET COUNT (AUTO) 424 K/uL (150-450); RED BLOOD CELL COUNT(AUTO) 3.74 MIL/uL (4.00-5.20); RED CELL DISTRIBUTION WIDTH 17.7 % (11.5-14.5)
[2020-02-10 12:57] LABS: CREATININE 1.29 mg/dL (0.60-1.30); POTASSIUM 4.1 mmol/L (3.5-5.1)
[2020-02-10] MEDS ORDERED: KETOROLAC TROMETHAMINE 30 MG/ML VIAL IVP ONE (13:00)
[2020-02-10 13:02] LABS: PROTHROMBIN TIME 10.2 SEC (9.4-11.6)
[2020-02-10 13:03] LABS: ALBUMIN 2.9 g/dL (3.4-5.0); BILIRUBIN,TOTAL 0.2 mg/dL (0.1-1.0); TOTAL PROTEIN, SERUM 6.2 g/dL (6.4-8.2)
[2020-02-10 13:06] LABS: LACTIC ACID 1.9 mmol/L (0.4-2.0)
[2020-02-10] MEDS ORDERED: FentaNYL CITRATE-PF 100 MCG/2 ML VIAL IVP ONE (13:45)
[2020-02-10 15:40] VITALS: BP 113/67
[2020-02-10] MEDS ORDERED: ACETAMINOPHEN 500 MG TABLET PO ONE (16:00)
== END 2020-02-10 16:23 | disposition home or self-care (01) ==
LOC: EMS 12:10
DX: I95.9 Hypotension, unspecified (principal); R10.9 Unspecified abdominal pain; R55 Syncope and collapse; F31.9 Bipolar disorder, unspecified; I11.9 Hypertensive heart disease without heart failure; E78.00 Pure hypercholesterolemia, unspecified; F17.210 Nicotine dependence, cigarettes, uncomplicated
CPT/HCPCS: 36415; 71045; 74176; 80053; 82962; 83605; 83690; 84484; 85025; 85610; 86850; 86900; 86901; 93005; 96361; 96374; 96375; 99291; J1885; J3010; J7030; 82948; J7050

== ENCOUNTER 2020-02-11 10:56 | Emergency (ER) | payer OTHER ==
[~2020-02-11] VITALS: Ht 167.6 cm; Wt 75.0 kg
[~2020-02-11 10:56] MED LIST changes: +ALEN70TA69 PO; +DILT180C63 PO; +ESTR-3 PO; -FAMO20 PO; +FERR-89 PO; +FLUT1AER4 IH; -FURO20 PO; +FURO40 PO; +IPRA3AMP24 NEB; +IPRAHFA IH; +ISOS60TA4 PO; +LORA-999 PO; +OMEP20 PO; +ONDA-104 PO; +TRAZ-257 PO; +ZIPR80CA2 PO; +ZOLP10TA8 PO
[2020-02-11 11:28] LABS: GLUCOSE,POINT OF CARE 170 MG/DL (70-110)
[2020-02-11] MEDS ORDERED: MAGNESIUM CITRATE 300 ML ORAL SOLUTION PO ONE (11:45)
[2020-02-11] MEDS ORDERED: SODIUM CHLORIDE 0.9% 1,000 ML IV ONE (11:45)
[2020-02-11] MEDS ORDERED: DICYCLOMINE HCL 20 MG TABLET PO ONE (11:45)
[2020-02-11] MEDS ORDERED: LORazepam 2 MG/ML VIAL IVP ONE (11:45)
[2020-02-11 12:12] LABS: BASOPHILS % (AUTO) 1.4 % (0.0-2.0); HEMATOCRIT 28.2 % (36-46); HEMOGLOBIN 9.1 g/dL (12.0-16.0); LYMPHOCYTES # (AUTO) 1.9 K/uL (1.0-4.8); LYMPHOCYTES % (AUTO) 20.9 % (22.0-44.0); MEAN CORPUSCULAR HEMOGLOBIN 24.8 pg (26.0-34.0); MEAN CORPUSCULAR HGB CONC 32.2 G/dL (31.0-37.0); MEAN CORPUSCULAR VOLUME 77 fL (80-100); MONOCYTES # (AUTO) 0.6 K/uL (0.1-1.0); MONOCYTES % (AUTO) 6.7 % (2.0-9.0); NEUTROPHILS # (AUTO) 6.3 K/uL (1.8-7.7); PLATELET COUNT (AUTO) 449 K/uL (150-450); RED BLOOD CELL COUNT(AUTO) 3.66 MIL/uL (4.00-5.20); RED CELL DISTRIBUTION WIDTH 17.7 % (11.5-14.5)
[2020-02-11 12:29] LABS: CALCIUM, TOTAL 8.9 mg/dL (8.8-10.5); CREATININE 1.26 mg/dL (0.60-1.30); POTASSIUM 4.1 mmol/L (3.5-5.1)
[2020-02-11 12:34] LABS: ALBUMIN 2.7 g/dL (3.4-5.0); BILIRUBIN,TOTAL 0.1 mg/dL (0.1-1.0); TOTAL PROTEIN, SERUM 6.1 g/dL (6.4-8.2)
[2020-02-11 13:13] LABS: APPEARANCE,URINE CLEAR (CLEAR); BILIRUBIN,URINE NEGATIVE (NEGATIVE); GLUCOSE, URINE (UA) NEGATIVE (NEGATIVE); KETONES,URINE NEGATIVE (NEGATIVE); LEUKOCYTE ESTERASE ,URINE NEGATIVE (NEGATIVE); NITRATE,URINE NEGATIVE (NEGATIVE); OCCULT BLOOD,URINE NEGATIVE (NEGATIVE); PH,URINE 6.5 (5.0-8.0); PROTEIN,URINE NEGATIVE (NEGATIVE); UROBILINOGEN,URINE 0.2 mg/dL (<=1.0)
[2020-02-11 13:24] LABS: BACTERIA,URINE None Seen /HPF (None Seen); RBC,URINE None Seen /HPF (0-2); SQUAMOUS EPITHELIAL CELL,UR Few /LPF (None Seen); WBC,URINE None Seen /HPF (0-5)
[2020-02-11 14:37] VITALS: BP 98/56
== END 2020-02-11 15:49 | disposition home or self-care (01) ==
LOC: EMS 11:01
DX: D25.9 Leiomyoma of uterus, unspecified (principal); K59.00 Constipation, unspecified; F41.9 Anxiety disorder, unspecified; R14.0 Abdominal distension (gaseous); J45.909 Unspecified asthma, uncomplicated; J44.9 Chronic obstructive pulmonary disease, unspecified; F32.9 Major depressive disorder, single episode, unspecified; F20.9 Schizophrenia, unspecified; F17.210 Nicotine dependence, cigarettes, uncomplicated; Z79.84 Long term (current) use of oral hypoglycemic drugs; Z88.1 Allergy status to other antibiotic agents; Z88.5 Allergy status to narcotic agent
CPT/HCPCS: 36415; 80053; 81001; 82962; 85025; 93005; 96361; 96374; 99284; J2060; J7030

== ENCOUNTER 2020-03-07 14:34 | Emergency (ER) | payer OTHER ==
[~2020-03-07] VITALS: Ht 160 cm; Wt 73.6 kg
[2020-03-07] MEDS ORDERED: ALBUTEROL SULFATE 5 MG/ML 20 ML NEB SOLN [BULK] NEB ONE ×2 (15:30→17:00)
[2020-03-07] MEDS ORDERED: MORPHINE SULFATE 4 MG/ML SYRINGE IM ONE (15:30)
[2020-03-07 15:46] LABS: EOSINOPHILS % (AUTO) 1.3 % (1.0-6.0); HEMATOCRIT 30.5 % (36-46); HEMOGLOBIN 9.8 g/dL (12.0-16.0); LYMPHOCYTES # (AUTO) 3.2 K/uL (1.0-4.8); LYMPHOCYTES % (AUTO) 24.1 % (22.0-44.0); MEAN CORPUSCULAR HEMOGLOBIN 24.8 pg (26.0-34.0); MEAN CORPUSCULAR HGB CONC 32.1 G/dL (31.0-37.0); MEAN CORPUSCULAR VOLUME 77 fL (80-100); MONOCYTES # (AUTO) 0.8 K/uL (0.1-1.0); MONOCYTES % (AUTO) 6.3 % (2.0-9.0); NEUTROPHILS # (AUTO) 8.9 K/uL (1.8-7.7); NEUTROPHILS % (AUTO) 67.3 % (40.0-70.0); PLATELET COUNT (AUTO) 486 K/uL (150-450); RED BLOOD CELL COUNT(AUTO) 3.96 MIL/uL (4.00-5.20); RED CELL DISTRIBUTION WIDTH 18.3 % (11.5-14.5)
[2020-03-07 16:15] LABS: CALCIUM, TOTAL 8.7 mg/dL (8.8-10.5); CREATININE 1.22 mg/dL (0.60-1.30); POTASSIUM 4.3 mmol/L (3.5-5.1)
[2020-03-07 16:17] LABS: COVID AG,FIA SOURCE NASOPHARYNGEAL
[2020-03-07 16:19] LABS: ALBUMIN 3.2 g/dL (3.4-5.0); BILIRUBIN,TOTAL 0.1 mg/dL (0.1-1.0); TOTAL PROTEIN, SERUM 6.9 g/dL (6.4-8.2)
[2020-03-07] MEDS ORDERED: PredniSONE 20 MG TABLET PO ONE (17:00)
[2020-03-07] MEDS: KETOROLAC TROMETHAMINE 30 MG/ML VIAL IM ONE ×2 (17:34→17:39)
[2020-03-07 19:10] VITALS: BP 110/61
[2020-03-10 01:32] LABS: GLUCOMETER DEV NAME(LOC) AHU.; GLUCOSE,POINT OF CARE 163 MG/DL (70-110)
== END 2020-03-07 19:29 | disposition home or self-care (01) ==
LOC: EMS 14:37
DX: J44.9 Chronic obstructive pulmonary disease, unspecified (principal); F41.9 Anxiety disorder, unspecified; F31.9 Bipolar disorder, unspecified; E11.9 Type 2 diabetes mellitus without complications; K21.9 Gastro-esophageal reflux disease without esophagitis; I11.9 Hypertensive heart disease without heart failure; E78.00 Pure hypercholesterolemia, unspecified; F17.210 Nicotine dependence, cigarettes, uncomplicated; Z20.828 Contact with and (suspected) exposure to other viral communicable diseases; Z79.84 Long term (current) use of oral hypoglycemic drugs; Z79.82 Long term (current) use of aspirin; Z88.1 Allergy status to other antibiotic agents; Z88.8 Allergy status to other drugs, medicaments and biological substances
CPT/HCPCS: 36415; 71045; 80053; 82962; 83690; 83880; 84484; 85025; 87426; 93005; 94644; 96372; 99285; J1885; J2270; J7512; 94645; 99291; J7611

== ENCOUNTER 2020-08-18 08:13 | Emergency (ER) | payer OTHER ==
[~2020-08-18] VITALS: Ht 157.5 cm; Wt 160.0 kg
[~2020-08-18 08:13] MED LIST changes: -ALEN70TA69 PO; -ASPI-1111 PO; +ASPI-1444 PO; -COMBISP IH; -DILT180C63 PO; -DOCU-275 PO; -ESTR-3 PO; -FERR-89 PO; +FLUT16H NASAL; -FLUT1AER4 IH; -FURO40 PO; -IPRA3AMP24 NEB; -IPRAHFA IH; -ISOS60TA4 PO; -LORA-999 PO; -OMEP20 PO; -ONDA-104 PO; +PANT-31 PO; -SIMV-259 PO; -ZOLP10TA8 PO
[2020-08-18] MEDS ORDERED: MORPHINE SULFATE 2 MG/ML SYRINGE IVP ONE (08:45)
[2020-08-18] MEDS ORDERED: ONDANSETRON HCL 4 MG/2 ML VIAL IVP ONE (08:45)
[2020-08-18 09:02] LABS: COVID AG,FIA SOURCE NASOPHARYNGEAL
[2020-08-18] MEDS ORDERED: PANTOPRAZOLE SODIUM 80 MG in SODIUM CHLORIDE 0.9% 100 ML IV SCH (10:15)
[2020-08-18] MEDS ORDERED: PANTOPRAZOLE SODIUM 40 MG/VIAL IVP ONE (10:15)
[2020-08-18] MEDS ORDERED: SODIUM CHLORIDE 0.9% 1,000 ML IV ONE (10:15)
[2020-08-18 10:21] LABS: BASOPHILS % (AUTO) 0.9 % (0.0-2.0); EOSINOPHILS % (AUTO) 1.4 % (1.0-6.0); HEMATOCRIT 31.1 % (36-46); LYMPHOCYTES % (AUTO) 19.3 % (22.0-44.0); MEAN CORPUSCULAR HEMOGLOBIN 26.4 pg (26.0-34.0); MEAN CORPUSCULAR HGB CONC 32.1 G/dL (31.0-37.0); MEAN CORPUSCULAR VOLUME 82 fL (80-100); MONOCYTES # (AUTO) 0.9 K/uL (0.1-1.0); MONOCYTES % (AUTO) 8.3 % (2.0-9.0); NEUTROPHILS # (AUTO) 7.3 K/uL (1.8-7.7); NEUTROPHILS % (AUTO) 70.1 % (40.0-70.0); PLATELET COUNT (AUTO) 566 K/uL (150-450); RED BLOOD CELL COUNT(AUTO) 3.78 MIL/uL (4.00-5.20); RED CELL DISTRIBUTION WIDTH 27.1 % (11.5-14.5)
[2020-08-18 10:33] LABS: ANION GAP 12 mmol/L (8-16); CALCIUM, TOTAL 10.1 mg/dL (8.8-10.5); CARBON DIOXIDE 31 mmol/L (22-29); CHLORIDE 94 mmol/L (98-107); CREATININE 1.53 mg/dL (0.60-1.30); GLOMERULAR FILTR. RATE CALC 35 mL/min (>60); GLUCOSE,RANDOM 139 mg/dL (70-110); POTASSIUM 3.5 mmol/L (3.5-5.1); SODIUM SERUM 137 mmol/L (136-145); UREA NITROGEN, BLOOD 19 mg/dL (7-18)
[2020-08-18 10:40] LABS: ALANINE AMINOTRANSFERASE 38 U/L (12-78); ALBUMIN 3.4 g/dL (3.4-5.0); ALKALINE PHOSPHATASE 105 U/L (46-116); ASPARTATE AMINOTRANSFERASE 21 U/L (15-37); BILIRUBIN,TOTAL 0.3 mg/dL (0.1-1.0); LIPASE 103 U/L (73-393); TOTAL PROTEIN, SERUM 7.3 g/dL (6.4-8.2)
[2020-08-18 10:43] LABS: PROTHROMBIN TIME 10.3 SEC (9.4-11.6)
[2020-08-18] MEDS ORDERED: MORPHINE SULFATE 4 MG/ML SYRINGE IVP ONE (10:45)
[2020-08-18 10:47] LABS: LACTIC ACID 2.8 mmol/L (0.4-2.0)
[2020-08-18 11:46] VITALS: BP 118/69
== END 2020-08-18 12:34 | disposition home or self-care (01) ==
LOC: EMS 08:13
DX: R10.31 Right lower quadrant pain (principal); F41.9 Anxiety disorder, unspecified; J45.909 Unspecified asthma, uncomplicated; F31.9 Bipolar disorder, unspecified; J44.9 Chronic obstructive pulmonary disease, unspecified; E11.9 Type 2 diabetes mellitus without complications; K21.9 Gastro-esophageal reflux disease without esophagitis; I11.9 Hypertensive heart disease without heart failure; E78.00 Pure hypercholesterolemia, unspecified; F20.9 Schizophrenia, unspecified; F17.210 Nicotine dependence, cigarettes, uncomplicated; Z20.822 Contact with and (suspected) exposure to COVID-19; Z88.1 Allergy status to other antibiotic agents; Z88.8 Allergy status to other drugs, medicaments and biological substances; Z79.84 Long term (current) use of oral hypoglycemic drugs; Z79.82 Long term (current) use of aspirin
CPT/HCPCS: 36415; 71045; 74176; 80053; 82270; 82271; 83605; 83690; 84484; 85025; 85610; 86850; 86900; 86901; 87426; 93005; 96365; 96366; 96375; 99285; C9113; J2270 ×2; J2405; J7050

== ENCOUNTER 2021-02-24 13:10 | Emergency (ER) | payer OTHER ==
[~2021-02-24] VITALS: Ht 157.5 cm; Wt 72.7 kg
[~2021-02-24 13:10] MED LIST changes: +ALBU8HFA IH; +DILT-39 PO; +DOXY-354 PO; +IPRA4AER IH; +METF-1211 PO; -METF-960 PO; +PRED20 PO
[2021-02-24 14:10] LABS: BASOPHILS % (AUTO) 0.6 % (0.0-2.0); EOSINOPHILS % (AUTO) 0.3 % (1.0-6.0); HEMATOCRIT 34.1 % (36-46); HEMOGLOBIN 10.4 g/dL (12.0-16.0); LYMPHOCYTES # (AUTO) 1.2 K/uL (1.0-4.8); LYMPHOCYTES % (AUTO) 9.6 % (22.0-44.0); MEAN CORPUSCULAR HEMOGLOBIN 24.6 pg (26.0-34.0); MEAN CORPUSCULAR HGB CONC 30.6 G/dL (31.0-37.0); MEAN CORPUSCULAR VOLUME 80 fL (80-100); MONOCYTES # (AUTO) 0.2 K/uL (0.1-1.0); MONOCYTES % (AUTO) 1.9 % (2.0-9.0); NEUTROPHILS # (AUTO) 11.2 K/uL (1.8-7.7); PLATELET COUNT (AUTO) 397 K/uL (150-450); RED BLOOD CELL COUNT(AUTO) 4.24 MIL/uL (4.00-5.20); RED CELL DISTRIBUTION WIDTH 19.3 % (11.5-14.5)
[2021-02-24 14:11] LABS: NEUTROPHILS % (AUTO) 87.6 % (40.0-70.0)
[2021-02-24 14:21] LABS: CALCIUM, TOTAL 9.1 mg/dL (8.8-10.5); CREATININE 1.12 mg/dL (0.60-1.30); POTASSIUM 4.5 mmol/L (3.5-5.1)
[2021-02-24 14:23] LABS: INR 0.9 (0.9-1.1)
[2021-02-24 14:29] LABS: ALBUMIN 3.3 g/dL (3.4-5.0); BILIRUBIN,TOTAL 0.2 mg/dL (0.1-1.0); TOTAL PROTEIN, SERUM 6.9 g/dL (6.4-8.2)
[2021-02-24] MEDS ORDERED: SODIUM CHLORIDE 0.9% 100 ML ONE (14:29)
[2021-02-24] MEDS ORDERED: IOHEXOL 350 MG/ML 100 ML VIAL ONE (14:29)
[2021-02-24] MEDS ORDERED: HYDROCODONE/ACETAMINOPHEN 5-325 MG TABLET PO ONE (15:15)
[2021-02-24 17:18] LABS: COVID AG,FIA SOURCE NASAL SWAB
[2021-02-24 17:50] VITALS: BP 112/68
== END 2021-02-24 18:18 | disposition home or self-care (01) ==
LOC: EMS 13:10
DX: J44.1 Chronic obstructive pulmonary disease with (acute) exacerbation (principal); R07.9 Chest pain, unspecified; R10.9 Unspecified abdominal pain; F17.210 Nicotine dependence, cigarettes, uncomplicated; Z20.822 Contact with and (suspected) exposure to COVID-19
CPT/HCPCS: 36415; 71045; 74177; 80053; 83690; 83880; 84484; 85025; 85610; 85730; 87426; 93005; 99285; J7050; Q9967; U0003

== ENCOUNTER 2021-03-16 11:39 | Emergency (ER) | payer OTHER ==
[~2021-03-16] VITALS: Ht 170.2 cm; Wt 100.0 kg
[2021-03-16] MEDS ORDERED: HYDROCODONE/ACETAMINOPHEN 5-325 MG TABLET PO ONE (13:15)
[2021-03-16] MEDS ORDERED: IPRATROPIUM BROMIDE 0.5 MG/2.5 ML NEB SOLUTION NEB ONE (13:45)
[2021-03-16] MEDS ORDERED: ALBUTEROL SULFATE 2.5 MG/0.5 ML NEB SOLUTION NEB ONE (13:45)
[2021-03-16] MEDS ORDERED: LORazepam 2 MG TABLET PO ONE (13:45)
[2021-03-16 14:55] VITALS: BP 132/69
== END 2021-03-16 14:57 | disposition home or self-care (01) ==
LOC: EMS 11:39
DX: S20.211A Contusion of right front wall of thorax, initial encounter (principal); S70.01XA Contusion of right hip, initial encounter; J44.1 Chronic obstructive pulmonary disease with (acute) exacerbation; G89.29 Other chronic pain; F17.210 Nicotine dependence, cigarettes, uncomplicated; Z79.84 Long term (current) use of oral hypoglycemic drugs; Z79.82 Long term (current) use of aspirin; Z88.1 Allergy status to other antibiotic agents; Z88.6 Allergy status to analgesic agent; W19.XXXA Unspecified fall, initial encounter; Y93.89 Activity, other specified; Y92.89 Other specified places as the place of occurrence of the external cause; Y99.8 Other external cause status
CPT/HCPCS: 71045; 73502; 82962; 94640; 99285; J7613

== ENCOUNTER 2021-07-09 10:38 | Inpatient (IN) | payer OTHER ==
[~2021-07-09] VITALS: Ht 157.5 cm; Wt 76.0 kg
[~2021-07-09 10:38] MED LIST changes: +PRED-554 PO; -PRED20 PO
[2021-07-09 12:03] LABS: APPEARANCE,URINE HAZY (CLEAR); BILIRUBIN,URINE NEGATIVE (NEGATIVE); GLUCOSE, URINE (UA) 300-500 mg/dL (NEGATIVE); KETONES,URINE NEGATIVE (NEGATIVE); NITRATE,URINE POSITIVE (NEGATIVE); OCCULT BLOOD,URINE SMALL (NEGATIVE); PROTEIN,URINE NEGATIVE (NEGATIVE); SPECIFIC GRAVITIY, URINE 1.005 (1.003-1.030); UROBILINOGEN,URINE <=1.0 mg/dL (<=1.0)
[2021-07-09 12:03] LABS: BASOPHILS % (AUTO) 0.5 % (0.0-2.0); EOSINOPHILS % (AUTO) 0.1 % (1.0-6.0); HEMATOCRIT 36.9 % (36-46); HEMOGLOBIN 11.9 g/dL (12.0-16.0); LYMPHOCYTES % (AUTO) 5.5 % (22.0-44.0); MEAN CORPUSCULAR HEMOGLOBIN 27.6 pg (26.0-34.0); MEAN CORPUSCULAR HGB CONC 32.3 G/dL (31.0-37.0); MEAN CORPUSCULAR VOLUME 86 fL (80-100); MONOCYTES # (AUTO) 0.4 K/uL (0.1-1.0); MONOCYTES % (AUTO) 2.3 % (2.0-9.0); NEUTROPHILS # (AUTO) 17.6 K/uL (1.8-7.7); PLATELET COUNT (AUTO) 325 K/uL (150-450); RED BLOOD CELL COUNT(AUTO) 4.31 MIL/uL (4.00-5.20); RED CELL DISTRIBUTION WIDTH 18.1 % (11.5-14.5)
[2021-07-09 12:06] LABS: NEUTROPHILS % (AUTO) 91.6 % (40.0-70.0)
[2021-07-09 12:23] LABS: CALCIUM, TOTAL 7.7 mg/dL (8.8-10.5); CREATININE 1.24 mg/dL (0.60-1.30); POTASSIUM 3.9 mmol/L (3.5-5.1)
[2021-07-09 12:28] LABS: ALBUMIN 3.3 g/dL (3.4-5.0); BILIRUBIN,TOTAL 0.1 mg/dL (0.1-1.0); TOTAL PROTEIN, SERUM 6.7 g/dL (6.4-8.2)
[2021-07-09 12:40] LABS: LEUKOCYTE ESTERASE ,URINE SMALL (NEGATIVE)
[2021-07-09 12:41] LABS: BACTERIA,URINE Many /HPF (None Seen)
[2021-07-09] MEDS ORDERED: ACETAMINOPHEN 500 MG TABLET PO ONE (13:00)
[2021-07-09] MEDS ORDERED: CefTRIAXone 1 GM/DEXTROSE 50 ML IV ONE (13:45)
[2021-07-09 13:53] LABS: COVID AG,FIA SOURCE NASAL SWAB
[2021-07-09 14:06] LABS: AMPHET/METH SCREEN,URINE NEGATIVE (NEGATIVE); BARBITURATE SCREEN, URINE NEGATIVE (NEGATIVE); BENZODIAZEPINES SCREEN,URINE NEGATIVE (NEGATIVE); CANNABINOID SCREEN,URINE NEGATIVE (NEGATIVE); COCAINE SCREEN,URINE NEGATIVE (NEGATIVE); METHADONE SCREEN, URINE NEGATIVE (NEGATIVE); OPIATE SCREEN,URINE NEGATIVE (NEGATIVE)
[2021-07-09 14:12] LABS: PHENCYCLIDINE SCREEN,URINE NEGATIVE (NEGATIVE)
[2021-07-09] MEDS ORDERED: ALBUTEROL SULFATE 2.5 MG/0.5 ML NEB SOLUTION NEB PRN (14:45)
[2021-07-09] MEDS ORDERED: ACETAMINOPHEN 325 MG TABLET PO PRN (14:45)
[2021-07-09] MEDS ORDERED: DEXTROSE 50%-WATER 25 GM/50 ML SYRINGE IVP PRN (14:45)
[2021-07-09] MEDS ORDERED: IPRATROPIUM BROMIDE 0.5 MG/2.5 ML NEB SOLUTION NEB PRN (14:45)
[2021-07-09] MEDS: HEPARIN SODIUM,PORCINE 5,000 UNITS/ML VIAL SQ SCH ×2 (15:37→23:41)
[2021-07-09 17:00] VITALS: BP 129/71
[2021-07-09] MEDS: OxyCODONE HCL/ACETAMINOPHEN 5-325 MG TABLET PO PRN ×2 (17:43→22:04)
[2021-07-09] MEDS: INSULIN LISPRO 100 UNITS/ML SQ PRN (17:56)
[2021-07-09 18:07] LABS: GLUCOMETER DEV NAME(LOC) 5N.1C; GLUCOSE,POINT OF CARE 164 MG/DL (70-110)
[2021-07-09 20:00] VITALS: BP 111/50
[2021-07-09] MEDS: DOCUSATE SODIUM 100 MG CAPSULE PO SCH (20:42)
[2021-07-09] MEDS: ZOLPIDEM TARTRATE 5 MG TABLET PO PRN (20:48)
[2021-07-10] VITALS: BP 113/52
[2021-07-10] MEDS: OxyCODONE HCL/ACETAMINOPHEN 5-325 MG TABLET PO PRN ×2 (06:47→12:45)
[2021-07-10 07:11] LABS: GLUCOMETER DEV NAME(LOC) 5N.1C; GLUCOSE,POINT OF CARE 112 MG/DL (70-110)
[2021-07-10 07:11] LABS: GLUCOMETER DEV NAME(LOC) 5N.1C; GLUCOSE,POINT OF CARE 132 MG/DL (70-110)
[2021-07-10 08:29] VITALS: BP 117/68
[2021-07-10] MEDS: DOCUSATE SODIUM 100 MG CAPSULE PO SCH ×2 (08:44→20:51)
[2021-07-10] MEDS: FAMOTIDINE 20 MG TABLET PO SCH (08:44)
[2021-07-10] MEDS: HEPARIN SODIUM,PORCINE 5,000 UNITS/ML VIAL SQ SCH ×3 (08:50→20:51)
[2021-07-10] MEDS: CefTRIAXone 1 GM/DEXTROSE 50 ML IV SCH (12:46)
[2021-07-10] MEDS ORDERED: SODIUM CHLORIDE 0.9% 250 ML IV ONE (13:31)
[2021-07-10 13:58] LABS: BASOPHILS % (AUTO) 0.7 % (0.0-2.0); EOSINOPHILS % (AUTO) 0.2 % (1.0-6.0); HEMATOCRIT 36.9 % (36-46); HEMOGLOBIN 11.9 g/dL (12.0-16.0); LYMPHOCYTES # (AUTO) 1.9 K/uL (1.0-4.8); LYMPHOCYTES % (AUTO) 15.5 % (22.0-44.0); MEAN CORPUSCULAR HEMOGLOBIN 27.7 pg (26.0-34.0); MEAN CORPUSCULAR HGB CONC 32.2 G/dL (31.0-37.0); MEAN CORPUSCULAR VOLUME 86 fL (80-100); MONOCYTES # (AUTO) 0.4 K/uL (0.1-1.0); MONOCYTES % (AUTO) 3.4 % (2.0-9.0); NEUTROPHILS # (AUTO) 9.8 K/uL (1.8-7.7); NEUTROPHILS % (AUTO) 80.2 % (40.0-70.0); PLATELET COUNT (AUTO) 329 K/uL (150-450); RED BLOOD CELL COUNT(AUTO) 4.29 MIL/uL (4.00-5.20); RED CELL DISTRIBUTION WIDTH 17.7 % (11.5-14.5)
[2021-07-10] MEDS: INSULIN LISPRO 100 UNITS/ML SQ PRN ×2 (14:27→21:24)
[2021-07-10 14:32] LABS: CALCIUM, TOTAL 8.8 mg/dL (8.8-10.5); CREATININE 1.02 mg/dL (0.60-1.30); POTASSIUM 3.6 mmol/L (3.5-5.1)
[2021-07-10 14:39] LABS: ALBUMIN 2.8 g/dL (3.4-5.0); BILIRUBIN,TOTAL 0.2 mg/dL (0.1-1.0); TOTAL PROTEIN, SERUM 6.4 g/dL (6.4-8.2)
[2021-07-10 15:01] LABS: GLUCOMETER DEV NAME(LOC) 5N.1C; GLUCOSE,POINT OF CARE 245 MG/DL (70-110)
[2021-07-10 16:29] VITALS: BP 119/59
[2021-07-10 18:46] LABS: GLUCOMETER DEV NAME(LOC) 5N.1C; GLUCOSE,POINT OF CARE 114 MG/DL (70-110)
[2021-07-10 20:00] VITALS: BP 135/74
[2021-07-10] MEDS: ZOLPIDEM TARTRATE 5 MG TABLET PO PRN (20:51)
[2021-07-11] VITALS: BP 139/74
[2021-07-11 01:41] LABS: GLUCOMETER DEV NAME(LOC) 5S.2B; GLUCOSE,POINT OF CARE 169 MG/DL (70-110)
[2021-07-11 04:00] VITALS: BP 140/65
[2021-07-11 06:56] LABS: GLUCOMETER DEV NAME(LOC) 5S.2B; GLUCOSE,POINT OF CARE 149 MG/DL (70-110)
[2021-07-11 07:41] VITALS: BP 150/67
[2021-07-11] MEDS: HEPARIN SODIUM,PORCINE 5,000 UNITS/ML VIAL SQ SCH ×3 (08:34→20:52)
[2021-07-11] MEDS: OxyCODONE HCL/ACETAMINOPHEN 5-325 MG TABLET PO PRN ×2 (08:34→15:13)
[2021-07-11] MEDS: FAMOTIDINE 20 MG TABLET PO SCH (08:35)
[2021-07-11] MEDS: DOCUSATE SODIUM 100 MG CAPSULE PO SCH ×2 (08:36→20:52)
[2021-07-11 11:22] VITALS: BP 124/76
[2021-07-11] MEDS: INSULIN LISPRO 100 UNITS/ML SQ PRN (11:50)
[2021-07-11] MEDS: CefTRIAXone 1 GM/DEXTROSE 50 ML IV SCH (13:43)
[2021-07-11 15:30] VITALS: BP 135/83
[2021-07-11 16:56] LABS: GLUCOMETER DEV NAME(LOC) 5S.2B; GLUCOSE,POINT OF CARE 153 MG/DL (70-110)
[2021-07-11 20:21] LABS: GLUCOMETER DEV NAME(LOC) 5N.1C; GLUCOSE,POINT OF CARE 127 MG/DL (70-110)
[2021-07-11 20:47] VITALS: BP 112/69
[2021-07-11] MEDS: ZOLPIDEM TARTRATE 5 MG TABLET PO PRN (20:52)
[2021-07-12 00:24] VITALS: BP 119/62
[2021-07-12 04:11] VITALS: BP 129/69
[2021-07-12 06:02] LABS: GLUCOMETER DEV NAME(LOC) 5S.2B; GLUCOSE,POINT OF CARE 122 MG/DL (70-110)
[2021-07-12 06:02] LABS: GLUCOMETER DEV NAME(LOC) 5S.2B; GLUCOSE,POINT OF CARE 146 MG/DL (70-110)
[2021-07-12 07:04] VITALS: BP 125/71
[2021-07-12] MEDS: OxyCODONE HCL/ACETAMINOPHEN 5-325 MG TABLET PO PRN ×4 (07:04→23:07)
[2021-07-12 07:10] LABS: BASOPHILS % (AUTO) 1.4 % (0.0-2.0); EOSINOPHILS % (AUTO) 0.3 % (1.0-6.0); HEMATOCRIT 39.3 % (36-46); HEMOGLOBIN 12.9 g/dL (12.0-16.0); LYMPHOCYTES # (AUTO) 2.4 K/uL (1.0-4.8); LYMPHOCYTES % (AUTO) 18.7 % (22.0-44.0); MEAN CORPUSCULAR HEMOGLOBIN 28.2 pg (26.0-34.0); MEAN CORPUSCULAR HGB CONC 32.9 G/dL (31.0-37.0); MEAN CORPUSCULAR VOLUME 86 fL (80-100); MONOCYTES # (AUTO) 0.4 K/uL (0.1-1.0); MONOCYTES % (AUTO) 3.2 % (2.0-9.0); NEUTROPHILS # (AUTO) 9.6 K/uL (1.8-7.7); NEUTROPHILS % (AUTO) 76.4 % (40.0-70.0); RED BLOOD CELL COUNT(AUTO) 4.59 MIL/uL (4.00-5.20); RED CELL DISTRIBUTION WIDTH 17.8 % (11.5-14.5)
[2021-07-12 07:20] LABS: ALANINE AMINOTRANSFERASE 18 U/L (12-78); ALKALINE PHOSPHATASE 95 U/L (46-116); ANION GAP 12 mmol/L (8-16); ASPARTATE AMINOTRANSFERASE 13 U/L (15-37); BILIRUBIN,TOTAL 0.2 mg/dL (0.1-1.0); CALCIUM, TOTAL 9.6 mg/dL (8.8-10.5); CARBON DIOXIDE 26 mmol/L (22-29); CHLORIDE 102 mmol/L (98-107); CREATININE 0.91 mg/dL (0.60-1.30); GLOMERULAR FILTR. RATE CALC > 60 mL/min (>60); GLUCOSE,RANDOM 166 mg/dL (70-110); POTASSIUM 4.1 mmol/L (3.5-5.1); SODIUM SERUM 140 mmol/L (136-145); TOTAL PROTEIN, SERUM 7.1 g/dL (6.4-8.2); UREA NITROGEN, BLOOD 12 mg/dL (7-18)
[2021-07-12 08:24] LABS: PLATELET COUNT (AUTO) 402 K/uL (150-450)
[2021-07-12] MEDS: DOCUSATE SODIUM 100 MG CAPSULE PO SCH ×2 (09:10→21:33)
[2021-07-12] MEDS: FAMOTIDINE 20 MG TABLET PO SCH (09:10)
[2021-07-12] MEDS: HEPARIN SODIUM,PORCINE 5,000 UNITS/ML VIAL SQ SCH ×3 (09:10→23:06)
[2021-07-12] MEDS: ASPIRIN 81 MG CHEWABLE TABLET PO SCH (09:11)
[2021-07-12 10:36] VITALS: BP 126/65
[2021-07-12] MEDS: CefTRIAXone 1 GM/DEXTROSE 50 ML IV SCH (13:11)
[2021-07-12] MEDS: INSULIN LISPRO 100 UNITS/ML SQ PRN ×2 (13:20→18:07)
[2021-07-12 14:07] LABS: GLUCOMETER DEV NAME(LOC) 5N.1C; GLUCOSE,POINT OF CARE 185 MG/DL (70-110)
[2021-07-12] MEDS ORDERED: SODIUM CHLORIDE 0.9% 100 ML ONE (14:55)
[2021-07-12] MEDS ORDERED: IOHEXOL 350 MG/ML 100 ML VIAL ONE (14:55)
[2021-07-12 15:36] VITALS: BP 135/69
[2021-07-12] MEDS ORDERED: NAPHAZOLINE/PHENIR 0.025-0.3% 15 ML OPHTHALMIC SOLUTION OU PRN (18:00)
[2021-07-12 18:16] LABS: GLUCOMETER DEV NAME(LOC) 5S.2B; GLUCOSE,POINT OF CARE 145 MG/DL (70-110)
[2021-07-12] MEDS ORDERED: TETRAHYDROZOLINE HCL 0.05% 15 ML OPHTHALMIC SOLUTION OU PRN (18:30)
[2021-07-12 21:00] VITALS: BP 128/75
[2021-07-12] MEDS: ZOLPIDEM TARTRATE 5 MG TABLET PO PRN (21:33)
[2021-07-12 23:11] LABS: GLUCOMETER DEV NAME(LOC) 5S.2B; GLUCOSE,POINT OF CARE 122 MG/DL (70-110)
[2021-07-13] VITALS (7 sets, daily range): BP systolic 126–149; BP diastolic 59–86
[2021-07-13] MEDS: OxyCODONE HCL/ACETAMINOPHEN 5-325 MG TABLET PO PRN ×4 (06:17→20:33)
[2021-07-13] MEDS: INSULIN LISPRO 100 UNITS/ML SQ PRN ×3 (06:25→17:10)
[2021-07-13 07:51] LABS: ALANINE AMINOTRANSFERASE 19 U/L (12-78); ALBUMIN 3.1 g/dL (3.4-5.0); ALKALINE PHOSPHATASE 95 U/L (46-116); ANION GAP 13 mmol/L (8-16); ASPARTATE AMINOTRANSFERASE 15 U/L (15-37); BILIRUBIN,TOTAL 0.2 mg/dL (0.1-1.0); CARBON DIOXIDE 23 mmol/L (22-29); CHLORIDE 100 mmol/L (98-107); CREATININE 0.92 mg/dL (0.60-1.30); GLOMERULAR FILTR. RATE CALC > 60 mL/min (>60); GLUCOSE,RANDOM 175 mg/dL (70-110); POTASSIUM 3.8 mmol/L (3.5-5.1); SODIUM SERUM 136 mmol/L (136-145); TOTAL PROTEIN, SERUM 7.5 g/dL (6.4-8.2); UREA NITROGEN, BLOOD 10 mg/dL (7-18)
[2021-07-13 08:07] LABS: BASOPHILS % (AUTO) 1.2 % (0.0-2.0); EOSINOPHILS % (AUTO) 0.6 % (1.0-6.0); HEMATOCRIT 42.5 % (36-46); LYMPHOCYTES # (AUTO) 2.1 K/uL (1.0-4.8); LYMPHOCYTES % (AUTO) 18.7 % (22.0-44.0); MEAN CORPUSCULAR HGB CONC 32.8 G/dL (31.0-37.0); MEAN CORPUSCULAR VOLUME 85 fL (80-100); MONOCYTES # (AUTO) 0.5 K/uL (0.1-1.0); MONOCYTES % (AUTO) 4.2 % (2.0-9.0); NEUTROPHILS # (AUTO) 8.6 K/uL (1.8-7.7); NEUTROPHILS % (AUTO) 75.3 % (40.0-70.0); PLATELET COUNT (AUTO) 377 K/uL (150-450); RED BLOOD CELL COUNT(AUTO) 4.99 MIL/uL (4.00-5.20); RED CELL DISTRIBUTION WIDTH 17.9 % (11.5-14.5)
[2021-07-13] MEDS: FAMOTIDINE 20 MG TABLET PO SCH (08:56)
[2021-07-13] MEDS: DOCUSATE SODIUM 100 MG CAPSULE PO SCH ×2 (08:57→20:32)
[2021-07-13] MEDS: HEPARIN SODIUM,PORCINE 5,000 UNITS/ML VIAL SQ SCH ×2 (08:57→15:34)
[2021-07-13] MEDS: ASPIRIN 81 MG CHEWABLE TABLET PO SCH (08:57)
[2021-07-13 10:01] LABS: GLUCOMETER DEV NAME(LOC) 5N.1C; GLUCOSE,POINT OF CARE 172 MG/DL (70-110)
[2021-07-13 17:27] LABS: GLUCOMETER DEV NAME(LOC) 5N.1C; GLUCOSE,POINT OF CARE 192 MG/DL (70-110)
[2021-07-13 18:12] LABS: GLUCOMETER DEV NAME(LOC) 5S.2B; GLUCOSE,POINT OF CARE 161 MG/DL (70-110)
[2021-07-13] MEDS: ZOLPIDEM TARTRATE 5 MG TABLET PO PRN (20:35)
[2021-07-14] MEDS: HEPARIN SODIUM,PORCINE 5,000 UNITS/ML VIAL SQ SCH ×4 (00:37→23:15)
[2021-07-14 03:25] VITALS: BP 132/71
[2021-07-14] MEDS: OxyCODONE HCL/ACETAMINOPHEN 5-325 MG TABLET PO PRN ×4 (06:01→22:32)
[2021-07-14 07:06] LABS: GLUCOMETER DEV NAME(LOC) 5S.2B; GLUCOSE,POINT OF CARE 139 MG/DL (70-110)
[2021-07-14 07:06] LABS: GLUCOMETER DEV NAME(LOC) 5S.2B; GLUCOSE,POINT OF CARE 137 MG/DL (70-110)
[2021-07-14 07:07] LABS: ALANINE AMINOTRANSFERASE 25 U/L (12-78); ALBUMIN 3.2 g/dL (3.4-5.0); ALKALINE PHOSPHATASE 94 U/L (46-116); ANION GAP 10 mmol/L (8-16); ASPARTATE AMINOTRANSFERASE 19 U/L (15-37); BILIRUBIN,TOTAL 0.2 mg/dL (0.1-1.0); CALCIUM, TOTAL 10.2 mg/dL (8.8-10.5); CARBON DIOXIDE 26 mmol/L (22-29); CHLORIDE 100 mmol/L (98-107); CREATININE 0.84 mg/dL (0.60-1.30); GLOMERULAR FILTR. RATE CALC > 60 mL/min (>60); GLUCOSE,RANDOM 143 mg/dL (70-110); HEMATOCRIT 39.3 % (36-46); HEMOGLOBIN 13.1 g/dL (12.0-16.0); LYMPHOCYTES # (AUTO) 1.7 K/uL (1.0-4.8); MEAN CORPUSCULAR HEMOGLOBIN 28.3 pg (26.0-34.0); MEAN CORPUSCULAR HGB CONC 33.3 G/dL (31.0-37.0); MEAN CORPUSCULAR VOLUME 85 fL (80-100); MONOCYTES # (AUTO) 0.6 K/uL (0.1-1.0); MONOCYTES % (AUTO) 6.6 % (2.0-9.0); NEUTROPHILS # (AUTO) 6.9 K/uL (1.8-7.7); NEUTROPHILS % (AUTO) 73.4 % (40.0-70.0); PLATELET COUNT (AUTO) 409 K/uL (150-450); POTASSIUM 4.3 mmol/L (3.5-5.1); RED BLOOD CELL COUNT(AUTO) 4.64 MIL/uL (4.00-5.20); RED CELL DISTRIBUTION WIDTH 17.7 % (11.5-14.5); SODIUM SERUM 136 mmol/L (136-145); TOTAL PROTEIN, SERUM 7.4 g/dL (6.4-8.2); UREA NITROGEN, BLOOD 8 mg/dL (7-18)
[2021-07-14 08:20] VITALS: BP 128/76
[2021-07-14] MEDS: FAMOTIDINE 20 MG TABLET PO SCH (09:30)
[2021-07-14] MEDS: DOCUSATE SODIUM 100 MG CAPSULE PO SCH ×2 (09:30→21:00)
[2021-07-14] MEDS: ASPIRIN 81 MG CHEWABLE TABLET PO SCH (09:31)
[2021-07-14 12:12] LABS: GLUCOMETER DEV NAME(LOC) 5N.1C; GLUCOSE,POINT OF CARE 136 MG/DL (70-110)
[2021-07-14 12:45] VITALS: BP 136/71
[2021-07-14] MEDS: CefTRIAXone 1 GM/DEXTROSE 50 ML IV SCH (13:00)
[2021-07-14 17:31] LABS: GLUCOMETER DEV NAME(LOC) 5S.1B; GLUCOSE,POINT OF CARE 132 MG/DL (70-110)
[2021-07-14 19:52] VITALS: BP 130/59
[2021-07-14] MEDS ORDERED: IOHEXOL 350 MG/ML 100 ML VIAL ONE (21:54)
[2021-07-14] MEDS ORDERED: SODIUM CHLORIDE 0.9% 100 ML ONE (21:54)
[2021-07-14 23:02] VITALS: BP 127/72
[2021-07-15 04:39] VITALS: BP 121/69
[2021-07-15 06:01] LABS: GLUCOMETER DEV NAME(LOC) 5S.1B; GLUCOSE,POINT OF CARE 140 MG/DL (70-110)
[2021-07-15] MEDS: OxyCODONE HCL/ACETAMINOPHEN 5-325 MG TABLET PO PRN ×2 (06:33→10:58)
[2021-07-15 07:53] LABS: BASOPHILS % (AUTO) 0.2 % (0.0-2.0); HEMATOCRIT 38.9 % (36-46); HEMOGLOBIN 13.2 g/dL (12.0-16.0); LYMPHOCYTES # (AUTO) 2.1 K/uL (1.0-4.8); LYMPHOCYTES % (AUTO) 18.1 % (22.0-44.0); MEAN CORPUSCULAR HEMOGLOBIN 28.5 pg (26.0-34.0); MEAN CORPUSCULAR HGB CONC 33.9 G/dL (31.0-37.0); MEAN CORPUSCULAR VOLUME 84 fL (80-100); MONOCYTES # (AUTO) 0.6 K/uL (0.1-1.0); MONOCYTES % (AUTO) 5.1 % (2.0-9.0); NEUTROPHILS # (AUTO) 8.8 K/uL (1.8-7.7); NEUTROPHILS % (AUTO) 75.6 % (40.0-70.0); PLATELET COUNT (AUTO) 412 K/uL (150-450); RED BLOOD CELL COUNT(AUTO) 4.62 MIL/uL (4.00-5.20); RED CELL DISTRIBUTION WIDTH 17.6 % (11.5-14.5)
[2021-07-15 08:10] LABS: ALANINE AMINOTRANSFERASE 26 U/L (12-78); ALBUMIN 3.2 g/dL (3.4-5.0); ALKALINE PHOSPHATASE 98 U/L (46-116); ANION GAP 9 mmol/L (8-16); ASPARTATE AMINOTRANSFERASE 19 U/L (15-37); BILIRUBIN,TOTAL 0.2 mg/dL (0.1-1.0); CALCIUM, TOTAL 10.3 mg/dL (8.8-10.5); CARBON DIOXIDE 25 mmol/L (22-29); CHLORIDE 98 mmol/L (98-107); CREATININE 0.82 mg/dL (0.60-1.30); GLOMERULAR FILTR. RATE CALC > 60 mL/min (>60); GLUCOSE,RANDOM 144 mg/dL (70-110); POTASSIUM 4.3 mmol/L (3.5-5.1); SODIUM SERUM 132 mmol/L (136-145); TOTAL PROTEIN, SERUM 7.3 g/dL (6.4-8.2); UREA NITROGEN, BLOOD 8 mg/dL (7-18)
[2021-07-15 08:20] VITALS: BP 117/75
[2021-07-15] MEDS: HEPARIN SODIUM,PORCINE 5,000 UNITS/ML VIAL SQ SCH (08:26)
[2021-07-15] MEDS: DOCUSATE SODIUM 100 MG CAPSULE PO SCH (08:27)
[2021-07-15] MEDS: FAMOTIDINE 20 MG TABLET PO SCH (08:27)
[2021-07-15] MEDS: ASPIRIN 81 MG CHEWABLE TABLET PO SCH (08:27)
[2021-07-15 08:36] LABS: GLUCOMETER DEV NAME(LOC) 5N.1C; GLUCOSE,POINT OF CARE 126 MG/DL (70-110)
[2021-07-15 11:46] VITALS: BP 128/65
[2021-07-15] MEDS: CefTRIAXone 1 GM/DEXTROSE 50 ML IV SCH (12:54)
[2021-07-15] MEDS ORDERED: CEFD300C3 PO (13:35)
[2021-07-15 17:31] LABS: GLUCOMETER DEV NAME(LOC) 5S.1B; GLUCOSE,POINT OF CARE 121 MG/DL (70-110)
== END 2021-07-15 15:15 | disposition home or self-care (01) | DRG 139 ==
LOC: EMS 10:43 → 5S 14:32
PROVIDERS: ADMIT Internal Medicine; ATTEND Internal Medicine
PROC: 05HY33Z Insertion of Infusion Device into Upper Vein, Percutaneous Approach (ICD-10-PCS; principal; 2021-07-09)
PROC: 05HY33Z Insertion of Infusion Device into Upper Vein, Percutaneous Approach (ICD-10-PCS; 2021-07-15)
DX: J18.9 Pneumonia, unspecified organism (principal); J96.11 Chronic respiratory failure with hypoxia; E44.0 Moderate protein-calorie malnutrition; E11.40 Type 2 diabetes mellitus with diabetic neuropathy, unspecified; R07.89 Other chest pain; I25.10 Atherosclerotic heart disease of native coronary artery without angina pectoris; I50.9 Heart failure, unspecified; N39.0 Urinary tract infection, site not specified; J44.9 Chronic obstructive pulmonary disease, unspecified; J84.10 Pulmonary fibrosis, unspecified; F17.200 Nicotine dependence, unspecified, uncomplicated; Z20.822 Contact with and (suspected) exposure to COVID-19; N64.4 Mastodynia; I70.0 Atherosclerosis of aorta; E66.9 Obesity, unspecified; J44.0 Chronic obstructive pulmonary disease with (acute) lower respiratory infection; Z83.3 Family history of diabetes mellitus; Z88.8 Allergy status to other drugs, medicaments and biological substances; Z88.2 Allergy status to sulfonamides; Z68.30 Body mass index [BMI] 30.0-30.9, adult
CPT/HCPCS: 36245; 36569; 71045; 71275; 76937; 80053; 81001; 82962; 83880; 84484; 85025; 87086; 93005; 93306; 94640; 99285; J0696; J1644; J7050; Q9967; 36415-L1; 36415-TC; J7613

== ENCOUNTER 2021-07-28 19:36 | Emergency (ER) | payer OTHER ==
[~2021-07-28] VITALS: Ht 154.9 cm; Wt 87.3 kg
[~2021-07-28 19:36] MED LIST changes: +CEFD300C3 PO; -DILT-39 PO; -DOXY-354 PO; -PRED-554 PO; -TRAZ-257 PO; -ZIPR80CA2 PO
[2021-07-28 22:50] LABS: BASOPHILS % (AUTO) 0.4 % (0.0-2.0); EOSINOPHILS % (AUTO) 0.2 % (1.0-6.0); HEMATOCRIT 31.9 % (36-46); HEMOGLOBIN 10.4 g/dL (12.0-16.0); LYMPHOCYTES % (AUTO) 16.7 % (22.0-44.0); MEAN CORPUSCULAR HEMOGLOBIN 28.1 pg (26.0-34.0); MEAN CORPUSCULAR HGB CONC 32.8 G/dL (31.0-37.0); MEAN CORPUSCULAR VOLUME 86 fL (80-100); MONOCYTES # (AUTO) 0.7 K/uL (0.1-1.0); MONOCYTES % (AUTO) 6.1 % (2.0-9.0); NEUTROPHILS # (AUTO) 9.4 K/uL (1.8-7.7); NEUTROPHILS % (AUTO) 76.6 % (40.0-70.0); PLATELET COUNT (AUTO) 343 K/uL (150-450); RED BLOOD CELL COUNT(AUTO) 3.71 MIL/uL (4.00-5.20); RED CELL DISTRIBUTION WIDTH 17.6 % (11.5-14.5)
[2021-07-28] MEDS ORDERED: HYDROCODONE/ACETAMINOPHEN 5-325 MG TABLET PO ONE (23:00)
[2021-07-28 23:01] LABS: CALCIUM, TOTAL 8.8 mg/dL (8.8-10.5); CREATININE 1.43 mg/dL (0.60-1.30); POTASSIUM 4.5 mmol/L (3.5-5.1)
[2021-07-28 23:03] LABS: INR 0.9 (0.9-1.1); PROTHROMBIN TIME 9.7 SEC (9.4-11.6)
[2021-07-28 23:06] LABS: ALBUMIN 3.3 g/dL (3.4-5.0); BILIRUBIN,TOTAL 0.2 mg/dL (0.1-1.0); TOTAL PROTEIN, SERUM 6.8 g/dL (6.4-8.2)
[2021-07-28] MEDS ORDERED: CYCL-309 PO (23:41)
[2021-07-28] MEDS ORDERED: IBUP-2070 PO (23:41)
[2021-07-29 00:11] VITALS: BP 116/68
[2021-07-29] MEDS ORDERED: CYCLOBENZAPRINE HCL 10 MG TABLET PO ONE (00:45)
== END 2021-07-29 01:20 | disposition home or self-care (01) ==
LOC: EMS 19:37
DX: M25.552 Pain in left hip (principal); J44.9 Chronic obstructive pulmonary disease, unspecified; F17.210 Nicotine dependence, cigarettes, uncomplicated; Z88.1 Allergy status to other antibiotic agents; Z88.2 Allergy status to sulfonamides; Z88.8 Allergy status to other drugs, medicaments and biological substances; Z79.899 Other long term (current) drug therapy
CPT/HCPCS: 73503; 73552; 80053; 85025; 85610; 85730; 93971; 99285

== ENCOUNTER 2021-08-05 19:55 | Inpatient (IN) | payer OTHER ==
[~2021-08-05] VITALS: Ht 154.9 cm; Wt 84.0 kg
[~2021-08-05 19:55] MED LIST changes: +CYCL-309 PO; +IBUP-2070 PO
[2021-08-05] MEDS ORDERED: HYDROCODONE/ACETAMINOPHEN 5-325 MG TABLET PO ONE (20:30)
[2021-08-05 20:36] LABS: HEMATOCRIT 24.6 % (36-46); HEMOGLOBIN 8.2 g/dL (12.0-16.0); MEAN CORPUSCULAR HEMOGLOBIN 28.2 pg (26.0-34.0); MEAN CORPUSCULAR HGB CONC 33.5 G/dL (31.0-37.0); MEAN CORPUSCULAR VOLUME 84 fL (80-100); PLATELET COUNT (AUTO) 433 K/uL (150-450); RED BLOOD CELL COUNT(AUTO) 2.93 MIL/uL (4.00-5.20); RED CELL DISTRIBUTION WIDTH 17.4 % (11.5-14.5)
[2021-08-05 20:45] LABS: CALCIUM, TOTAL 9.4 mg/dL (8.8-10.5); CREATININE 1.86 mg/dL (0.60-1.30); POTASSIUM 4.1 mmol/L (3.5-5.1)
[2021-08-05] MEDS ORDERED: ALBUTEROL SULFATE 5 MG/ML 20 ML NEB SOLN [BULK] NEB ONE (20:45)
[2021-08-05 21:08] LABS: COVID AG,FIA SOURCE NASAL SWAB
[2021-08-05] MEDS ORDERED: GABA600T10 PO (21:08)
[2021-08-05] MEDS ORDERED: ASPI-1522 PO (21:08)
[2021-08-05] MEDS ORDERED: SIMV10TA97 PO (21:08)
[2021-08-05] MEDS ORDERED: FAMO20TA8 PO (21:08)
[2021-08-05] MEDS ORDERED: METF-446 PO (21:08)
[2021-08-05] MEDS ORDERED: ACET325T51 PO (21:08)
[2021-08-05] MEDS ORDERED: PANT40TA54 PO (21:08)
[2021-08-05] MEDS ORDERED: ZOLP10TA8 PO (21:08)
[2021-08-05] MEDS ORDERED: BUSP30TA2 PO (21:08)
[2021-08-05] MEDS ORDERED: ZIPR80CA9 PO (21:08)
[2021-08-05] MEDS ORDERED: TRAZ-257 PO (21:08)
[2021-08-05] MEDS ORDERED: DILT180C86 PO (21:08)
[2021-08-05] MEDS ORDERED: ALEN70TA80 PO (21:08)
[2021-08-05] MEDS ORDERED: OXYC-618 PO (21:08)
[2021-08-05] MEDS ORDERED: FURO40TA5 PO (21:08)
[2021-08-05] MEDS ORDERED: LORA-999 PO (21:08)
[2021-08-05] MEDS ORDERED: QUET200T30 PO (21:08)
[2021-08-05 21:28] LABS: BAND NEUTROPHILS % (MANUAL) 0 % (0-5)
[2021-08-05 21:34] LABS: SEGMENTED NEUTROPHILS % 83 % (40-70)
[2021-08-05 21:36] LABS: EOSINOPHILS % (MANUAL) 1 % (1-6); LYMPHOCYTES % (MANUAL) 10 % (22-44); METAMYELOCYTES % 3 % (0-0); MONOCYTES % (MANUAL) 1 % (2-9); MYELOCYTES % 2 % (0-0)
[2021-08-05] MEDS ORDERED: SODIUM CHLORIDE 0.9% 500 ML IV ONE (21:45)
[2021-08-05] MEDS ORDERED: PredniSONE 20 MG TABLET PO ONE (22:15)
[2021-08-05] MEDS ORDERED: 0.9% SODIUM CHLORIDE 5 ML NEB SOLUTION NEB ONE (22:50)
[2021-08-05] MEDS ORDERED: MAGNESIUM HYDROXIDE SUSPENSION 30 ML UDCUP PO PRN (23:15)
[2021-08-05] MEDS ORDERED: ALBUTEROL SULFATE 2.5 MG/0.5 ML NEB SOLUTION NEB PRN (23:15)
[2021-08-05] MEDS ORDERED: ACETAMINOPHEN 325 MG TABLET PO PRN (23:15)
[2021-08-05] MEDS ORDERED: IPRATROPIUM BROMIDE 0.5 MG/2.5 ML NEB SOLUTION NEB PRN (23:15)
[2021-08-05] MEDS ORDERED: ONDANSETRON HCL 4 MG/2 ML VIAL IVP PRN (23:15)
[2021-08-05] MEDS ORDERED: BISACODYL 10 MG RECTAL RECTAL SUPPOSITORY PR PRN (23:15)
[2021-08-05] MEDS ORDERED: ZOLPIDEM TARTRATE 5 MG TABLET PO PRN (23:15)
[2021-08-06] MEDS ORDERED: HEPARIN SODIUM,PORCINE 5,000 UNITS/ML VIAL SQ SCH
[2021-08-06 00:30] VITALS: BP 125/67
[2021-08-06] MEDS: CefTRIAXone 1 GM/DEXTROSE 50 ML IV SCH ×2 (00:55→23:07)
[2021-08-06] MEDS: MethylPREDNISolone SOD SUCC 125 MG/2 ML VIAL IVP SCH ×5 (01:06→23:05)
[2021-08-06 01:25] LABS: GLUCOMETER DEV NAME(LOC) 5S.2B; GLUCOSE,POINT OF CARE 163 MG/DL (70-110)
[2021-08-06] MEDS: ALBUTEROL SULFATE 2.5 MG/0.5 ML NEB SOLUTION NEB SCH ×4 (02:00→19:39)
[2021-08-06] MEDS: IPRATROPIUM BROMIDE 0.5 MG/2.5 ML NEB SOLUTION NEB SCH ×4 (02:00→19:39)
[2021-08-06] MEDS: AZITHROMYCIN 500 MG/NS 250 ML IV SCH ×2 (02:12→23:53)
[2021-08-06 04:13] VITALS: BP 127/65
[2021-08-06] MEDS ORDERED: DEXTROSE 50%-WATER 25 GM/50 ML SYRINGE IVP PRN (07:00)
[2021-08-06] MEDS: INSULIN LISPRO 100 UNITS/ML SQ PRN ×4 (07:02→22:04)
[2021-08-06 07:07] LABS: GLUCOMETER DEV NAME(LOC) 5N.1C; GLUCOSE,POINT OF CARE 269 MG/DL (70-110)
[2021-08-06 07:52] VITALS: BP 130/61
[2021-08-06] MEDS: TAMSULOSIN HCL 0.4 MG CAPSULE PO SCH ×2 (08:02→21:53)
[2021-08-06] MEDS ORDERED: MetFORMIN HCL 500 MG TABLET PO SCH (09:00)
[2021-08-06] MEDS ORDERED: ASPIRIN 81 MG DR TABLET PO SCH (09:00)
[2021-08-06] MEDS: MORPHINE SULFATE 2 MG/ML SYRINGE IVP PRN ×3 (09:24→18:47)
[2021-08-06] MEDS: BENZONATATE 100 MG CAPSULE PO SCH ×3 (09:27→21:58)
[2021-08-06] MEDS: PANTOPRAZOLE SODIUM 40 MG DR TABLET PO SCH (09:28)
[2021-08-06] MEDS: FUROSEMIDE 40 MG TABLET PO SCH (09:28)
[2021-08-06] MEDS: GuaiFENesin SR 600 MG ER TABLET PO SCH ×2 (09:28→21:58)
[2021-08-06] MEDS: DOCUSATE SODIUM 100 MG CAPSULE PO SCH ×2 (09:29→21:52)
[2021-08-06] MEDS: CYCLOBENZAPRINE HCL 10 MG TABLET PO SCH ×2 (09:33→21:53)
[2021-08-06 11:26] VITALS: BP 140/70
[2021-08-06] MEDS: HYDROCODONE/ACETAMINOPHEN 5-325 MG TABLET PO PRN ×3 (12:09→22:10)
[2021-08-06 12:11] LABS: GLUCOMETER DEV NAME(LOC) 5N.1C; GLUCOSE,POINT OF CARE 274 MG/DL (70-110)
[2021-08-06 14:19] LABS: HEMATOCRIT 24.8 % (36-46); HEMOGLOBIN 8.3 g/dL (12.0-16.0); MEAN CORPUSCULAR HEMOGLOBIN 28.2 pg (26.0-34.0); MEAN CORPUSCULAR HGB CONC 33.3 G/dL (31.0-37.0); MEAN CORPUSCULAR VOLUME 85 fL (80-100); PLATELET COUNT (AUTO) 487 K/uL (150-450); RED BLOOD CELL COUNT(AUTO) 2.93 MIL/uL (4.00-5.20); RED CELL DISTRIBUTION WIDTH 17.9 % (11.5-14.5)
[2021-08-06 14:35] LABS: CREATININE 1.66 mg/dL (0.60-1.30); POTASSIUM 4.2 mmol/L (3.5-5.1)
[2021-08-06 15:19] LABS: BAND NEUTROPHILS % (MANUAL) 5 % (0-5); LYMPHOCYTES % (MANUAL) 7 % (22-44); METAMYELOCYTES % 1 % (0-0); MONOCYTES % (MANUAL) 1 % (2-9); SEGMENTED NEUTROPHILS % 86 % (40-70)
[2021-08-06 15:55] VITALS: BP 123/78
[2021-08-06 17:36] LABS: GLUCOMETER DEV NAME(LOC) 5N.1C; GLUCOSE,POINT OF CARE 175 MG/DL (70-110)
[2021-08-06 20:27] VITALS: BP 126/57
[2021-08-06] MEDS: MetFORMIN HCL 500 MG TABLET PO SCH ×2 (21:00→21:54)
[2021-08-07 00:29] VITALS: BP 130/58
[2021-08-07] MEDS ORDERED: BISACODYL 10 MG RECTAL RECTAL SUPPOSITORY PR PRN (01:45)
[2021-08-07] MEDS: ALBUTEROL SULFATE 2.5 MG/0.5 ML NEB SOLUTION NEB SCH ×3 (01:49→14:00)
[2021-08-07] MEDS: IPRATROPIUM BROMIDE 0.5 MG/2.5 ML NEB SOLUTION NEB SCH ×3 (01:49→14:00)
[2021-08-07 01:50] LABS: GLUCOMETER DEV NAME(LOC) 5S.2B; GLUCOSE,POINT OF CARE 215 MG/DL (70-110)
[2021-08-07 04:40] VITALS: BP 117/61
[2021-08-07] MEDS: MORPHINE SULFATE 2 MG/ML SYRINGE IVP PRN ×2 (04:49→09:31)
[2021-08-07] MEDS: MethylPREDNISolone SOD SUCC 125 MG/2 ML VIAL IVP SCH (06:15)
[2021-08-07] MEDS: INSULIN LISPRO 100 UNITS/ML SQ PRN ×2 (06:18→11:53)
[2021-08-07 06:51] LABS: GLUCOMETER DEV NAME(LOC) 5S.2B; GLUCOSE,POINT OF CARE 270 MG/DL (70-110)
[2021-08-07 07:32] VITALS: BP 137/71
[2021-08-07 08:39] LABS: CALCIUM, TOTAL 9.4 mg/dL (8.8-10.5); CREATININE 1.22 mg/dL (0.60-1.30); MAGNESIUM 2.1 mg/dL (1.80-2.40); PHOSPHORUS 2.8 mg/dL (2.5-4.9); POTASSIUM 3.6 mmol/L (3.5-5.1); THYROID STIMULATING HORMONE 0.12 uIU/mL (0.36-3.74)
[2021-08-07] MEDS: DOCUSATE SODIUM 100 MG CAPSULE PO SCH (09:37)
[2021-08-07] MEDS: TAMSULOSIN HCL 0.4 MG CAPSULE PO SCH (09:38)
[2021-08-07] MEDS: CYCLOBENZAPRINE HCL 10 MG TABLET PO SCH (09:38)
[2021-08-07] MEDS: MetFORMIN HCL 500 MG TABLET PO SCH (09:39)
[2021-08-07] MEDS: PANTOPRAZOLE SODIUM 40 MG DR TABLET PO SCH (09:40)
[2021-08-07] MEDS: FUROSEMIDE 40 MG TABLET PO SCH (09:40)
[2021-08-07] MEDS: GuaiFENesin SR 600 MG ER TABLET PO SCH (09:40)
[2021-08-07] MEDS: BENZONATATE 100 MG CAPSULE PO SCH (09:41)
[2021-08-07] MEDS ORDERED: IOHEXOL 350 MG/ML 150 ML VIAL ONE (10:08)
[2021-08-07] MEDS: HYDROCODONE/ACETAMINOPHEN 5-325 MG TABLET PO PRN (11:27)
[2021-08-07 11:28] VITALS: BP 132/71
[2021-08-07 11:56] LABS: GLUCOMETER DEV NAME(LOC) 5S.2B; GLUCOSE,POINT OF CARE 169 MG/DL (70-110)
[2021-08-07] MEDS ORDERED: MAG HYDROX/AL HYDROX/SIMETH ES 30 ML SUSPENSION UDCUP PO PRN (12:45)
[2021-08-07] MEDS ORDERED: PRED-554 PO (14:06)
[2021-08-07 15:49] VITALS: BP 138/79
== END 2021-08-07 17:17 | disposition home or self-care (01) | DRG 140 ==
LOC: EMS 19:57 → 5S 23:00
PROVIDERS: ADMIT Internal Medicine; ATTEND Internal Medicine
DX: J44.1 Chronic obstructive pulmonary disease with (acute) exacerbation (principal); J96.01 Acute respiratory failure with hypoxia; I50.33 Acute on chronic diastolic (congestive) heart failure; N17.9 Acute kidney failure, unspecified; E11.40 Type 2 diabetes mellitus with diabetic neuropathy, unspecified; E87.1 Hypo-osmolality and hyponatremia; I48.20 Chronic atrial fibrillation, unspecified; G56.00 Carpal tunnel syndrome, unspecified upper limb; I11.0 Hypertensive heart disease with heart failure; J84.10 Pulmonary fibrosis, unspecified; I25.10 Atherosclerotic heart disease of native coronary artery without angina pectoris; E66.9 Obesity, unspecified; E78.5 Hyperlipidemia, unspecified; S70.12XA Contusion of left thigh, initial encounter; Z20.822 Contact with and (suspected) exposure to COVID-19; Z96.649 Presence of unspecified artificial hip joint; Z79.899 Other long term (current) drug therapy; Z87.891 Personal history of nicotine dependence; Z79.84 Long term (current) use of oral hypoglycemic drugs; Z68.35 Body mass index [BMI] 35.0-35.9, adult; X58.XXXA Exposure to other specified factors, initial encounter; Y93.89 Activity, other specified; Y92.89 Other specified places as the place of occurrence of the external cause; Y99.8 Other external cause status
CPT/HCPCS: 71045; 73503; 73552; 73700; 73701; 76770; 80048; 82533; 82570; 82962; 83735; 83880; 83930; 83935; 84100; 84300; 84443; 84484; 85025; 87081; 93005; 93971; 94640; 94644; 99285; G0378; J0456; J0696; J1644; J2270; J2930; J7030; Q9967; 36415-L1; 36415-TC; J7611; J7613

== ENCOUNTER 2021-11-14 15:55 | Emergency (ER) | payer OTHER ==
[~2021-11-14] VITALS: Ht 157.5 cm; Wt 72.7 kg
[~2021-11-14 15:55] MED LIST changes: +ALEN70TA80 PO; -ASPI-1444 PO; +ASPI-1522 PO; -BUSP15 PO; +BUSP30TA2 PO; -CEFD300C3 PO; +CEPH-558 PO; -CYCL-309 PO; +DOCU-385 PO; -FLUT16H NASAL; +FLUT1BLS11 IH; -GABA-1181 PO; -IBUP-2070 PO; -METF-1211 PO; +METF-446 PO; +METHI5 PO; +OMEP10 PO; -PANT-31 PO; +PRED-554 PO; -QUET200T PO; +QUET200T30 PO; +SIMV10TA97 PO; +TRAZ-257 PO; +ZIPR80CA9 PO
[2021-11-14 16:50] LABS: BASOPHILS % (AUTO) 0.5 % (0.0-2.0); EOSINOPHILS % (AUTO) 0.8 % (1.0-6.0); HEMATOCRIT 31.7 % (36-46); HEMOGLOBIN 9.6 g/dL (12.0-16.0); LYMPHOCYTES # (AUTO) 1.3 K/uL (1.0-4.8); LYMPHOCYTES % (AUTO) 9.9 % (22.0-44.0); MEAN CORPUSCULAR HEMOGLOBIN 22.1 pg (26.0-34.0); MEAN CORPUSCULAR HGB CONC 30.2 G/dL (31.0-37.0); MEAN CORPUSCULAR VOLUME 73 fL (80-100); MONOCYTES # (AUTO) 0.5 K/uL (0.1-1.0); MONOCYTES % (AUTO) 3.8 % (2.0-9.0); NEUTROPHILS # (AUTO) 11.1 K/uL (1.8-7.7); PLATELET COUNT (AUTO) 455 K/uL (150-450); RED BLOOD CELL COUNT(AUTO) 4.34 MIL/uL (4.00-5.20); RED CELL DISTRIBUTION WIDTH 22.9 % (11.5-14.5)
[2021-11-14 17:15] LABS: CALCIUM, TOTAL 8.4 mg/dL (8.8-10.5); CREATININE 1.25 mg/dL (0.60-1.30)
[2021-11-14 17:17] LABS: POTASSIUM 2.9 mmol/L (3.5-5.1)
[2021-11-14 17:20] LABS: ALBUMIN 2.8 g/dL (3.4-5.0); BILIRUBIN,TOTAL 0.3 mg/dL (0.1-1.0); TOTAL PROTEIN, SERUM 6.5 g/dL (6.4-8.2)
[2021-11-14] MEDS: POTASSIUM CHLORIDE 20 MEQ ER TABLET PO ONE (17:35)
[2021-11-14 20:48] VITALS: BP 110/75
== END 2021-11-14 21:27 | disposition home or self-care (01) ==
LOC: EMS 15:56
DX: S06.0X0A Concussion without loss of consciousness, initial encounter (principal); J44.9 Chronic obstructive pulmonary disease, unspecified; E11.40 Type 2 diabetes mellitus with diabetic neuropathy, unspecified; F17.210 Nicotine dependence, cigarettes, uncomplicated; Z96.642 Presence of left artificial hip joint; Z88.1 Allergy status to other antibiotic agents; Z88.2 Allergy status to sulfonamides; Z88.8 Allergy status to other drugs, medicaments and biological substances; W19.XXXA Unspecified fall, initial encounter; Y93.89 Activity, other specified; Y92.89 Other specified places as the place of occurrence of the external cause; Y99.8 Other external cause status
CPT/HCPCS: 70450; 72125; 80053; 82962; 83880; 84484; 85025; 93005; 99285

== ENCOUNTER 2022-05-11 14:07 | Emergency (ER) | payer OTHER ==
[~2022-05-11] VITALS: Ht 152.4 cm; Wt 74.3 kg
[~2022-05-11 14:07] MED LIST changes: -FLUT1BLS11 IH
[2022-05-11 15:47] LABS: BASOPHILS % (AUTO) 0.8 % (0.0-2.0); EOSINOPHILS % (AUTO) 1.1 % (1.0-6.0); HEMATOCRIT 38.1 % (36-46); HEMOGLOBIN 11.7 g/dL (12.0-16.0); LYMPHOCYTES # (AUTO) 1.4 K/uL (1.0-4.8); LYMPHOCYTES % (AUTO) 11.1 % (22.0-44.0); MEAN CORPUSCULAR HEMOGLOBIN 24.1 pg (26.0-34.0); MEAN CORPUSCULAR HGB CONC 30.6 G/dL (31.0-37.0); MEAN CORPUSCULAR VOLUME 79 fL (80-100); MONOCYTES # (AUTO) 0.6 K/uL (0.1-1.0); MONOCYTES % (AUTO) 4.8 % (2.0-9.0); NEUTROPHILS # (AUTO) 10.5 K/uL (1.8-7.7); NEUTROPHILS % (AUTO) 82.2 % (40.0-70.0); PLATELET COUNT (AUTO) 359 K/uL (150-450); RED BLOOD CELL COUNT(AUTO) 4.85 MIL/uL (4.00-5.20)
[2022-05-11] MEDS ORDERED: OxyCODONE HCL/ACETAMINOPHEN 5-325 MG TABLET PO ONE (16:00)
[2022-05-11 16:19] LABS: CALCIUM, TOTAL 9.4 mg/dL (8.8-10.5); CREATININE 1.26 mg/dL (0.60-1.30); POTASSIUM 3.6 mmol/L (3.5-5.1)
[2022-05-11] MEDS ORDERED: SODIUM CHLORIDE 0.9% 100 ML ONE (16:21)
[2022-05-11] MEDS ORDERED: IOHEXOL 350 MG/ML 100 ML VIAL ONE (16:21)
[2022-05-11 16:25] LABS: ALBUMIN 3.1 g/dL (3.4-5.0); BILIRUBIN,TOTAL 0.3 mg/dL (0.1-1.0); TOTAL PROTEIN, SERUM 7.3 g/dL (6.4-8.2)
[2022-05-11 21:44] LABS: APPEARANCE,URINE CLEAR (CLEAR); BILIRUBIN,URINE NEGATIVE (NEGATIVE); GLUCOSE, URINE (UA) NEGATIVE (NEGATIVE); KETONES,URINE NEGATIVE (NEGATIVE); LEUKOCYTE ESTERASE ,URINE NEGATIVE (NEGATIVE); NITRATE,URINE NEGATIVE (NEGATIVE); OCCULT BLOOD,URINE NEGATIVE (NEGATIVE); PH,URINE 6.5 (5.0-8.0); PROTEIN,URINE NEGATIVE (NEGATIVE); SPECIFIC GRAVITIY, URINE 1.021 (1.003-1.030); UROBILINOGEN,URINE <=1.0 mg/dL (<=1.0)
[2022-05-11 22:25] VITALS: BP 144/77
== END 2022-05-11 22:45 | disposition home or self-care (01) ==
LOC: EMS 14:23
DX: M79.605 Pain in left leg (principal); J44.9 Chronic obstructive pulmonary disease, unspecified; E11.40 Type 2 diabetes mellitus with diabetic neuropathy, unspecified; F17.210 Nicotine dependence, cigarettes, uncomplicated; R10.9 Unspecified abdominal pain; R07.89 Other chest pain; Z96.642 Presence of left artificial hip joint; Z88.2 Allergy status to sulfonamides; Z88.8 Allergy status to other drugs, medicaments and biological substances
CPT/HCPCS: 99285; 74177; 71045; 80053; 81003; 82962; 83690; 83880; 84484; 85025; 36415; 73503; 73562; 73590; 73630; 93005; Q9967; J7050

== ENCOUNTER 2022-05-12 00:30 | Emergency (ER) | payer OTHER ==
[~2022-05-12] VITALS: Ht 152.4 cm; Wt 74.0 kg
[2022-05-12 08:15] VITALS: BP 139/86
== END 2022-05-12 09:00 | disposition home or self-care (01) ==
LOC: EMS 00:32
DX: J44.9 Chronic obstructive pulmonary disease, unspecified (principal); E11.40 Type 2 diabetes mellitus with diabetic neuropathy, unspecified; F17.210 Nicotine dependence, cigarettes, uncomplicated; Z88.2 Allergy status to sulfonamides; Z88.1 Allergy status to other antibiotic agents; Z98.890 Other specified postprocedural states
CPT/HCPCS: 99283

== ENCOUNTER 2024-03-11 15:22 | Emergency (ER) | payer OTHER ==
[~2024-03-11] VITALS: Ht 157.5 cm; Wt 77.3 kg
[~2024-03-11 15:22] MED LIST changes: -ALBU8HFA IH; +ALEN70TA65 PO; +ALPR-709 PO; +ASPI-1444 PO; -ASPI-1522 PO; +BENZ100C68 PO; +BUSP15 PO; -BUSP30TA2 PO; -CEPH-558 PO; -DOCU-385 PO; +FLUT1BLS10 IH; +GABA-1216 PO; +GUAI100L96 PO; +HYDR-4062 PO; -METHI5 PO; +METHIMAZOLE5 MG PO; +METO25 PO; +MULT-248 PO; -OMEP10 PO; +OMEP20 PO; -PRED-554 PO; +PRED-729 PO; +SODI100067 PO; +TRAM50TA5 PO; -ZIPR80CA9 PO
[2024-03-11 17:09] LABS: BASOPHILS % (AUTO) 0.9 % (0.0-2.0); EOSINOPHILS % (AUTO) 3.3 % (1.0-6.0); HEMATOCRIT 32.7 % (36-46); HEMOGLOBIN 10.7 g/dL (12.0-16.0); LYMPHOCYTES # (AUTO) 2.2 K/uL (1.0-4.8); LYMPHOCYTES % (AUTO) 19.9 % (22.0-44.0); MEAN CORPUSCULAR HEMOGLOBIN 27.6 pg (26.0-34.0); MEAN CORPUSCULAR HGB CONC 32.5 G/dL (31.0-37.0); MEAN CORPUSCULAR VOLUME 85 fL (80-100); MONOCYTES # (AUTO) 0.8 K/uL (0.1-1.0); MONOCYTES % (AUTO) 7.2 % (2.0-9.0); NEUTROPHILS # (AUTO) 7.5 K/uL (1.8-7.7); NEUTROPHILS % (AUTO) 68.7 % (40.0-70.0); PLATELET COUNT (AUTO) 475 K/uL (150-450); RED BLOOD CELL COUNT(AUTO) 3.86 MIL/uL (4.00-5.20); RED CELL DISTRIBUTION WIDTH 17.3 % (11.5-14.5)
[2024-03-11] MEDS: FAMOTIDINE 20 MG/2 ML VIAL IVP ONE (17:14)
[2024-03-11] MEDS: MORPHINE SULFATE 2 MG/ML SYRINGE IVP ONE ×2 (17:14→19:11)
[2024-03-11] MEDS: SODIUM CHLORIDE 0.9% 1,000 ML IV ONE (17:15)
[2024-03-11 17:30] LABS: CREATININE 1.25 mg/dL (0.60-1.30); POTASSIUM 3.8 mmol/L (3.5-5.1)
[2024-03-11 17:32] LABS: TROPONIN I-HIGH SENSITIVITY 8 ng/L (<51)
[2024-03-11 17:37] LABS: CALCIUM, TOTAL 8.3 mg/dL (8.8-10.5)
[2024-03-11] MEDS: KETOROLAC TROMETHAMINE 30 MG/ML VIAL IVP ONE (19:54)
[2024-03-11] MEDS ORDERED: POLY119P3 PO (20:40)
[2024-03-11] MEDS ORDERED: TRAM50TA5 PO (20:40)
[2024-03-11] MEDS ORDERED: MORPHINE SULFATE 2 MG/ML SYRINGE IVP ONE (20:45)
[2024-03-11 21:23] VITALS: BP 119/71; PULSE 89; RESP 18; TEMP 97.9; O2SAT 95
== END 2024-03-11 22:00 | disposition home or self-care (01) ==
LOC: EMS 15:22
DX: K59.00 Constipation, unspecified (principal); N20.0 Calculus of kidney; R10.9 Unspecified abdominal pain; E11.40 Type 2 diabetes mellitus with diabetic neuropathy, unspecified; J44.9 Chronic obstructive pulmonary disease, unspecified; Z88.1 Allergy status to other antibiotic agents; Z88.2 Allergy status to sulfonamides; Z79.82 Long term (current) use of aspirin; Z87.442 Personal history of urinary calculi; Z79.52 Long term (current) use of systemic steroids; Z79.899 Other long term (current) drug therapy
CPT/HCPCS: 99285; 74176; 96374; 96375; 96361; 80048; 83690; 84484; 85025; 36415; 96376; J3490; J1885; J2270; J7030